=== PATIENT | female | born 1940 | race Caucasian/White ===

== ENCOUNTER 2024-02-11 10:48 | Outpatient (RCR) | payer MEDICARE, MEDICAID, SELFPAY | END 2024-02-22 23:59 | disposition home or self-care (01) | LOC: SCTC 10:48 | PROVIDERS: PCP Internal Medicine; Referring Provider Internal Medicine; Visit Provider Nurse Practitioner Family | DX: Z08 Encounter for follow-up examination after completed treatment for malignant neoplasm (principal); Z85.3 Personal history of malignant neoplasm of breast; R59.0 Localized enlarged lymph nodes | CPT/HCPCS: 99212; G0463 ==

== ENCOUNTER → 2024-04-21 | Outpatient (CLI) | payer MEDICARE, MEDICAID, SELFPAY ==
--- NOTE | 2024-04-21 15:05 | XR_ITS ---
Examination: Venous duplex lower extremity sonogram, bilateral. Date and time of exam: April 21, 2024 at 1531 hours INDICATIONS: Bilateral leg swelling and pain this week Technique: Multiple sonographic images of the deep venous system have been obtained. B-mode/2-D grayscale imaging of vascular structures and Doppler spectral analysis (waveforms) and color performed Both legs are examined. Findings: Deep venous systems do not demonstrate abnormal echogenicity. All visualized deep veins exhibit compressibility. All visualized deep veins exhibit augmentation. Impression: Negative for deep vein thrombosis
== END | disposition home or self-care (01) ==
PROVIDERS: PCP Internal Medicine; Referring Provider Internal Medicine; Visit Provider Internal Medicine
DX: R22.43 Localized swelling, mass and lump, lower limb, bilateral (principal)
CPT/HCPCS: 93970

== ENCOUNTER → 2024-05-20 | Outpatient (CLI) | payer MEDICARE, MEDICAID, SELFPAY ==
[2024-05-20 09:35] LABS: Basophils % (Auto) 0 % (0-2.5); Eosinophils # (Auto) 0.6 Thou/mm3 (0.0-0.5); Eosinophils % (Auto) 17 % (0-10); Hematocrit 30.7 % (36.0-46.0); Hemoglobin 9.8 g/dL (12.0-16.0); Immature Granulocytes % (Auto) 0 % (0-0); Immature Granulocytes Auto 0.01 Thou/mm3 (0.00-0.00); Lymphocytes # (Auto) 0.9 Thou/mm3 (1.0-4.8); Lymphocytes % (Auto) 29 % (10-50); Mean Corpuscular HGB Conc 31.9 g/dl (31.0-37.0); Mean Corpuscular Hemoglobin 27.8 pg (25.0-35.0); Mean Corpuscular Volume 87 fL (80-100); Monocytes # (Auto) 0.2 Thou/mm3 (0.0-0.8); Monocytes % (Auto) 6 % (0-12); Neutrophils # (Auto) 1.5 Thou/mm3 (1.8-7.7); Neutrophils % (Auto) 48 % (37-80); Nucleated Red Blood Cell % 0 /100 WBC (0); Platelet Count 155 Thou/mm3 (140-440); RDW Standard Deviation 49.3 fL (36.4-46.3); Red Blood Count 3.52 Miln/mm3 (4.00-5.20); White Blood Count 3.2 Thou/mm3 (3.6-11.0)
[2024-05-20 09:47] LABS: Alanine Aminotransferase 11 U/L (10-49); Albumin, Serum 3.5 gm/dL (3.4-4.8); Albumin/Globulin Ratio 1.3 (1.2-2.2); Alkaline Phosphatase 70 U/L (46-116); Anion Gap 11 (7-16); Aspartate Amino Transferase 20 U/L (0-34); BUN/Creatinine Ratio 22 Ratio (12-20); Bilirubin,Total 0.6 mg/dL (0.3-1.2); Blood Urea Nitrogen 35 mg/dL (9-23); Calcium 9.3 mg/dL (8.3-10.6); Calcium (Corrected) 9.7 mg/dL (8.5-10.1); Carbon Dioxide 27.9 mMol/L (20.0-31.0); Chloride 106 mMol/L (98-107); Creatinine (Component) 1.6 mg/dL (0.6-1.3); Globulin 2.8 gm/dL (2.3-3.5); Glucose 131 mg/dL (74-106); Osmolality,Calculated 298 (275-295); Potassium 3.6 mMol/L (3.4-5.1); Sodium 145 mMol/L (136-145); Total Protein 6.3 gm/dL (5.7-8.2); eGFR 32 See Note
== END | disposition home or self-care (01) ==
LOC: SCTO 08:25
PROVIDERS: PCP Internal Medicine; Referring Provider Nurse Practitioner Family; Visit Provider Nurse Practitioner Family
DX: C50.412 Malignant neoplasm of upper-outer quadrant of left female breast (principal)
CPT/HCPCS: 36415; 80053; 85025

== ENCOUNTER → 2024-05-25 | Outpatient (CLI) | payer MEDICARE, MEDICAID, SELFPAY ==
--- NOTE | 2024-05-25 09:47 | XR_ITS ---
Examination: CT soft tissue neck, without intravenous contrast. 2-D coronal reconstructions. 2-D sagittal reconstructions. Date and time of exam :May 25, 2024 11:20 AM INDICATIONS: Palpable lump in the right neck note is beginning 6 months ago, breast carcinoma diagnosis. CTDI: vol (mGy):13.4 DLP: (mGycm):358 Technique: 1.25 mm axial sections of the neck of the obtained. Coronal and sagittal reconstructions have been obtained. Low dose protocols were performed. One or more of the following dose reduction techniques were used; automated exposure control, adjustment of the mA and/or KV according to patient size, use of iterative reconstruction technique. Findings: Symmetrical optic globes Maxillary antra are clear Symmetrical nasopharynx oropharynx No laryngeal mass Right supraclavicular lymph nodes 15 mm Right lateral neck lymph node, 9 mm, external to the sternocleidomastoid, image 31 Bilateral tiny subcentimeter thyroid nodules Lung apices clear Normal epiglottis IMPRESSION: Right cervical lymph nodes as above, consider PET CT scan follow-up
== END | disposition home or self-care (01) ==
LOC: CCTX 09:38
PROVIDERS: PCP Internal Medicine; Referring Provider Nurse Practitioner Family; Visit Provider Nurse Practitioner Family
DX: C50.412 Malignant neoplasm of upper-outer quadrant of left female breast (principal)
CPT/HCPCS: 70490

== ENCOUNTER 2024-06-01 10:29 | Outpatient (RCR) | payer MEDICARE, MEDICAID, SELFPAY | END 2024-06-22 23:59 | disposition home or self-care (01) | LOC: SCTC 10:29 | PROVIDERS: PCP Internal Medicine; Referring Provider Internal Medicine; Visit Provider Nurse Practitioner Family | DX: Z71.2 Person consulting for explanation of examination or test findings (principal); R59.0 Localized enlarged lymph nodes; D64.9 Anemia, unspecified; N18.9 Chronic kidney disease, unspecified; Z85.3 Personal history of malignant neoplasm of breast | CPT/HCPCS: 99212; G0463 ==

== ENCOUNTER → 2024-07-08 | Outpatient (CLI) | payer MEDICARE, MEDICAID, SELFPAY ==
[2024-07-08 13:06] LABS: Basophils % (Auto) 0 % (0-2.5); Eosinophils # (Auto) 0.6 Thou/mm3 (0.0-0.5); Eosinophils % (Auto) 12 % (0-10); Hematocrit 29.9 % (36.0-46.0); Hemoglobin 9.3 g/dL (12.0-16.0); Immature Granulocytes % (Auto) 0 % (0-0); Immature Granulocytes Auto 0.01 Thou/mm3 (0.00-0.00); Lymphocytes % (Auto) 20 % (10-50); Mean Corpuscular HGB Conc 31.1 g/dl (31.0-37.0); Mean Corpuscular Volume 87 fL (80-100); Monocytes # (Auto) 0.4 Thou/mm3 (0.0-0.8); Monocytes % (Auto) 8 % (0-12); Neutrophils # (Auto) 2.9 Thou/mm3 (1.8-7.7); Neutrophils % (Auto) 60 % (37-80); Nucleated Red Blood Cell % 0 /100 WBC (0); Platelet Count 204 Thou/mm3 (140-440); RDW Standard Deviation 49.1 fL (36.4-46.3); Red Blood Count 3.45 Miln/mm3 (4.00-5.20); White Blood Count 4.8 Thou/mm3 (3.6-11.0)
[2024-07-08 13:32] LABS: Anion Gap 8 (7-16); BUN/Creatinine Ratio 21 Ratio (12-20); Blood Urea Nitrogen 37 mg/dL (9-23); Carbon Dioxide 28.6 mMol/L (20.0-31.0); Chloride 108 mMol/L (98-107); Creatinine (Component) 1.8 mg/dL (0.6-1.3); Glucose 127 mg/dL (74-106); Osmolality,Calculated 299 (275-295); Potassium 4.1 mMol/L (3.4-5.1); Sodium 145 mMol/L (136-145); eGFR 28 See Note
== END | disposition home or self-care (01) ==
LOC: COPL 12:36
PROVIDERS: PCP Internal Medicine; Referring Provider Podiatrist; Visit Provider Podiatrist
DX: R60.0 Localized edema (principal)
CPT/HCPCS: 36415; 80048; 85025

== ENCOUNTER → 2024-07-20 | Outpatient (CLI) | payer MEDICARE, MEDICAID, SELFPAY | END | disposition home or self-care (01) | PROVIDERS: PCP Internal Medicine; Referring Provider Internal Medicine; Visit Provider Student in an Organized Health Care Education/Training Program | DX: I96 Gangrene, not elsewhere classified (principal); I87.313 Chronic venous hypertension (idiopathic) with ulcer of bilateral lower extremity; L97.822 Non-pressure chronic ulcer of other part of left lower leg with fat layer exposed; L97.812 Non-pressure chronic ulcer of other part of right lower leg with fat layer exposed; I10 Essential (primary) hypertension; E11.40 Type 2 diabetes mellitus with diabetic neuropathy, unspecified | CPT/HCPCS: 97597; 99212; A9270; G0463 ==

== ENCOUNTER → 2024-07-23 | Outpatient (CLI) | payer MEDICARE, MEDICAID, SELFPAY | END | disposition home or self-care (01) | LOC: SWHD 09:56 | PROVIDERS: PCP Internal Medicine; Referring Provider Internal Medicine; Visit Provider Student in an Organized Health Care Education/Training Program | DX: I87.313 Chronic venous hypertension (idiopathic) with ulcer of bilateral lower extremity (principal); E11.621 Type 2 diabetes mellitus with foot ulcer; L97.822 Non-pressure chronic ulcer of other part of left lower leg with fat layer exposed; L97.812 Non-pressure chronic ulcer of other part of right lower leg with fat layer exposed; I10 Essential (primary) hypertension; E11.40 Type 2 diabetes mellitus with diabetic neuropathy, unspecified | CPT/HCPCS: 11042; A9270 ==

== ENCOUNTER → 2024-07-31 | Outpatient (CLI) | payer MEDICARE, MEDICAID, SELFPAY | END | disposition home or self-care (01) | LOC: SWHD 14:53 | PROVIDERS: PCP Internal Medicine; Referring Provider Internal Medicine; Visit Provider Surgery | DX: I96 Gangrene, not elsewhere classified (principal); I87.313 Chronic venous hypertension (idiopathic) with ulcer of bilateral lower extremity; E11.621 Type 2 diabetes mellitus with foot ulcer; L97.822 Non-pressure chronic ulcer of other part of left lower leg with fat layer exposed; L97.812 Non-pressure chronic ulcer of other part of right lower leg with fat layer exposed; I73.9 Peripheral vascular disease, unspecified; I10 Essential (primary) hypertension; E11.40 Type 2 diabetes mellitus with diabetic neuropathy, unspecified | CPT/HCPCS: 99214; A9270; G0463 ==

== ENCOUNTER → 2024-08-03 | Outpatient (CLI) | payer MEDICARE, MEDICAID, SELFPAY | END | disposition home or self-care (01) | LOC: SWHD 14:49 | PROVIDERS: PCP Internal Medicine; Referring Provider Internal Medicine | DX: I96 Gangrene, not elsewhere classified (principal); I87.313 Chronic venous hypertension (idiopathic) with ulcer of bilateral lower extremity; E11.621 Type 2 diabetes mellitus with foot ulcer; L97.822 Non-pressure chronic ulcer of other part of left lower leg with fat layer exposed; L97.812 Non-pressure chronic ulcer of other part of right lower leg with fat layer exposed; I73.9 Peripheral vascular disease, unspecified; I10 Essential (primary) hypertension; E11.40 Type 2 diabetes mellitus with diabetic neuropathy, unspecified | CPT/HCPCS: 11042; A9270 ==

== ENCOUNTER 2024-08-10 15:41 | Emergency (ER) | payer MEDICARE, MEDICAID, SELFPAY ==
[2024-08-10 16:20] VITALS: BP 177/98; PULSE 65; RESP 20; TEMP 36.2; O2SAT 95
--- NOTE | 2024-08-10 16:30 | PD.EDRME ---
Rapid Medical Screening Exam [facility] Arrival date/time: 08/10/24 15:41 84-year-old female with a history of hypertension, presents to the emergency room with a chief complaint of bilateral lower extremity wounds. Patient was sent over by the wound care clinic for wound debridement as the patient was having too much pain for them to do it in office According to granddaughter she was told the wound is gangrenous and seeping. I have greeted and performed a focused initial assessment of this patient. A comprehensive ED assessment and evaluation of the patient, analysis of all test results, and completion of the medical decision making process will be conducted by additional ED providers. Chief Complaint: Wound/Laceration Time Seen by Provider: 08/10/24 15:46 Vital signs: Vital Signs Temperature 97.2 F 08/10/24 16:20 Pulse Rate 65 08/10/24 16:20 Respiratory Rate 20 08/10/24 16:20 Blood Pressure 177/98 H 08/10/24 16:20 Pulse Oximetry (%) 95 08/10/24 16:20 Oxygen Delivery Method Room Air 08/10/24 16:20 Vital signs reviewed by provider: Yes
--- NOTE | 2024-08-10 16:37 | XR_ITS ---
Examination: Left lower leg 2 views TECHNIQUE: AP lateral left tibia-fibula 2 views Date and time: July 31, 2024 1714 hours INDICATIONS: Swelling and pain involving the lower leg nonhealing wound lateral lower leg FINDINGS: Soft tissue defect lateral lower leg adjacent to the fibular shaft No fracture Negative for osteomyelitis IMPRESSION: No cortical bone destruction
--- NOTE | 2024-08-10 20:44 | PD.EDRME ---
Rapid Medical Screening Exam [facility] Arrival date/time: 08/10/24 15:41 08/10/24 15:41 84-year-old female with a history of hypertension, presents to the emergency room with a chief complaint of bilateral lower extremity wounds. Patient was sent over by the wound care clinic for wound debridement as the patient was having too much pain for them to do it in office According to granddaughter she was told the wound is gangrenous and seeping. I have greeted and performed a focused initial assessment of this patient. A comprehensive ED assessment and evaluation of the patient, analysis of all test results, and completion of the medical decision making process will be conducted by additional ED providers. Chief Complaint: Wound/Laceration Time Seen by Provider: 08/10/24 15:46 Vital signs: Vital Signs Temperature 97.2 F 08/10/24 16:20 Pulse Rate 65 08/10/24 16:20 Respiratory Rate 20 08/10/24 16:20 Blood Pressure 177/98 H 08/10/24 16:20 Pulse Oximetry (%) 95 08/10/24 16:20 Oxygen Delivery Method Room Air 08/10/24 16:20 RME Narrative: 08/10/24 15:41 84-year-old female with a history of hypertension, presents to the emergency room with a chief complaint of bilateral lower extremity wounds. Patient was sent over by the wound care clinic for wound debridement as the patient was having too much pain for them to do it in office According to granddaughter she was told the wound is gangrenous and seeping. I have greeted and performed a focused initial assessment of this patient. A comprehensive ED assessment and evaluation of the patient, analysis of all test results, and completion of the medical decision making process will be conducted by additional ED providers.
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
[2024-08-10 23:32] VITALS: BP 219/109; PULSE 68; RESP 16; O2SAT 94
[2024-08-11] VITALS (7 sets, daily range): BP systolic 136–213; BP diastolic 65–90; PULSE 64–74; RESP 13–19; TEMP 36.4–36.6; O2SAT 95–97
[2024-08-11] MEDS: HYDROcodone/APAP 10/325 TAB PO (01:16)
[2024-08-11] MEDS: cloNIDine HCL 0.1 MG TABLET PO (04:05)
--- NOTE | 2024-08-11 06:37 | PD.EDADDENDU ---
Emergency Room Addendum <Xiomara Mcmahan - Last Filed: 08/11/24 11:06> Addendum Narrative: 0600: Care assumed from Dr. Steiner, the previous shift emergency physician. Past medical, surgical, social and family history reviewed. Vitals and home medications reviewed. I will assume the care of the patient at this time, pending wound clinic consult. Please refer to the emergency department record for history and examination from initial visit.? Physical exam by me shows patient under no acute distress at this time. 0940: Wound clinic consulted. 1045: Wound clinic called back and they recommend to change the dressing and follow up tomorrow as an outpatient. They can be discharged. <Wayne Delgado MD - Last Filed: 08/11/24 12:07> Addendum Narrative: 0600: Care assumed from Dr. Steiner, the previous shift emergency physician. Past medical, surgical, social and family history reviewed. Vitals and home medications reviewed. I will assume the care of the patient at this time, pending wound clinic consult. Please refer to the emergency department record for history and examination from initial visit.? Physical exam by me shows patient under no acute distress at this time. 0940: Wound clinic consulted. 1045: Wound clinic called back and they recommend to change the dressing and follow up tomorrow as an outpatient. They can be discharged. I went in the room and unwrapped both legs and evaluated both wounds and there is lots of exudative discharge black discoloration and note this wound was already redressed prior to my evaluation. After evaluating the wounds I contacted the doctor at the wound clinic for the hospital and discussed the case and she reviewed some pictures of the wounds and agree that the wound was much better since the more aggressive dressing changes that were done here in the ER. Had a long discussion with the daughter and the patient and the doctor as the patient has not been tolerating the dressing changes at the clinic and discussed strategies and the best thought at this time is to go to 3 times a day wet-to-dry dressing change and take some pain medicine prior to the visit and if the regular medicine is not working they can discuss increasing this to a higher dose of hydrocodone or something else. She is already taking gabapentin for her neuropathy. Daughter was instructed 100 wet-to-dry dressing changes given some basic supplies and we contacted the wound clinic again and they are going to get an appointment in the next day and do 3 times a day daily wet-to-dry and reevaluate the effectiveness. They know they can return there is any redness extending or any infection but at this time there is no surrounding redness extending redness or cellulitis is seen at this time. And noticed both feet have palpable palpable pulses and are warm and do not believe there is any vascular insufficiency at this time arterial tello but I do suspect there is venous insufficiency issues Results <Xiomara Mcmahan - Last Filed: 08/11/24 11:06> Objective Imaging: Procedure(s): XR tibia fibula BI 2V Accession Number(s): [id number] cc: Zeus Nguyen MD; Facundo Duenas; Deangelo Thomas MD~ Examination: Left lower leg 2 views TECHNIQUE: AP lateral left tibia-fibula 2 views Date and time: July 31, 2024 1714 hours INDICATIONS: Swelling and pain involving the lower leg nonhealing wound lateral lower leg FINDINGS: Soft tissue defect lateral lower leg adjacent to the fibular shaft No fracture Negative for osteomyelitis IMPRESSION: No cortical bone destruction Dictated By: Deangelo Thomas MD
--- NOTE | 2024-08-11 10:50 | PC.NURSE ---
DRESSINGS TO WOUNDS TO BILATERAL LEGS CHANGED AT THIS TIME. DR MCDOWELL AT BEDSIDE AND MYSELF EXPLAINED TO PT'S GRANDDAUGHTER HOW TO CHANGE DRESSINGS AND TO CHANGE THEM 3 TIMES A DAY TO ASSIST WITH HEALING. GRANDDAUGHTER VERBALIZED UNDERSTANDING. DR MENON EXPLAINED THAT HE SPOKE TO WOUND CARE DOCTOR REGARDING CONTINUED CARE AND FOLLOW UP
== END 2024-08-11 12:15 | disposition home or self-care (01) ==
PROVIDERS: Emergency Provider Emergency Medicine; PCP Internal Medicine
DX: S81.802A Unspecified open wound, left lower leg, initial encounter (principal); S81.801A Unspecified open wound, right lower leg, initial encounter; X58.XXXA Exposure to other specified factors, initial encounter
CPT/HCPCS: 73590; 99283; A9270

== ENCOUNTER → 2024-08-10 | Outpatient (CLI) | payer MEDICARE, MEDICAID, SELFPAY ==
[2024-08-10 11:28] LABS: Basophils % (Auto) 0 % (0-2.5); Eosinophils # (Auto) 0.2 Thou/mm3 (0.0-0.5); Eosinophils % (Auto) 3 % (0-10); Hematocrit 28.3 % (36.0-46.0); Immature Granulocytes % (Auto) 0 % (0-0); Immature Granulocytes Auto 0.03 Thou/mm3 (0.00-0.00); Lymphocytes # (Auto) 1.3 Thou/mm3 (1.0-4.8); Lymphocytes % (Auto) 16 % (10-50); Mean Corpuscular HGB Conc 30.4 g/dl (31.0-37.0); Mean Corpuscular Hemoglobin 26.1 pg (25.0-35.0); Mean Corpuscular Volume 86 fL (80-100); Monocytes # (Auto) 0.7 Thou/mm3 (0.0-0.8); Monocytes % (Auto) 8 % (0-12); Neutrophils # (Auto) 5.9 Thou/mm3 (1.8-7.7); Neutrophils % (Auto) 72 % (37-80); Nucleated Red Blood Cell % 0 /100 WBC (0); Platelet Count 247 Thou/mm3 (140-440); RDW Standard Deviation 46.8 fL (36.4-46.3); White Blood Count 8.1 Thou/mm3 (3.6-11.0)
[2024-08-10 11:39] LABS: Anion Gap 10 (7-16); BUN/Creatinine Ratio 20 Ratio (12-20); Blood Urea Nitrogen 39 mg/dL (9-23); Calcium 8.7 mg/dL (8.3-10.6); Carbon Dioxide 27.1 mMol/L (20.0-31.0); Chloride 105 mMol/L (98-107); Glucose 96 mg/dL (74-106); Osmolality,Calculated 292 (275-295); Potassium 3.8 mMol/L (3.4-5.1); Sodium 142 mMol/L (136-145); eGFR 24 See Note
[2024-08-10 11:41] LABS: Hemoglobin 8.6 g/dL (12.0-16.0)
[2024-08-10 12:32] LABS: INR 1.1 (0.9-1.3); Partial Thromboplastin Time 31.9 Seconds (22.0-36.0); Prothrombin Time 11.5 Seconds (9.0-12.2)
== END | disposition home or self-care (01) ==
PROVIDERS: PCP Internal Medicine; Referring Provider Internal Medicine; Visit Provider Internal Medicine
DX: I25.10 Atherosclerotic heart disease of native coronary artery without angina pectoris (principal); I48.91 Unspecified atrial fibrillation
CPT/HCPCS: 36415; 80048; 85025; 85610; 85730

== ENCOUNTER → 2024-08-10 | Outpatient (CLI) | payer MEDICARE, MEDICAID, SELFPAY | END | disposition home or self-care (01) | PROVIDERS: PCP Internal Medicine; Referring Provider Internal Medicine; Visit Provider Student in an Organized Health Care Education/Training Program | DX: I96 Gangrene, not elsewhere classified (principal); I87.313 Chronic venous hypertension (idiopathic) with ulcer of bilateral lower extremity; E11.621 Type 2 diabetes mellitus with foot ulcer; L97.822 Non-pressure chronic ulcer of other part of left lower leg with fat layer exposed; L97.812 Non-pressure chronic ulcer of other part of right lower leg with fat layer exposed; I10 Essential (primary) hypertension; E11.40 Type 2 diabetes mellitus with diabetic neuropathy, unspecified | CPT/HCPCS: 97597; 97598 ×2; A9270 ==

== ENCOUNTER 2024-08-12 15:47 | Inpatient (IN) | payer MEDICARE, MEDICAID, SELFPAY ==
[2024-08-12] VITALS (7 sets, daily range): BP systolic 130–186; BP diastolic 61–104; PULSE 62–75; RESP 15–18; TEMP 36.4–36.8; O2SAT 86–98; BMI 26.9; BMI 26.3
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
--- NOTE | 2024-08-12 16:27 | PC.NURSE ---
PT HUGO FROM CLINIC, WAS GETTING AN ANGIO WHEN A PUNCTURE WAS NOTICED PER EMS, CLINIC CALLED AMBULANCE FOR PT TO COME TO ED FOR EVALUATION. PT ARRIVES WITH [facility] IN PLACE. EMS REPORTS WHEN THEY ARRIVED ON SCENE PT WAS LAYING IN BED EATING A FALAFFLE. PT HAS BEEN TO ED PAST 2 DAYS. ATTEMPTED TO CALL GRANDDAUGHTER WALLACE AT PTS REQUEST, NO ANSWER AT THIS TIME. AWAITING PROVIDER EVALUATION
[2024-08-12 16:38] LABS: Basophils % (Auto) 0 % (0-2.5); Eosinophils # (Auto) 0.2 Thou/mm3 (0.0-0.5); Eosinophils % (Auto) 3 % (0-10); Hematocrit 27.2 % (36.0-46.0); Hemoglobin 8.9 g/dL (12.0-16.0); Immature Granulocytes % (Auto) 0 % (0-0); Immature Granulocytes Auto 0.02 Thou/mm3 (0.00-0.00); Lymphocytes # (Auto) 1.1 Thou/mm3 (1.0-4.8); Lymphocytes % (Auto) 18 % (10-50); Mean Corpuscular HGB Conc 32.7 g/dl (31.0-37.0); Mean Corpuscular Hemoglobin 26.4 pg (25.0-35.0); Mean Corpuscular Volume 81 fL (80-100); Monocytes # (Auto) 0.6 Thou/mm3 (0.0-0.8); Monocytes % (Auto) 10 % (0-12); Neutrophils % (Auto) 68 % (37-80); Nucleated Red Blood Cell % 0 /100 WBC (0); Platelet Count 306 Thou/mm3 (140-440); RDW Standard Deviation 44.2 fL (36.4-46.3); Red Blood Count 3.37 Miln/mm3 (4.00-5.20); White Blood Count 5.9 Thou/mm3 (3.6-11.0)
[2024-08-12 16:50] LABS: INR 1.1 (0.9-1.3); Prothrombin Time 11.7 Seconds (9.0-12.2)
[2024-08-12] MEDS: MORPHINE SULF INJ 10 MG/ML VIAL 2 MG IVP (16:50)
[2024-08-12 17:07] LABS: Alanine Aminotransferase < 7 U/L (10-49); Albumin, Serum 3.6 gm/dL (3.4-4.8); Albumin/Globulin Ratio 1.1 (1.2-2.2); Alkaline Phosphatase 76 U/L (46-116); Anion Gap 11 (7-16); Aspartate Amino Transferase 14 U/L (0-34); BUN/Creatinine Ratio 19 Ratio (12-20); Bilirubin,Total 0.5 mg/dL (0.3-1.2); Blood Urea Nitrogen 34 mg/dL (9-23); Calcium 8.4 mg/dL (8.3-10.6); Calcium (Corrected) 8.7 mg/dL (8.5-10.1); Chloride 106 mMol/L (98-107); Creatinine (Component) 1.8 mg/dL (0.6-1.3); Estimated Creatinine Clearance 24.6 mL/min (>60); Globulin 3.2 gm/dL (2.3-3.5); Glucose 165 mg/dL (74-106); Osmolality,Calculated 296 (275-295); Potassium 3.6 mMol/L (3.4-5.1); Procalcitonin 0.18 ng/ml (0.0-0.49); Sodium 143 mMol/L (136-145); Total Protein 6.8 gm/dL (5.7-8.2); eGFR 28 See Note
[2024-08-12 17:24] LABS: Sed Rate (ESR) 82 mm/hr (0-30)
--- NOTE | 2024-08-12 18:32 | XR_ITS ---
Examination: CT right lower extremity, without contrast. 2-D sagittal reconstructions. 2-D coronal reconstructions. 3-D reconstructions. Date and time of exam:August 12, 20242017 hours INDICATIONS: Right lower extremity redness swelling and pain history CTDI: vol (mGy):11.7 DLP: (mGycm):1283 Technique: Multiple 1.25 mm axial sections of the right lower extremity without intravenous contrast have been obtained. 2-D sagittal and coronal reconstructions have been obtained. 3-D reconstructions have been obtained. Low dose protocols were performed. One or more of the following dose reduction techniques were used; automated exposure control, adjustment of the mA and/or KV according to patient size, use of iterative reconstruction technique. 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
--- NOTE | 2024-08-12 18:32 | XR_ITS ---
Examination: CT left lower extremity, without contrast. 2-D sagittal reconstructions. 2-D coronal reconstructions. 3-D reconstructions. Date and time of exam:August 12, 20242024 hours INDICATIONS: Redness swelling and pain involving the left lower extremity CTDI: vol (mGy):11.7 DLP: (mGycm):1285 Technique: Multiple 1.25 mm axial sections of the left lower extremity without intravenous contrast have been obtained. 2-D sagittal and coronal reconstructions have been obtained. 3-D reconstructions have been obtained. Low dose protocols were performed. One or more of the following dose reduction techniques were used; automated exposure control, adjustment of the mA and/or KV according to patient size, use of iterative reconstruction technique. Findings: Enlargement of the iliac is muscle in the pelvis extending to the vastus intermedius muscle in the thigh No active femoral shaft intact Small left knee effusion Cellulitis in the subcutaneous fatty tissue involving the distal third of the lower leg with soft tissue defects No taina cortical bone destruction involving the tibia or fibula. IMPRESSION: Recommend MRI pelvis follow-up to exclude infection involving the left iliac is muscle Cellulitis in the lower leg but no taina cortical bone destruction and no fluid-filled abscess
--- NOTE | 2024-08-12 19:05 | PD.RESHP ---
Documentation for date of: 08/12/24 HPI History of Present Illness History of present illness: Marisol is a 84 y/o female with PMHx of HTN, HLD, chronic venous ulcers, ?PAD, CKD stage IV who comes for an evaluation of severe lower extremity pain after having cardiac angiogram of the lower extremities by Dr. 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 Patient reports that earlier today she had CT angio of the lower extremities and was in extreme pain and was recommended to come to the ED as she was experiencing extreme pain afterwards. For the past 4 months she has been developing chronic venous ulcers. They have been worsening over the past month and she has been seeing wound care by them. Patient's family says that they have been getting the dressings changed however the wounds continue to be worsening. She said that she was having a debridement however did not complete the debridement as she is and experience pain despite anesthesia. Patient was also taking anticoagulation for some reason as the patient does not know. Patient denies any recent travel, and walks with a walker. She denies any trauma to the area. No other complaints at this time. ED course Patient arrived to the ED with a temperature of 97.6, heart rate of 64, respiratory rate of 18, blood pressure 176/72, saturating 96% on room air. Patient was worked up was found to have a sodium 143, potassium 3.6, BUN/creatinine of 34 and 1.8, 65, ESR 82, GFR 28, lactate 1.0, white count 6, hemoglobin 9. Cardiology was consulted open given mended further admission. Patient was given 2 mg of morphine. Medicine was consulted and patient was admitted to floors. PMHx: As above Surgeries: Meds: Clonidine 0.1 mg daily, glipizide and metformin, losartan?hydrochlorothiazide?25, Coreg 25, aspirin 81, hydralazine 100 mg twice daily, gabapentin 100 mg 3 times daily Allergies: Penicillins none number of other allergies that appear to be food and environment related Family Hx: Family history limited at this time Social Hx:From [place], Moved to [place] during her 20s. Has never been a heavy drinker, no history of smoking, no history of oral or IV drug use. Walks with a walker. No recent travel. Lives alone, has her daughter and granddaughter coming throughout the day to take care of her Review of Systems Review of Systems Narrative Review of Systems: Constitutional: No fever, chills, fatigue, weakness, weight loss HEENT: No eye pain, vision loss, ear pain, hearing loss, dysphagia, Cardiovascular: No chest pain, palpitations, edema, pain with walking Respiratory: No cough, shortness of breath, wheezing GI: No NVD, abdominal pain, constipation, blood in stool, loss of appetite, heartburn Extremities: No presence of pitting edema MSK: No back pain, + pain in lower extremities bilat Neuro: No dizziness, numbness, weakness, headaches, seizures, tremors Psych: No anxiety, depression Exam Vital Signs Temp Pulse Resp BP Pulse Ox O2 Del Method 97.5 F 68 18 140/104 H 97 Room Air 08/12/24 18:39 08/12/24 18:39 08/12/24 18:39 08/12/24 18:39 08/12/24 18:39 08/12/24 18:39 Narrative Exam General: AAOx3, in mild distress, frequently screams of pain, elderly woman HEENT: Moist mucous membranes, conjunctiva clear, EOMI, PERRLA, does not have her dentures on Cardiovascular: S1, S2, radial pulses +2 bilat, RRR, possible ejection systolic murmur indicative as it radiates to the carotids Pulmonary: CTAB bilat no cough, no wheezing GI: No tenderness to light or deep palpitation, no guarding, rigidity, rebound tenderness or distension Extremities: Bandages present over her wounds of her lower extremities, extremely tender to palpation, some pus draining, very malodorous Neuro: AAOx3, limited exam as patient is in pain Psych: Able to cooperate Results: Labs 08/13/24 16:00 08/13/24 04:54 Labs: Short CBC 08/12/24 Range/Units 16:26 WBC 5.9 (3.6-11.0) Thou/mm3 Hgb 8.9 L (12.0-16.0) g/dL Hct 27.2 L (36.0-46.0) % Plt Count 306 D (140-440) Thou/mm3 BMP 08/12/24 16:26 Sodium 143 Potassium 3.6 Chloride 106 Carbon Dioxide 26.0 BUN 34 H Creatinine 1.8 H Glucose 165 H D Calcium 8.4 Liver Function 08/12/24 Range/Units 16:26 Total Bilirubin 0.5 (0.3-1.2) mg/dL AST 14 (0-34) U/L ALT < 7 L (10-49) U/L Alkaline Phosphatase 76 (46-116) U/L Albumin 3.6 (3.4-4.8) gm/dL Quality Measures Quality Measures none Advance care planning discussed with:: patient Medications Home Medications and Allergies Home Medications ?Medication ?Instructions ?Recorded ?Confirmed ?Type hydrochlorothiazide 25 mg tablet 100 mg PO BID #0 tabs 01/25/16 08/13/24 History metoprolol tartrate 50 mg tablet 50 mg PO BID #0 tabs 01/25/16 08/13/24 History clonidine HCl 0.1 mg tablet 0.1 mg PO HS 09/18/17 08/13/24 History vit C,L-Aj-dlygyf-lutein-zeaxan 60 1 tab PO QDAY 09/18/17 08/13/24 History mg-13.5 mg-15 mg-2 mg-6 mg capsule (Ocuvite Lutein and Zeaxanthin) amlodipine 5 mg-benazepril 40 mg 1 cap PO QDAY 06/06/18 08/13/24 History capsule glipizide 5 mg-metformin 500 mg 1 tab PO BID 06/06/18 08/13/24 History tablet aspirin 81 mg chewable tablet 81 mg PO QDAY 08/10/24 08/13/24 History carvedilol 25 mg tablet (Coreg) 25 mg PO BID 08/10/24 08/13/24 History gabapentin 100 mg capsule 100 mg PO TID 08/10/24 08/13/24 History hydralazine 100 mg tablet 100 mg PO Q12H 08/13/24 08/13/24 History losartan 100 1 tab PO DAILY 08/13/24 08/13/24 History mg-hydrochlorothiazide 25 mg tablet Allergies Allergy/AdvReac Type Severity Reaction Status Date / Time bee venom protein (honey bee) Allergy Severe Anaphylaxis Verified 08/10/24 15:42 shock nabumetone Allergy Severe Rash Verified 08/10/24 15:42 nut - unspecified Allergy Severe Anaphylaxis Verified 08/10/24 15:42 Penicillins Allergy Severe Rash Verified 08/10/24 15:42 Pork/Porcine Containing Allergy Severe Rash Verified 08/10/24 15:42 Products shellfish derived Allergy Severe Anaphylaxis Verified 08/10/24 15:42 Tcafscb-YDY-SlN Reductase Allergy Severe MUSCLE Verified 08/10/24 15:42 Inhibitor (Wskcjhh-Okh-Exp WEAKNESS Reductase Inhibitor) turkey Allergy Severe Anaphylaxis Verified 08/10/24 15:42 feathers Allergy Mild Watery Eye Verified 08/10/24 15:42 Visit Medications Acetaminophen (Acetaminophen 325 Mg Tablet) 650 mg PO Q6H PRN PRN Reason: Fever >100 or pain 1-3 Stop: 09/11/24 18:20 Hydrocodone Bitart/Acetaminophen (Hydrocodone/Apap 5/325 Tablet) 1 tab PO Q4HR PRN PRN Reason: PAIN SCALE 4-6 (Moderate Stop: 08/17/24 18:26 Carvedilol (Carvedilol 12.5 Mg Tablet) 25 mg PO BID [facility] Stop: 09/11/24 20:59 Clonidine (Clonidine Hcl 0.1 Mg Tablet) 0.1 mg PO QDAY [facility] Stop: 09/12/24 08:59 Dextrose (Dextrose 50%-Water Inj 50 Ml Syringe) 25 ml IV Q15MIN PRN PRN Reason: BG 50-70 responsive npo pt Stop: 09/11/24 18:26 Dextrose (Dextrose 50%-Water Inj 50 Ml Syringe) 50 ml IV Q15MIN PRN PRN Reason: BG <50 OR BG <70 & pt unresponsive Stop: 09/11/24 18:26 Gabapentin (Gabapentin 100 Mg Capsule) 100 mg PO TID [facility] Stop: 09/11/24 21:59 Glucagon (Glucagon Inj 1 Mg Vial) 1 mg IM Q15MIN PRN PRN Reason: BG <70, and no IV access Heparin Sodium (Porcine) (Heparin Sod Inj 5000 Unit/Ml Vial) 5,000 unit SC Q12H [facility] Stop: 08/27/24 08:59 Hydralazine HCl (Hydralazine Hcl 25 Mg Tablet) 100 mg PO BID [facility] Stop: 09/12/24 08:59 Hydromorphone HCl (Hydromorphone Inj 2 Mg/Ml Vial) 0.25 mg IVP Q4H PRN PRN Reason: Breakthrough Pain or pain 7-10 Stop: 08/17/24 18:26 Ceftriaxone Sodium 1 mg/ (Sodium Chloride) 50 mls @ 100 mls/hr IV QDAY [facility] Stop: 08/19/24 18:30 Vancomycin HCl 750 mg/Vancomycin HCl 500 mg/ Sodium Chloride 250 mls @ 120 mls/hr IV X1 ONE Stop: 08/12/24 21:19 Insulin Human Lispro (Insulin Lispro (Admelog) 1 Unit/0.01 Ml Unit) 0 unit SC AC [facility]; Protocol Stop: 09/12/24 07:29 Pharmacy Consult (Vancomycin Pharmacy To Dose 1 Each Each) 1 each IV QDAY [facility] Stop: 09/11/24 18:44 Pharmacy Consult (Pharmacy Renal Dose Adjustment 1 Ea) 1 each XX PRN PRN PRN Reason: CONSULT Stop: 09/11/24 18:29 Discontinued Medications Morphine Sulfate (Morphine Sulf Inj 10 Mg/Ml Vial) 2 mg IVP X1 ONE Stop: 08/12/24 16:40 Last Admin: 08/12/24 16:50 Dose: 2 mg Assessment & Plan Plan Assessment Marisol is a 84 y/o female with PMHx of HTN, HLD, chronic venous ulcers, ?PAD, CKD stage IV who is admitted for sepsis rule out secondary to chronic venous ulcers. #Chronic venous ulcers #Sepsis rule out Sepsis alert was not initiated No evidence of endorgan damage at this time Patient sees wound care routinely for chronic venous ulcers We have suspicion for infection as patient is screaming of pain with the slightest touch of lower extremity Patient recently got CT angio lower extremities with possible stenting by Dr. Armstrong Plan: ? General Surgery consulted, appreciate recs ? Follow-up blood cultures ? Pharmacy to dose vancomycin ? MRSA screen ? Rocephin 1 g IV daily ? Referral to wound care ? Wound care ? CT lower extremities bilaterally with no contrast ? Multimodal pain management #CKD stage IV Creatinine 1.8 today, baseline appears to be 1.6 Plan: ? Avoid nephrotoxic agents ? Renally dose medicines #Hypertensive urgency #Hypertension #Hyperlipidemia Chronic Patient does not take statin due to possible allergy Patient appears to have endorgan damage at this time Plan: ? Resumed home blood pressure medicines including Coreg, hydralazine and clonidine ? Do not correct systolic blood pressure more than 25% within the first 24 hours ? Labetalol 10 mg IV x 1 ? Labetalol 10 mg every 2 hours as needed for SBP above 180 #Vdc-izgynof-rmejrtusm type II diabetes mellitus Previous A1c of 6 in 2023 Plan: ? Sliding scale insulin ? Hypoglycemic protocol in place ? Blood sugar checks with meals #Normocytic anemia Hemoglobin 8.9, MCV 81 Plan: ? Trend CBC ? Iron studies panel ? Peripheral blood smear ? Reticulocyte count ? Transfusion protocol hemoglobin below 7 ? Avoiding any NSAIDs ? Protonix 40 mg daily #Health Maintenance Disposition: Med telemetry DVT prophylaxis: Heparin Subq GI prophylaxis: Protonix Diet: Pending Nurse Swallow CODE STATUS: Full Patient seen and care discussed with my attending physician, Dr. Anju Stone, PGY-1 Attending Provider Attestation/Addendum I have discussed and was present for the essential components of the history, physical examination, diagnosis, and treatment plan with the resident. I agree with the patient's care as documented by the resident and amended herein by me. Humble Rene DO. Although this document has been carefully reviewed, there may still be some phonetic and other typographical errors. These errors are purely grammatical due to imperfections in the software program and should not be construed in any way to compromise the substance of the patient's medical care during this visit.
[2024-08-12] MEDS: ONDANSETRON INJ 2 MG/ML INJ 2 ML 4 MG IV (19:14)
[2024-08-12] MEDS: HYDROmorphone INJ 2 MG/ML VIAL 0.25 MG IVP (19:15)
[2024-08-12] MEDS: CEFTRIAXONE IV (19:56)
[2024-08-12] MEDS: SODIUM CHLORIDE 0.9% IV ×2 (19:56→20:39)
[2024-08-12] MEDS: carVEDILOL 12.5 MG TABLET 25 MG PO (20:35)
[2024-08-12] MEDS: VANCOMYCIN IV (20:39)
[2024-08-12] MEDS: GABAPENTIN 100 MG CAPSULE PO (22:42)
[2024-08-12] MEDS: HYDROcodone/APAP 5/325 TABLET 1 TAB PO (22:57)
[2024-08-13] VITALS (12 sets, daily range): BP systolic 102–157; BP diastolic 43–78; PULSE 58–90; RESP 16–22; TEMP 36.3–37.1; O2SAT 96–98; BMI 26.2
[2024-08-13] MEDS: HYDROcodone/APAP 5/325 TABLET 1 TAB PO ×3 (03:10→21:06)
[2024-08-13] MEDS: GABAPENTIN 100 MG CAPSULE PO ×3 (05:39→21:37)
[2024-08-13 05:54] LABS: Basophils % (Auto) 0 % (0-2.5); Eosinophils # (Auto) 0.1 Thou/mm3 (0.0-0.5); Eosinophils % (Auto) 1 % (0-10); Immature Granulocytes % (Auto) 0 % (0-0); Immature Granulocytes Auto 0.02 Thou/mm3 (0.00-0.00); Immature Reticulocyte Fraction 27.6 % (3.0-15.9); Lymphocytes # (Auto) 1.3 Thou/mm3 (1.0-4.8); Lymphocytes % (Auto) 16 % (10-50); Mean Corpuscular HGB Conc 31.1 g/dl (31.0-37.0); Mean Corpuscular Hemoglobin 26.4 pg (25.0-35.0); Mean Corpuscular Volume 85 fL (80-100); Monocytes # (Auto) 0.6 Thou/mm3 (0.0-0.8); Monocytes % (Auto) 7 % (0-12); Neutrophils # (Auto) 6.3 Thou/mm3 (1.8-7.7); Neutrophils % (Auto) 76 % (37-80); Nucleated Red Blood Cell % 0 /100 WBC (0); Platelet Count 173 Thou/mm3 (140-440); RDW Standard Deviation 46.5 fL (36.4-46.3); Red Blood Count 2.31 Miln/mm3 (4.00-5.20); Reticulocyte % (Auto) 1.8 % (0.5-1.5); White Blood Count 8.4 Thou/mm3 (3.6-11.0)
[2024-08-13 06:01] LABS: INR 1.1 (0.9-1.3); Partial Thromboplastin Time 28.1 Seconds (22.0-36.0); Prothrombin Time 11.9 Seconds (9.0-12.2)
[2024-08-13 06:04] LABS: Ferritin 48 ng/mL (7.3-270.7); Iron 6 mcg/dL (50-170); Percent Iron Saturation 2 % (20-55); Total Iron Binding Capacity 206 mcg/dL (250-425); Unsaturated Iron Binding 200 (225-295)
[2024-08-13 06:05] LABS: Hemoglobin 6.1 g/dL (12.0-16.0)
[2024-08-13 06:06] LABS: Hematocrit 19.6 % (36.0-46.0)
[2024-08-13 06:18] LABS: Alanine Aminotransferase < 7 U/L (10-49); Albumin, Serum 2.8 gm/dL (3.4-4.8); Albumin/Globulin Ratio 1.1 (1.2-2.2); Alkaline Phosphatase 59 U/L (46-116); Anion Gap 8 (7-16); Aspartate Amino Transferase 11 U/L (0-34); BUN/Creatinine Ratio 19 Ratio (12-20); Bilirubin,Total 0.2 mg/dL (0.3-1.2); Blood Urea Nitrogen 38 mg/dL (9-23); Calcium 7.7 mg/dL (8.3-10.6); Calcium (Corrected) 8.7 mg/dL (8.5-10.1); Carbon Dioxide 26.9 mMol/L (20.0-31.0); Cardiac Risk Estimate 6.1 RATIO (3.7-5.6); Chloride 105 mMol/L (98-107); Cholesterol 121 mg/dL (132-200); Estimated Creatinine Clearance 21.9 mL/min (>60); Globulin 2.6 gm/dL (2.3-3.5); Glucose 257 mg/dL (74-106); HDL Cholesterol 20 mg/dL (40-60); LDL Cholesterol,Calculated 71 mg/dL (0-130); Magnesium 1.5 mg/dL (1.6-2.6); Osmolality,Calculated 297 (275-295); Potassium 4.1 mMol/L (3.4-5.1); Sodium 140 mMol/L (136-145); Thyroid Stimulating Hormone 1.06 uIU/mL (0.55-4.78); Total Protein 5.4 gm/dL (5.7-8.2); Triglycerides 150 mg/dL (30-150); eGFR 24 See Note
[2024-08-13 07:01] LABS: Phosphorous 5.1 mg/dL (2.4-5.1)
[2024-08-13] MEDS: INSULIN LISPRO (AdmeLOG) 1 UNIT/0.01 ML UNIT SC ×3 (07:52→17:19)
[2024-08-13 09:10] LABS: C-Reactive Protein 5.4 mg/dL (0.0-0.9)
[2024-08-13] MEDS: cefTRIAXone 1,000 MG in SODIUM CHLORIDE 0.9% (Popper) 50 ML 100 MG IV (09:35)
[2024-08-13] MEDS: Magnesium Sulfate 2 GM Ivpb 2 GM/50 ML BAG IV (09:35)
[2024-08-13] MEDS: PANTOPRAZOLE INJ 40 MG VIAL IV (09:36)
[2024-08-13] MEDS: SODIUM CHLORIDE 0.9% 500 ML 500 ML 999 ML IV (10:42)
[2024-08-13 10:49] LABS: Misc Send Out* See Sep Rpt
--- NOTE | 2024-08-13 10:54 | PC.SS ---
SS has met with pt who requested for SS to speak with her granddaughter, Virginia. SS spoke to Virginia about patient's d/c plan to home with HH or SNF. Virginia is waiting to follow up with physicians before deciding on d/c plan. Virginia is agreeable for SS to send inquiry to local SNF. Virginia does not have preference. Virginia is also agreeable if pt returns home to be setup with HH and does not have preference for HH agency. has provided Virginia with SS contact information and is aware [facility] was placed in patient's room with SNF and HH choices. SS has sent inquiry to the local SNF using [employer].
--- NOTE | 2024-08-13 11:25 | PC.SS ---
SS met with patient who requested SS to speak with her granddaughter, Virginia regarding her d/c plan. Pt is alert/oriented. Pt was admitted for Chronic Venous Ulcers. GranddaughterVirginia confirmed demographic and contact information is correct on facesheet. Pt resides alone in an apartment for the elderly. Prior to being hospitalized, pt ambulated using a 3 wheel walker. Prior to being hospitalized, pt was ok with ADLS. Patient's granddaughter, Airam is her [facility] caregiver. Both granddaughters help care for pt at home. Granddaughters, Virginia Garcia and Airam Reid are patient's medical decision makers if she is unable. Pt followed up with PCP 2 weeks ago. Pt also follows Dr. Armstrong, her clinical biochemical geneticist. Pt is also established at [facility]. Pt does not utilizes O2 at home. Pt is currently on 3 liters of O2. D/C plan: Return home with HH or SNF Next of Kin: Vriginia Garcia, granddaughter, phone# [phone] or Airam Gurrolaiken, granddaughter, phone# [phone] PCP: Dr. Zeus Nguyen Address: Correct on facesheet
--- NOTE | 2024-08-13 11:51 | PD.IMCONS ---
HPI Data of Consult Requesting Physician: Braydon Rene DO Primary Care Provider: Zeus Nguyen MD Consult Narrative History of present illness: This is a 84 y/o female with PMHx of HTN, HLD, chronic venous ulcers, PAD, CKD stage IV pt had out pt peripheral angogram and c/o of leg pain over the wounds in her calf ; wound appears infected with possible cellulitis pt admitted for further evaluation no chest pain or SOB cc:: cc: Braydon Rene DO Meds Home Medications and Allergies Home Medications ?Medication ?Instructions ?Recorded ?Confirmed ?Type hydrochlorothiazide 25 mg tablet 100 mg PO BID #0 tabs 01/25/16 08/13/24 History metoprolol tartrate 50 mg tablet 50 mg PO BID #0 tabs 01/25/16 08/13/24 History clonidine HCl 0.1 mg tablet 0.1 mg PO HS 09/18/17 08/13/24 History vit C,K-Wr-uiikdq-lutein-zeaxan 60 1 tab PO QDAY 09/18/17 08/13/24 History mg-13.5 mg-15 mg-2 mg-6 mg capsule (Ocuvite Lutein and Zeaxanthin) amlodipine 5 mg-benazepril 40 mg 1 cap PO QDAY 06/06/18 08/13/24 History capsule glipizide 5 mg-metformin 500 mg 1 tab PO BID 06/06/18 08/13/24 History tablet aspirin 81 mg chewable tablet 81 mg PO QDAY 08/10/24 08/13/24 History carvedilol 25 mg tablet (Coreg) 25 mg PO BID 08/10/24 08/13/24 History gabapentin 100 mg capsule 100 mg PO TID 08/10/24 08/13/24 History hydralazine 100 mg tablet 100 mg PO Q12H 08/13/24 08/13/24 History losartan 100 1 tab PO DAILY 08/13/24 08/13/24 History mg-hydrochlorothiazide 25 mg tablet Allergies Allergy/AdvReac Type Severity Reaction Status Date / Time bee venom protein (honey bee) Allergy Severe Anaphylaxis Verified 08/10/24 15:42 shock nabumetone Allergy Severe Rash Verified 08/10/24 15:42 nut - unspecified Allergy Severe Anaphylaxis Verified 08/10/24 15:42 Penicillins Allergy Severe Rash Verified 08/10/24 15:42 Pork/Porcine Containing Allergy Severe Rash Verified 08/10/24 15:42 Products shellfish derived Allergy Severe Anaphylaxis Verified 08/10/24 15:42 Dehicnx-RGW-YyJ Reductase Allergy Severe MUSCLE Verified 08/10/24 15:42 Inhibitor (Tkjzxfp-Rir-Zfy WEAKNESS Reductase Inhibitor) turkey Allergy Severe Anaphylaxis Verified 08/10/24 15:42 feathers Allergy Mild Watery Eye Verified 08/10/24 15:42 Exam Vital Signs Temp Pulse Resp BP Pulse Ox O2 Del Method O2 Flow Rate 98.6 F 63 16 125/49 L 98 Nasal Cannula 2 08/13/24 11:16 08/13/24 11:16 08/13/24 11:16 08/13/24 11:16 08/13/24 11:16 08/13/24 08:00 08/13/24 08:00 Routine HEENT Exam Head: Present normocephalic and atraumatic Eye: Present EOMI and PERRL ENT: Present mucous membranes moist Routine Neck Exam Neck: Present supple and trachea midline Routine Respiratory Exam Respiratory: Present chest non-tender, lungs clear, normal breath sounds and no resp distress Routine Cardiovascular Exam Cardiovascular: Present RRR Routine Abdominal Exam Abdominal: Present soft and normoactive bowel sounds Routine Extremities Exam Extremities: Present full ROM Routine Skin Exam Skin: Present intact, dry and warm Routine Neurological Exam Neurological: Present alert, oriented X3 and CN II-XII intact Routine Psychiatric Exam Psychiatric: Present normal affect and normal thought process Results Labs 08/13/24 04:54 08/13/24 04:54 Labs: Short CBC 08/12/24 08/13/24 Range/Units 16:26 04:54 WBC 5.9 8.4 D (3.6-11.0) Thou/mm3 Hgb 8.9 L 6.1 L* D (12.0-16.0) g/dL Hct 27.2 L 19.6 L* (36.0-46.0) % Plt Count 306 D 173 D (140-440) Thou/mm3 BMP 08/12/24 08/13/24 16:26 04:54 Sodium 143 140 Potassium 3.6 4.1 D Chloride 106 105 Carbon Dioxide 26.0 26.9 BUN 34 H 38 H Creatinine 1.8 H 2.0 H Glucose 165 H D 257 H D Calcium 8.4 7.7 L Liver Function 08/12/24 08/13/24 Range/Units 16:26 04:54 Total Bilirubin 0.5 0.2 L (0.3-1.2) mg/dL AST 14 11 (0-34) U/L ALT < 7 L < 7 L (10-49) U/L Alkaline Phosphatase 76 59 D (46-116) U/L Albumin 3.6 2.8 L D (3.4-4.8) gm/dL Assessment and Plan Assessment and plan (1) Venous stasis ulcer: Status: Acute (2) Open wounds involving multiple regions of lower extremity: Status: Acute (3) CAD (coronary artery disease): Status: Acute Additional Assessment & Plan Additional Plan: continue treatment for wound infection
[2024-08-13 12:24] LABS: Path Review Blood Smear Sent to Pathologist
--- NOTE | 2024-08-13 13:56 | PD.RESPRO ---
Documentation for date of: 08/13/24 Subjective Subjective Interval history: Vital signs stable, patient afebrile overnight, significant labs include a hemoglobin of 6.1 this morning, transfusion ordered, BUN 38, creatinine up trended to 2.0, baseline 1.6.CT of the patient's right lower extremity demonstrating osteomyelitis of the distal posterior surface of the fibula with diffuse soft tissue infection but no abscess is identifiable. CT of the patient's left lower extremity demonstrating cellulitis but no taina bone destruction or abscesses Exam Vital Signs Temp Pulse Resp BP Pulse Ox O2 Del Method O2 Flow Rate 98.7 F 71 19 120/49 L 97 Room Air 3 08/13/24 13:51 08/13/24 13:51 08/13/24 13:51 08/13/24 13:51 08/13/24 13:51 08/13/24 12:00 08/13/24 13:51 Narrative Exam GENERAL APPEARANCE: NAD, resting comfortably HEENT: Normocephalic, atraumatic, extraocular movements intact. Very hard of hearing NECK: Supple, CARDIOVASULAR: NSR, S1, S2 heard without S3-S4 or murmur no rubs or gallops. LUNGS/CHEST: CTA bilaterally, no wheezing, rhonchi or rales heard ABDOMEN: Soft, nontender, with normal bowel sounds. No pulsatile masses. No rebound, rigidity, or guarding. SKIN: Lower extremity demonstrating ulcerations bilaterally, pink there is some granulation tissue, no overt pus seen. Patient does have weak pulses however they are present. No infection noticed around site of angioplasty of the right lower extremity that was performed yesterday prior to admission. NEURO: Alert, awake and oriented x3. PSYCHIATRIC: Mood and affect normal Objective Labs 08/13/24 16:00 08/13/24 04:54 Labs: Laboratory Results - last 24 hr 08/12/24 08/13/24 08/13/24 16:26 04:54 06:42 WBC 5.9 8.4 D RBC 3.37 L 2.31 L Hgb 8.9 L 6.1 L* D Hct 27.2 L 19.6 L* MCV 81 85 MCH 26.4 26.4 MCHC 32.7 31.1 RDW Std Deviation 44.2 46.5 H Plt Count 306 D 173 D Neut % (Auto) 68 76 Lymph % (Auto) 18 16 Blanco % (Auto) 10 7 Eos % (Auto) 3 1 Baso % (Auto) 0 0 Neut # (Auto) 4.0 6.3 Lymph # (Auto) 1.1 1.3 Blanco # (Auto) 0.6 0.6 Eos # (Auto) 0.2 0.1 Baso # (Auto) 0.0 0.0 Immature Gran # (Auto) 0.02 H 0.02 H Absolute Nucleated RBC 0.00 0.00 Immature Gran % 0 0 Nucleated RBC % 0 0 Smear Path Review Sent to Pathologist ESR 82 H Retic Count (auto) 1.8 H Absolute Retic 42.0 Immature Retic Fraction 27.6 H Retic Hgb Content CHr 24.0 L PT 11.7 11.9 INR 1.1 1.1 APTT 28.1 Sodium 143 140 Potassium 3.6 4.1 D Chloride 106 105 Carbon Dioxide 26.0 26.9 Anion Gap 11 8 BUN 34 H 38 H Creatinine 1.8 H 2.0 H Estim Creat Clear Calc 24.6 L 21.9 L eGFR 28 L 24 L BUN/Creatinine Ratio 19 19 Glucose 165 H D [address] Glu mg/dL Cancelled Hemoglobin A1c Cancelled Calculated Osmolality 296 H 297 H Lactic Acid 1.0 Calcium 8.4 7.7 L Corrected Calcium 8.7 8.7 Phosphorus 5.1 Magnesium 1.5 L Iron 6 L TIBC 206 L Iron Saturation 2 L Unsat Iron Binding 200 L Ferritin 48 Total Bilirubin 0.5 0.2 L AST 14 11 ALT < 7 L < 7 L Alkaline Phosphatase 76 59 D C-Reactive Prot, Quant 5.4 H Total Protein 6.8 5.4 L Albumin 3.6 2.8 L D Globulin 3.2 2.6 Albumin/Globulin Ratio 1.1 L 1.1 L Triglycerides 150 Cholesterol 121 L LDL Cholesterol, Calc 71 HDL Cholesterol 20 L Cholesterol/HDL Ratio 6.1 H Procalcitonin 0.18 TSH 1.06 Blood Type O Positive Antibody Screen NEGATIVE Crossmatch See Detail Blood Bank Wristband ID Yes Quality Measures Quality Measures VTE prophylaxis and none Advance care planning discussed with:: child Assessment & Plan Assessment Current Active Medications: Generic Name Dose Route Start Last Admin Trade Name Freq PRN Reason Stop Dose Admin Acetaminophen 650 mg 08/12/24 18:21 Acetaminophen 325 Mg Tablet PO 09/11/24 18:20 Q6H PRN Fever >100 or pain 1-3 Hydrocodone Bitart/Acetaminophen 1 tab 08/12/24 18:27 08/13/24 03:10 Hydrocodone/Apap 5/325 Tablet PO 08/17/24 18:26 1 tab Q4HR PRN Administration PAIN SCALE 4-6 (Moderate Carvedilol 25 mg 08/12/24 21:00 08/13/24 09:24 Carvedilol 12.5 Mg Tablet PO 09/11/24 20:59 Not Given BID GILLIAN Clonidine 0.1 mg 08/13/24 09:00 08/13/24 09:33 Clonidine Hcl 0.1 Mg Tablet PO 09/12/24 08:59 Not Given QDAY GILLIAN Dextrose 25 ml 08/12/24 18:27 Dextrose 50%-Water Inj 50 Ml Syringe IV 09/11/24 18:26 Q15MIN PRN BG 50-70 responsive npo pt Dextrose 50 ml 08/12/24 18:27 Dextrose 50%-Water Inj 50 Ml Syringe IV 09/11/24 18:26 Q15MIN PRN BG <50 OR BG <70 & pt unresponsive Gabapentin 100 mg 08/12/24 22:00 08/13/24 05:39 Gabapentin 100 Mg Capsule PO 09/11/24 21:59 100 mg TID GILLIAN Administration Glucagon 1 mg 08/12/24 18:27 Glucagon Inj 1 Mg Vial IM Q15MIN PRN BG <70, and no IV access Hydralazine HCl 100 mg 08/13/24 09:00 08/13/24 09:25 Hydralazine Hcl 25 Mg Tablet PO 09/12/24 08:59 Not Given BID [facility] Hydralazine HCl 10 mg 08/13/24 04:18 Hydralazine Inj 20 Mg/Ml Vial IVP 09/12/24 04:17 Q4H PRN hypertension Hydromorphone HCl 0.25 mg 08/12/24 18:27 08/12/24 19:15 Hydromorphone Inj 2 Mg/Ml Vial IVP 08/17/24 18:26 0.25 mg Q4H PRN Administration Breakthrough Pain or pain 7-10 Vancomycin/Sodium Chloride 100 mls @ 120 mls/hr 08/13/24 22:00 Vancomycin/Ns 500 Mg Ivpb IV 08/20/24 21:59 QDAY@2200 GILLIAN Ceftriaxone Sodium 1,000 mg/ 50 mls @ 100 mls/hr 08/13/24 09:30 08/13/24 09:35 Sodium Chloride IV 08/19/24 18:30 100 mls/hr QDAY GILLIAN Administration Insulin Glargine 5 unit 08/13/24 21:00 Insulin Glargine (Lantus) 5 Unit/0.05 Ml (Per 5 Units) SC 09/12/24 20:59 HS GILLIAN Insulin Human Lispro 0 unit 08/13/24 07:30 08/13/24 11:42 Insulin Lispro (Admelog) 1 Unit/0.01 Ml Unit SC 09/12/24 07:29 3 unit AC GILLIAN Administration Protocol Ondansetron HCl 4 mg 08/12/24 19:04 08/12/24 19:14 Ondansetron Inj 2 Mg/Ml Inj 2 Ml IV 09/11/24 19:03 4 mg Q6HR PRN Administration NAUSEA OR VOMITING Protocol Pantoprazole Sodium 40 mg 08/13/24 09:00 08/13/24 09:36 Pantoprazole Inj 40 Mg Vial IV 09/12/24 08:59 40 mg QDAY GILLIAN Administration Pharmacy Consult 1 each 08/12/24 18:30 Pharmacy Renal Dose Adjustment 1 Ea XX 09/11/24 18:29 PRN PRN CONSULT Pharmacy Consult 1 each 08/13/24 09:17 Vancomycin Pharmacy To Dose 1 Each Each IV 09/11/24 18:44 QDAY PRN RX Plan Marisol is a 84 y/o female with PMHx of HTN, HLD, chronic venous ulcers, ?PAD, CKD stage IV who is admitted for sepsis rule out secondary to chronic venous ulcers. # History of anemia, iron deficiency versus CKD - Will transfuse for hemoglobin less than 7 #Osteomyelitis of the patient's right fibula #Chronic venous ulcers #Sepsis ruled out Patient recently got CT angio lower extremities with possible stenting by Dr. Armstrong Plan: ? General Surgery consulted, appreciate recs ? Follow-up blood cultures ? Pharmacy to dose vancomycin ? MRSA screen ? Rocephin 1 g IV daily ? Referral to wound care - Patient will likely need 6 weeks of IV antibiotics, most likely ceftriaxone 1 g daily and doxycycline 100 mg p.o. twice daily # JOSE ANTONIO on CKD, baseline creatinine 1.6, 2.0 today, likely from hypovolemia #CKD stage IV Creatinine 1.8 today, baseline appears to be 1.6 Plan: ? Avoid nephrotoxic agents ? Renally dose medicines - Fluid bolus given #Hypertensive urgency #Hypertension #Hyperlipidemia Chronic Patient does not take statin due to possible allergy Plan: ? Resumed home blood pressure medicines including Coreg, hydralazine and clonidine #Ghw-onwymsk-ovkqujuvb type II diabetes mellitus Previous A1c of 6 in 2023 Plan: ? Sliding scale insulin ? Hypoglycemic protocol in place ? Blood sugar checks with meals #Health Maintenance Disposition: Med telemetry DVT prophylaxis: Heparin Subq GI prophylaxis: Protonix Diet: Pending Nurse Swallow CODE STATUS: Full Attending Provider Attestation/Addendum I have discussed and was present for the essential components of the history, physical examination, diagnosis, and treatment plan with the resident. I agree with the patient's care as documented by the resident and amended herein by me. Humble Rene DO. Although this document has been carefully reviewed, there may still be some phonetic and other typographical errors. These errors are purely grammatical due to imperfections in the software program and should not be construed in any way to compromise the substance of the patient's medical care during this visit.
[2024-08-13] MEDS: HYDROmorphone INJ 2 MG/ML VIAL 0.25 MG IVP (14:15)
[2024-08-13] MEDS: Acetic Acid Irrig 0.25% 500 ML BTL 1000 ML IRRIG (15:26)
[2024-08-13] MEDS: Silvasorb Gel 45 ML TUBE TOP (15:27)
[2024-08-13] MEDS: ZINC SULFATE 220 MG CAPSULE PO (15:48)
[2024-08-13] MEDS: MULTIVITAMINS TABLET 1 TAB PO (15:48)
[2024-08-13] MEDS: ASCORBIC ACID 250 MG TABLET 500 MG PO ×2 (15:48→20:50)
--- NOTE | 2024-08-13 16:07 | PC.SS ---
SS met with pt and her granddaughter, Virginia to discuss SNF options. Pt was accepted to [facility], [facility], [facility], and [facility]. Granddaughter's choice is [facility]. SS has spoken to Berta at [facility] and they can accept pt on Saturday. [facility] [place], [place] [id number] [facility] Yes 08/13/2024 10:56 08/13/2024 10:53 We can accept this patient. Thank you for your referral ?(1) [facility] [address], [place] [id number] [facility] 08/13/2024 10:53 ?(1) [facility] [place] [id number] [facility] Facility No 08/13/2024 11:35 08/13/2024 10:53 No bed available ?(1) [facility] [address] [place] [address] [facility] Facility Yes 08/13/2024 10:58 08/13/2024 10:53 We can accept this patient. Thank you for your referral ?(1) [facility] [place] [address] [facility] Facility Yes 08/13/2024 10:59 08/13/2024 10:53 We can accept this patient. Thank you for your referral ?(1) [facility] [address] [place], [place] [phone] [facility] Yes
--- NOTE | 2024-08-13 16:13 | PC.SS ---
Per bedside nurse, Radha pt is not Physic mediations, anxiety, or depression medications. Per dtr, Virginia also confirmed pt is not any Physic medications, anxiety, or depression medications. PASRR assesment completed.
[2024-08-13 16:34] LABS: Hematocrit 23.9 % (36.0-46.0)
[2024-08-13 16:43] LABS: Hemoglobin 7.4 g/dL (12.0-16.0)
[2024-08-13] MEDS: INSULIN GLARGINE (Lantus) 5 UNIT/0.05 ML (PER 5 UNITS) SC (20:37)
[2024-08-13] MEDS: hydrALAZINE HCL 25 MG TABLET 100 MG PO (20:50)
[2024-08-13] MEDS: carVEDILOL 12.5 MG TABLET 25 MG PO (20:50)
[2024-08-13] MEDS: VANCOMYCIN/NS 500 MG IVPB 100 ML 120 MG IV (21:37)
[2024-08-14] VITALS (18 sets, daily range): BP systolic 131–147; BP diastolic 55–63; PULSE 63–81; RESP 14–20; TEMP 36.7–37.1; O2SAT 90–99
[2024-08-14] MEDS: GABAPENTIN 100 MG CAPSULE PO ×3 (05:43→22:10)
--- NOTE | 2024-08-14 05:45 | PC.NURSE ---
Per chart, Pt has not had a BM since 08/09/24. Dr. Schulz was made aware, no new orders received at this time. said she'll let the day team doctors know.
[2024-08-14 05:59] LABS: Basophils % (Auto) 0 % (0-2.5); Eosinophils # (Auto) 0.3 Thou/mm3 (0.0-0.5); Eosinophils % (Auto) 4 % (0-10); Hematocrit 23.3 % (36.0-46.0); Hemoglobin 7.3 g/dL (12.0-16.0); Immature Granulocytes % (Auto) 1 % (0-0); Immature Granulocytes Auto 0.07 Thou/mm3 (0.00-0.00); Lymphocytes # (Auto) 1.5 Thou/mm3 (1.0-4.8); Lymphocytes % (Auto) 21 % (10-50); Mean Corpuscular HGB Conc 31.3 g/dl (31.0-37.0); Mean Corpuscular Hemoglobin 26.9 pg (25.0-35.0); Mean Corpuscular Volume 86 fL (80-100); Monocytes # (Auto) 0.7 Thou/mm3 (0.0-0.8); Monocytes % (Auto) 10 % (0-12); Neutrophils # (Auto) 4.4 Thou/mm3 (1.8-7.7); Neutrophils % (Auto) 64 % (37-80); Nucleated Red Blood Cell % 0 /100 WBC (0); Platelet Count 175 Thou/mm3 (140-440); RDW Standard Deviation 45.7 fL (36.4-46.3); Red Blood Count 2.71 Miln/mm3 (4.00-5.20); White Blood Count 6.9 Thou/mm3 (3.6-11.0)
[2024-08-14 06:43] LABS: Alanine Aminotransferase < 7 U/L (10-49); Albumin, Serum 2.9 gm/dL (3.4-4.8); Albumin/Globulin Ratio 1.1 (1.2-2.2); Alkaline Phosphatase 57 U/L (46-116); Anion Gap 10 (7-16); Aspartate Amino Transferase 13 U/L (0-34); BUN/Creatinine Ratio 14 Ratio (12-20); Bilirubin,Total 0.2 mg/dL (0.3-1.2); Blood Urea Nitrogen 32 mg/dL (9-23); Calcium 8.2 mg/dL (8.3-10.6); Calcium (Corrected) 9.1 mg/dL (8.5-10.1); Carbon Dioxide 24.9 mMol/L (20.0-31.0); Chloride 103 mMol/L (98-107); Creatinine (Component) 2.3 mg/dL (0.6-1.3); Estimated Creatinine Clearance 19.1 mL/min (>60); Globulin 2.7 gm/dL (2.3-3.5); Glucose 203 mg/dL (74-106); Magnesium 1.6 mg/dL (1.6-2.6); Osmolality,Calculated 288 (275-295); Potassium 4.3 mMol/L (3.4-5.1); Sodium 138 mMol/L (136-145); Total Protein 5.6 gm/dL (5.7-8.2); eGFR 21 See Note
[2024-08-14] MEDS: INSULIN LISPRO (AdmeLOG) 1 UNIT/0.01 ML UNIT SC ×3 (07:40→17:14)
[2024-08-14] MEDS: MULTIVITAMINS TABLET 1 TAB PO (08:36)
[2024-08-14] MEDS: hydrALAZINE HCL 25 MG TABLET 100 MG PO ×2 (08:36→20:47)
[2024-08-14] MEDS: cloNIDine HCL 0.1 MG TABLET PO (08:36)
[2024-08-14] MEDS: PANTOPRAZOLE 40 MG TABLET PO (08:36)
[2024-08-14] MEDS: DOXYCYCLINE 100 MG TABLET PO ×2 (08:36→20:47)
[2024-08-14] MEDS: carVEDILOL 12.5 MG TABLET 25 MG PO ×2 (08:37→20:47)
[2024-08-14] MEDS: ASCORBIC ACID 250 MG TABLET 500 MG PO ×2 (08:37→20:47)
[2024-08-14] MEDS: cefTRIAXone 1,000 MG in SODIUM CHLORIDE 0.9% (Popper) 50 ML 100 MG IV (08:37)
[2024-08-14] MEDS: ZINC SULFATE 220 MG CAPSULE PO (08:37)
[2024-08-14] MEDS: Acetic Acid Irrig 0.25% 500 ML BTL 1000 ML IRRIG (08:38)
[2024-08-14] MEDS: Silvasorb Gel 45 ML TUBE TOP (08:38)
[2024-08-14] MEDS: SODIUM CHLORIDE 0.9% 500 ML 500 ML 150 ML IV (08:40)
[2024-08-14] MEDS: HYDROcodone/APAP 5/325 TABLET 1 TAB PO ×3 (08:47→23:14)
--- NOTE | 2024-08-14 10:29 | PC.SS ---
Addendum entered by MATT Martinez 08/14/24 14:52: Rounding note: picc line today, will need IV abx until 09/24/24, pending ID recommendations. SS to follow up if SNF able to accommodate once received. [facility]. Original Note: Update: pending surgery consult, receiving IV abx and wound care.
--- NOTE | 2024-08-14 10:58 | XR_ITS ---
Examination: Ultrasound-guided needle placement right brachial vein. Dual-lumen central line placement (PICC line). Fluoroscopy AP chest, portable, single view Exam date and time:August 14, 2024 1101 hours INDICATIONS: Need for long-term intravenous antibiotic therapy A timeout was completed verifying correct patient, procedure, site, positioning Informed consent provided Technique: The patient's site was prepped and draped in sterile fashion. Maximum Sterile Barrier Technique used including cap, mask, sterile gown, sterile gloves, and sterile full body drape. If ultrasound technique used: sterile gel and sterile probe covers. Hand Hygiene performed using proper scrub, soap and water, or alcohol-based hand rub. Ultrasound utilized to confirm patency of the right brachial vein Utilizing ultrasonographic guidance successful 21-gauge needle puncture into the right brachial vein Ultrasound images recorded and stored. 5 cc 1% lidocaine administered for local anesthetic. Successful micropuncture with a 21-gauge needle is performed. 0.18 wire guide is then introduced into the SVC under fluoroscopic guidance. Dual-lumen catheter dilator is then introduced, followed by the catheter in the SVC and proper position under fluoroscopic guidance. Successful aspiration of blood and flushing with heparinized saline is then performed in the 2 venous limbs. The catheter sutured in place. Findings: Under fluoroscopy, the tip of the catheter is in good position in the vena cava. Portable chest x-ray, post line placement is ordered. Estimated blood loss 3 cc The patient tolerated the procedure well and was in stable and satisfactory condition at completion of the procedure Impression: Successful ultrasound-guided needle placement right brachial vein Successful placement of dual lumen central line, percutaneous Fluoroscopy 0.1 minute radiation dose 1.47 milligray 1 spot fluoroscopic chest film. AP chest completion procedure demonstrates satisfactory position central line. May use central line.
[2024-08-14] MEDS: HYDROmorphone INJ 2 MG/ML VIAL 0.25 MG IVP (11:20)
--- NOTE | 2024-08-14 11:22 | PC.NURSE ---
Patient to blood bank laboratory technologist via gurney, no s/s of distress.
[2024-08-14] MEDS: HEPARIN SOD LOCK SYR 100 UNIT/ML 500 UNIT STFIELD (11:30)
[2024-08-14] MEDS: LIDOCAINE INJ PF 1% 5 ML VIAL INFL (11:56)
--- NOTE | 2024-08-14 12:20 | PC.NURSE ---
Patient back from vat house laborer, no s/s of distress.
--- NOTE | 2024-08-14 15:49 | PD.SURCONS ---
HPI Consult details History of present illness: 84F with HTN, HLD, DM, CKD, PAD with chronic venous ulcers brought in for lower extremity pain. Pt states she has had ulcerations on her legs for the past few months which have progressively worsened, now making it difficult for her to walk. She has been seen at wound healing however has not fully adhered to the treatment plan including compression stockings. Workup shows osteomyelitis of osteomyelitis of the R fibula, pt underwent PICC placement for 6 week antibiotic course PMH: HTN, HLD, DM, CKD, PAD Meds: includes ASA 81 Social hx: Nonsmoker, uses a walker Review of Systems Review of Systems ROS Unobtainable: All systems reviewed & no additional complaints except as documented Meds Home Medications and Allergies Home Medications ?Medication ?Instructions ?Recorded ?Confirmed ?Type hydrochlorothiazide 25 mg tablet 100 mg PO BID #0 tabs 01/25/16 08/13/24 History metoprolol tartrate 50 mg tablet 50 mg PO BID #0 tabs 01/25/16 08/13/24 History clonidine HCl 0.1 mg tablet 0.1 mg PO HS 09/18/17 08/13/24 History vit C,R-Ix-qicvvk-lutein-zeaxan 60 1 tab PO QDAY 09/18/17 08/13/24 History mg-13.5 mg-15 mg-2 mg-6 mg capsule (Ocuvite Lutein and Zeaxanthin) amlodipine 5 mg-benazepril 40 mg 1 cap PO QDAY 06/06/18 08/13/24 History capsule glipizide 5 mg-metformin 500 mg 1 tab PO BID 06/06/18 08/13/24 History tablet aspirin 81 mg chewable tablet 81 mg PO QDAY 08/10/24 08/13/24 History carvedilol 25 mg tablet (Coreg) 25 mg PO BID 08/10/24 08/13/24 History gabapentin 100 mg capsule 100 mg PO TID 08/10/24 08/13/24 History hydralazine 100 mg tablet 100 mg PO Q12H 08/13/24 08/13/24 History losartan 100 1 tab PO DAILY 08/13/24 08/13/24 History mg-hydrochlorothiazide 25 mg tablet Allergies Allergy/AdvReac Type Severity Reaction Status Date / Time bee venom protein (honey bee) Allergy Severe Anaphylaxis Verified 08/10/24 15:42 shock nabumetone Allergy Severe Rash Verified 08/10/24 15:42 nut - unspecified Allergy Severe Anaphylaxis Verified 08/10/24 15:42 Penicillins Allergy Severe Rash Verified 08/10/24 15:42 Pork/Porcine Containing Allergy Severe Rash Verified 08/10/24 15:42 Products shellfish derived Allergy Severe Anaphylaxis Verified 08/10/24 15:42 Vchbszs-FZQ-XvN Reductase Allergy Severe MUSCLE Verified 08/10/24 15:42 Inhibitor (Ktiujpf-Kcy-Xxh WEAKNESS Reductase Inhibitor) turkey Allergy Severe Anaphylaxis Verified 08/10/24 15:42 feathers Allergy Mild Watery Eye Verified 08/10/24 15:42 Exam Vital Signs Temp Pulse Resp BP Pulse Ox O2 Del Method O2 Flow Rate 98.7 F 69 17 133/63 H 97 Nasal Cannula 3 08/14/24 13:11 08/14/24 13:11 08/14/24 13:11 08/14/24 13:11 08/14/24 13:11 08/14/24 13:11 08/14/24 12:00 Constitutional Constitutional: no acute distress Routine Respiratory Exam Respiratory: Present no resp distress Routine Extremities Exam Comments: pt declined another dressing change as it had just been done but I reviewed the images of her chart showing bilateral lower extremity ulcerations with minimal fibrinous tissue Results Results: Laboratory Laboratory results: results reviewed Results: Imaging Imaging narrative: CT LE reviewed Assessment & Plan Plan 84F with HTN, HLD, DM, CKD, PAD with chronic venous ulcers brought in for lower extremity pain, with chronic bilateral venous stasis ulcers and osteomyelitis of the right fibula. As there is no necrotic tissue or signs of abscess, pt does not require surgical intervention for now Appreciate Wound Care recs Please reconsult as needed
[2024-08-14] MEDS: POLYETHYLENE GLYCOL 17 GM PACKET PO (15:55)
--- NOTE | 2024-08-14 17:26 | ESPR_ITS ---
Documentation for date of: 08/14/24 Subjective Subjective Interval history: Patient examined at bedside today. No acute overnight events. Patient continues to improve, is waiting when she is again to her pain medicine. She is continue to see wound care. She denies any fever or chills, and reports some leg pain. No other complaints at this time. Exam Vital Signs Temp Pulse Resp BP Pulse Ox O2 Del Method O2 Flow Rate 98.2 F 67 17 143/55 H 98 Nasal Cannula 3 08/14/24 16:00 08/14/24 16:00 08/14/24 16:00 08/14/24 16:00 08/14/24 16:00 08/14/24 16:00 08/14/24 12:00 Narrative Exam General: AAOx3, comfortable, sometimes screams of pain, elderly woman HEENT: Moist mucous membranes, conjunctiva clear, EOMI, PERRLA, does not have her dentures on Cardiovascular: S1, S2, radial pulses +2 bilat, RRR, possible ejection systolic murmur indicative as it radiates to the carotids Pulmonary: CTAB bilat no cough, no wheezing GI: No tenderness to light or deep palpitation, no guarding, rigidity, rebound tenderness or distension Extremities: Bandages present over her wounds of her lower extremities, tender to palpation, some pus draining, very malodorous Neuro: AAOx3, limited exam as patient is in pain Psych: Able to cooperate Objective Labs 08/14/24 05:17 08/14/24 05:17 Labs: Laboratory Results - last 24 hr 08/14/24 05:17 WBC 6.9 RBC 2.71 L Hgb 7.3 L Hct 23.3 L MCV 86 MCH 26.9 MCHC 31.3 RDW Std Deviation 45.7 Plt Count 175 Neut % (Auto) 64 Lymph % (Auto) 21 [place] % (Auto) 10 Eos % (Auto) 4 Baso % (Auto) 0 Neut # (Auto) 4.4 Lymph # (Auto) 1.5 [place] # (Auto) 0.7 Eos # (Auto) 0.3 Baso # (Auto) 0.0 Immature Gran # (Auto) 0.07 H Absolute Nucleated RBC 0.00 Immature Gran % 1 H Nucleated RBC % 0 Sodium 138 Potassium 4.3 Chloride 103 Carbon Dioxide 24.9 Anion Gap 10 BUN 32 H Creatinine 2.3 H Estim Creat Clear Calc 19.1 L eGFR 21 L BUN/Creatinine Ratio 14 Glucose 203 H D Calculated Osmolality 288 Calcium 8.2 L Corrected Calcium 9.1 Magnesium 1.6 Total Bilirubin 0.2 L AST 13 ALT < 7 L Alkaline Phosphatase 57 Total Protein 5.6 L Albumin 2.9 L Globulin 2.7 Albumin/Globulin Ratio 1.1 L Quality Measures Quality Measures VTE prophylaxis and none Advance care planning discussed with:: patient Assessment & Plan Assessment Current Active Medications: Generic Name Dose Route Start Last Admin Trade Name Freq PRN Reason Stop Dose Admin Acetaminophen 650 mg 08/12/24 18:21 Acetaminophen 325 Mg Tablet PO 09/11/24 18:20 Q6H PRN Fever >100 or pain 1-3 Hydrocodone Bitart/Acetaminophen 1 tab 08/12/24 18:27 08/14/24 14:16 Hydrocodone/Apap 5/325 Tablet PO 08/17/24 18:26 1 tab Q4HR PRN Administration PAIN SCALE 4-6 (Moderate Acetic Acid 1,000 ml 08/13/24 15:00 08/14/24 08:38 Acetic Acid Irrig 0.25% 500 Ml Btl IRRIG 09/12/24 14:59 500 ml DAILY GILLIAN Administration Ascorbic Acid 500 mg 08/13/24 14:30 08/14/24 08:37 Ascorbic Acid 250 Mg Tablet PO 09/12/24 14:29 500 mg BID GILLIAN Administration Carvedilol 25 mg 08/12/24 21:00 08/14/24 08:37 Carvedilol 12.5 Mg Tablet PO 09/11/24 20:59 25 mg BID GILLIAN Administration Clonidine 0.1 mg 08/13/24 09:00 08/14/24 08:36 Clonidine Hcl 0.1 Mg Tablet PO 09/12/24 08:59 0.1 mg QDAY GILLIAN Administration Dextrose 25 ml 08/12/24 18:27 Dextrose 50%-Water Inj 50 Ml Syringe IV 09/11/24 18:26 Q15MIN PRN BG 50-70 responsive npo pt Dextrose 50 ml 08/12/24 18:27 Dextrose 50%-Water Inj 50 Ml Syringe IV 09/11/24 18:26 Q15MIN PRN BG <50 OR BG <70 & pt unresponsive Doxycycline Hyclate 100 mg 08/14/24 09:00 08/14/24 08:36 Doxycycline 100 Mg Tablet PO 08/21/24 08:59 100 mg BID GILLIAN Administration Gabapentin 100 mg 08/12/24 22:00 08/14/24 13:52 Gabapentin 100 Mg Capsule PO 09/11/24 21:59 100 mg TID GILLINA Administration Glucagon 1 mg 08/12/24 18:27 Glucagon Inj 1 Mg Vial IM Q15MIN PRN BG <70, and no IV access Hydralazine HCl 100 mg 08/13/24 09:00 08/14/24 08:36 Hydralazine Hcl 25 Mg Tablet PO 09/12/24 08:59 100 mg BID GILLIAN Administration Hydralazine HCl 10 mg 08/13/24 04:18 Hydralazine Inj 20 Mg/Ml Vial IVP 09/12/24 04:17 Q4H PRN hypertension Hydromorphone HCl 0.25 mg 08/12/24 18:27 08/14/24 11:20 Hydromorphone Inj 2 Mg/Ml Vial IVP 08/17/24 18:26 0.25 mg Q4H PRN Administration Breakthrough Pain or pain 7-10 Ceftriaxone Sodium 1,000 mg/ 50 mls @ 100 mls/hr 08/13/24 09:30 08/14/24 08:37 Sodium Chloride IV 08/19/24 18:30 100 mls/hr QDAY GILLIAN Administration Insulin Glargine 8 unit 08/14/24 21:00 Insulin Glargine (Lantus) 5 Unit/0.05 Ml (Per 5 Units) SC 09/13/24 20:59 HS GILLIAN Insulin Human Lispro 0 unit 08/13/24 07:30 08/14/24 17:14 Insulin Lispro (Admelog) 1 Unit/0.01 Ml Unit SC 09/12/24 07:29 3 unit AC GILLIAN Administration Protocol Multivitamins 1 tab 08/13/24 14:30 08/14/24 08:36 Multivitamins Tablet PO 09/12/24 14:29 1 tab QDAY GILLIAN Administration Ondansetron HCl 4 mg 08/12/24 19:04 08/12/24 19:14 Ondansetron Inj 2 Mg/Ml Inj 2 Ml IV 09/11/24 19:03 4 mg Q6HR PRN Administration NAUSEA OR VOMITING Protocol Pantoprazole Sodium 40 mg 08/14/24 09:00 08/14/24 08:36 Pantoprazole 40 Mg Tablet PO 09/13/24 08:59 40 mg QDAY GILLIAN Administration Pharmacy Consult 1 each 08/12/24 18:30 Pharmacy Renal Dose Adjustment 1 Ea XX 09/11/24 18:29 PRN PRN CONSULT Polyethylene Glycol 17 gm 08/14/24 15:44 Polyethylene Glycol 17 Gm Packet PO 09/14/24 08:59 QDAY PRN constipation Zinc Sulfate 220 mg 08/13/24 14:30 08/14/24 08:37 Zinc Sulfate 220 Mg Capsule PO 08/27/24 14:29 220 mg QDAY GILLIAN Administration Plan Assessment Marisol is a 84 y/o female with PMHx of HTN, HLD, chronic venous ulcers, ?PAD, CKD stage IV who is admitted for sepsis rule out secondary to chronic venous ulcers. #Osteomyelitis of the patient's right fibula #Cellulitis of left fibula #Chronic venous ulcers #Sepsis ruled out Patient recently got CT angio lower extremities with possible stenting by Dr. Armstrong MRSA screen negative Blood cultures no growth after 1 day Pt will need Abx until SEPTEMBER 24, 2024; Rocephin 2g IV and Doxycycline 100 mg po BID D/c Vanco 08/12-08/14 Pending surgical recs Plan: ? General Surgery consulted, appreciate recs ? Follow-up blood cultures ? Doxycycline 100 mg IV BID (08/14- ? Rocephin 2 g IV daily (08/12- ? Referral to wound care ? PICC line #JOSE ANTONIO on CKD #CKD stage IV Creatinine 2.3 today, baseline appears to be 1.6 Patient could have manifestation of JOSE ANTONIO as she had contrast a couple of days ago from angiogram OUP 450 mL past 12 hours Plan: ? Avoid nephrotoxic agents ? Renally dose medicines ? Normal saline 500 cc/hour 500 mL bag ? Urine lytes and Cr #Hypertensive urgency, resolved #Hypertension #Hyperlipidemia Chronic Patient does not take statin due to possible allergy Plan: ? Resumed home blood pressure medicines including Coreg, hydralazine and clonidine ? Hydralazine 10 mg IV as needed #[id number] type II diabetes mellitus Previous A1c of 6 in 2023 Plan: ? Sliding scale insulin ? Hypoglycemic protocol in place ? Blood sugar checks with meals #History of anemia, iron deficiency versus CKD Hgb 7.3 today Plan: ? Trend CBC ? Transfusion protocol hemoglobin below 7 ? Avoiding any NSAIDs ? Protonix 40 mg daily - Will transfuse for hemoglobin less than 7 #Health Maintenance Disposition: Med telemetry DVT prophylaxis: Heparin Subq GI prophylaxis: Protonix Diet: Cardiac CODE STATUS: Full Patient seen and care discussed with my attending physician, Dr. Anju Stone, PGY-1 Attending Provider Attestation/Addendum I have discussed and was present for the essential components of the history, physical examination, diagnosis, and treatment plan with the resident. I agree with the patient's care as documented by the resident and amended herein by me. Humble Rene DO. Although this document has been carefully reviewed, there may still be some phonetic and other typographical errors. These errors are purely grammatical due to imperfections in the software program and should not be construed in any way to compromise the substance of the patient's medical care during this visit.
[2024-08-14] MEDS: cefTRIAXone/D5w 1gm IV premix 1 GM/50 ML BAG IV (18:00)
[2024-08-14] MEDS: INSULIN GLARGINE (Lantus) 5 UNIT/0.05 ML (PER 5 UNITS) 8 UNIT SC (20:45)
[2024-08-14 22:57] LABS: Chloride,Urine Random 76.5 mMol/L (55.0-125.0); Creatinine,Random Urine 61 mg/dL (30-125); Potassium,Urine Random 34 mMol/L (12-62); Sodium,Urine Random 62.6 mMol/L (20.0-110.0)
[2024-08-15] VITALS (25 sets, daily range): BP systolic 114–178; BP diastolic 52–95; PULSE 54–84; RESP 11–17; TEMP 36–37; O2SAT 91–100
[2024-08-15] MEDS: HYDROmorphone INJ 2 MG/ML VIAL 0.25 MG IVP (00:49)
[2024-08-15] MEDS: HYDROcodone/APAP 5/325 TABLET 1 TAB PO (04:08)
[2024-08-15] MEDS: GABAPENTIN 100 MG CAPSULE PO ×3 (05:42→22:57)
[2024-08-15 06:10] LABS: Basophils % (Auto) 0 % (0-2.5); Eosinophils # (Auto) 0.2 Thou/mm3 (0.0-0.5); Eosinophils % (Auto) 3 % (0-10); Immature Granulocytes % (Auto) 1 % (0-0); Immature Granulocytes Auto 0.04 Thou/mm3 (0.00-0.00); Lymphocytes # (Auto) 1.2 Thou/mm3 (1.0-4.8); Lymphocytes % (Auto) 20 % (10-50); Mean Corpuscular HGB Conc 31.2 g/dl (31.0-37.0); Mean Corpuscular Hemoglobin 26.2 pg (25.0-35.0); Mean Corpuscular Volume 84 fL (80-100); Monocytes # (Auto) 0.7 Thou/mm3 (0.0-0.8); Monocytes % (Auto) 12 % (0-12); Neutrophils # (Auto) 3.7 Thou/mm3 (1.8-7.7); Neutrophils % (Auto) 64 % (37-80); Nucleated Red Blood Cell % 0 /100 WBC (0); Platelet Count 151 Thou/mm3 (140-440); RDW Standard Deviation 44.1 fL (36.4-46.3); Red Blood Count 2.37 Miln/mm3 (4.00-5.20); White Blood Count 5.8 Thou/mm3 (3.6-11.0)
[2024-08-15 06:15] LABS: Hematocrit 19.9 % (36.0-46.0); Hemoglobin 6.2 g/dL (12.0-16.0)
[2024-08-15 06:50] LABS: Alanine Aminotransferase < 7 U/L (10-49); Albumin, Serum 2.9 gm/dL (3.4-4.8); Albumin/Globulin Ratio 1.1 (1.2-2.2); Alkaline Phosphatase 53 U/L (46-116); Anion Gap 8 (7-16); Aspartate Amino Transferase < 10 U/L (0-34); BUN/Creatinine Ratio 23 Ratio (12-20); Bilirubin,Total 0.3 mg/dL (0.3-1.2); Blood Urea Nitrogen 46 mg/dL (9-23); Calcium 8.2 mg/dL (8.3-10.6); Calcium (Corrected) 9.1 mg/dL (8.5-10.1); Carbon Dioxide 27.4 mMol/L (20.0-31.0); Chloride 102 mMol/L (98-107); Estimated Creatinine Clearance 21.9 mL/min (>60); Globulin 2.6 gm/dL (2.3-3.5); Glucose 221 mg/dL (74-106); Magnesium 1.4 mg/dL (1.6-2.6); Osmolality,Calculated 292 (275-295); Potassium 4.3 mMol/L (3.4-5.1); Sodium 137 mMol/L (136-145); Total Protein 5.5 gm/dL (5.7-8.2); eGFR 24 See Note
[2024-08-15] MEDS: INSULIN LISPRO (AdmeLOG) 1 UNIT/0.01 ML UNIT SC ×3 (07:36→17:06)
[2024-08-15] MEDS: cefTRIAXone 2 GM in SODIUM CHLORIDE 0.9% (Popper) 50 ML IV (08:11)
[2024-08-15] MEDS: ZINC SULFATE 220 MG CAPSULE PO (08:18)
[2024-08-15] MEDS: hydrALAZINE HCL 25 MG TABLET 100 MG PO ×2 (08:18→21:10)
[2024-08-15] MEDS: Silvasorb Gel 45 ML TUBE TOP (08:18)
[2024-08-15] MEDS: PANTOPRAZOLE 40 MG TABLET PO (08:18)
[2024-08-15] MEDS: carVEDILOL 12.5 MG TABLET 25 MG PO (08:18)
[2024-08-15] MEDS: MULTIVITAMINS TABLET 1 TAB PO (08:18)
[2024-08-15] MEDS: DOXYCYCLINE 100 MG TABLET PO ×2 (08:19→21:10)
[2024-08-15] MEDS: Acetic Acid Irrig 0.25% 500 ML BTL 1000 ML IRRIG (08:19)
[2024-08-15] MEDS: ASCORBIC ACID 250 MG TABLET 500 MG PO ×2 (08:19→21:10)
[2024-08-15] MEDS: cloNIDine HCL 0.1 MG TABLET PO (08:19)
[2024-08-15] MEDS: SENNA TABLET 1 TAB PO (08:23)
[2024-08-15] MEDS: POLYETHYLENE GLYCOL 17 GM PACKET PO (08:23)
--- NOTE | 2024-08-15 09:15 | PC.NURSE ---
Received call from [employer] to fix patient's lead due to reading asystole. RN arrived in patient's room and found her choking. RR called.
--- NOTE | 2024-08-15 09:19 | XR_ITS ---
Examination: AP chest single view Technique: AP portable semiupright chest single view Date and time: August 15, 2024 0929 hrs. Comparison June 06, 2018 Indications: Coughing congestion today, clinical diagnosis aspiration Findings: Bibasilar pneumonia, significant left base Mild enlargement cardiac contour with prominent vascular congestion Right arm PICC line tip SVC Impression: Bibasilar pneumonia, consider aspiration pneumonia
--- NOTE | 2024-08-15 09:55 | EKG_ITS ---
[facility] Test Date: 2024-08-15 Pat Name: ROSALIA SHIRLEY [facility] Gender: Female [employer]: ZAYNAB : 1940 Requested By: Joel Pantoja Order Number: [id number] Reading MD: Joel Pantoja Measurements Intervals [place] Rate: 54 P: 36 VT: 190 QRS: 7 QRSD: 112 T: -16 QT: 468 QTc: 445 Interpretive Statements SINUS BRADYCARDIA LOW QRS VOLTAGE IN PRECORDIAL LEADS POSSIBLE ANTERIOR MYOCARDIAL INFARCTION , PROBABLY OLD Compared to ECG 06/06/2018 14:39:18 Low QRS voltage now present Myocardial infarct finding now present Sinus rhythm no longer present Incomplete right bundle-branch block no longer present T-wave abnormality no longer present /store/S0/[id number]/[id number].pdf
--- NOTE | 2024-08-15 11:58 | PD.RESPRO ---
Documentation for date of: 08/15/24 Subjective Subjective Interval history: Patient was seen and examined at bedside this AM. On a.m. labs patient hemoglobin was 6.2 and 1 unit PRBC was ordered. Patient tolerating diet, adequate urine output and mentation is at baseline. At approximately 9:17 AM rapid response was called due to patient having a choking episode and 3-second asystolic on telemetry. She swallowed a grape which was removed by suctioning and afterward patient was saturating on room air and speaking in full sentences. Hemoglobin 6.2, hematocrit 19.9, magnesium 1.4 and blood culture showed no bacterial growth x 48 hours. 1 additional unit of PRBC ordered for transfusion and speech therapy consulted for swallow evaluation due to aspiration event. Chest x-ray also ordered to rule out aspiration pneumonia. Repleted with 4 g magnesium sulfate IV. Exam Vital Signs Temp Pulse Resp BP Pulse Ox O2 Del Method O2 Flow Rate 97.3 F 56 L 12 131/56 H 99 Nasal Cannula 3 08/15/24 10:49 08/15/24 10:49 08/15/24 10:49 08/15/24 10:49 08/15/24 10:49 08/15/24 08:00 08/15/24 10:49 Narrative Exam General: AAOx3, comfortable, sometimes screams of pain, elderly woman HEENT: Moist mucous membranes, conjunctiva clear, EOMI, PERRLA, does not have her dentures on Cardiovascular: S1, S2, radial pulses +2 bilat, RRR, possible ejection systolic murmur indicative as it radiates to the carotids Pulmonary: CTAB bilat no cough, no wheezing GI: No tenderness to light or deep palpitation, no guarding, rigidity, rebound tenderness or distension Extremities: Bandages present over her wounds of her lower extremities, tender to palpation, some pus draining, very malodorous Neuro: AAOx3, limited exam as patient is in pain Psych: Able to cooperate Objective Labs 08/15/24 05:40 08/15/24 05:40 Labs: Laboratory Results - last 24 hr 08/13/24 08/14/24 08/15/24 06:42 22:30 05:40 WBC 5.8 RBC 2.37 L Hgb 6.2 L* Hct 19.9 L* MCV 84 MCH 26.2 MCHC 31.2 RDW Std Deviation 44.1 Plt Count 151 Neut % (Auto) 64 Lymph % (Auto) 20 [place] % (Auto) 12 Eos % (Auto) 3 Baso % (Auto) 0 Neut # (Auto) 3.7 Lymph # (Auto) 1.2 [place] # (Auto) 0.7 Eos # (Auto) 0.2 Baso # (Auto) 0.0 Immature Gran # (Auto) 0.04 H Absolute Nucleated RBC 0.00 Immature Gran % 1 H Nucleated RBC % 0 Sodium 137 Potassium 4.3 Chloride 102 Carbon Dioxide 27.4 Anion Gap 8 BUN 46 H Creatinine 2.0 H Estim Creat Clear Calc 21.9 L eGFR 24 L BUN/Creatinine Ratio 23 H Glucose 221 H Calculated Osmolality 292 Calcium 8.2 L Corrected Calcium 9.1 Magnesium 1.4 L Total Bilirubin 0.3 AST < 10 ALT < 7 L Alkaline Phosphatase 53 Total Protein 5.5 L Albumin 2.9 L Globulin 2.6 Albumin/Globulin Ratio 1.1 L Ur Random Creatinine 61 Ur Random Sodium 62.6 Ur Random Potassium 34 Ur Random Chloride 76.5 Blood Type O Positive Antibody Screen NEGATIVE Crossmatch See Detail Blood Bank Wristband ID Yes Quality Measures Quality Measures VTE prophylaxis and none Advance care planning discussed with:: patient Assessment & Plan Assessment Current Active Medications: Generic Name Dose Route Start Last Admin Trade Name Freq PRN Reason Stop Dose Admin Acetaminophen 650 mg 08/12/24 18:21 Acetaminophen 325 Mg Tablet PO 09/11/24 18:20 Q6H PRN Fever >100 or pain 1-3 Hydrocodone Bitart/Acetaminophen 1 tab 08/12/24 18:27 08/15/24 04:08 Hydrocodone/Apap 5/325 Tablet PO 08/17/24 18:26 1 tab Q4HR PRN Administration PAIN SCALE 4-6 (Moderate Acetic Acid 1,000 ml 08/13/24 15:00 08/15/24 08:19 Acetic Acid Irrig 0.25% 500 Ml Btl IRRIG 09/12/24 14:59 1,000 ml DAILY GILLIAN Administration Ascorbic Acid 500 mg 08/13/24 14:30 08/15/24 08:19 Ascorbic Acid 250 Mg Tablet PO 09/12/24 14:29 500 mg BID GILLIAN Administration Carvedilol 25 mg 08/12/24 21:00 08/15/24 08:18 Carvedilol 12.5 Mg Tablet PO 09/11/24 20:59 25 mg BID GILLIAN Administration Clonidine 0.1 mg 08/13/24 09:00 08/15/24 08:19 Clonidine Hcl 0.1 Mg Tablet PO 09/12/24 08:59 0.1 mg QDAY GILLIAN Administration Dextrose 25 ml 08/12/24 18:27 Dextrose 50%-Water Inj 50 Ml Syringe IV 09/11/24 18:26 Q15MIN PRN BG 50-70 responsive npo pt Dextrose 50 ml 08/12/24 18:27 Dextrose 50%-Water Inj 50 Ml Syringe IV 09/11/24 18:26 Q15MIN PRN BG <50 OR BG <70 & pt unresponsive Doxycycline Hyclate 100 mg 08/14/24 09:00 08/15/24 08:19 Doxycycline 100 Mg Tablet PO 08/21/24 08:59 100 mg BID GILLIAN Administration Gabapentin 100 mg 08/12/24 22:00 08/15/24 05:42 Gabapentin 100 Mg Capsule PO 09/11/24 21:59 100 mg TID GILLIAN Administration Glucagon 1 mg 08/12/24 18:27 Glucagon Inj 1 Mg Vial IM Q15MIN PRN BG <70, and no IV access Hydralazine HCl 100 mg 08/13/24 09:00 08/15/24 08:18 Hydralazine Hcl 25 Mg Tablet PO 09/12/24 08:59 100 mg BID GILLIAN Administration Hydralazine HCl 10 mg 08/13/24 04:18 Hydralazine Inj 20 Mg/Ml Vial IVP 09/12/24 04:17 Q4H PRN hypertension Hydromorphone HCl 0.25 mg 08/12/24 18:27 08/15/24 00:49 Hydromorphone Inj 2 Mg/Ml Vial IVP 08/17/24 18:26 0.25 mg Q4H PRN Administration Breakthrough Pain or pain 7-10 Ceftriaxone Sodium 2 gm/ 50 mls @ 100 mls/hr 08/15/24 09:00 08/15/24 08:11 Sodium Chloride IV 08/22/24 08:59 100 mls/hr QDAY GILLIAN Administration Insulin Glargine 8 unit 08/14/24 21:00 08/14/24 20:45 Insulin Glargine (Lantus) 5 Unit/0.05 Ml (Per 5 Units) SC 09/13/24 20:59 8 unit HS GILLIAN Administration Insulin Human Lispro 0 unit 08/13/24 07:30 08/15/24 11:48 Insulin Lispro (Admelog) 1 Unit/0.01 Ml Unit SC 09/12/24 07:29 2 unit AC GILLIAN Administration Protocol Multivitamins 1 tab 08/13/24 14:30 08/15/24 08:18 Multivitamins Tablet PO 09/12/24 14:29 1 tab QDAY GILLIAN Administration Ondansetron HCl 4 mg 08/12/24 19:04 08/12/24 19:14 Ondansetron Inj 2 Mg/Ml Inj 2 Ml IV 09/11/24 19:03 4 mg Q6HR PRN Administration NAUSEA OR VOMITING Protocol Pantoprazole Sodium 40 mg 08/14/24 09:00 08/15/24 08:18 Pantoprazole 40 Mg Tablet PO 09/13/24 08:59 40 mg QDAY GILLIAN Administration Pharmacy Consult 1 each 08/12/24 18:30 Pharmacy Renal Dose Adjustment 1 Ea XX 09/11/24 18:29 PRN PRN CONSULT Polyethylene Glycol 17 gm 08/14/24 15:44 08/15/24 08:23 Polyethylene Glycol 17 Gm Packet PO 09/14/24 08:59 17 gm QDAY PRN Administration constipation Protocol Sennosides 1 tab 08/15/24 08:00 08/15/24 08:23 Senna Tablet PO 09/14/24 07:59 1 tab QDAY PRN Administration CONSTIPATION Protocol Zinc Sulfate 220 mg 08/13/24 14:30 08/15/24 08:18 Zinc Sulfate 220 Mg Capsule PO 08/27/24 14:29 220 mg QDAY GILLIAN Administration Plan Assessment Marisol is a 84 y/o female with PMHx of HTN, HLD, chronic venous ulcers, ?PAD, CKD stage IV who is admitted for sepsis rule out secondary to chronic venous ulcers. #Acute on chronic blood loss anemia #Possible GI bleed #History of chronic normocytic anemia Hemoglobin 6.2, hematocrit 19.9. No obvious source of bleeding, patient denies any hematemesis, coffee-ground emesis, melena and ID bleed. Left groin site of lower extremity angiogram showed no signs of hematoma or bleeding. Plan: ? Type and crossmatch ? 2 units PRBCs ordered for transfusion ? Posttransfusion H&H ordered ? FOBT ordered ? Possible GI consult depending on FOBT results #Rule out aspiration pneumonia At approximately 9:17 AM rapid response was called due to patient having a choking episode and 3-second asystole on telemetry. She swallowed a grape which was removed by suctioning and afterward patient was saturating on room air and speaking in full sentences. Chest x-ray showed bibasilar pneumonia and possible aspiration pneumonia. Plan: ? Chest x-ray ordered ? Speech therapy consulted for swallow evaluation #Osteomyelitis of the patient's right fibula #Cellulitis of left fibula #Chronic venous ulcers #Sepsis ruled out Patient recently got CT angio lower extremities with possible stenting by Dr. Armstrong MRSA screen negative Blood cultures no growth after 1 day Pt will need Abx until SEPTEMBER 24, 2024; Rocephin 2g IV and Doxycycline 100 mg po BID D/c Vanco 08/12-08/14 Pending surgical recs Plan: ? General Surgery consulted, appreciate recs ? Follow-up blood cultures ? Doxycycline 100 mg IV BID (08/14- ? Rocephin 2 g IV daily (08/12- ? Referral to wound care ? PICC line ? Patient will need home health upon discharge for IV antibiotic #JOSE ANTONIO on CKD #CKD stage IV Creatinine 2.3 today, baseline appears to be 1.6 Patient could have manifestation of JOSE ANTONIO as she had contrast a couple of days ago from angiogram OUP 450 mL past 12 hours Plan: ? Avoid nephrotoxic agents ? Renally dose medicines ? Normal saline 500 cc/hour 500 mL bag ? Urine lytes and Cr #Hypertensive urgency, resolved #Hypertension #Hyperlipidemia Chronic Patient does not take statin due to possible allergy Plan: ? Continue home blood pressure medicines including Coreg, hydralazine and clonidine ? Hydralazine 10 mg IV as needed #Ifm-slmtyee-jswqcmeod type II diabetes mellitus Previous A1c of 6 in 2023 Plan: ? Sliding scale insulin ? Hypoglycemic protocol in place ? Blood sugar checks with meals #Health Maintenance Disposition: Med telemetry. Blood transfusion. FOBT. Possible GI consult DVT prophylaxis: Contraindicated GI prophylaxis: Protonix Diet: Cardiac CODE STATUS: Full Plan of care discussed with Attending Dr. Anju Pantoja MD PGY 1 Disclaimer: This note was dictated by speech recognition. Minor errors in telephonic rn may be present due to voice recognition software. Attending Provider Attestation/Addendum I have discussed and was present for the essential components of the history, physical examination, diagnosis, and treatment plan with the resident. I agree with the patient's care as documented by the resident and amended herein by me. Humble Rene DO. Patient seen and evaluated this AM. Overnight, the patient's hemoglobin did drop yet again to 6.2. The patient was transfused 2 units this morning, replete hemoglobin pending. Cause of anemia is unclear at this time, no obvious signs of bleeding, fecal occult blood ordered and is pending. Patient also had a rapid response this morning for an aspiration event and when she choked on a grape from breakfast which we were able to suction out, the patient was fine after that, however we did perform x-ray was performed which did demonstrate aspiration pneumonitis, will continue to monitor. Creatinine has down trended to 2.3, BUN 46, blood cultures negative thus far. Will order speech therapy for today considering aspiration event, follow-up with transfusion and stool occult, replete magnesium and continue ceftriaxone and doxycycline for cellulitis and osteomyelitis of her lower extremeties. Patient's PICC line was placed, will need 6 weeks of IV antibiotics ending on 24 September 2024. Continue monitor closely Although this document has been carefully reviewed, there may still be some phonetic and other typographical errors. These errors are purely grammatical due to imperfections in the software program and should not be construed in any way to compromise the substance of the patient's medical care during this visit.
[2024-08-15] MEDS: Magnesium Sulfate 4 GM Ivpb 4 GM/50 ML BAG IV (12:31)
[2024-08-15] MEDS: PSYLLIUM 1 PKT PACKET PO (15:21)
[2024-08-15 17:48] LABS: Hematocrit 27.4 % (36.0-46.0); Hemoglobin 9.3 g/dL (12.0-16.0)
[2024-08-15] MEDS: INSULIN GLARGINE (Lantus) 5 UNIT/0.05 ML (PER 5 UNITS) 8 UNIT SC (21:14)
[2024-08-16] VITALS (12 sets, daily range): BP systolic 128–146; BP diastolic 54–76; PULSE 60–66; RESP 15–19; TEMP 36.2–36.7; O2SAT 94–98
[2024-08-16 00:27] LABS: Hematocrit 27.9 % (36.0-46.0); Hemoglobin 9.3 g/dL (12.0-16.0)
[2024-08-16] MEDS: GABAPENTIN 100 MG CAPSULE PO ×3 (05:53→21:46)
[2024-08-16 05:54] LABS: Basophils % (Auto) 0 % (0-2.5); Eosinophils # (Auto) 0.2 Thou/mm3 (0.0-0.5); Eosinophils % (Auto) 4 % (0-10); Hemoglobin 8.9 g/dL (12.0-16.0); Immature Granulocytes % (Auto) 1 % (0-0); Immature Granulocytes Auto 0.04 Thou/mm3 (0.00-0.00); Lymphocytes # (Auto) 1.1 Thou/mm3 (1.0-4.8); Lymphocytes % (Auto) 19 % (10-50); Mean Corpuscular Hemoglobin 28.3 pg (25.0-35.0); Mean Corpuscular Volume 86 fL (80-100); Monocytes # (Auto) 0.6 Thou/mm3 (0.0-0.8); Monocytes % (Auto) 11 % (0-12); Neutrophils # (Auto) 3.6 Thou/mm3 (1.8-7.7); Neutrophils % (Auto) 65 % (37-80); Nucleated Red Blood Cell % 0 /100 WBC (0); Platelet Count 162 Thou/mm3 (140-440); RDW Standard Deviation 44.3 fL (36.4-46.3); Red Blood Count 3.15 Miln/mm3 (4.00-5.20); White Blood Count 5.6 Thou/mm3 (3.6-11.0)
[2024-08-16 06:38] LABS: Alanine Aminotransferase < 7 U/L (10-49); Albumin/Globulin Ratio 1.2 (1.2-2.2); Alkaline Phosphatase 58 U/L (46-116); Anion Gap 8 (7-16); Aspartate Amino Transferase 10 U/L (0-34); BUN/Creatinine Ratio 23 Ratio (12-20); Bilirubin,Total 0.5 mg/dL (0.3-1.2); Blood Urea Nitrogen 42 mg/dL (9-23); Calcium 8.8 mg/dL (8.3-10.6); Calcium (Corrected) 9.6 mg/dL (8.5-10.1); Carbon Dioxide 28.2 mMol/L (20.0-31.0); Chloride 103 mMol/L (98-107); Creatinine (Component) 1.8 mg/dL (0.6-1.3); Estimated Creatinine Clearance 24.4 mL/min (>60); Globulin 2.6 gm/dL (2.3-3.5); Glucose 180 mg/dL (74-106); Magnesium 2.1 mg/dL (1.6-2.6); Osmolality,Calculated 293 (275-295); Phosphorous 3.8 mg/dL (2.4-5.1); Potassium 4.2 mMol/L (3.4-5.1); Sodium 139 mMol/L (136-145); Total Protein 5.6 gm/dL (5.7-8.2); eGFR 28 See Note
[2024-08-16] MEDS: INSULIN LISPRO (AdmeLOG) 1 UNIT/0.01 ML UNIT SC ×3 (07:43→17:02)
[2024-08-16] MEDS: cefTRIAXone 2 GM in SODIUM CHLORIDE 0.9% (Popper) 50 ML IV (08:17)
[2024-08-16] MEDS: POLYETHYLENE GLYCOL 17 GM PACKET PO (08:18)
[2024-08-16] MEDS: PSYLLIUM 1 PKT PACKET PO (08:21)
[2024-08-16] MEDS: hydrALAZINE HCL 25 MG TABLET 100 MG PO ×2 (08:23→21:47)
[2024-08-16] MEDS: ZINC SULFATE 220 MG CAPSULE PO (08:23)
[2024-08-16] MEDS: MULTIVITAMINS TABLET 1 TAB PO (08:23)
[2024-08-16] MEDS: ASCORBIC ACID 250 MG TABLET 500 MG PO ×2 (08:23→21:46)
[2024-08-16] MEDS: PANTOPRAZOLE 40 MG TABLET PO (08:23)
[2024-08-16] MEDS: DOXYCYCLINE 100 MG TABLET PO ×2 (08:24→21:47)
[2024-08-16] MEDS: SENNA TABLET 1 TAB PO (08:24)
[2024-08-16] MEDS: cloNIDine HCL 0.1 MG TABLET PO (08:24)
[2024-08-16] MEDS: carVEDILOL 12.5 MG TABLET 25 MG PO (08:24)
[2024-08-16] MEDS: Acetic Acid Irrig 0.25% 500 ML BTL 1000 ML IRRIG (08:24)
[2024-08-16] MEDS: Silvasorb Gel 45 ML TUBE TOP (08:24)
--- NOTE | 2024-08-16 11:01 | PD.RESPRO ---
Documentation for date of: 08/16/24 Subjective Subjective Interval history: Patient seen examined at bedside this a.m., overnight patient was sinus bradycardia in the 50s from telemetry review. Patient currently tolerating diet and has adequate urine output, did not have a bowel movement for past 2 days. Hemoglobin stable at 8.9 post 2 unit PRBC transfusion yesterday, blood glucose elevated in the 200s overnight. Stool for occult blood currently pending due to patient not having a bowel movement. Increase insulin glargine to 10 units at bedtime and insulin lispro to 3 units 3 times daily with meals. Carvedilol held due to bradycardia. Scheduled lactulose 20 g p.o. 3 times daily. Will keep patient for 1 more day to monitor for any signs of bleeding. Exam Vital Signs Temp Pulse Resp BP Pulse Ox O2 Del Method O2 Flow Rate 97.8 F 61 15 146/55 H 95 Room Air 3 08/16/24 08:00 08/16/24 09:18 08/16/24 08:00 08/16/24 08:24 08/16/24 08:00 08/16/24 08:00 08/16/24 08:00 Narrative Exam General: AAOx3, comfortable, sometimes screams of pain, elderly woman HEENT: Moist mucous membranes, conjunctiva clear, EOMI, PERRLA, does not have her dentures on Cardiovascular: S1, S2, radial pulses +2 bilat, RRR, possible ejection systolic murmur indicative as it radiates to the carotids Pulmonary: CTAB bilat no cough, no wheezing GI: No tenderness to light or deep palpitation, no guarding, rigidity, rebound tenderness or distension Extremities: Bandages present over her wounds of her lower extremities, clean and dry, malodorous Neuro: AAOx3, limited exam as patient is in pain Psych: Able to cooperate Objective Labs 08/16/24 05:00 08/16/24 05:00 Labs: Laboratory Results - last 24 hr 08/13/24 08/15/24 08/15/24 06:42 17:32 23:44 WBC RBC Hgb 9.3 L D 9.3 L Hct 27.4 L 27.9 L MCV MCH MCHC RDW Std Deviation Plt Count Neut % (Auto) Lymph % (Auto) [place] % (Auto) Eos % (Auto) Baso % (Auto) Neut # (Auto) Lymph # (Auto) [place] # (Auto) Eos # (Auto) Baso # (Auto) Immature Gran # (Auto) Absolute Nucleated RBC Immature Gran % Nucleated RBC % Sodium Potassium Chloride Carbon Dioxide Anion Gap BUN Creatinine Estim Creat Clear Calc eGFR BUN/Creatinine Ratio Glucose Calculated Osmolality Calcium Corrected Calcium Phosphorus Magnesium Total Bilirubin AST ALT Alkaline Phosphatase Total Protein Albumin Globulin Albumin/Globulin Ratio Blood Type O Positive Antibody Screen NEGATIVE Crossmatch See Detail Blood Bank Wristband ID Yes 08/16/24 05:00 WBC 5.6 RBC 3.15 L Hgb 8.9 L Hct 27.0 L MCV 86 MCH 28.3 MCHC 33.0 RDW Std Deviation 44.3 Plt Count 162 Neut % (Auto) 65 Lymph % (Auto) 19 [place] % (Auto) 11 Eos % (Auto) 4 Baso % (Auto) 0 Neut # (Auto) 3.6 Lymph # (Auto) 1.1 [place] # (Auto) 0.6 Eos # (Auto) 0.2 Baso # (Auto) 0.0 Immature Gran # (Auto) 0.04 H Absolute Nucleated RBC 0.00 Immature Gran % 1 H Nucleated RBC % 0 Sodium 139 Potassium 4.2 Chloride 103 Carbon Dioxide 28.2 Anion Gap 8 BUN 42 H Creatinine 1.8 H Estim Creat Clear Calc 24.4 L eGFR 28 L BUN/Creatinine Ratio 23 H Glucose 180 H Calculated Osmolality 293 Calcium 8.8 Corrected Calcium 9.6 Phosphorus 3.8 Magnesium 2.1 Total Bilirubin 0.5 AST 10 ALT < 7 L Alkaline Phosphatase 58 Total Protein 5.6 L Albumin 3.0 L Globulin 2.6 Albumin/Globulin Ratio 1.2 Blood Type Antibody Screen Crossmatch Blood Bank Wristband ID Quality Measures Quality Measures VTE prophylaxis and none Advance care planning discussed with:: patient Assessment & Plan Assessment Current Active Medications: Generic Name Dose Route Start Last Admin Trade Name Freq PRN Reason Stop Dose Admin Acetaminophen 650 mg 08/12/24 18:21 Acetaminophen 325 Mg Tablet PO 09/11/24 18:20 Q6H PRN Fever >100 or pain 1-3 Hydrocodone Bitart/Acetaminophen 1 tab 08/12/24 18:27 08/15/24 04:08 Hydrocodone/Apap 5/325 Tablet PO 08/17/24 18:26 1 tab Q4HR PRN Administration PAIN SCALE 4-6 (Moderate Acetic Acid 1,000 ml 08/13/24 15:00 08/16/24 08:24 Acetic Acid Irrig 0.25% 500 Ml Btl IRRIG 09/12/24 14:59 1,000 ml DAILY GILLIAN Administration Ascorbic Acid 500 mg 08/13/24 14:30 08/16/24 08:23 Ascorbic Acid 250 Mg Tablet PO 09/12/24 14:29 500 mg BID GILLIAN Administration Carvedilol 25 mg 08/12/24 21:00 08/16/24 08:24 Carvedilol 12.5 Mg Tablet PO 09/11/24 20:59 25 mg BID GILLIAN Administration Clonidine 0.1 mg 08/13/24 09:00 08/16/24 08:24 Clonidine Hcl 0.1 Mg Tablet PO 09/12/24 08:59 0.1 mg QDAY GILLIAN Administration Dextrose 25 ml 08/12/24 18:27 Dextrose 50%-Water Inj 50 Ml Syringe IV 09/11/24 18:26 Q15MIN PRN BG 50-70 responsive npo pt Dextrose 50 ml 08/12/24 18:27 Dextrose 50%-Water Inj 50 Ml Syringe IV 09/11/24 18:26 Q15MIN PRN BG <50 OR BG <70 & pt unresponsive Doxycycline Hyclate 100 mg 08/14/24 09:00 08/16/24 08:24 Doxycycline 100 Mg Tablet PO 08/21/24 08:59 100 mg BID GILLIAN Administration Gabapentin 100 mg 08/12/24 22:00 08/16/24 05:53 Gabapentin 100 Mg Capsule PO 09/11/24 21:59 100 mg TID GILLIAN Administration Glucagon 1 mg 08/12/24 18:27 Glucagon Inj 1 Mg Vial IM Q15MIN PRN BG <70, and no IV access Hydralazine HCl 100 mg 08/13/24 09:00 08/16/24 08:23 Hydralazine Hcl 25 Mg Tablet PO 09/12/24 08:59 100 mg BID GILLIAN Administration Hydralazine HCl 10 mg 08/13/24 04:18 Hydralazine Inj 20 Mg/Ml Vial IVP 09/12/24 04:17 Q4H PRN hypertension Hydromorphone HCl 0.25 mg 08/12/24 18:27 08/15/24 00:49 Hydromorphone Inj 2 Mg/Ml Vial IVP 08/17/24 18:26 0.25 mg Q4H PRN Administration Breakthrough Pain or pain 7-10 Ceftriaxone Sodium 2 gm/ 50 mls @ 100 mls/hr 08/15/24 09:00 08/16/24 08:17 Sodium Chloride IV 08/22/24 08:59 100 mls/hr QDAY GILLIAN Administration Insulin Glargine 10 unit 08/16/24 21:00 Insulin Glargine (Lantus) 5 Unit/0.05 Ml (Per 5 Units) SC 09/15/24 20:59 HS GILLIAN Insulin Human Lispro 0 unit 08/13/24 07:30 08/16/24 07:43 Insulin Lispro (Admelog) 1 Unit/0.01 Ml Unit SC 09/12/24 07:29 1 unit AC [facility] Administration Protocol Insulin Human Lispro 3 unit 08/16/24 12:00 Insulin Lispro (Admelog) 1 Unit/0.01 Ml Unit SC 09/15/24 11:59 TIDWM GILLIAN Lactulose 20 gm 08/16/24 14:00 Lactulose Syrup 20 Gm/30 Ml Udc PO 09/15/24 13:59 TID GILLIAN Protocol Multivitamins 1 tab 08/13/24 14:30 08/16/24 08:23 Multivitamins Tablet PO 09/12/24 14:29 1 tab QDAY [facility] Administration Ondansetron HCl 4 mg 08/12/24 19:04 08/12/24 19:14 Ondansetron Inj 2 Mg/Ml Inj 2 Ml IV 09/11/24 19:03 4 mg Q6HR PRN Administration NAUSEA OR VOMITING Protocol Pantoprazole Sodium 40 mg 08/14/24 09:00 08/16/24 08:23 Pantoprazole 40 Mg Tablet PO 09/13/24 08:59 40 mg QDAY [facility] Administration Pharmacy Consult 1 each 08/12/24 18:30 Pharmacy Renal Dose Adjustment 1 Ea XX 09/11/24 18:29 PRN PRN CONSULT Sennosides 1 tab 08/15/24 14:30 08/16/24 08:24 Senna Tablet PO 09/14/24 14:29 1 tab QDAY [facility] Administration Protocol Zinc Sulfate 220 mg 08/13/24 14:30 08/16/24 08:23 Zinc Sulfate 220 Mg Capsule PO 08/27/24 14:29 220 mg QDAY [facility] Administration Plan Assessment Marisol is a 84 y/o female with PMHx of HTN, HLD, chronic venous ulcers, ?PAD, CKD stage IV who is admitted for sepsis rule out secondary to chronic venous ulcers. #Acute on chronic blood loss anemia #Possible GI bleed #History of chronic normocytic anemia Hemoglobin 6.2, hematocrit 19.9. No obvious source of bleeding, patient denies any hematemesis, coffee-ground emesis, melena and DE bleed. Left groin site of lower extremity angiogram showed no signs of hematoma or bleeding. Hemoglobin stable at 8.9 post 2 unit PRBC transfusion yesterday. Stool for occult blood currently pending due to patient not having a bowel movement. Plan: ? Monitor hemoglobin on a.m. CBC ? FOBT ordered ? Possible GI consult depending on FOBT results # Possible aspiration pneumonia At approximately 9:17 AM rapid response was called due to patient having a choking episode and 3-second asystole on telemetry. She swallowed a grape which was removed by suctioning and afterward patient was saturating on room air and speaking in full sentences. Chest x-ray showed bibasilar pneumonia and possible aspiration pneumonia. Plan: ? Continue dysphagia 2 diet as per speech therapy recommendations #Osteomyelitis of the patient's right fibula #Cellulitis of left fibula #Chronic venous ulcers #Sepsis ruled out Patient recently got CT angio lower extremities with possible stenting by Dr. Armstrong MRSA screen negative Blood cultures no bacterial growth after 48 hours/prolonged Pt will need Abx until SEPTEMBER 24, 2024; Rocephin 2g IV and Doxycycline 100 mg po BID D/c Vanco 08/12-08/14 Pending surgical recs Plan: ? General Surgery consulted, appreciate recs ? Doxycycline 100 mg IV BID (08/14- ? Rocephin 2 g IV daily (08/12- ? Continue dressings as per wound care recommendations ? Patient will need home health upon discharge for IV antibiotic #JOSE ANTONIO on CKD #CKD stage IV Creatinine 2.3 today, baseline appears to be 1.6 Patient could have manifestation of JOSE ANTONIO as she had contrast a couple of days ago from angiogram OUP 1500 mL past 24 hours Plan: ? Avoid nephrotoxic agents ? Renally dose medicines ? Normal saline 500 cc/hour 500 mL bag ? Urine lytes and Cr #Hypertensive urgency, resolved #Primary hypertension #Hyperlipidemia Chronic Patient does not take statin due to side effects Plan: ? Continue home blood pressure medicines, hydralazine and clonidine ? Carvedilol held due to bradycardia ? Hydralazine 10 mg IV as needed #[id number] type II diabetes mellitus Previous A1c of 6 in 2023 Blood glucose elevated in the 200s overnight. Increased insulin glargine to 10 units at bedtime and insulin lispro to 3 units 3 times daily with meals. Plan: ? Insulin glargine increased to 10 units at bedtime ? Increase insulin lispro to 3 units 3 times daily with meals ? Sliding scale insulin to cover any blood glucose spikes ? Hypoglycemic protocol in place ? Blood sugar checks with meals #Constipation Patient has not had a bowel movement since admission. Plan: ? Started lactulose 20 g p.o. 3 times daily ? MiraLAX 1 packet p.o. x 1 ? Senna 1 tab p.o. daily #Health Maintenance Disposition: Med telemetry. Pending FOBT. Possible GI consult. Once no further signs of bleeding, anticipate discharge within next 24 to 48 hours DVT prophylaxis: Contraindicated GI prophylaxis: Protonix Diet: Cardiac CODE STATUS: Full Plan of care discussed with Attending Dr. Anju Pantoja MD PGY 1 Disclaimer: This note was dictated by speech recognition. Minor errors in maintenance and operations supervisor may be present due to voice recognition software. Attending Provider Attestation/Addendum I have discussed and was present for the essential components of the history, physical examination, diagnosis, and treatment plan with the resident. I agree with the patient's care as documented by the resident and amended herein by me. Humble Rene, DO. Patient seen and evaluated this AM. No acute events overnight, vital signs stable, patient afebrile, hemoglobin stable at 8.9 today. Creatinine slightly improved 1.8. Blood glucose elevated, will adjust insulin regimen accordingly. Will continue IV antibiotics, ceftriaxone and Doxy, PICC line has been placed patient will need IV antibiotics until 24 September 2024. As for the patient's anemia, FOBT pending, no obvious signs of bleeding anywhere. If FOBT positive will get GI on board. Continue to monitor closely, the patient has no subjective complaints and feels well overall. Although this document has been carefully reviewed, there may still be some phonetic and other typographical errors. These errors are purely grammatical due to imperfections in the software program and should not be construed in any way to compromise the substance of the patient's medical care during this visit.
[2024-08-16] MEDS: INSULIN LISPRO (AdmeLOG) 1 UNIT/0.01 ML UNIT 3 UNIT SC ×2 (11:14→17:03)
--- NOTE | 2024-08-16 12:23 | PD.IMPROG ---
Documentation for date of: 08/16/24 Subjective Subjective Interval history: Weight cholelithiasis (evidence CT gastric patient received blood transfusion hemoglobin improved Currently treated being treated for osteomyelitis cellulitis Venous ulcers Exam Vital Signs Temp Pulse Resp BP Pulse Ox O2 Del Method O2 Flow Rate 97.8 F 61 15 146/55 H 95 Room Air 3 08/16/24 08:00 08/16/24 09:18 08/16/24 08:00 08/16/24 08:24 08/16/24 08:00 08/16/24 08:00 08/16/24 08:00 Routine HEENT Exam Head: Present normocephalic and atraumatic Eye: Present EOMI and PERRL ENT: Present mucous membranes moist Routine Neck Exam Neck: Present supple and trachea midline Routine Respiratory Exam Respiratory: Present chest non-tender, lungs clear, normal breath sounds and no resp distress Routine Cardiovascular Exam Cardiovascular: Present RRR Routine Abdominal Exam Abdominal: Present soft and normoactive bowel sounds Routine Extremities Exam Extremities: Present full ROM Routine Skin Exam Skin: Present intact, dry and warm Routine Neurological Exam Neurological: Present alert, oriented X3 and CN II-XII intact Routine Psychiatric Exam Psychiatric: Present normal affect and normal thought process Objective Labs 08/16/24 05:00 08/16/24 05:00 Labs: Laboratory Results - last 24 hr 08/13/24 08/15/24 08/15/24 06:42 17:32 23:44 WBC RBC Hgb 9.3 L D 9.3 L Hct 27.4 L 27.9 L MCV MCH MCHC RDW Std Deviation Plt Count Neut % (Auto) Lymph % (Auto) [place] % (Auto) Eos % (Auto) Baso % (Auto) Neut # (Auto) Lymph # (Auto) [place] # (Auto) Eos # (Auto) Baso # (Auto) Immature Gran # (Auto) Absolute Nucleated RBC Immature Gran % Nucleated RBC % Sodium Potassium Chloride Carbon Dioxide Anion Gap BUN Creatinine Estim Creat Clear Calc eGFR BUN/Creatinine Ratio Glucose Calculated Osmolality Calcium Corrected Calcium Phosphorus Magnesium Total Bilirubin AST ALT Alkaline Phosphatase Total Protein Albumin Globulin Albumin/Globulin Ratio Blood Type O Positive Antibody Screen NEGATIVE Crossmatch See Detail Blood Bank Wristband ID Yes 08/16/24 05:00 WBC 5.6 RBC 3.15 L Hgb 8.9 L Hct 27.0 L MCV 86 MCH 28.3 MCHC 33.0 RDW Std Deviation 44.3 Plt Count 162 Neut % (Auto) 65 Lymph % (Auto) 19 [place] % (Auto) 11 Eos % (Auto) 4 Baso % (Auto) 0 Neut # (Auto) 3.6 Lymph # (Auto) 1.1 [place] # (Auto) 0.6 Eos # (Auto) 0.2 Baso # (Auto) 0.0 Immature Gran # (Auto) 0.04 H Absolute Nucleated RBC 0.00 Immature Gran % 1 H Nucleated RBC % 0 Sodium 139 Potassium 4.2 Chloride 103 Carbon Dioxide 28.2 Anion Gap 8 BUN 42 H Creatinine 1.8 H Estim Creat Clear Calc 24.4 L eGFR 28 L BUN/Creatinine Ratio 23 H Glucose 180 H Calculated Osmolality 293 Calcium 8.8 Corrected Calcium 9.6 Phosphorus 3.8 Magnesium 2.1 Total Bilirubin 0.5 AST 10 ALT < 7 L Alkaline Phosphatase 58 Total Protein 5.6 L Albumin 3.0 L Globulin 2.6 Albumin/Globulin Ratio 1.2 Blood Type Antibody Screen Crossmatch Blood Bank Wristband ID Assessment & Plan Assessment and plan (1) CAD (coronary artery disease): Status: Acute (2) Venous stasis ulcer: Status: Acute (3) Open wounds involving multiple regions of lower extremity: Status: Acute (4) Osteomyelitis: Status: Acute Assessment and plan: Continue antibiotic treatment Continue IV fluid for chronic renal dysfunction Patient appears to have venous ulcers with cellulitis osteomyelitis At this time hemodynamically stable A&P Narrative continue treatment for wound infection Time Spent With Patient Time: Total time spent is greater than 50% in coordination of care (as documented) at patient's floor/unit and/or counseling patient:
[2024-08-16] MEDS: LACTULOSE SYRUP 20 GM/30 ML UDC PO ×2 (13:18→21:46)
[2024-08-16] MEDS: HYDROcodone/APAP 5/325 TABLET 1 TAB PO ×2 (15:51→23:42)
[2024-08-16] MEDS: INSULIN GLARGINE (Lantus) 5 UNIT/0.05 ML (PER 5 UNITS) 10 UNIT SC (21:40)
[2024-08-17] VITALS (9 sets, daily range): BP systolic 110–149; BP diastolic 57–104; PULSE 58–74; RESP 12–18; TEMP 36.1–36.6; O2SAT 94–99; BMI 12.0
--- NOTE | 2024-08-17 04:01 | PC.NURSE ---
called Dr. Schulz regarding patient not having a bowel movement since admission, patient was given bowel regimen yesterday for dayshift and started on lactulose 20gm TID, but still has not has a bowel movement so far, per MD to increase dose to 40 gm TID.
[2024-08-17] MEDS: LACTULOSE SYRUP 20 GM/30 ML UDC 40 GM PO ×3 (05:19→21:55)
[2024-08-17] MEDS: GABAPENTIN 100 MG CAPSULE PO ×3 (05:19→21:56)
[2024-08-17 07:06] LABS: Basophils % (Auto) 0 % (0-2.5); Eosinophils # (Auto) 0.3 Thou/mm3 (0.0-0.5); Eosinophils % (Auto) 5 % (0-10); Hematocrit 28.5 % (36.0-46.0); Hemoglobin 9.2 g/dL (12.0-16.0); Immature Granulocytes % (Auto) 1 % (0-0); Immature Granulocytes Auto 0.03 Thou/mm3 (0.00-0.00); Lymphocytes # (Auto) 1.3 Thou/mm3 (1.0-4.8); Lymphocytes % (Auto) 23 % (10-50); Mean Corpuscular HGB Conc 32.3 g/dl (31.0-37.0); Mean Corpuscular Volume 87 fL (80-100); Monocytes # (Auto) 0.6 Thou/mm3 (0.0-0.8); Monocytes % (Auto) 11 % (0-12); Neutrophils # (Auto) 3.2 Thou/mm3 (1.8-7.7); Neutrophils % (Auto) 59 % (37-80); Nucleated Red Blood Cell % 0 /100 WBC (0); Platelet Count 191 Thou/mm3 (140-440); RDW Standard Deviation 46.7 fL (36.4-46.3); Red Blood Count 3.28 Miln/mm3 (4.00-5.20); White Blood Count 5.4 Thou/mm3 (3.6-11.0)
[2024-08-17 07:19] LABS: Alanine Aminotransferase 10 U/L (10-49); Albumin, Serum 3.1 gm/dL (3.4-4.8); Albumin/Globulin Ratio 1.2 (1.2-2.2); Alkaline Phosphatase 65 U/L (46-116); Anion Gap 9 (7-16); Aspartate Amino Transferase 15 U/L (0-34); BUN/Creatinine Ratio 24 Ratio (12-20); Bilirubin,Total 0.4 mg/dL (0.3-1.2); Blood Urea Nitrogen 41 mg/dL (9-23); Calcium 9.1 mg/dL (8.3-10.6); Calcium (Corrected) 9.8 mg/dL (8.5-10.1); Carbon Dioxide 27.8 mMol/L (20.0-31.0); Chloride 104 mMol/L (98-107); Creatinine (Component) 1.7 mg/dL (0.6-1.3); Estimated Creatinine Clearance 25.8 mL/min (>60); Globulin 2.5 gm/dL (2.3-3.5); Glucose 172 mg/dL (74-106); Magnesium 1.9 mg/dL (1.6-2.6); Osmolality,Calculated 295 (275-295); Phosphorous 3.8 mg/dL (2.4-5.1); Potassium 4.1 mMol/L (3.4-5.1); Sodium 141 mMol/L (136-145); Total Protein 5.6 gm/dL (5.7-8.2); eGFR 30 See Note
[2024-08-17] MEDS: INSULIN LISPRO (AdmeLOG) 1 UNIT/0.01 ML UNIT 3 UNIT SC ×3 (07:50→17:38)
[2024-08-17] MEDS: INSULIN LISPRO (AdmeLOG) 1 UNIT/0.01 ML UNIT SC ×2 (07:50→12:13)
--- NOTE | 2024-08-17 08:13 | XR_ITS ---
Examination: Abdomen AP single view Technique: AP portable supine abdomen, single view Exam date and time: August 17, 2024 0849 hours INDICATIONS: Constipation this months. FINDINGS: Moderate air and stool throughout the colon Mild small bowel ileus No free air Prominent osteopenia Total right hip arthroplasty with satisfactory alignment. Advanced narrowing left hip joint IMPRESSION: Moderate air and stool throughout the colon Mild small bowel ileus
[2024-08-17] MEDS: MULTIVITAMINS TABLET 1 TAB PO (09:33)
[2024-08-17] MEDS: cefTRIAXone 2 GM in SODIUM CHLORIDE 0.9% (Popper) 50 ML IV (09:33)
[2024-08-17] MEDS: MINERAL OIL 30 ML UDC PR (09:33)
[2024-08-17] MEDS: PANTOPRAZOLE 40 MG TABLET PO (09:33)
[2024-08-17] MEDS: DOXYCYCLINE 100 MG TABLET PO ×2 (09:33→21:56)
[2024-08-17] MEDS: cloNIDine HCL 0.1 MG TABLET PO (09:33)
[2024-08-17] MEDS: ZINC SULFATE 220 MG CAPSULE PO (09:34)
[2024-08-17] MEDS: hydrALAZINE HCL 25 MG TABLET 100 MG PO (09:34)
[2024-08-17] MEDS: SENNA TABLET 1 TAB PO (09:34)
[2024-08-17] MEDS: ASCORBIC ACID 250 MG TABLET 500 MG PO ×2 (09:34→21:55)
[2024-08-17] MEDS: HYDROcodone/APAP 5/325 TABLET 1 TAB PO ×2 (09:34→15:31)
[2024-08-17] MEDS: Acetic Acid Irrig 0.25% 500 ML BTL 1000 ML IRRIG (09:37)
[2024-08-17] MEDS: Silvasorb Gel 45 ML TUBE TOP (09:38)
--- NOTE | 2024-08-17 11:51 | PD.IMPROG ---
Documentation for date of: 08/17/24 Subjective Subjective Interval history: Patient is more alert today Currently being treated for cellulitis/osteomyelitis Exam Vital Signs Temp Pulse Resp BP Pulse Ox O2 Del Method O2 Flow Rate 97.9 F 65 17 149/104 H 94 L Nasal Cannula 3 08/17/24 08:00 08/17/24 09:34 08/17/24 08:00 08/17/24 09:34 08/17/24 08:00 08/17/24 08:00 08/17/24 08:00 Routine HEENT Exam Head: Present normocephalic and atraumatic Eye: Present EOMI and PERRL ENT: Present mucous membranes moist Routine Neck Exam Neck: Present supple and trachea midline Routine Respiratory Exam Respiratory: Present chest non-tender, lungs clear, normal breath sounds and no resp distress Routine Cardiovascular Exam Cardiovascular: Present RRR Routine Abdominal Exam Abdominal: Present soft and normoactive bowel sounds Routine Extremities Exam Extremities: Present full ROM Routine Skin Exam Skin: Present intact, dry and warm Routine Neurological Exam Neurological: Present alert, oriented X3 and CN II-XII intact Routine Psychiatric Exam Psychiatric: Present normal affect and normal thought process Objective Labs 08/17/24 05:47 08/17/24 05:47 Labs: Laboratory Results - last 24 hr 08/17/24 05:47 WBC 5.4 RBC 3.28 L Hgb 9.2 L Hct 28.5 L MCV 87 MCH 28.0 MCHC 32.3 RDW Std Deviation 46.7 H Plt Count 191 Neut % (Auto) 59 Lymph % (Auto) 23 [place] % (Auto) 11 Eos % (Auto) 5 Baso % (Auto) 0 Neut # (Auto) 3.2 Lymph # (Auto) 1.3 [place] # (Auto) 0.6 Eos # (Auto) 0.3 Baso # (Auto) 0.0 Immature Gran # (Auto) 0.03 H Absolute Nucleated RBC 0.00 Immature Gran % 1 H Nucleated RBC % 0 Sodium 141 Potassium 4.1 Chloride 104 Carbon Dioxide 27.8 Anion Gap 9 BUN 41 H Creatinine 1.7 H Estim Creat Clear Calc 25.8 L eGFR 30 L BUN/Creatinine Ratio 24 H Glucose 172 H Calculated Osmolality 295 Calcium 9.1 Corrected Calcium 9.8 Phosphorus 3.8 Magnesium 1.9 Total Bilirubin 0.4 AST 15 ALT 10 Alkaline Phosphatase 65 Total Protein 5.6 L Albumin 3.1 L Globulin 2.5 Albumin/Globulin Ratio 1.2 Assessment & Plan A&P Narrative continue treatment for wound infection Continue antibiotics Time Spent With Patient Time: Total time spent is greater than 50% in coordination of care (as documented) at patient's floor/unit and/or counseling patient:
[2024-08-17] MEDS: bisacodyL 5 MG TABEC PO (14:05)
--- NOTE | 2024-08-17 15:15 | ESPR_ITS ---
Documentation for date of: 08/17/24 Subjective Subjective Interval history: Patient examined at bedside today. No acute overnight events. Patient still has not had a bowel movement. She says her leg pain is minimal at this time. She says she slept okay. She has no other complaints at this time. Exam Vital Signs Temp Pulse Resp BP Pulse Ox O2 Del Method O2 Flow Rate 97.2 F 70 12 126/57 L 94 L Nasal Cannula 3 08/17/24 12:00 08/17/24 12:00 08/17/24 12:00 08/17/24 12:00 08/17/24 12:00 08/17/24 12:00 08/17/24 12:00 Narrative Exam General: AAOx3, comfortable, sometimes screams of pain, elderly woman HEENT: Moist mucous membranes, conjunctiva clear, EOMI, PERRLA, does not have her dentures on Cardiovascular: S1, S2, radial pulses +2 bilat, RRR, possible ejection systolic murmur indicative as it radiates to the carotids Pulmonary: CTAB bilat no cough, no wheezing GI: No tenderness to light or deep palpitation, no guarding, rigidity, rebound tenderness or distension Extremities: Bandages and dressings present over her wounds of her lower extremities, slightly tender to palpation Neuro: AAOx3, limited exam as patient had pain at times neurologic exam Psych: Able to cooperate Objective Labs 08/17/24 05:47 08/17/24 05:47 Labs: Laboratory Results - last 24 hr 08/17/24 05:47 WBC 5.4 RBC 3.28 L Hgb 9.2 L Hct 28.5 L MCV 87 MCH 28.0 MCHC 32.3 RDW Std Deviation 46.7 H Plt Count 191 Neut % (Auto) 59 Lymph % (Auto) 23 [place] % (Auto) 11 Eos % (Auto) 5 Baso % (Auto) 0 Neut # (Auto) 3.2 Lymph # (Auto) 1.3 [place] # (Auto) 0.6 Eos # (Auto) 0.3 Baso # (Auto) 0.0 Immature Gran # (Auto) 0.03 H Absolute Nucleated RBC 0.00 Immature Gran % 1 H Nucleated RBC % 0 Sodium 141 Potassium 4.1 Chloride 104 Carbon Dioxide 27.8 Anion Gap 9 BUN 41 H Creatinine 1.7 H Estim Creat Clear Calc 25.8 L eGFR 30 L BUN/Creatinine Ratio 24 H Glucose 172 H Calculated Osmolality 295 Calcium 9.1 Corrected Calcium 9.8 Phosphorus 3.8 Magnesium 1.9 Total Bilirubin 0.4 AST 15 ALT 10 Alkaline Phosphatase 65 Total Protein 5.6 L Albumin 3.1 L Globulin 2.5 Albumin/Globulin Ratio 1.2 Quality Measures Quality Measures VTE prophylaxis and none Advance care planning discussed with:: patient Assessment & Plan Assessment Current Active Medications: Generic Name Dose Route Start Last Admin Trade Name Freq PRN Reason Stop Dose Admin Acetaminophen 650 mg 08/12/24 18:21 Acetaminophen 325 Mg Tablet PO 09/11/24 18:20 Q6H PRN Fever >100 or pain 1-3 Hydrocodone Bitart/Acetaminophen 1 tab 08/12/24 18:27 08/17/24 09:34 Hydrocodone/Apap 5/325 Tablet PO 08/17/24 18:26 1 tab Q4HR PRN Administration PAIN SCALE 4-6 (Moderate Acetic Acid 1,000 ml 08/13/24 15:00 08/17/24 09:37 Acetic Acid Irrig 0.25% 500 Ml Btl IRRIG 09/12/24 14:59 1,000 ml DAILY GILLIAN Administration Ascorbic Acid 500 mg 08/13/24 14:30 08/17/24 09:34 Ascorbic Acid 250 Mg Tablet PO 09/12/24 14:29 500 mg BID GILLIAN Administration Bisacodyl 5 mg 08/17/24 12:32 08/17/24 14:05 Bisacodyl 5 Mg Tabec PO 09/16/24 12:31 5 mg QDAY PRN Administration CONSTIPATION Protocol Carvedilol 25 mg 08/12/24 21:00 08/16/24 08:24 Carvedilol 12.5 Mg Tablet PO 09/11/24 20:59 25 mg BID GILLIAN Administration Clonidine 0.1 mg 08/13/24 09:00 08/17/24 09:33 Clonidine Hcl 0.1 Mg Tablet PO 09/12/24 08:59 0.1 mg QDAY GILLIAN Administration Dextrose 25 ml 08/12/24 18:27 Dextrose 50%-Water Inj 50 Ml Syringe IV 09/11/24 18:26 Q15MIN PRN BG 50-70 responsive npo pt Dextrose 50 ml 08/12/24 18:27 Dextrose 50%-Water Inj 50 Ml Syringe IV 09/11/24 18:26 Q15MIN PRN BG <50 OR BG <70 & pt unresponsive Doxycycline Hyclate 100 mg 08/14/24 09:00 08/17/24 09:33 Doxycycline 100 Mg Tablet PO 08/21/24 08:59 100 mg BID GILLIAN Administration Gabapentin 100 mg 08/12/24 22:00 08/17/24 14:05 Gabapentin 100 Mg Capsule PO 09/11/24 21:59 100 mg TID GILLIAN Administration Glucagon 1 mg 08/12/24 18:27 Glucagon Inj 1 Mg Vial IM Q15MIN PRN BG <70, and no IV access Glycerin 1 each 08/17/24 12:32 Glycerin, Adult 1 Ea Supp [place] 09/16/24 12:31 QDAY PRN CONSTIPATION Hydralazine HCl 100 mg 08/13/24 09:00 08/17/24 09:34 Hydralazine Hcl 25 Mg Tablet PO 09/12/24 08:59 100 mg BID GILLIAN Administration Hydralazine HCl 10 mg 08/13/24 04:18 Hydralazine Inj 20 Mg/Ml Vial IVP 09/12/24 04:17 Q4H PRN hypertension Hydromorphone HCl 0.25 mg 08/12/24 18:27 08/15/24 00:49 Hydromorphone Inj 2 Mg/Ml Vial IVP 08/17/24 18:26 0.25 mg Q4H PRN Administration Breakthrough Pain or pain 7-10 Ceftriaxone Sodium 2 gm/ 50 mls @ 100 mls/hr 08/15/24 09:00 08/17/24 09:33 Sodium Chloride IV 08/22/24 08:59 100 mls/hr QDAY GILLIAN Administration Insulin Glargine 10 unit 08/16/24 21:00 08/16/24 21:40 Insulin Glargine (Lantus) 5 Unit/0.05 Ml (Per 5 Units) SC 09/15/24 20:59 10 unit HS GILLIAN Administration Insulin Human Lispro 0 unit 08/13/24 07:30 08/17/24 12:13 Insulin Lispro (Admelog) 1 Unit/0.01 Ml Unit SC 09/12/24 07:29 1 unit AC GILLIAN Administration Protocol Insulin Human Lispro 3 unit 08/16/24 12:00 08/17/24 12:13 Insulin Lispro (Admelog) 1 Unit/0.01 Ml Unit SC 09/15/24 11:59 3 unit TIDWM GILLIAN Administration Lactulose 40 gm 08/17/24 06:00 08/17/24 14:04 Lactulose Syrup 20 Gm/30 Ml Udc PO 09/16/24 05:59 40 gm TID GILLIAN Administration Protocol Multivitamins 1 tab 08/13/24 14:30 08/17/24 09:33 Multivitamins Tablet PO 09/12/24 14:29 1 tab QDAY GILLIAN Administration Ondansetron HCl 4 mg 08/12/24 19:04 08/12/24 19:14 Ondansetron Inj 2 Mg/Ml Inj 2 Ml IV 09/11/24 19:03 4 mg Q6HR PRN Administration NAUSEA OR VOMITING Protocol Pantoprazole Sodium 40 mg 08/14/24 09:00 08/17/24 09:33 Pantoprazole 40 Mg Tablet PO 09/13/24 08:59 40 mg QDAY GILLIAN Administration Pharmacy Consult 1 each 08/12/24 18:30 Pharmacy Renal Dose Adjustment 1 Ea XX 09/11/24 18:29 PRN PRN CONSULT Sennosides 1 tab 08/15/24 14:30 08/17/24 09:34 Senna Tablet PO 09/14/24 14:29 1 tab QDAY GILLIAN Administration Protocol Zinc Sulfate 220 mg 08/13/24 14:30 08/17/24 09:34 Zinc Sulfate 220 Mg Capsule PO 08/27/24 14:29 220 mg QDAY GILLIAN Administration Plan Assessment Marisol is a 84 y/o female with PMHx of HTN, HLD, chronic venous ulcers, ?PAD, CKD stage IV who is admitted for sepsis rule out secondary to chronic venous ulcers. # Acute on chronic anemia, possibly secondary to GI bleed #History of chronic normocytic anemia Hemoglobin 6.2, hematocrit 19.9 on admission requiring 2 PRBCs Hemoglobin stable at 9.2 today Patient may need further GI workup Peripheral blood smear shows severe normochromic, normocytic anemia Iron level: 6; Ferritin: 48; TIBC: 206 Plan: ? Trend CBC ? FOBT ordered # Possible aspiration pneumonia?improved Chest x-ray showed bibasilar pneumonia and possible aspiration pneumonia. Plan: ? Continue dysphagia 2 diet ? Continue current antibiotics as below #Osteomyelitis of the patient's right fibula #Cellulitis of left fibula #Chronic venous ulcers #Sepsis ruled out Patient recently got CT angio lower extremities with possible stenting by Dr. Armstrong MRSA screen negative Pt will need Abx until SEPTEMBER 24, 2024; Rocephin 2g IV and Doxycycline 100 mg po BID Plan: ? General Surgery consulted, appreciate recs ? Doxycycline 100 mg IV BID (08/14- ? Rocephin 2 g IV daily (08/12- ? Wound care ? Home health for IV antibiotics upon DC #JOSE ANTONIO on CKD, improving #CKD stage IV FeNa on admission: 1.7% Creatinine 1.7 today Plan: ? Avoid nephrotoxic agents ? Renally dose medicines ? Trend with CMP #Hypertensive urgency, resolved #Primary hypertension #Hyperlipidemia Chronic Patient does not take statin due to side effects Plan: ? Continue home blood pressure medicines, hydralazine and clonidine ? Carvedilol held due to bradycardia ? Hydralazine 10 mg IV as needed #Hwx-bigrnic-omvgssusi type II diabetes mellitus Previous A1c of 6 in 2023 Plan: ? Lantus 10 units at bedtime ? Lispro TIDWM ? Sliding scale insulin to cover any blood glucose spikes ? Hypoglycemic protocol in place ? Blood sugar checks with meals #Constipation Patient has not had a bowel movement since admission. Plan: ? Continue lactulose 20 g p.o. 3 times daily ? Glycerin suppository ? Enema ? Dulcolax suppository #Health Maintenance Disposition: [facility], pending FOBT, pending and bowel movement DVT prophylaxis: Holding at this time GI prophylaxis: Protonix Diet: Cardiac CODE STATUS: Full Patient seen and care discussed with my attending physician, Dr. Anju Stone, PGY-1 Attending Provider Attestation/Addendum I have discussed and was present for the essential components of the history, physical examination, diagnosis, and treatment plan with the resident. I agree with the patient's care as documented by the resident and amended herein by me. Humble Rene DO. No acute events overnight, still no bowel movement,, validated glycerin suppository and Dulcolax. FOBT ordered and pending, hemoglobin stable today at 9. Did order KUB today which shows mild small bowel ileus and air throughout the colon. Will continue ceftriaxone and Doxy for now for cellulitis and osteomyelitis of the right lower extremity. Patient has no subjective complaints, feeling well this morning. Will continue to monitor closely while she is here Although this document has been carefully reviewed, there may still be some phonetic and other typographical errors. These errors are purely grammatical due to imperfections in the software program and should not be construed in any way to compromise the substance of the patient's medical care during this visit.
[2024-08-17] MEDS: ACETAMINOPHEN 325 MG TABLET 650 MG PO (16:07)
--- NOTE | 2024-08-17 16:36 | PC.SS ---
Rounding note: IV antibiotics will continue through 09/25/24. BM needed for stool cultures. Patient will discharge to [facility] when appropriate.
[2024-08-17] MEDS: INSULIN GLARGINE (Lantus) 5 UNIT/0.05 ML (PER 5 UNITS) 10 UNIT SC (21:55)
[2024-08-18] VITALS (7 sets, daily range): BP systolic 128–150; BP diastolic 57–81; PULSE 56–67; RESP 15–19; TEMP 36.2–36.7; O2SAT 97–99
[2024-08-18] MEDS: oxyCODONE HCL 5 MG IR TAB PO (02:04)
[2024-08-18] MEDS: GABAPENTIN 100 MG CAPSULE PO ×2 (05:21→14:30)
[2024-08-18 05:43] LABS: Basophils % (Auto) 0 % (0-2.5); Eosinophils # (Auto) 0.3 Thou/mm3 (0.0-0.5); Eosinophils % (Auto) 6 % (0-10); Hematocrit 30.2 % (36.0-46.0); Hemoglobin 9.4 g/dL (12.0-16.0); Immature Granulocytes % (Auto) 1 % (0-0); Immature Granulocytes Auto 0.03 Thou/mm3 (0.00-0.00); Lymphocytes # (Auto) 1.2 Thou/mm3 (1.0-4.8); Lymphocytes % (Auto) 22 % (10-50); Mean Corpuscular HGB Conc 31.1 g/dl (31.0-37.0); Mean Corpuscular Hemoglobin 27.3 pg (25.0-35.0); Mean Corpuscular Volume 88 fL (80-100); Monocytes # (Auto) 0.7 Thou/mm3 (0.0-0.8); Monocytes % (Auto) 13 % (0-12); Neutrophils # (Auto) 3.1 Thou/mm3 (1.8-7.7); Neutrophils % (Auto) 58 % (37-80); Nucleated Red Blood Cell % 0 /100 WBC (0); Platelet Count 182 Thou/mm3 (140-440); Red Blood Count 3.44 Miln/mm3 (4.00-5.20); White Blood Count 5.3 Thou/mm3 (3.6-11.0)
[2024-08-18 06:12] LABS: Alanine Aminotransferase 12 U/L (10-49); Albumin, Serum 3.2 gm/dL (3.4-4.8); Albumin/Globulin Ratio 1.1 (1.2-2.2); Alkaline Phosphatase 72 U/L (46-116); Anion Gap 11 (7-16); Aspartate Amino Transferase 16 U/L (0-34); BUN/Creatinine Ratio 19 Ratio (12-20); Bilirubin,Total 0.4 mg/dL (0.3-1.2); Blood Urea Nitrogen 36 mg/dL (9-23); Calcium 9.8 mg/dL (8.3-10.6); Calcium (Corrected) 10.4 mg/dL (8.5-10.1); Carbon Dioxide 25.5 mMol/L (20.0-31.0); Chloride 103 mMol/L (98-107); Creatinine (Component) 1.9 mg/dL (0.6-1.3); Estimated Creatinine Clearance 23.1 mL/min (>60); Glucose 180 mg/dL (74-106); Magnesium 1.9 mg/dL (1.6-2.6); Osmolality,Calculated 290 (275-295); Phosphorous 4.4 mg/dL (2.4-5.1); Potassium 3.7 mMol/L (3.4-5.1); Sodium 139 mMol/L (136-145); Total Protein 6.2 gm/dL (5.7-8.2); eGFR 26 See Note
[2024-08-18] MEDS: INSULIN LISPRO (AdmeLOG) 1 UNIT/0.01 ML UNIT SC (07:50)
[2024-08-18] MEDS: INSULIN LISPRO (AdmeLOG) 1 UNIT/0.01 ML UNIT 3 UNIT SC ×2 (07:51→12:34)
[2024-08-18 07:58] LABS: OBS Performed By verah; OBS QC OK? Yes
[2024-08-18] MEDS: SENNA TABLET 1 TAB PO (09:30)
[2024-08-18] MEDS: MULTIVITAMINS TABLET 1 TAB PO (09:30)
[2024-08-18] MEDS: ASCORBIC ACID 250 MG TABLET 500 MG PO (09:30)
[2024-08-18] MEDS: PANTOPRAZOLE 40 MG TABLET PO (09:30)
[2024-08-18] MEDS: cloNIDine HCL 0.1 MG TABLET PO (09:30)
[2024-08-18] MEDS: hydrALAZINE HCL 25 MG TABLET 100 MG PO (09:30)
[2024-08-18] MEDS: DOXYCYCLINE 100 MG TABLET PO (09:30)
[2024-08-18] MEDS: ZINC SULFATE 220 MG CAPSULE PO (09:30)
[2024-08-18] MEDS: Acetic Acid Irrig 0.25% 500 ML BTL 1000 ML IRRIG (09:31)
[2024-08-18] MEDS: Silvasorb Gel 45 ML TUBE TOP (09:31)
[2024-08-18] MEDS: cefTRIAXone 2 GM in SODIUM CHLORIDE 0.9% (Popper) 50 ML IV (09:31)
--- NOTE | 2024-08-18 09:46 | PC.SS ---
SS reached out to Berta at [facility] to update that pt will need Abx until SEPTEMBER 24, 2024; Rocephin 2g IV and Doxycycline 100 mg po BID
[2024-08-18 11:25] LABS: OBS Developer Expiration Date 123126; OBS Performed By PANIP; OBS QC OK? Yes; Occult Blood, Stool Negative (Negative)
[2024-08-18 11:28] LABS: Occult Blood, Stool Negative (Negative)
--- NOTE | 2024-08-18 11:59 | PD.RESDS ---
Planned Discharge Date 08/18/24 DS: Providers Provider Date of admission: 08/13/24 09:59 Primary care physician: Zeus Nguyen MD Admitting Provider: Braydon Rene DO Attending Provider on Admission: Braydon Rene DO Consults: 08/12/24 16:14 Consult to Cardiology Stat Comment: Consulting Provider: Esteban Armstrong 08/12/24 18:38 Referral Wound Care Stat Comment: 08/12/24 21:34 [facility] Referral - Knowledge Deficit Routine Comment: Positive screening for knowledge deficit needs. 08/13/24 14:53 Referral Nutritional Services Routine Comment: Wounds 08/14/24 10:55 Consult to General Surgery Urgent Comment: Chronic ulcers, OM Consulting Provider: Umm Anguiano 08/15/24 10:29 Referral Speech Therapy Routine Comment: Swallowed a grape today 08/17/24 06:49 Referral Physical Therapy Urgent Comment: Physician Instructions: Attending Provider on DC: Virgilio Topete MD Discharging Provider: Virgilio Tpoete MD DS: Diagnosis Problem List Completed Was Problem List Reviewed/Reconciled?: Yes Hospital Course Hospital Course Hospital course: Marisol is a 84 y/o female with PMHx of HTN, HLD, chronic venous ulcers, ?PAD, CKD stage IV who was admitted for osteomyelitis of R fibula and cellulitis of L fibula. Patient had arrived to the ED with a temperature of 97.6, heart rate of 64, respiratory rate of 18, blood pressure 176/72, saturating 96% on room air. Patient was worked up was found to have a sodium 143, potassium 3.6, BUN/creatinine of 34 and 1.8, 65, ESR 82, GFR 28, lactate 1.0, white count 6, hemoglobin 9. Cardiology was consulted open given mended further admission. Patient was given 2 mg of morphine. Medicine was consulted and patient was admitted to floors. While on the floors patient had imaging studies including CT scans of lower extremity. It was revealed that patient had osteomyelitis of the right fibula and cellulitis of the left fibula. Patient was started on broad-spectrum antibiotics. Surgery was consulted who recommended aggressive wound care and IV antibiotics for 6 weeks. She is recommended to follow-up with our wound care center. Patient would require stent placement for IV antibiotic for 6 weeks in which she will be receiving Rocephin 2 g IV and doxycycline 100 mg twice a day by mouth. Her end date for antibiotics will be September 24, 2024. Patient also had JOSE ANTONIO which had resolved with fluid management. Her heart rate had 1 below 60 and this is why her Coreg was hold and recommended to follow-up with a PCP in regards to resume it. Patient also required a blood transfusion as her hemoglobin went to 6.1 and received 2 PRBCs. Patient had a bowel movements in which she was feeling constipated toward the end of admission, however despite her FOBT being positive, her hemoglobin was stable was not experiencing any hematochezia, hemoptysis and therefore recommended outpatient colonoscopy follow-up with her PCP. Patient was then discharged with the following instructions. Discharge Instructions: Follow-up with your PCP within 1 week Follow-up with [facility] wound healing clinic You will need antibiotics for 6 weeks Rocephin 2 g IV, doxycycline 100 mg twice daily p.o. You will have your IV antibiotic administered at the long-term facility. Your end date for antibiotics will be September 24, 2024. You will need weekly labs including ESR, CRP, CBC and CMP to monitor how your infection is progressing Continue with daily dressing changes follow-up Follow-up with your ball mill mixer, Dr. Armstrong Your hemoglobin was low at one point in the hospital and you required 2 PRBCs, we recommend you to an outpatient colonoscopy to further evaluate your anemia. Have your PCP refer you to a GI Return to ER if your symptoms worsen or return Take your medicines as prescribed I am holding your Coreg as your heart rate was low in the hospital Use [place] for your leg pain and dressing changes as needed Wound care instructions: 1) Wound care: --Venous ulcers to bilateral lower legs: cleanse well with 1/4 st acetic acid, pat dry, apply silvasorb gel to wound bed. Cover with adaptic. Layer with abd pad and secure with kerlix roll. Apply rosi wrap from base of toes to below the knee. Change daily and PRN for falling off or soiling. --Stage 2 to coccyx: cleanse with wound cleanser, pat dry, apply skin prep and cover with allyven dressing daily and PRN for falling off. side to side repositioning except meals 2) Please follow up with [facility], [address] [place] [address]. Call [phone] for appointment Problem List: #Acute on chronic anemia, possibly secondary to GI bleed #History of chronic normocytic anemia #Possible aspiration pneumonia #Osteomyelitis of the patient's right fibula #Cellulitis of left fibula #Chronic venous ulcers #Sepsis ruled out #CKD stage IV #Hypertensive urgency, resolved #Primary hypertension #Hyperlipidemia #Eik-vkjbhxz-tbiqgjrnw type II diabetes mellitus- #Constipation Discharge summary was reviewed with my attending Dr. Efrem Stone, PGY-1 Time Spent with Patient Time attestation: Total time spent providing and/or coordinating discharge services: Time spent: Greater than 30 minutes Exam Vital Signs Temp Pulse Resp BP Pulse Ox O2 Del Method O2 Flow Rate 97.2 F 58 L 15 144/60 H 98 Nasal Cannula 3 08/18/24 08:00 08/18/24 09:30 08/18/24 08:00 08/18/24 09:30 08/18/24 08:00 08/18/24 08:00 08/18/24 08:00 Narrative Exam General: AAOx3, comfortable, sometimes screams of pain, elderly woman HEENT: Moist mucous membranes, conjunctiva clear, EOMI, PERRLA, does not have her dentures on Cardiovascular: S1, S2, radial pulses +2 bilat, RRR, possible ejection systolic murmur indicative as it radiates to the carotids Pulmonary: CTAB bilat no cough, no wheezing GI: No tenderness to light or deep palpitation, no guarding, rigidity, rebound tenderness or distension Extremities: Bandages and dressings present over her wounds of her lower extremities, slightly tender to palpation Neuro: AAOx3, limited exam as patient had pain at times neurologic exam Psych: Able to cooperate Discharge Plan Plan Patient Disposition: [facility] ([facility]NF) Disposition Comment: [facility] Patient condition on transfer: Stable Care Plan Goals: Discharge Instructions: Follow-up with your PCP within 1 week. Follow-up with [facility] wound healing clinic. You will need antibiotics for 6 weeks Rocephin 2 g IV, doxycycline 100 mg twice daily p.o. You will have your IV antibiotic administered at the long-term facility. Your end date for antibiotics will be September 24, 2024. You will need weekly labs including ESR, CRP, CBC and CMP to monitor how your infection is progressing. Continue with daily dressing changes follow-up. Follow-up with your ball mill mixer, Dr. Armstrong. Your hemoglobin was low at one point in the hospital and you required 2 PRBCs, we recommend you to an outpatient colonoscopy to further evaluate your anemia. Have your PCP refer you to a GI specialist. Return to ER if your symptoms worsen or return. Take your medicines as prescribed. Do not take your Coreg as your heart rate was low in the hospital I am stopping your Losartan-Hydrocholorthiazide pill and your Clonidine for your blood pressure I am starting you on Losartan 50 mg for your blood pressure Use [place] for your leg pain and dressing changes as needed. Wound care instructions: 1) Wound care: --Venous ulcers to bilateral lower legs: cleanse well with 03/28 st acetic acid, pat dry, apply silvasorb gel to wound bed. Cover with adaptic. Layer with abd pad and secure with kerlix roll. Apply rosi wrap from base of toes to below the knee. Change daily and PRN for falling off or soiling. --Stage 2 to coccyx: cleanse with wound cleanser, pat dry, apply skin prep and cover with allyven dressing daily and PRN for falling off. side to side repositioning except meals 2) Please follow up with [facility], [address] [place] [address]. Call [phone] for appointment. Prescriptions/Referrals Prescriptions/Med Rec: New hydrocodone-acetaminophen 5-325 mg tablet 1 tab PO Q8H MDD 3 tablets PRN (Reason: pain) 5 Days Qty: 15 0RF Rx Instructions: Take one tablet by mouth every 8 hours as needed for pain losartan 50 mg tablet 50 mg PO QDAY 30 Days Qty: 30 0RF Rx Instructions: Take one tablet by mouth everyday Continued Ocuvite Lutein and Zeaxanthin 60 mg-30 unit- 15 mg-2 mg-6 mg Capsule 1 tab PO QDAY glipizide-metformin 5-500 mg Tablet 1 tab PO BID aspirin 81 mg tablet,chewable 81 mg PO QDAY gabapentin 100 mg capsule 100 mg PO TID Patient Comments: take 1 capsule by mouth three times a day hydralazine 100 mg tablet 100 mg PO Q12H Patient Comments: take 1 tablet by mouth three times a day Held carvedilol [Coreg] 25 mg tablet 25 mg PO BID Hold Instructions: resume with PCP due to bradycardia Rx Instructions: must administer with a meal/food Discontinued hydrochlorothiazide 25 MG tablet 100 mg PO BID Qty: 0 metoprolol tartrate 50 MG tablet 50 mg PO BID Qty: 0 clonidine HCl 0.1 mg Tablet 0.1 mg PO HS amlodipine-benazepril 5-40 mg Capsule 1 cap PO QDAY hydrocodone-acetaminophen 5-300 mg Tablet 1 tab PO Q6HR MDD 6 PRN (Reason: Mild PAIN (1-3) Qty: 50 0RF Xarelto 10 mg Tablet 10 mg PO Q24H Qty: 25 0RF losartan-hydrochlorothiazide 100-25 mg tablet 1 tab PO DAILY Patient Comments: take 1 tablet by mouth once daily Referrals: Zeus Nguyen MD [Primary Care Provider] - Patient/Caregiver Discharge Instructions Discharge Activity: activity as tolerated Education Materials: Wound Care, ED Venous Leg Ulcer Print Language: Bengali Stand Alone Forms: Hayley Award Info., Patient Portal Info Letter Discharge Order Discharge Orders: Discharge (Routine); Ordered 08/18/24 Ordered By: Parth Stone Quality Discharge Quality Measures VTE prophylaxis (SCDs) Attestestation MD Attestation I reviewed labs, imaging, EKG, home medications and prior available records. Face to face evaluation was performed by me. I have personally examined the patient and discussed assessment and plan with the IM team. I reviewed the resident note and agree with the plan with exceptions as below. Cellulitis of bilateral lower extremities Right lower extremity cellulitis Chronic venous ulcers of lower extremities Acute anemia, resolved Constipation, had bowel movements Bradycardia, sinus, resolved CKD stage IV Type 2 diabetes mellitus Essential hypertension Continue IV ceftriaxone/doxycycline till September 27 Weekly CBC, BMP, and ESR Continue wound care Patient will be going to SNF Will discharge on losartan and hydralazine Stopped Coreg in the setting of bradycardia Monitor kidney function as outpatient Resume oral diabetes medications Time spent is 40 minutes. More than 50% of the time was spent on patient education and coordination of care.
--- NOTE | 2024-08-18 12:25 | PC.SS ---
SS spoke to pt Virginia Garcia, granddaughter, phone# [phone] informed her of DC today, IMM provided, Reservation #[id number], pending release to [place]. ETA requested of 1600
[2024-08-18] MEDS: LOSARTAN POTASSIUM 25 MG TABLET PO (12:34)
[2024-08-18] MEDS: HYDROcodone/APAP 5/325 TABLET 1 TAB PO (12:35)
--- NOTE | 2024-08-18 13:17 | ESPR_ITS ---
Documentation for date of: 08/18/24 Subjective Subjective Interval history: Patient currently being planned for discharge Continue treatment for cellulitis Exam Vital Signs Temp Pulse Resp BP Pulse Ox O2 Del Method O2 Flow Rate 97.2 F 58 L 15 128/59 L 98 Nasal Cannula 3 08/18/24 08:00 08/18/24 12:34 08/18/24 08:00 08/18/24 12:34 08/18/24 08:00 08/18/24 08:00 08/18/24 08:00 Routine HEENT Exam Head: Present normocephalic and atraumatic Eye: Present EOMI and PERRL ENT: Present mucous membranes moist Routine Neck Exam Neck: Present supple and trachea midline Routine Respiratory Exam Respiratory: Present chest non-tender, lungs clear, normal breath sounds and no resp distress Routine Cardiovascular Exam Cardiovascular: Present RRR Routine Abdominal Exam Abdominal: Present soft and normoactive bowel sounds Routine Extremities Exam Extremities: Present full ROM Routine Skin Exam Skin: Present intact, dry and warm Routine Neurological Exam Neurological: Present alert, oriented X3 and CN II-XII intact Routine Psychiatric Exam Psychiatric: Present normal affect and normal thought process Objective Labs 08/18/24 05:00 08/18/24 05:00 Labs: Laboratory Results - last 24 hr 08/13/24 08/18/24 08/18/24 04:54 05:00 06:56 WBC 5.3 RBC 3.44 L Hgb 9.4 L Hct 30.2 L MCV 88 MCH 27.3 MCHC 31.1 RDW Std Deviation 47.0 H Plt Count 182 Neut % (Auto) 58 Lymph % (Auto) 22 [place] % (Auto) 13 H Eos % (Auto) 6 Baso % (Auto) 0 Neut # (Auto) 3.1 Lymph # (Auto) 1.2 [place] # (Auto) 0.7 Eos # (Auto) 0.3 Baso # (Auto) 0.0 Immature Gran # (Auto) 0.03 H Absolute Nucleated RBC 0.00 Immature Gran % 1 H Nucleated RBC % 0 Sodium 139 Potassium 3.7 Chloride 103 Carbon Dioxide 25.5 Anion Gap 11 BUN 36 H Creatinine 1.9 H Estim Creat Clear Calc 23.1 L eGFR 26 L BUN/Creatinine Ratio 19 Glucose 180 H Calculated Osmolality 290 Calcium 9.8 Corrected Calcium 10.4 H Phosphorus 4.4 Magnesium 1.9 Total Bilirubin 0.4 AST 16 ALT 12 Alkaline Phosphatase 72 Total Protein 6.2 Albumin 3.2 L Globulin 3.0 Albumin/Globulin Ratio 1.1 L Stool Occult Blood Negative Misc Test Result See Sep Rpt Assessment & Plan A&P Narrative continue treatment for wound infection Continue antibiotics Time Spent With Patient Time: Total time spent is greater than 50% in coordination of care (as documented) at patient's floor/unit and/or counseling patient:
== END 2024-08-18 16:44 | disposition skilled nursing facility (03) | DRG 637 ==
LOC: SERX 17:32 → S3NX 08-13 09:18 → SERHOLD 08-13 09:18 → S3NX 08-13 09:20 → SERHOLD 08-13 13:49
PROVIDERS: Student in an Organized Health Care Education/Training Program; Admitting Provider Student in an Organized Health Care Education/Training Program; Emergency Provider Student in an Organized Health Care Education/Training Program; PCP Internal Medicine; Visit Provider Student in an Organized Health Care Education/Training Program
DX: E11.69 Type 2 diabetes mellitus with other specified complication (principal); J69.0 Pneumonitis due to inhalation of food and vomit; L03.116 Cellulitis of left lower limb; D62 Acute posthemorrhagic anemia; K56.7 Ileus, unspecified; M86.8X6 Other osteomyelitis, lower leg; N18.4 Chronic kidney disease, stage 4 (severe); N17.9 Acute kidney failure, unspecified; E11.51 Type 2 diabetes mellitus with diabetic peripheral angiopathy without gangrene; I12.9 Hypertensive chronic kidney disease with stage 1 through stage 4 chronic kidney disease, or unspecified chronic kidney disease; E78.5 Hyperlipidemia, unspecified; I16.0 Hypertensive urgency; D63.1 Anemia in chronic kidney disease; I25.10 Atherosclerotic heart disease of native coronary artery without angina pectoris; E11.22 Type 2 diabetes mellitus with diabetic chronic kidney disease; E11.65 Type 2 diabetes mellitus with hyperglycemia; I83.009 Varicose veins of unspecified lower extremity with ulcer of unspecified site; E86.1 Hypovolemia; K80.20 Calculus of gallbladder without cholecystitis without obstruction; R79.1 Abnormal coagulation profile; Z79.4 Long term (current) use of insulin; Z79.82 Long term (current) use of aspirin; Z79.84 Long term (current) use of oral hypoglycemic drugs; Z79.899 Other long term (current) drug therapy; Z88.0 Allergy status to penicillin
CPT/HCPCS: 36415; 71045; 73700; 74018; 80053; 80061; 82270; 82436; 82570; 82728; 83036; 83540; 83550; 83605; 83735; 84100; 84133; 84145; 84300; 84443; 85014; 85018; 85025; 85046; 85610; 85652; 85730; 86140; 86850; 86900; 86901; 86923; 87040; 87081; 92526; 92610; 93005; 93225; 96374; 96375; 97162; 99285; C1751; C1894; G0378; J0696; J1171; J1642; J1815; J2270; J2405; J2470; J3370; J3371; J3475; J3490; J7040; J7050; P9016; A9270

== ENCOUNTER 2024-10-19 09:08 | Outpatient (AMB) | payer MEDICARE, MEDICAID, SELFPAY ==
--- NOTE | 2024-10-19 09:12 | PD.GSCLVISIT ---
Vital Signs - [facility] 10/19/24 09:16 BP 132/75 H Blood Pressure Source Automatic Cuff Blood Pressure Location Left Upper Arm Position Sitting Respiration 18 Pulse 77 Pulse Source Monitor Temp 98.1 F Temp Source Temporal Artery Scan Pulse Oximetry (%) 98 Oxygen Delivery Method Room Air Med/Allergies Allergies & Medications Allergies bee venom protein (honey bee) Allergy (Severe, Verified 10/19/24 09:17) Anaphylaxis shock nabumetone Allergy (Severe, Verified 10/19/24 09:17) Rash nut - unspecified Allergy (Severe, Verified 10/19/24 09:17) Anaphylaxis Penicillins Allergy (Severe, Verified 10/19/24 09:17) Rash Pork/Porcine Containing Products Allergy (Severe, Verified 10/19/24 09:17) Rash shellfish derived Allergy (Severe, Verified 10/19/24 09:17) Anaphylaxis Tgnhnxi-KMB-HgX Reductase Inhibitor (Qzrnvtj-Nmb-Quo Reductase Inhibitor) Allergy (Severe, Verified 10/19/24 09:17) MUSCLE WEAKNESS turkey Allergy (Severe, Verified 10/19/24 09:17) Anaphylaxis feathers Allergy (Mild, Verified 10/19/24 09:17) Watery Eye Medication Reconciliation vit C,Q-Xh-jdtdbo-lutein-zeaxan 60 mg-13.5 mg-15 mg-2 mg-6 mg capsule (Ocuvite Lutein and Zeaxanthin) 1 tab PO QDAY 09/18/17 [History Confirmed 10/19/24] glipizide 5 mg-metformin 500 mg tablet 1 tab PO BID 06/06/18 [History Confirmed 10/19/24] aspirin 81 mg chewable tablet 81 mg PO QDAY 08/10/24 [History Confirmed 10/19/24] carvedilol 25 mg tablet (Coreg) 25 mg PO BID 08/10/24 [History Confirmed 10/19/24] Held on 08/18/24. Instructions: resume with PCP due to bradycardia gabapentin 100 mg capsule 100 mg PO TID 08/10/24 [History Confirmed 10/19/24] hydralazine 100 mg tablet 100 mg PO Q12H 08/13/24 [History Confirmed 10/19/24] MA Intake Visit Data Collection New Patient or Established: New Patient (never been to [facility]) Seen by Clinical Staff ONLY (RN/MA): No Reason for Visit:: VENOUS ULCER Pain Present Currently: Yes Pain Location: Abdomen Pain scale:: 3 Pain Scale Used: Yoo-Alvarado/Numerical Mechatronics Engineer Required: No PCP or OBGYN visit in last 3 months: Yes Hx Now: No Do You Feel Safe at Home: Yes Authorities Contacted: N/A Smoking Status Smoking Status: Never smoker Immunization / Flu Flu Vaccine in the Last 12 Months: No Flu Vaccine Exclusion Criteria: No Exclusion Criteria Past Medical History Past Medical History NEUROLOGIC: Positive Neurological Disorders, Migraine and Head Trauma; Negative Seizures CARDIAC: Positive Cardiac Disorders, Angina, Hypercholesterolemia, Edema and Hypertension; Negative Congestive Heart Failure RESPIRATORY: Negative Chronic Obstructive Pulmonary Disease (COPD) GASTROINTESTINAL: Negative Gastrointestinal Disorders GENITOURINARY: Positive Genitourinary Disorders; Negative Renal Disease REPRODUCTIVE: Positive Breast Cancer and Previous Pregnancies MUSCULOSKELETAL: Positive Arthritis and Fractures ENT: Positive Cataracts and Head Trauma ENDOCRINE: Positive Endocrine Disorders and Diabetes Mellitus Type 2; Negative Diabetes Mellitus Type 1 HEMATOLOGIC: Positive Blood Disorders and Anemia PSYCHO/SOCIAL: Positive Anxiety OTHER HISTORY: Positive Anesthesia Reactions, Radiation Therapy, Measles, Mumps, Rubella (Brazilian Measles) and Breast Cancer; Negative Hospitalization, Shingles, Falls, Blood Transfusions or Blood Transfusion Reaction Family History FAMILY HISTORY: Positive Family Cardiac Disorders; Negative Family Psychiatric Problems, Family Respiratory Disorders, Family Gastrointestinal Problems, Family Cancer, Family Surgery or Family Anesthesia Reaction Surgical History SURGICAL: Positive Coronary Stent, Cardiac Catheterization, Angiogram, Abdominal Surgery, Mastectomy (partial /left), Lumpectomy, Hysterectomy and Section Social History SMOKING STATUS: Smoking status: Never smoker ALCOHOL: Alcohol Intake: Never HOUSING: Housing: Apartment LIVES WITH: Lives With: Alone HPI HPI Narrative 84F with HTN, HLD, DM, CKD, PAD with chronic venous ulcers who was treated at [facility] in July for osteomyelitis of the R fibula, here for follow up. Pt has been staying at [facility] and undergoes daily wound care there with bactine, adaptic and kerlix gauze. She states the left lower extremity is more painful than the right but she has been working hard with PT and was able to take several steps recently. Her goal is to be discharged home soon Pt had been treated [facility] in July, and at some point she was given compression stockings but she has not used them lately as she finds them uncomfortable ROS Review of Systems Systems Reviewed: All systems reviewed, normal except as documented Objective/Exam General General Appearance: alert, cooperative and well groomed Resp Respiratory exam: Absent respiratory distress Extremities Extremities exam: Present other (left lower extremity ulceration on the lateral distal leg approx 3cm in transverse dimension, with pink healthy tissue at base, no surrounding erythema. right lower extremity ulceration approx 1cm in transverse dimension with beefy red granulation tissue, no erythema) Assessment & Plan Diagnosis / Problem List (1) Venous stasis ulcer: Status: Acute Assessment & Plan: 84F with HTN, HLD, DM, CKD, PAD with chronic venous ulcers treated in July for osteomyelitis, with healthy appearance of both wounds. I will refer pt back to [facility] for ongoing follow up Plan: Follow up with me as needed Orders: Referrals [facility] I83.009 - Varicose veins of unspecified lower extremity with ulcer of unspecified site, L97.909 - Non-pressure chronic ulcer of unspecified part of unspecified lower leg with unspecified severity Advanced Care Planning Advance care planning discussed with:: other Office Procedures GNS Level of Care Nursing/Assessment Patient Status: Established Patient Nursing Assessment/Reassesment: Medication Reconciliation, Update PMH in EMR and Vital Signs Coordination of Care: Complex Care and Chronic Disease 1-5, Consent,records obtained, informed consent, Education Simp Pt/Fam, Results/Orders obtained and Staff clarify orders Established Patient Charge Established Patient Point Assignment: 90 Established Patient Point Charge: EP Level 3 (80-115) Patient Portal Questionaires Social History Living Situation History Housing: Apartment Housing Other:: Pt lives alone Tobacco History Smoking Status: Never smoker Alcohol History Alcohol Intake: Never Domestic Abuse History Do You Feel Safe at Home: Yes Review of Systems Report any current symptoms Only answer those that you have currently: Past Medical History Past Medical History Have you ever been diagnosed with any of the following: Neurological Problems Seizures: No Migraine: Yes Head Trauma: Yes Cardiology Problems Angina: Yes Hypercholesterolemia: Yes Congestive Heart Failure: No Edema: Yes Hypertension: Yes Respiratory Problems Chronic Obstructive Pulmonary Disease (COPD): No Genital/Urinary Problems Renal Disease: No Reproductive Problems Breast Cancer: Yes Previous Pregnancies: Yes Musculoskeletal Problems Arthritis: Yes Fractures: Yes Head,Eye,Nose,Throat Problems Cataracts: Yes Endocrine Problems Diabetes Mellitus Type 1: No Diabetes Mellitus Type 2: Yes Blood Problems Anemia: Yes Psychologic Problems Anxiety: Yes Other Problems Hospitalization: No Shingles: No Falls: No Blood Transfusions: No Blood Transfusion Reaction: No Anesthesia Reactions: Yes Radiation Therapy: Yes Measles: Yes Mumps: Yes Rubella (Brazilian Measles): Yes Surgical History Hysterectomy: Yes
[2024-10-19 09:16] VITALS: BP 132/75; PULSE 77; RESP 18; TEMP 36.7; O2SAT 98
== END 2024-10-19 09:56 | disposition home or self-care (01) ==
LOC: HODSRG 09:08
PROVIDERS: PCP Internal Medicine; Referring Provider Internal Medicine; Supervising Provider Surgery; Visit Provider Surgery
DX: I83.009 Varicose veins of unspecified lower extremity with ulcer of unspecified site (principal); L97.909 Non-pressure chronic ulcer of unspecified part of unspecified lower leg with unspecified severity; I10 Essential (primary) hypertension; E78.00 Pure hypercholesterolemia, unspecified; E11.9 Type 2 diabetes mellitus without complications
CPT/HCPCS: 99213; G0463

== ENCOUNTER 2024-12-31 18:19 | Emergency (ER) | payer MEDICARE, MEDICAID, SELFPAY ==
[2024-12-31] VITALS (8 sets, daily range): BP systolic 178–209; BP diastolic 71–93; PULSE 70–78; RESP 14–22; TEMP 36.7–37.3; O2SAT 94–97; BMI 26.9
--- NOTE | 2024-12-31 18:20 | EKG_ITS ---
[facility] Test Date: 2024-12-31 Pat Name: ROSALIA SHIRLEY Department: Room: - Gender: Female Dovetailer: : 1940 Requested By: Corinne Mendes Order Number: [id number] Reading MD: Corinne Mendes Measurements Intervals [place] Rate: 68 P: 85 AL: 197 QRS: -18 QRSD: 102 T: 50 QT: 413 QTc: 441 Interpretive Statements SINUS RHYTHM LOW QRS VOLTAGE IN PRECORDIAL LEADS [QRS DEFLECTION < 1.0 mV IN CHEST LEADS] ANTEROSEPTAL MYOCARDIAL INFARCTION , OF INDETERMINATE AGE [40+ ms Q WAVE IN V1-V4] Compared to ECG 08/15/2024 10:06:25 Sinus bradycardia no longer present Myocardial infarct finding still present /store/S0/[id number]/[id number].pdf
--- NOTE | 2024-12-31 18:37 | PD.EDRECHK ---
ED Recheck Abnl Lab Rx-RME/HPI General Chief Complaint: General Adult/Misc Complain Stated Complaint: HIGH BP Time Seen by Provider: 12/31/24 18:33 Arrival date/time: 12/31/24 18:19 RME / HPI RME / HPI narrative: Dr. Campos?s Main ED Evaluation: 84yo female with longstanding history of HTN presenting with elevated blood pressure for the last 24 hours reaching 200 systolically. She is on Clonidine TID, Hydralazine, and Coreg. Reports having a mild headache described as pressure-like in sensation. She has nausea, but no vomiting. No focal weakness or paresthesias. No fever or chills. PMH includes CAD, DM, HTN, previous breast CA, no TIA or CVA. PSH includes x4, cardiac stent placement. Nondrinker, nonsmoker. Related Data Home Medications ?Medication ?Instructions ?Recorded ?Confirmed vit C,P-Wd-vricqu-lutein-zeaxan 60 1 tab PO QDAY 09/18/17 10/19/24 mg-13.5 mg-15 mg-2 mg-6 mg capsule (Ocuvite Lutein and Zeaxanthin) glipizide 5 mg-metformin 500 mg 1 tab PO BID 06/06/18 10/19/24 tablet aspirin 81 mg chewable tablet 81 mg PO QDAY 08/10/24 10/19/24 carvedilol 25 mg tablet (Coreg) 25 mg PO BID 08/10/24 10/19/24 Held on 08/18/24. Instructions: resume with PCP due to bradycardia gabapentin 100 mg capsule 100 mg PO TID 08/10/24 10/19/24 hydralazine 100 mg tablet 100 mg PO Q12H 08/13/24 10/19/24 Previous Rx's ?Medication ?Instructions ?Recorded clonidine 0.2 mg/24 hr weekly 0.2 mg topical .weekly 30 days #4 12/31/24 transdermal patch (Zjqrpbwz-RVK-6) ea Allergies Allergy/AdvReac Type Severity Reaction Status Date / Time bee venom protein (honey bee) Allergy Severe Anaphylaxis Verified 10/19/24 09:17 shock nabumetone Allergy Severe Rash Verified 10/19/24 09:17 nut - unspecified Allergy Severe Anaphylaxis Verified 10/19/24 09:17 Penicillins Allergy Severe Rash Verified 10/19/24 09:17 Pork/Porcine Containing Allergy Severe Rash Verified 10/19/24 09:17 Products shellfish derived Allergy Severe Anaphylaxis Verified 10/19/24 09:17 Vydgbak-BSW-NmT Reductase Allergy Severe MUSCLE Verified 10/19/24 09:17 Inhibitor (Cwanzay-Ujx-Slp WEAKNESS Reductase Inhibitor) turkey Allergy Severe Anaphylaxis Verified 10/19/24 09:17 feathers Allergy Mild Watery Eye Verified 10/19/24 09:17 Review of Systems Review of Systems Systems Reviewed: All systems reviewed, normal except as documented ED Exam Narrative Physical exam: GENERAL APPEARANCE: alert and oriented x 4, well-developed, well-nourished, no acute distress VITALS: All vitals were reviewed and the pulse ox is 94% on room air, which is normal according to my interpretation. Notably hypertensive. HEENT: Normocephalic, atraumatic; pupils equal, round, reactive to light; EOMI, disc margins poorly visualized, but no gross papilloedema; mucous membranes pink, moist; oropharynx clear NECK: Supple LUNGS: CTABL; no wheezes, no rales, no rhonchi HEART: Regular rate, regular rhythm; normal S1, S2; no murmurs ABDOMEN: non distended; normal BS; soft, no tenderness, no guarding, no rebound; no masses, no organomegaly, no hernia BACK: no CVA tenderness EXTREMITIES: atraumatic; 2+ BLE edema NEUROLOGIC: awake; alert and oriented x4; cranial nerves II-XII grossly intact; GCS 15, no focal sensory or motor deficits PSYCHIATRIC: appropriate mood and affect SKIN: warm, dry, normal color; no rashes Course Quality Measures none Orders Category Date Time Status EKG (ED ONLY) *Do not use* NOW Care 12/31/24 18:20 Completed EKG (ED Only) Stat Exams 12/31/24 18:20 Draft CBC [CBC] Stat Lab 12/31/24 19:34 Completed CMP [Comprehensive Metabolic Panel] Stat Lab 12/31/24 19:34 Completed Urinalysis, C/S if Indicated Stat Lab 12/31/24 20:22 Received cloNIDine HCL (Patch) [Jytkyozq-Uvl-5] Med 12/31/24 20:27 Discontinued 0.2 mg TOP X1 ONE hydrALAZINE INJ [Apresoline Inj] Med 12/31/24 19:06 Discontinued 10 mg IVP X1 ONE Vital Signs Vital signs: Vital Signs Temperature 99.2 F 12/31/24 18:32 Pulse Rate 70 12/31/24 18:32 Respiratory Rate 16 12/31/24 18:32 Blood Pressure 209/89 H 12/31/24 18:32 Pulse Oximetry (%) 94 L 12/31/24 18:32 Oxygen Delivery Method Room Air 12/31/24 18:32 Recheck / Abnormal Lab / Rx MDM Narrative MDM Narrative:: Scribe Attestation: 12/31/24 - Anjana Wang am scribing for and in the presence of Dr. Campos. 84yo female with longstanding history of HTN presenting with elevated blood pressure for the last 24 hours reaching 200 systolically. She is on Clonidine TID. Please see PE findings. Lab markers demonstrated CBC and CMP at baseline. Patient was treated with hydralazine with reduction in blood pressure. Will add Catapres patch, discharge home, and recommend Clonidine 0.2mg for rescue only. Patient data External records reviewed:: [facility] previous records (Per chart review, patient was admitted here on 08/12/24 for open wounds involving multiple regions of lower extremity.) Clinical information provided by:: patient Social determinants that could affect healthcare access:: none Patient has the following chronic illnesses:: HTN, HLD, chronic venous ulcers, ?PAD, CKD stage IV How is presenting disease/condition affected by chronic disease/condition?: caused by Evaluation data The following diagnostics were reviewed and interpreted by me:: lab results and EKG tracing(s) Lab and/or radiology exams considered but not ordered:: none Interpretation Summary: EKG done at 1932, sinus rhythm, rate of 68, no acute pathological ST segment changes, no ectopy, normal intervals, left axis deviation, according to my interpretation. Medications / Prescriptions Medications or Prescriptions considered but not ordered:: none Medication administrations:: Medication Administration History Discontinued Medications Clonidine HCl (Clonidine Hcl (Patch) 0.2 Mg/24 Hr Tdsy) 0.2 mg TOP X1 ONE Stop: 12/31/24 20:28 Hydralazine HCl (Hydralazine Inj 20 Mg/Ml Vial) 10 mg IVP X1 ONE Stop: 12/31/24 19:07 Last Admin: 12/31/24 19:53 Dose: 10 mg Documented By: MARIA A see above Consultations Consultation(s) initiated? (list below): No Diagnosis Recheck Differential Diagnosis: other (hypertension, hypertensive urgency, hypertensive emergency, stress reaction) Most likely diagnosis given after review of the tests above:: see clinical impression below Admission Indicated Admission indicated?: not indicated Admission Request Was there a request for admission?: No Disposition Plan Disposition Plan: Discharge Discharge Attestation Discharge Attestation: The patient and all family members were given an opportunity to ask questions and understood the discharge instructions. Discharge instructions specifically effects, indications for sooner follow up or return to the emergency department, and the expected course of current diagnosis. Patient condition: Stable Discharge Plan Plan Patient Disposition: HOME (Self Care) Prescriptions/Referrals Prescriptions/Med Rec: New clonidine [Luzhsqzs-DFH-9] 0.2 mg/24 hr patch weekly 0.2 mg topical .weekly 30 Days Qty: 4 0RF No Action Ocuvite Lutein and Zeaxanthin 60 mg-30 unit- 15 mg-2 mg-6 mg Capsule 1 tab PO QDAY glipizide-metformin 5-500 mg Tablet 1 tab PO BID aspirin 81 mg tablet,chewable 81 mg PO QDAY gabapentin 100 mg capsule 100 mg PO TID Patient Comments: take 1 capsule by mouth three times a day carvedilol [Coreg] 25 mg tablet 25 mg PO BID Rx Instructions: must administer with a meal/food hydralazine 100 mg tablet 100 mg PO Q12H Patient Comments: take 1 tablet by mouth three times a day Referrals: Zeus Nguyen MD [Primary Care Provider, Internal Medicine] - In 1 week Problem List Clinical Impression: Hypertension Impression comment: Accelerated hypertension Patient/Caregiver Discharge Instructions Discharge Activity: activity as tolerated Education Materials: Controlling High Blood Pressure, ED Hypertension, Established Additional Instructions: Discontinue 0.1 mg clonidine 3 times daily and replace with 0.2 mg topical patch weekly. May continue to use 0.1 mg of clonidine tablets for blood pressures greater than 170/100 as needed. Continue to monitor blood pressure twice daily. Follow-up with primary care doctor in 7 to 10 days. Print Language: Thai Stand Alone Forms: Hayley Award Info., Patient Portal Info Letter
[2024-12-31 19:44] LABS: Basophils # (Auto) 0.0 Thou/mm3 (0.0-0.2); Basophils % (Auto) 1 % (0-2.5); Eosinophils # (Auto) 0.3 Thou/mm3 (0.0-0.5); Eosinophils % (Auto) 8 % (0-10); Hematocrit 32.0 % (36.0-46.0); Hemoglobin 10.4 g/dL (12.0-16.0); Immature Granulocytes Auto 0.01 Thou/mm3 (0.00-0.00); Lymphocytes # (Auto) 1.0 Thou/mm3 (1.0-4.8); Lymphocytes % (Auto) 26 % (10-50); Mean Corpuscular HGB Conc 32.5 g/dl (31.0-37.0); Mean Corpuscular Hemoglobin 29.1 pg (25.0-35.0); Mean Corpuscular Volume 89 fL (80-100); Monocytes # (Auto) 0.4 Thou/mm3 (0.0-0.8); Monocytes % (Auto) 10 % (0-12); Neutrophils # (Auto) 2.1 Thou/mm3 (1.8-7.7); Neutrophils % (Auto) 56 % (37-80); Nucleated Red Blood Cell # 0.00 Thou/mm3 (0.00-0.00); Nucleated Red Blood Cell % 0 /100 WBC (0); Platelet Count 154 Thou/mm3 (140-440); RDW Standard Deviation 46.7 fL (36.4-46.3); Red Blood Count 3.58 Miln/mm3 (4.00-5.20); White Blood Count 3.8 Thou/mm3 (3.6-11.0)
[2024-12-31] MEDS: hydrALAZINE INJ 20 MG/ML VIAL 10 MG IVP (19:53)
[2024-12-31 20:02] LABS: Alanine Aminotransferase 12 U/L (10-49); Albumin, Serum 3.8 gm/dL (3.4-4.8); Albumin/Globulin Ratio 1.5 (1.2-2.2); Alkaline Phosphatase 81 U/L (46-116); Anion Gap 15 (7-16); Aspartate Amino Transferase 20 U/L (0-34); BUN/Creatinine Ratio 23 Ratio (12-20); Bilirubin,Total 0.8 mg/dL (0.3-1.2); Blood Urea Nitrogen 32 mg/dL (9-23); Calcium 9.6 mg/dL (8.3-10.6); Calcium (Corrected) 9.8 mg/dL (8.5-10.1); Carbon Dioxide 25.0 mMol/L (20.0-31.0); Chloride 103 mMol/L (98-107); Creatinine (Component) 1.4 mg/dL (0.6-1.3); Estimated Creatinine Clearance 31.7 mL/min (>60); Globulin 2.6 gm/dL (2.3-3.5); Glucose 116 mg/dL (74-106); Osmolality,Calculated 292 (275-295); Potassium 3.7 mMol/L (3.4-5.1); Sodium 143 mMol/L (136-145); Total Protein 6.4 gm/dL (5.7-8.2); eGFR 37 See Note
[2024-12-31 20:30] LABS: Collection Type, Urine Clean Catch
[2024-12-31 20:40] LABS: Bilirubin,Urine Negative (Negative); Blood,Urine Negative (Negative); Clarity,Urine Clear (Clear/Hazy); Color,Urine Colorless (Lt Yel-Yel); Culture Indicated,Urine Not Indicated; Glucose, Urine Negative (Negative); Ketones,Urine 1+ (Negative); Leukocyte Esterase,Urine Negative (Negative); Nitrite,Urine Negative (Negative); PH,Urine 7.0 (5.0-7.0); Protein,Urine 2+ (Neg - Trace); RBC,Urine 9 /hpf (0-3); Specific Gravity,Urine 1.011 (1.001-1.035); Squamous Epithelial Cell,Urine 2 /hpf (0-5); Urobilinogen,Urine Negative mg/dL (0.0-1.0); WBC,Urine 5 /hpf (0-5)
== END 2024-12-31 22:07 | disposition home or self-care (01) ==
PROVIDERS: Emergency Provider Emergency Medicine; PCP Internal Medicine
DX: I12.9 Hypertensive chronic kidney disease with stage 1 through stage 4 chronic kidney disease, or unspecified chronic kidney disease (principal); E11.22 Type 2 diabetes mellitus with diabetic chronic kidney disease; N18.4 Chronic kidney disease, stage 4 (severe); R94.31 Abnormal electrocardiogram [ECG] [EKG]; Z79.84 Long term (current) use of oral hypoglycemic drugs
CPT/HCPCS: 36415; 80053; 81001; 85025; 93005; 96374; 99283; J0360; A9270

== ENCOUNTER 2025-01-03 14:09 | Inpatient (IN) | payer MEDICARE, MEDICAID, SELFPAY ==
[2025-01-03] VITALS (10 sets, daily range): BP systolic 128–203; BP diastolic 62–99; PULSE 55–100; RESP 16–19; TEMP 36.4–37.2; O2SAT 94–100; BMI 24.2
--- NOTE | 2025-01-03 14:11 | EKG_ITS ---
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
--- NOTE | 2025-01-03 14:13 | EDNOTE_ITS ---
ED General RME/HPI General Chief complaint: General Adult/Misc Complain Stated complaint: HYPERTENSION Time Seen by Provider: 01/03/25 14:10 Arrival date/time: 01/03/25 14:09 CC: Headache nausea vomiting HPI patient had a headache for the last 2 days. Patient states she also had nausea vomiting for the past 2 days as well. EMS report hypertension with a blood pressure of 200/100. The patient is awake alert oriented review the medical records show she was here 3 days ago for the same complaint. Patient denies chest pain shortness of breath or difficulty breathing. Related Data Home Medications ?Medication ?Instructions ?Recorded ?Confirmed vit C,O-Wh-edrqkh-lutein-zeaxan 60 1 tab PO QDAY 09/1810/19/24 mg-13.5 mg-15 mg-2 mg-6 mg capsule (Ocuvite Lutein and Zeaxanthin) glipizide 5 mg-metformin 500 mg 1 tab PO BID 06/06/18 10/19/24 tablet aspirin 81 mg chewable tablet 81 mg PO QDAY 08/10/24 0 10/19/24 carvedilol 25 mg tablet (Coreg) 25 mg PO BID 08/10/24 10/19/24 Held on 08/18/24. Instructions: resume with PCP due to bradycardia gabapentin 100 mg capsule 100 mg PO TID 08/10/2410/19 hydralazine 100 mg tablet 100 mg PO Q12H 08/13/2409/23 Previous Rx's ?Medication ?Instructions ?Recorded clonidine 0.2 mg/24 hr weekly 0.2 mg topical .weekly 3 0 days #4 12/31/24 transdermal patch (Awcfvsfl-BOB-6) ea Allergies Allergy/AdvReac Type Severity Reaction Status Date / Time bee venom protein (honey bee) Allergy Severe Anaphylaxis Verified 10/19/24 09:17 shock nabumetone Allergy Severe Rash Verified 10/19/24 09:17 nut - unspecified Allergy Severe Anaphylaxis Verified 10/19/24 09:17 Penicillins Allergy Severe Rash Verified 10/19/24 09:17 Pork/Porcine Containing Allergy Severe Rash Verified 10/19/24 09:17 Products shellfish derived Allergy Severe Anaphylaxis Verified 10/19/24 09:17 Nqmmlyp-EDP-RyJ Reductase Allergy Severe MUSCLE Verified 10/19/24 09:17 Inhibitor (Izvrgkz-Rcy-Sqq WEAKNESS Reductase Inhibitor) turkey Allergy Severe Anaphylaxis Verified 10/19/24 09:17 feathers Allergy Mild Watery Eye Verified 10/19/24 09:17 Review of Systems Review of Systems Narrative Review of Systems: GEN: No fever, no chills, no weight loss EYES: No discharge, no visual changes, no pain HEENT: No ear pain, no congestion, no sore throat PULM: No shortness of breath, no cough, no congestion CV: No chest pain, no dyspnea on exertion, no palpitations GI: No nausea, no vomiting, no diarrhea, no pain, no constipation : No frequency, no urgency, no dysuria MUSC/SKEL: No joint pain, no back pain SKIN: No rash PSYCH: No hallucinations, no depression HEME/LYMPH: No easy bleeding or bruising tendencies NEURO: No weakness, + headache Past Medical History Past Medical History NEUROLOGIC: Positive Neurological Disorders, Migraine and Head Trauma; Negative Seizures CARDIAC: Positive Cardiac Disorders, Angina, Hypercholesterolemia, Edema and Hypertension; Negative Congestive Heart Failure RESPIRATORY: Negative Chronic Obstructive Pulmonary Disease (COPD) GASTROINTESTINAL: Negative Gastrointestinal Disorders GENITOURINARY: Positive Genitourinary Disorders; Negative Renal Disease REPRODUCTIVE: Positive Breast Cancer and Previous Pregnancies MUSCULOSKELETAL: Positive Musculoskeletal Disorders, Arthritis and Fractures ENT: Positive Cataracts and Head Trauma ENDOCRINE: Positive Endocrine Disorders and Diabetes Mellitus Type 2; Negative Diabetes Mellitus Type 1 HEMATOLOGIC: Positive Blood Disorders and Anemia PSYCHO/SOCIAL: Positive Anxiety OTHER HISTORY: Positive Anesthesia Reactions, Radiation Therapy, Measles, Mumps, Rubella ([place] Measles) and Breast Cancer; Negative Hospitalization, Autoimmune Disease, Shingles, Falls, Blood Transfusions or Blood Transfusion Reaction Family History FAMILY HISTORY: Positive Family Cardiac Disorders; Negative Family Psychiatric Problems, Family Respiratory Disorders, Family Gastrointestinal Problems, Family Cancer, Family Surgery or Family Anesthesia Reaction Surgical History SURGICAL: Positive Coronary Stent, Cardiac Catheterization, Angiogram, Abdominal Surgery, Mastectomy (partial /left), Lumpectomy, Hysterectomy and Section Social History SMOKING STATUS: Never smoker ED Exam Narrative Physical exam: [General: In moderate discomfort but not in any acute distress Head normocephalic HEENT: Eyes pupils are PERRLA EOMs are intact mouth pink dry membranes uvula is midline swallow symmetrical. All other subsystems of HEENT are within acceptable limits Neck is supple nontender Chest equal chest rise nontender to palpation Respiratory: Clear to auscultation no wheezes crackles or rubs CV: Rate rhythm is regular no murmurs rubs or clicks Abdomen is soft nontender no masses positive bowel sounds all 4 quadrants Back: No CVA tenderness no spinous process tenderness from cervical spine thoracic and lumbar spine Skin: Intact no petechiae rash induration ulceration or crepitus Extremities: Moving all extremity against resistance cap refill less than 2 seconds neurosensory intact Neuro: Awake alert oriented x3 Glascow coma 15 no focal deficits] Course Course Course Narrative: Hypertension has been relieved with hydralazine and clonidine pressures now at 154/71. Patient continues to wear the Catapres patch from the last visit CMP shows significant anion gap, with electrolyte abnormalities and chronic persistent renal insufficiency. This may or may not correspond with the patient's inability to eat with prompt vomiting afterwards. Patient's case discussed with the resident for Dr. Erwin who agrees to accept the patient for anion gap nausea vomiting headache and hypertension Quality Measures none Orders Category Date Time Status EKG (ED ONLY) *Do not use* NOW Care 01/03/25 14:11 Completed Insert IV NOW Care 01/03/25 14:58 Active EKG (ED Only) Stat Exams 01/03/25 14:11 Draft XR chest 1V Stat Exams 01/03/25 15:20 Completed B-Type Natriuretic Peptide Stat Lab 01/03/25 14:21 Completed CBC Stat Lab 01/03/25 14:21 Completed Comprehensive Metabolic Panel Stat Lab 01/03/25 14:21 Completed Drug Screen,Urine Stat Lab 01/03/25 14:11 Ordered LDH (Lactate Dehydrogenase) Stat Lab 01/03/25 14:21 Completed Magnesium Stat Lab 01/03/25 14:21 Completed Partial Thromboplastin Time Stat Lab 01/03/25 14:21 Completed Prothrombin Time with INR Stat Lab 01/03/25 14:21 Completed Troponin I Stat Lab 01/03/25 14:21 Completed Urinalysis, C/S if Indicated Stat Lab 01/03/25 14:11 Ordered Ringers Lactated 1000 ml [Lactated Ringers] 1,000 ml Med 01/03/25 16:40 Discontinued IV 999 mls/hr Ringers Lactated 500 ml [Lactated Ringers] 500 ml Med 01/03/25 16:41 Active IV 999 mls/hr cloNIDine HCL [Catapres] Med 01/03/25 14:12 Discontinued 0.2 mg PO X1 ONE hydrALAZINE INJ [Apresoline Inj] Med 01/03/25 14:12 Discontinued 10 mg IVP X1 ONE hydrALAZINE INJ [Apresoline Inj] Med 01/03/25 15:55 Discontinued 20 mg IVP X1 ONE Vital Signs Vital signs: Vital Signs Pulse Rate 83 01/03/25 14:54 Respiratory Rate 18 01/03/25 14:54 Blood Pressure 203/99 H 01/03/25 14:54 Pulse Oximetry (%) 94 L 01/03/25 14:54 Oxygen Delivery Method Room Air 01/03/25 14:54 Discharge Plan Plan Patient Disposition: Other Care w/in Hosp ([facility]) Patient condition on transfer: Stable Prescriptions/Referrals Prescriptions/Med Rec: No Action Ocuvite Lutein and Zeaxanthin 60 mg-30 unit- 15 mg-2 mg-6 mg Capsule 1 tab PO QDAY glipizide-metformin 5-500 mg Tablet 1 tab PO BID aspirin 81 mg tablet,chewable 81 mg PO QDAY gabapentin 100 mg capsule 100 mg PO TID Patient Comments: take 1 capsule by mouth three times a day carvedilol [Coreg] 25 mg tablet 25 mg PO BID Rx Instructions: must administer with a meal/food hydralazine 100 mg tablet 100 mg PO Q12H Patient Comments: take 1 tablet by mouth three times a day clonidine [Osjzajgy-KEV-4] 0.2 mg/24 hr patch weekly 0.2 mg topical .weekly 30 Days Qty: 4 0RF Referrals: Zeus Nguyen MD [Primary Care Provider, Internal Medicine] - In 1 week Problem List Clinical Impression: Headache, Hypertension, High anion gap, Hypokalemia, Hypernatremia, Nausea & vomiting, Dehydration Patient/Caregiver Discharge Instructions Print Language: [place] Stand Alone Forms: Hayley Award Info., Patient Portal Info Letter PA/[employer]ILITY WORKER Supervising Physician PA/[employer]ILITY WORKER Supervising Physician: Manuel Back ENP [facility] Clinical Information Provided by: patient and EMS Medical Records reviewed [facility] and EMS Labs Labs: interpreted by me Lab(s) Interpretation(s): CC close no acute leukocytosis H&H of 13.3 and 35.8 respectively platelets at 168. Coags within acceptable limits CMP shows a sodium 146 potassium 3.3 gap of 24 CO2 of 19 BUN of 33 creatinine 1.8 glucose of 109 Troponin is unremarkable BNP is 102. Imaging Imaging interpretation: interpreted by me Imaging Interpretation(s): Chest x-ray shows mild congestive heart failure. Medication Administration(s) Medication Administration History Lactated Ringer's (Lactated Ringers) 500 mls @ 999 mls/hr IV .Q31M ONE Stop: 01/03/25 17:11 Discontinued Medications Clonidine (Clonidine Hcl 0.1 Mg Tablet) 0.2 mg PO X1 ONE Stop: 01/03/25 14:13 Last Admin: 01/03/25 14:56 Dose: 0.2 mg Documented By: JENNIFER Hydralazine HCl (Hydralazine Inj 20 Mg/Ml Vial) 10 mg IVP X1 ONE Stop: 01/03/25 14:13 Last Admin: 01/03/25 14:56 Dose: 10 mg Documented By: JENNIFER Hydralazine HCl (Hydralazine Inj 20 Mg/Ml Vial) 20 mg IVP X1 ONE Stop: 01/03/25 15:56 Lactated Ringer's (Lactated Ringers) 1,000 mls @ 999 mls/hr IV .Q1H1M ONE Stop: 01/03/25 17:40
[2025-01-03 14:34] LABS: Basophils # (Auto) 0.0 Thou/mm3 (0.0-0.2); Basophils % (Auto) 1 % (0-2.5); Eosinophils # (Auto) 0.1 Thou/mm3 (0.0-0.5); Eosinophils % (Auto) 2 % (0-10); Hematocrit 35.8 % (36.0-46.0); Hemoglobin 11.3 g/dL (12.0-16.0); Immature Granulocytes Auto 0.02 Thou/mm3 (0.00-0.00); Lymphocytes # (Auto) 1.2 Thou/mm3 (1.0-4.8); Lymphocytes % (Auto) 23 % (10-50); Mean Corpuscular HGB Conc 31.6 g/dl (31.0-37.0); Mean Corpuscular Hemoglobin 29.1 pg (25.0-35.0); Mean Corpuscular Volume 92 fL (80-100); Monocytes # (Auto) 0.4 Thou/mm3 (0.0-0.8); Monocytes % (Auto) 7 % (0-12); Neutrophils # (Auto) 3.6 Thou/mm3 (1.8-7.7); Neutrophils % (Auto) 67 % (37-80); Nucleated Red Blood Cell # 0.00 Thou/mm3 (0.00-0.00); Nucleated Red Blood Cell % 0 /100 WBC (0); Platelet Count 168 Thou/mm3 (140-440); RDW Standard Deviation 48.9 fL (36.4-46.3); Red Blood Count 3.88 Miln/mm3 (4.00-5.20); White Blood Count 5.3 Thou/mm3 (3.6-11.0)
[2025-01-03 14:49] LABS: INR 1.1 (0.9-1.3); Partial Thromboplastin Time 27.3 Seconds (22.0-36.0); Prothrombin Time 11.2 Seconds (9.0-12.2)
[2025-01-03 14:54] LABS: B-Type Natriuretic Peptide 102 pg/mL (0-100)
[2025-01-03 14:56] LABS: Alanine Aminotransferase 19 U/L (10-49); Albumin, Serum 4.3 gm/dL (3.4-4.8); Albumin/Globulin Ratio 1.4 (1.2-2.2); Alkaline Phosphatase 88 U/L (46-116); Anion Gap 24 (7-16); Aspartate Amino Transferase 25 U/L (0-34); BUN/Creatinine Ratio 18 Ratio (12-20); Bilirubin,Total 0.7 mg/dL (0.3-1.2); Blood Urea Nitrogen 33 mg/dL (9-23); Calcium 9.7 mg/dL (8.3-10.6); Calcium (Corrected) 9.7 mg/dL (8.5-10.1); Carbon Dioxide 19.0 mMol/L (20.0-31.0); Chloride 103 mMol/L (98-107); Creatinine (Component) 1.8 mg/dL (0.6-1.3); Estimated Creatinine Clearance 22.2 mL/min (>60); Globulin 3.0 gm/dL (2.3-3.5); Glucose 109 mg/dL (74-106); LDH (Lactate Dehydrogenase) 187 U/L (120-246); Magnesium 1.6 mg/dL (1.6-2.6); Osmolality,Calculated 298 (275-295); Potassium 3.3 mMol/L (3.4-5.1); Sodium 146 mMol/L (136-145); Total Protein 7.3 gm/dL (5.7-8.2); Troponin I < 0.020 ng/mL (0.0-0.045); eGFR 28 See Note
[2025-01-03] MEDS: hydrALAZINE INJ 20 MG/ML VIAL 10 MG IVP (14:56)
--- NOTE | 2025-01-03 15:20 | XR_ITS ---
EXAMINATION: AP chest single view TECHNIQUE: AP portable semiupright chest single view Date and time: January 03, 2025, 1523 hours INDICATIONS: Hypoxia today FINDINGS: Mild chronic heart failure pattern Moderate enlargement cardiac contour. Prominent vascular congestion including central vascular engorgement. No lobar pneumonia Prominent osteopenia. IMPRESSION: Mild chronic heart failure pattern
--- NOTE | 2025-01-03 17:15 | PC.NURSE ---
Dr. Rene here to room 7 to talk to pt. and pt.'s daughter.
--- NOTE | 2025-01-03 17:16 | XR_ITS ---
Examination: CT brain head without contrast. 2-D sagittal coronal reconstructions Date and time of exam: January 03, 2025, 1857 hours INDICATIONS: Hypertension with headache today CTDI: vol (mGy): 46.2 DLP: (mGycm): 897 Technique: Multiple CT axial sections of the brain have been obtained, 5 mm slice thickness. Contrast has not been administered. 2-D sagittal, coronal reconstructions have been obtained Low dose protocols were performed. One or more of the following dose reduction techniques were used; automated exposure control, adjustment of the mA and/or KV according to patient size, use of iterative reconstruction technique. Findings: No significant ventricular enlargement. 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 No mass effect or midline shift Basal cisterns are not remarkable. Fourth ventricle is midline. Cranial vault intact. Impression: Negative for acute hemorrhage, mass effect or midline shift
--- NOTE | 2025-01-03 17:25 | PC.NURSE ---
Pt. here from home to room 7, pt.'s granddaughter Virginia Ware is bedside, states pt. was just discharged from [facility] on Saturday, Virginia states pt. got home and then refused to do anything, Virginia states pt. will feed herself and use the RR on her own but that's it. Virginia states pt. is here today because pt.'s blood pressure was high at home and states pt. got scared and called EMS. No s/s of distress noted at this time.
--- NOTE | 2025-01-03 17:32 | PC.CC ---
Patient is a 84 year-old female who presents to the hospital for hypertension. SUPERVISOR PUBLICATIONS PRODUCTIONCinthia made lmeo-vo-ipih contact with patient introduced self, role, and reason for visit. Patient appeared alert and oriented to self and location. SUPERVIS[employer], discussed limits of confidentiality. At bedside was patient's granddaughter, Virginia Garcia whom assisted patient in answering questions for initial assessment. Information on patient's demographic was confirmed and it was reported by granddaughter that patient lives alone. Patient had an [facility] caregiver but she fell ill and are in the middle of transitioning to a new caregiver. [facility]. At home patient ambulates with a walker and is able to complete her own ADLs with some assistance. Patient does not require any oxygen while at home. Patient's primary provider is Zeus Nguyen and her pharmacy of choice is [facility]. Upon discharge patient plans on returning home but is considering about going back [facility]. developmental services worker to follow up with any discharge needs.
[2025-01-03] MEDS: RINGERS LACTATED 500 ML 500 ML 999 ML IV (17:33)
[2025-01-03] MEDS: RINGERS LACTATED 1000 ML 1,000 ML 75 ML IV (17:34)
[2025-01-03 17:40] LABS: Lactate (Lactic Acid) 0.7 mMol/L (0.4-2.0)
--- NOTE | 2025-01-03 17:43 | PC.NURSE ---
Spoke to Dr. Mcnamara who states to cancel admission. Verified with Dr. Rene, patient is waiting for CT results for admission, orders placed in error.
--- NOTE | 2025-01-03 17:46 | EKG_ITS ---
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
[2025-01-03 17:48] LABS: Beta Hydroxybutyrate > 6.4 mmol/L (<0.6)
--- NOTE | 2025-01-03 17:48 | PD.RESEVENT ---
Documentation for date of: 01/03/25 Event Note Event Note: Patient has originally admitted to ED on 01/03/2025 for headache and nausea/vomiting with SBP over 200. In ED clonidine and hydralazine was given and BP has been normalized. Upon evaluation, patient had no headache or n/v. Even though severity of symptom, requested CT head without contract to rule out hemorrhage. Will follow up with CT head result and let night team know regarding CT finidngs. If CT head is normal, admission will be put in for hypertensive emergency and electrolyte management. Assessment and plan discussed with my attending physician Dr. Rene. Dr. Ching (PGY-1) - Internal medicine resident
[2025-01-03 18:35] LABS: Allen Test Performed/OK; Base Excess -4 (-3-3); HCO3 23 mEq/L (20-26); Inspired Oxygen, FIO2 28 %; O2 Saturation 99 % (91-98); PCO2 47 mmHg (32.0-48.0); PO2 109 mmHg (83-108); Puncture Site Left Radial; pH, Arterial 7.30 (7.35-7.45)
[2025-01-03 19:50] LABS: Collection Type, Urine Clean Catch
[2025-01-03 19:58] LABS: Bacteria,Urine 1+; Bilirubin,Urine Negative (Negative); Blood,Urine Negative (Negative); Clarity,Urine Clear (Clear/Hazy); Color,Urine Lt-Yellow (Lt Yel-Yel); Glucose, Urine Negative (Negative); Hyaline Casts,Urine 1 /hpf (0-1); Ketones,Urine 1+ (Negative); Leukocyte Esterase,Urine Positive (Negative); Nitrite,Urine Negative (Negative); PH,Urine 6.0 (5.0-7.0); Protein,Urine 2+ (Neg - Trace); RBC,Urine 3 /hpf (0-3); Specific Gravity,Urine 1.010 (1.001-1.035); Squamous Epithelial Cell,Urine < 1 /hpf (0-5); Urobilinogen,Urine Negative mg/dL (0.0-1.0); WBC,Urine 35 /hpf (0-5)
[2025-01-03 20:00] LABS: Amphetamine/Methamp Scrn,U Negative (Negative); Barbiturate Screen,Urine Negative (Negative); Benzodiazepines Screen,Urine Negative (Negative); Benzoylecgonine Screen, Ur Negative (Negative); Fentanyl Screen,Urine Negative (Negative); Opiate Screen,Urine Negative (Negative); THC Screen,Urine Negative (Negative)
[2025-01-03 20:02] LABS: Culture Indicated,Urine Yes
--- NOTE | 2025-01-03 21:44 | ECHO_ITS ---
Transthoracic Echo Report Ht (in): 66 Wt (lb): 150 Exam Location: [id number] Status: Emergency Photographer Scientific: Umm Carpenter Indications: Procedure Performed: BP: 175 / 70 HR: 62 MEASUREMENTS (Male / Female) Normal Values 2D ECHO LV Diastolic Diameter PLAX 5.0 cm 4.2 - 5.9 / 3.9 - 5.3 cm LV Systolic Diameter PLAX 3.1 cm IVS Diastolic Thickness 1.1 cm 0.6 - 1.0 / 0.6 - 0.9 cm LVPW Diastolic Thickness 1.2 cm 0.6 - 1.0 / 0.6 - 0.9 cm LV Relative Wall Thickness 0.5 LVOT Diameter 2.0 cm LA Volume Index 42.1 cm?/m? 16 - 28 cm?/m? Ascending Aorta Diameter 3.6 cm M-MODE AV Cusp Separation MM 1.0 cm DOPPLER AV Peak Velocity 168.0 cm/s AV Peak Gradient 11.3 mmHg AV Mean Gradient 6.0 mmHg AV Velocity Time Integral 43.0 cm LVOT Peak Velocity 115.0 cm/s LVOT Peak Gradient 5.3 mmHg LVOT Velocity Time Integral 29.4 cm LVOT Cardiac Index 3202.7 cm?/min?m? AV Area Cont Eq vti 2.1 cm? AV Area Cont Eq pk 2.2 cm? MV Area PHT 2.8 cm? Mitral A Point Velocity 88.9 cm/s LV E' Lateral Velocity 5.3 cm/s LV E' Septal Velocity 4.9 cm/s TR Peak Velocity 312.0 cm/s TR Peak Gradient 38.9 mmHg PV Peak Velocity 102.0 cm/s PV Peak Gradient 4.2 mmHg FINDINGS Left Ventricle Normal left ventricular size, wall thickness, systolic function . Regional wall motion abnormalities are present as follows: Hypokinetic apex. There is grade I diastolic dysfunction of the left ventricle (impaired relaxation pattern). The ejection fraction is visually estimated at 55-60 %. Right Ventricle The right ventricle is normal in size and systolic function. The estimated right ventricular systolic pressure, 52 mmHg with RAP 3. Severe HTN Left Atrium The left atrial cavity size is severely increased. Right Atrium The right atrial cavity size is mildly increased. Atrial Septum The interatrial septum appears normal with no evidence of a shunt. Aorta The aorta is normal by two-dimensional, color flow and Doppler interrogation. Mitral Valve The mitral valve is normal by two-dimensional, color flow and Doppler interrogation. Mild mitral regurgitation. Aortic Valve Aortic valve sclerosis without stenosis.mild aortic valve regurgitation. Tricuspid Valve The tricuspid valve is normal by two-dimensional, color flow and Doppler interrogation. There is mild tricuspid valve regurgitation. Pulmonic Valve The pulmonic valve is not well visualized. There is no significant pulmonic valve regurgitation. Vessels The pulmonary artery appears normal. The inferior vena cava pulmonary and hepatic veins appear normal. Pericardium Trivival pericardial effusion without any evidence of cardiac tamponade. CONCLUSIONS Indication: Hypertenisive emergency Normal left ventricular size.Hypokinetic apex Approximate ejection fraction is 55-60%. Grade I diastolic dysfunction. Normal right ventricular size and function. RVSP 52 mmHg with RAP 3. Severe HTN Severed dilated LA and mildly dilated RA Aortic valve sclerosis without stenosis Mild mitral and tricuspid regurgitation noted. Trivival pericardial effusion without any evidence of cardiac tamponade. Talia Armstrong (Electronically Signed) Final Date: 06 January 2025 12:01
--- NOTE | 2025-01-03 21:44 | PD.RESHP ---
Documentation for date of: 01/03/25 [facility] History of Present Illness Chief complaint: High Blood Pressure History of present illness: This is a 84-year-old female with past medical history of hypertension, diabetes,CKD,Osteomyelitis chronic venous stasis, stent placed 20 years ago presented to the ED with complaints of high blood pressure readings in the range of 220/100 at home. She came to the ED on 12/31 with similar complaints of high blood pressure readings in the range of 200/100 got a clonidine patch and IV Hydralazine and sent home. She has been experiencing headache since last 3 days but denies any blurriness of vision. She complains of vomiting 3-4 episodes bilious in nature and decreased appetite but denies any fever cough, Hematemesis ,Melena chest pain or shortness of breath. She denies any focal weakness or paresthesias. She endorses occasional dizziness but denies any loss of consciousness. At baseline she uses walker and go to the bathroom on herself. She has been discharged from acute rehabilitation care on 12/28 where she got admitted for chronic osteomyelitis wound care. ED visit vitals are BP 200/100, pulse rate 84, respiratory 17 saturating 100% on 4% oxygen to nasal cannula. Pertinent lab findings are hemoglobin 11.3, hematocrit 35.3, sodium 146, potassium 3.3, bicarbonate 19, anion gap 24, BUN 33, creatinine 1.8, estimated creatinine clearance 22, eGFR 28, glucose 109, calculated osmolality 298, BNP 102, BHB>6.4, urine WBC 35, urine bacteria 1+ Imaging chest x-ray shows moderate enlarged cardiac counter prominent vascular, congestion?mild chronic heart failure pattern EKG on 01/03 at 1522 shows A-fib but 17:50 shows sinus rhythm with occasional supraventricular premature complexes. CT finding shows no mass, hemorrhage or midline shift. In ER received LR-1.5 L,Clonidine 0.2mg PO, Hydralazine 10 mg PO Past medical history: Hypertension takes clonidine 0.2 mg 1 patch every week, carvedilol 3.125 mg twice daily p.o., furosemide 20 mg p.o. daily, hydralazine 100 mg 3 times daily. Diabetes takes glipizide?metformin 5mg-500 mg Past surgical history: 4 sections Social history: Denies any alcohol, smoking or any other drug use. Allergic history: Endorses allergic to penicillins. Review of Systems Review of Systems Systems Reviewed: All systems reviewed, normal except as documented Exam Vital Signs Temp Pulse Resp BP Pulse Ox O2 Del Method O2 Flow Rate 98.2 F 64 17 177/71 H 100 Nasal Cannula 3 01/03/25 19:40 01/03/25 21:05 01/03/25 21:05 01/03/25 21:05 01/03/25 21:05 01/03/25 21:05 01/03/25 19:40 FiO2 4 01/03/25 21:05 Narrative Exam GENERAL: NAD, AAOx3 HEENT: Moist mucosa. Eyes open, symmetrical, & clear CARDIO: Rapid regular rhythm Noted. Stenotic Murmur on Aortic and Pulmonary area.. PULM: No noted coughing/dyspnea CTA B/L, no R/W/R GI: Abdomen soft, nondistended, Discomfort in suprapubic area and LLQ area SKIN/MSK/EXT: No wounds/rashes/amputations, no pain on palpation. Chronic venous stasis and Pigmentation in B/L legs.Edema on B/L legs upto mid [place]. Pedal pulses faint present B/L NEURO: AAOx3, no focal neuro deficits, able to move all 4 extremities Results: Labs 01/04/25 05:07 01/03/25 21:59 Labs: Short CBC 01/03/25 Range/Units 14:21 WBC 5.3 (3.6-11.0) Thou/mm3 Hgb 11.3 L (12.0-16.0) g/dL Hct 35.8 L (36.0-46.0) % Plt Count 168 (140-440) Thou/mm3 BMP 01/03/25 14:21 Sodium 146 H Potassium 3.3 L Chloride 103 Carbon Dioxide 19.0 L BUN 33 H Creatinine 1.8 H Glucose 109 H Calcium 9.7 Cardiac Enzymes 01/03/25 Range/Units 14:21 Troponin I < 0.020 (0.0-0.045) ng/mL Liver Function 01/03/25 Range/Units 14:21 Total Bilirubin 0.7 (0.3-1.2) mg/dL AST 25 (0-34) U/L ALT 19 (10-49) U/L Alkaline Phosphatase 88 (46-116) U/L Albumin 4.3 D (3.4-4.8) gm/dL Urine 01/03/25 Range/Units 19:44 Urine Color Lt-Yellow (Lt Yel-Yel) Urine Clarity Clear (Clear/Hazy) Urine pH 6.0 (5.0-7.0) Ur Specific [place] 1.010 (1.001-1.035) Urine Protein 2+ A (Neg - Trace) Urine Glucose (UA) Negative (Negative) ABG Interpretation ABG results: 01/03/25 18:20 ABG pH 7.30 L ABG pCO2 47 ABG pO2 109 H ABG HCO3 23 ABG O2 Saturation 99 H ABG Base Excess -4 L Quality Measures Quality Measures none Advance care planning discussed with:: patient Medications Home Medications and Allergies Home Medications ?Medication ?Instructions ?Recorded ?Confirmed ?Type vit C,M-Et-tkkpum-lutein-zeaxan 60 1 tab PO QDAY 09/18/17 10/19/24 History mg-13.5 mg-15 mg-2 mg-6 mg capsule (Ocuvite Lutein and Zeaxanthin) glipizide 5 mg-metformin 500 mg 1 tab PO BID 06/06/18 10/19/24 History tablet aspirin 81 mg chewable tablet 81 mg PO QDAY 08/10/24 10/19/24 History carvedilol 25 mg tablet (Coreg) 25 mg PO BID 08/10/24 10/19/24 History Held on 08/18/24. Instructions: resume with PCP due to bradycardia gabapentin 100 mg capsule 100 mg PO TID 08/10/24 10/19/24 History hydralazine 100 mg tablet 100 mg PO Q12H 08/13/24 10/19/24 History Allergies Allergy/AdvReac Type Severity Reaction Status Date / Time bee venom protein (honey bee) Allergy Severe Anaphylaxis Verified 10/19/24 09:17 shock nabumetone Allergy Severe Rash Verified 10/19/24 09:17 nut - unspecified Allergy Severe Anaphylaxis Verified 10/19/24 09:17 Penicillins Allergy Severe Rash Verified 10/19/24 09:17 Pork/Porcine Containing Allergy Severe Rash Verified 10/19/24 09:17 Products shellfish derived Allergy Severe Anaphylaxis Verified 10/19/24 09:17 Omeqcex-BNA-NxG Reductase Allergy Severe MUSCLE Verified 10/19/24 09:17 Inhibitor (Xrirssz-Bvo-Nmg WEAKNESS Reductase Inhibitor) turkey Allergy Severe Anaphylaxis Verified 10/19/24 09:17 feathers Allergy Mild Watery Eye Verified 10/19/24 09:17 Visit Medications Acetaminophen (Acetaminophen 325 Mg Tablet) 650 mg PO Q6H PRN PRN Reason: Fever >100.4 Stop: 02/02/25 21:25 Carvedilol (Carvedilol 3.125 Mg Tablet) 3.125 mg PO BID GILLIAN Stop: 02/02/25 21:44 Dextrose (Dextrose 50%-Water Inj 50 Ml Syringe) 25 ml IV Q15MIN PRN PRN Reason: BG 50-70 responsive npo pt Stop: 02/02/25 21:36 Dextrose (Dextrose 50%-Water Inj 50 Ml Syringe) 50 ml IV Q15MIN PRN PRN Reason: BG <50 OR BG <70 & pt unresponsive Stop: 02/02/25 21:36 Glucagon (Glucagon Inj 1 Mg Vial) 1 mg IM Q15MIN PRN PRN Reason: BG <70, and no IV access Hydralazine HCl (Hydralazine Hcl 25 Mg Tablet) 100 mg PO BID [facility] Stop: 02/03/25 08:59 Potassium Chloride (Kcl Ivpb) 10 meq in 100 mls @ 100 mls/hr IV Q1H GILLIAN Stop: 01/03/25 23:35 Insulin Human Lispro (Insulin Lispro (Admelog) 1 Unit/0.01 Ml Unit) 0 unit SC AC [facility]; Protocol Stop: 02/03/25 07:29 Ondansetron HCl (Ondansetron Inj 2 Mg/Ml Inj 2 Ml) 4 mg IVP Q6H PRN; Protocol PRN Reason: NAUSEA OR VOMITING Stop: 02/02/25 21:31 Sennosides (Senna Tablet) 1 tab PO QDAY PRN; Protocol PRN Reason: constipation Stop: 02/02/25 21:31 Discontinued Medications Acetaminophen (Acetaminophen 325 Mg Tablet) 650 mg PO Q6H PRN PRN Reason: Fever >101.5 Stop: 02/02/25 17:22 Acetaminophen (Acetaminophen Supp 650 Mg Supp) 650 mg MD Q6H PRN PRN Reason: PAIN SCALE 1-3 (mild Stop: 02/02/25 17:22 Al Hydrox/Mg Hydrox/Simethicone (Mg Hyd/Al Hyd/Noemi (Maalox Reg) Susp 30 Ml Udc) 30 ml PO Q6H PRN PRN Reason: Indigestion Stop: 02/02/25 17:22 Clonidine (Clonidine Hcl 0.1 Mg Tablet) 0.2 mg PO X1 ONE Stop: 01/03/25 14:13 Last Admin: 01/03/25 14:56 Dose: 0.2 mg Diphenhydramine HCl (Diphenhydramine Inj 50 Mg/Ml Vial) 12.5 mg IVP X1 ONE Stop: 01/03/25 17:19 Last Admin: 01/03/25 17:32 Dose: 12.5 mg Enoxaparin Sodium (Enoxaparin Sod Inj 30 Mg/0.3 Ml Syringe) 30 mg SC QDAY GILLIAN; Protocol Stop: 01/18/25 08:59 Hydralazine HCl (Hydralazine Inj 20 Mg/Ml Vial) 10 mg IVP X1 ONE Stop: 01/03/25 14:13 Last Admin: 01/03/25 14:56 Dose: 10 mg Hydralazine HCl (Hydralazine Inj 20 Mg/Ml Vial) 20 mg IVP X1 ONE Stop: 01/03/25 15:56 Last Admin: 01/03/25 17:18 Dose: Not Given Lactated Ringer's (Lactated Ringers) 1,000 mls @ 999 mls/hr IV .Q1H1M ONE Stop: 01/03/25 17:40 Last Admin: 01/03/25 17:17 Dose: Not Given Lactated Ringer's (Lactated Ringers) 500 mls @ 999 mls/hr IV .Q31M ONE Stop: 01/03/25 17:11 Last Infusion: 01/03/25 19:00 Dose: Infused Lactated Ringer's (Lactated Ringers) 1,000 mls @ 75 mls/hr IV .[id number] ONE Stop: 01/04/25 06:44 Last Admin: 01/03/25 17:34 Dose: 75 mls/hr Lactulose (Lactulose Syrup 20 Gm/30 Ml Udc) 10 gm PO QDAY GILLIAN; Protocol Stop: 02/03/25 08:59 Ondansetron HCl (Ondansetron Inj 2 Mg/Ml Inj 2 Ml) 4 mg IVP Q6H PRN; Protocol PRN Reason: NAUSEA OR VOMITING Stop: 02/02/25 17:22 Oxycodone/Acetaminophen (Oxycodone/Apap 5/325 Tablet) 1 tab PO Q6H PRN PRN Reason: PAIN SCALE 4-6 (Moderate Stop: 01/08/25 17:22 Assessment & Plan Plan This is a 84-year-old female with past medical history of hypertension, diabetes,CKD,Osteomyelitis chronic venous stasis, stent 20 years ago presented to the ED with High Blood pressure readings in the range of 200/100 and dull headache. she was admitted for Hypertensive Emergency. # Hypertensive emergency . Blood pressure readings in the range of 200/100, dull headache, vomiting. Lab values of creatinine 1.8-End organ damage.. Had a clonidine patch prescribed for her on 12/31 and taking her blood pressure medications of carvedilol, hydralazine, clonidine. Hydralazine 10 mg IV and clonidine 0.2 mg p.o. given in ED ?Goal to reduce blood pressure 15% in first hour and up to 25% in the next 23 hours compared to baseline. ?Has resumed her home medications carvedilol, hydralazine. ?Ordered echo to see if any high blood pressure associated pulmonary edema present. ?Follow-up labs to see if creatinine is going down. #Starvation Ketosis presented with low bicarb, elevated BHB, +1ketones likely secondary to poor po intake for last 5 days. - IVFs given, repeat labs improving - Continue to monitor -Ordered a dietary consult. #Pre renal JOSE ANTONIO Vomiting 3 episodes a day. BUN:33,Creatinine:1.8,eGFR-28 -IV Fluids for hydration -Avoid nephrotoxins # Hypokalemia. Potassium 3.3 ?Started on potassium 20 mEq # Type II Noninsulin dependent Diabetes. ?Starting on sliding scale. - takes glipizide-metformin at home Code status: Full DVT prophylaxis:SCD Diet: Low Sodium consistent Ty: None Lines: PIV Supplemental O2: Nasal canula on 4L of O2 Disposition: Tele Discussed this case with my senior Dr. Harrison and my attending Dr. Rooney. Andrea Perry MD-[id number] Attending Provider Attestation/Addendum Carola Wang, DO, attest that I was physically present for the doshi portions of the service and evaluated the patient with the resident and I reviewed and discussed the case with the resident and agree with the resident's findings and plans of care as documented above Patient is an 84 year old female with Pmhx of HTN, HLD, chronic venous stasis, CKD, CAD s/p stent, ?osteomyelitis who presented to the ED due to headache, nausea and fatigue. Patient had recently been seen in the ED on 12/31 due to headache associated with uncontrolled blood pressure. Patient was discharged with clonidine patch. Patient states that her BP remained elevated at home with systolic in the 200s. Patient states that she has not been eating for the past week due to nausea and postprandial pain. Patient states she was able to tolerate PO hydration in the ED without nausea or pain. At baseline, patient lives at home alone and ambulates with walker. She denies any chest pain, fevers, chills, shortness of breath, vomiting or dysuria otherwise. She reports chronic b/l LE edema that appears to be unchanged. Head CT was done in ED showing no acute intracranial findings. CXR shows mild chronic heart failure. CMP was significant for sodium of 145, potassium of 3.3, bicarb of 19, anion gap of 24, Cr of 1.8 (baseline Cr of 1.3), glucose of 109, BhB >6.4. Lactic acid WNL. ABG was done showing 7.3/47/109. Suspect starvation ketoacidosis as patient has not eaten for several days. Patient received 1L of LR in ED and currently receiving maintenance fluids. Will admit patient for further workup and management of hypertensive urgency and starvation ketoacidosis. Will repeat BMP now. Patient has received 1L of LR and currently on maintenance fluids. BP currently 140/100 after receiving hydralazine and clonidine. Will slowly drop BP at 25% in first 24hrs, will restart home carvedilol this evening and home meds for AM. Patient appears dry at this time, will monitor fluid status closely as CXR shows mild vascular congestion. Will order echocardiogram.? Patient has no abdominal tenderness on exam, no rhonchi or rales noted on lung exam, 2+ b/l LE pitting edema, faint dorsalis pedis pulses in b/l feet, no pain or discoloration on palpation. ?
[2025-01-03 22:09] LABS: Basophils # (Auto) 0.0 Thou/mm3 (0.0-0.2); Basophils % (Auto) 1 % (0-2.5); Eosinophils # (Auto) 0.1 Thou/mm3 (0.0-0.5); Eosinophils % (Auto) 3 % (0-10); Hematocrit 31.4 % (36.0-46.0); Hemoglobin 9.7 g/dL (12.0-16.0); Immature Granulocytes Auto 0.01 Thou/mm3 (0.00-0.00); Lymphocytes # (Auto) 1.6 Thou/mm3 (1.0-4.8); Lymphocytes % (Auto) 33 % (10-50); Mean Corpuscular HGB Conc 30.9 g/dl (31.0-37.0); Mean Corpuscular Hemoglobin 28.7 pg (25.0-35.0); Mean Corpuscular Volume 93 fL (80-100); Monocytes # (Auto) 0.6 Thou/mm3 (0.0-0.8); Monocytes % (Auto) 12 % (0-12); Neutrophils # (Auto) 2.4 Thou/mm3 (1.8-7.7); Neutrophils % (Auto) 51 % (37-80); Nucleated Red Blood Cell # 0.00 Thou/mm3 (0.00-0.00); Nucleated Red Blood Cell % 0 /100 WBC (0); Platelet Count 166 Thou/mm3 (140-440); RDW Standard Deviation 48.8 fL (36.4-46.3); Red Blood Count 3.38 Miln/mm3 (4.00-5.20); White Blood Count 4.7 Thou/mm3 (3.6-11.0)
[2025-01-03] MEDS: POTASSIUM CHL 10 mEq IVPB 10 MEQ/100 ML BAG 100 MEQ IV ×2 (22:14→23:15)
[2025-01-03 22:28] LABS: Alanine Aminotransferase 15 U/L (10-49); Albumin, Serum 3.8 gm/dL (3.4-4.8); Albumin/Globulin Ratio 1.4 (1.2-2.2); Alkaline Phosphatase 75 U/L (46-116); Anion Gap 18 (7-16); Aspartate Amino Transferase 23 U/L (0-34); BUN/Creatinine Ratio 16 Ratio (12-20); Bilirubin,Total 0.6 mg/dL (0.3-1.2); Blood Urea Nitrogen 28 mg/dL (9-23); Calcium 9.4 mg/dL (8.3-10.6); Calcium (Corrected) 9.6 mg/dL (8.5-10.1); Carbon Dioxide 23.8 mMol/L (20.0-31.0); Chloride 103 mMol/L (98-107); Creatinine (Component) 1.8 mg/dL (0.6-1.3); Estimated Creatinine Clearance 22.2 mL/min (>60); Globulin 2.7 gm/dL (2.3-3.5); Glucose 84 mg/dL (74-106); Osmolality,Calculated 293 (275-295); Potassium 3.2 mMol/L (3.4-5.1); Sodium 145 mMol/L (136-145); Total Protein 6.5 gm/dL (5.7-8.2); eGFR 28 See Note
[2025-01-03 22:35] LABS: Glucose Estimated Average 114 mg/dL (80-131); Hemoglobin A1C 5.6 % Hgb (4.8-6.0)
[2025-01-04] VITALS (11 sets, daily range): BP systolic 150–189; BP diastolic 69–127; PULSE 56–70; RESP 17–19; TEMP 36.2–36.6; O2SAT 97–100; BMI 24.9; BMI 24.7; BMI 11.0
[2025-01-04] MEDS: DEXTROSE 5%-LACTATED RINGERS 1,000 ML 100 ML IV (02:55)
--- NOTE | 2025-01-04 03:50 | PC.NURSE ---
100% O2 sat on 3L/min/nc- Decreased O2 inh to 2L/min/nc.
[2025-01-04 06:07] LABS: Basophils # (Auto) 0.0 Thou/mm3 (0.0-0.2); Basophils % (Auto) 1 % (0-2.5); Eosinophils # (Auto) 0.3 Thou/mm3 (0.0-0.5); Eosinophils % (Auto) 7 % (0-10); Hematocrit 31.3 % (36.0-46.0); Hemoglobin 9.8 g/dL (12.0-16.0); Immature Granulocytes Auto 0.01 Thou/mm3 (0.00-0.00); Lymphocytes # (Auto) 1.4 Thou/mm3 (1.0-4.8); Lymphocytes % (Auto) 32 % (10-50); Mean Corpuscular HGB Conc 31.3 g/dl (31.0-37.0); Mean Corpuscular Hemoglobin 29.0 pg (25.0-35.0); Mean Corpuscular Volume 93 fL (80-100); Monocytes # (Auto) 0.5 Thou/mm3 (0.0-0.8); Monocytes % (Auto) 12 % (0-12); Neutrophils # (Auto) 2.1 Thou/mm3 (1.8-7.7); Neutrophils % (Auto) 48 % (37-80); Nucleated Red Blood Cell # 0.00 Thou/mm3 (0.00-0.00); Nucleated Red Blood Cell % 0 /100 WBC (0); Platelet Count 157 Thou/mm3 (140-440); RDW Standard Deviation 48.8 fL (36.4-46.3); Red Blood Count 3.38 Miln/mm3 (4.00-5.20); White Blood Count 4.4 Thou/mm3 (3.6-11.0)
[2025-01-04 06:18] LABS: Alanine Aminotransferase 14 U/L (10-49); Albumin, Serum 3.6 gm/dL (3.4-4.8); Albumin/Globulin Ratio 1.4 (1.2-2.2); Alkaline Phosphatase 72 U/L (46-116); Anion Gap 17 (7-16); Aspartate Amino Transferase 20 U/L (0-34); BUN/Creatinine Ratio 19 Ratio (12-20); Bilirubin,Total 0.5 mg/dL (0.3-1.2); Blood Urea Nitrogen 34 mg/dL (9-23); Calcium 8.8 mg/dL (8.3-10.6); Calcium (Corrected) 9.1 mg/dL (8.5-10.1); Carbon Dioxide 25.9 mMol/L (20.0-31.0); Chloride 103 mMol/L (98-107); Creatinine (Component) 1.8 mg/dL (0.6-1.3); Estimated Creatinine Clearance 22.2 mL/min (>60); Globulin 2.5 gm/dL (2.3-3.5); Glucose 104 mg/dL (74-106); Magnesium 1.2 mg/dL (1.6-2.6); Osmolality,Calculated 298 (275-295); Phosphorous 4.8 mg/dL (2.4-5.1); Potassium 3.2 mMol/L (3.4-5.1); Sodium 146 mMol/L (136-145); Thyroid Stimulating Hormone 1.18 uIU/mL (0.55-4.78); Total Protein 6.1 gm/dL (5.7-8.2); eGFR 28 See Note
--- NOTE | 2025-01-04 06:18 | PC.NURSE ---
called Virginia(granddaughter) tel#[phone]- Family member will bring home med bottles from home this a.m. for med rec.
[2025-01-04] MEDS: Magnesium Sulfate 2 GM Ivpb 2 GM/50 ML BAG IV (09:09)
[2025-01-04] MEDS: NIFEdipine XL 30 MG TABCR PO (09:09)
--- NOTE | 2025-01-04 14:29 | PC.SS ---
rounding note: SS spoke to PT who recommended patient d/c to SNF. Patient preference is [facility] as she was just discharged from facility and went home one day.
--- NOTE | 2025-01-04 14:39 | ESPR_ITS ---
<Statement entered by Popeye Tucker MD - 01/04/25 16:50> Patient was seen and examined at bedside this morning. No acute overnight events. Patient this morning did have an elevated anion gap and initial beta- hydroxybutyrate was quite elevated. Patient's blood pressure was still on the higher end therefore started patient on nifedipine 30 and start Coreg as well as 6.25 twice daily. Patient is also on hydralazine 100 mg twice daily, will continue to titrate blood pressure medications as needed to achieve better BP control. On repeat renal function panel anion gap closed and beta hydroxybutyrate had dropped to 2 from 6.4. Will continue to monitor for now. Will need SNF upon discharge. I have reviewed the note and agree with the resident's assessment & plan with exceptions as above. I have personally reviewed labs, imaging, home meds/prior records, examined the patient, formulated and discussed management plan with my attending Popeye Tucker PGY2 Disclaimer: Even though this this note was dictated by speech recognition and even though it was carefully revised there may still be minor errors in test desk operator due to voice recognition software. Documentation for date of: 01/04/25 Subjective Subjective Interval history: Patient admitted overnight. Patient seen and examined at bedside. Patient reports headache is resolved as well as nausea. Able to tolerate some of her Glucerna shake. Reports some soreness on her buttock and per granddaughter, patient has irritated area between her buttocks to the lower sacrum that she has been treating with [id number] creams. Not open wound nor abrasion. denies any chest pain, shortness of breath, abdominal pain or fever or chills at this time. Endorses being adherent to blood pressure medications. Does not follow traffic attendant. Patient confirms FULL CODE status. Labs and vitals reviewed. SBP 160-170. Heart rate in the 60s. Hemoglobin 9.8. Potassium 3.2, bicarb increased from 19 to 25. BUN still elevated 34, creatinine 1.8 with baseline 1.4-1.7. BHB> 6.4 with repeat 2.0. Started nifedipine 30 mg daily, home carvedilol 6.25 mg twice daily and hydralazine 100 mg twice daily. Goals to reduce blood pressure up to 25% in the next 24 hours. Echo ordered. Dietitian consulted. Sliding scale sling in place. Exam Vital Signs Temp Pulse Resp BP Pulse Ox O2 Del Method O2 Flow Rate 97.8 F 63 19 150/69 H 99 Nasal Cannula 2 01/04/25 12:00 01/04/25 12:00 01/04/25 12:00 01/04/25 12:00 01/04/25 12:00 01/04/25 12:00 01/04/25 12:00 FiO2 4 01/03/25 21:05 Narrative Exam GENERAL: AOx3, no acute distress HEENT: mucous membranes dry, bilateral sclera anicteric CARDIOVASCULAR: regular rate and rhythm, S1/S2 present, no murmurs appreciated PULMONARY: clear to auscultation bilaterally, no rales/rhonchi/wheezes ABDOMINAL: soft, non-tender, non-distended, no rebound/guarding, bowel sounds present EXTREMITIES: no peripheral edema SKIN: warm and dry, erythematous rash between buttocks up to lower sacrum NEURO: CN II-XII grossly intact, no focal deficits, alert, following commands Objective Labs 01/04/25 05:07 01/04/25 15:24 Labs: Laboratory Results - last 24 hr 01/03/25 01/03/25 01/03/25 14:21 17:34 18:20 WBC 5.3 RBC 3.88 L Hgb 11.3 L Hct 35.8 L MCV 92 MCH 29.1 MCHC 31.6 RDW Std Deviation 48.9 H Plt Count 168 Neut % (Auto) 67 Lymph % (Auto) 23 [place] % (Auto) 7 Eos % (Auto) 2 Baso % (Auto) 1 Neut # (Auto) 3.6 Lymph # (Auto) 1.2 [place] # (Auto) 0.4 Eos # (Auto) 0.1 Baso # (Auto) 0.0 Immature Gran # (Auto) 0.02 H Absolute Nucleated RBC 0.00 Immature Gran % 0 Nucleated RBC % 0 PT 11.2 INR 1.1 APTT 27.3 Puncture Site Left Radial ABG pH 7.30 L ABG pCO2 47 ABG pO2 109 H ABG HCO3 23 ABG O2 Saturation 99 H ABG Base Excess -4 L FiO2 28 Sodium 146 H Potassium 3.3 L Chloride 103 Carbon Dioxide 19.0 L Anion Gap 24 H BUN 33 H Creatinine 1.8 H Estim Creat Clear Calc 22.2 L eGFR 28 L BUN/Creatinine Ratio [address] Glu mg/dL Hemoglobin A1c Calculated Osmolality 298 H Lactic Acid 0.7 Calcium 9.7 Corrected Calcium 9.7 Phosphorus Magnesium 1.6 Total Bilirubin 0.7 AST 25 ALT 19 Alkaline Phosphatase 88 Lactate Dehydrogenase 187 Troponin I < 0.020 B-Natriuretic Peptide 102 H Total Protein 7.3 Albumin 4.3 D Globulin 3.0 Albumin/Globulin Ratio 1.4 Beta-Hydroxybutyrate/Acetoacetate > 6.4 H TSH Ur Collection Type Urine Color Urine Clarity Urine pH Ur Specific [place] Urine Protein Urine Glucose (UA) Urine Ketones Urine Blood Urine Nitrite Urine Bilirubin Urine Urobilinogen (Auto) Ur Leukocyte Esterase Urine RBC Urine WBC Ur Squamous Epith Cells Urine Bacteria Hyaline Casts Ur Culture Indicated? Urine Opiates Screen Urine Fentanyl Screen Ur Barbiturates Screen U Amphetamin/Meth Scrn U Benzodiazepines Scrn U Cocaine Metab Screen U Marijuana (THC) Screen 01/03/25 01/03/25 01/04/25 19:44 21:59 05:07 WBC 4.7 4.4 RBC 3.38 L 3.38 L Hgb 9.7 L 9.8 L Hct 31.4 L 31.3 L MCV 93 93 MCH 28.7 29.0 MCHC 30.9 L 31.3 RDW Std Deviation 48.8 H 48.8 H Plt Count 166 157 Neut % (Auto) 51 48 Lymph % (Auto) 33 32 [place] % (Auto) 12 12 Eos % (Auto) 3 7 Baso % (Auto) 1 1 Neut # (Auto) 2.4 2.1 Lymph # (Auto) 1.6 1.4 [place] # (Auto) 0.6 0.5 Eos # (Auto) 0.1 0.3 Baso # (Auto) 0.0 0.0 Immature Gran # (Auto) 0.01 H 0.01 H Absolute Nucleated RBC 0.00 0.00 Immature Gran % 0 0 Nucleated RBC % 0 0 PT INR APTT Puncture Site ABG pH ABG pCO2 ABG pO2 ABG HCO3 ABG O2 Saturation ABG Base Excess FiO2 Sodium 145 146 H Potassium 3.2 L 3.2 L Chloride 103 103 Carbon Dioxide 23.8 25.9 Anion Gap 18 H 17 H BUN 28 H 34 H Creatinine 1.8 H 1.8 H Estim Creat Clear Calc 22.2 L 22.2 L eGFR 28 L 28 L BUN/Creatinine Ratio 16 19 Glucose [address] Glu mg/dL 114 Hemoglobin A1c 5.6 Calculated Osmolality 293 298 H Lactic Acid Calcium 9.4 8.8 Corrected Calcium 9.6 9.1 Phosphorus 4.8 Magnesium 1.2 L Total Bilirubin 0.6 0.5 AST 23 20 ALT 15 14 Alkaline Phosphatase 75 72 Lactate Dehydrogenase Troponin I B-Natriuretic Peptide Total Protein 6.5 6.1 Albumin 3.8 D 3.6 Globulin 2.7 2.5 Albumin/Globulin Ratio 1.4 1.4 Beta-Hydroxybutyrate/Acetoacetate TSH 1.18 Ur Collection Type Clean Catch Urine Color Lt-Yellow Urine Clarity Clear Urine pH 6.0 Ur Specific [place] 1.010 Urine Protein 2+ A Urine Glucose (UA) Negative Urine Ketones 1+ A Urine Blood Negative Urine Nitrite Negative Urine Bilirubin Negative Urine Urobilinogen (Auto) Negative Ur Leukocyte Esterase Positive Urine RBC 3 Urine WBC 35 H Ur Squamous Epith Cells < 1 Urine Bacteria 1+ A Hyaline Casts 1 Ur Culture Indicated? Yes Urine Opiates Screen Negative Urine Fentanyl Screen Negative Ur Barbiturates Screen Negative U Amphetamin/Meth Scrn Negative U Benzodiazepines Scrn Negative U Cocaine Metab Screen Negative U Marijuana (THC) Screen Negative ABG Interpretation ABG results: 01/03/25 18:20 ABG pH 7.30 L ABG pCO2 47 ABG pO2 109 H ABG HCO3 23 ABG O2 Saturation 99 H ABG Base Excess -4 L Quality Measures Quality Measures none Advance care planning discussed with:: patient Assessment & Plan Assessment Current Active Medications: Generic Name Dose Route Start Last Admin Trade Name Kathie PRN Reason Stop Dose Admin Acetaminophen 650 mg 01/04/25 13:24 Acetaminophen 325 Mg Tablet PO 02/02/25 21:25 Q6H PRN Fever >100.4 or pain Carvedilol 6.25 mg 01/04/25 09:00 01/04/25 09:09 Carvedilol 3.125 Mg Tablet PO 02/03/25 08:59 6.25 mg BID GILLIAN Administration Dextrose 25 ml 01/03/25 21:37 Dextrose 50%-Water Inj 50 Ml Syringe IV 02/02/25 21:36 Q15MIN PRN BG 50-70 responsive npo pt Dextrose 50 ml 01/03/25 21:37 Dextrose 50%-Water Inj 50 Ml Syringe IV 02/02/25 21:36 Q15MIN PRN BG <50 OR BG <70 & pt unresponsive Glucagon 1 mg 01/03/25 21:37 Glucagon Inj 1 Mg Vial IM Q15MIN PRN BG <70, and no IV access Hydralazine HCl 100 mg 01/04/25 09:00 01/04/25 09:09 Hydralazine Hcl 25 Mg Tablet PO 02/03/25 08:59 100 mg BID GILLIAN Administration Insulin Human Lispro 0 unit 01/04/25 07:30 01/04/25 11:52 Insulin Lispro (Admelog) 1 Unit/0.01 Ml Unit SC 02/03/25 07:29 Not Given AC GILLIAN Protocol Nifedipine 30 mg 01/04/25 09:00 01/04/25 09:09 Nifedipine Xl 30 Mg Tabcr PO 02/03/25 08:59 30 mg QDAY GILLIAN Administration Ondansetron HCl 4 mg 01/03/25 21:32 Ondansetron Inj 2 Mg/Ml Inj 2 Ml IVP 02/02/25 21:31 Q6H PRN NAUSEA OR VOMITING Protocol Sennosides 1 tab 01/03/25 21:32 Senna Tablet PO 02/02/25 21:31 QDAY PRN constipation Protocol Plan Marisol Holm 84F with pmhx significant for HTN, NIDDM2, CKDIIIb-IV, hx of PAD with chronic venous stasis, hx of osteomyelitis, CAD s/p stent 20 years ago presented to [facility] ED 01/03 for BP 200/100, weakness, N/V, poor PO intake and VINES, admitted for hypertensive emergency. #Hypertensive emergency Admission BP 200/100 with weakness, N/V, poor PO intake, VINES and diarrhea for one week. Had a clonidine patch prescribed for her on 12/31 following ED visit and reports being adherent to blood pressure medications of carvedilol and hydralazine although recently has not been able to tolerate PO. Reports attempting to drink protein shake but would take all day to finish one bottle due to severe nausea. Troponin neg, BNP slightly elevated 102, lactic acid 0.7, CXR shows mild chronic heart failure pattern, head CT no acute processes Ddx: likely hypertensive emergency 2/2 uncontrolled HTN with subsequent VINES, N/V and weakness and inability to take BP meds lately. Plan: - Carvedilol 6.25 mg BID, nifedipine 30 mg QD, and hydralazine 100 mg BID, titrate BP meds accordingly - Goal to reduce blood pressure up to 25% in the next 24 hours - F/u echo #Euglycemic DKA #Anion gap metabolic acidosis Presented with low bicarb of 19, elevated BHB >6.4. , +1ketones on UA. Ddx: likely euglycemic DKA given fasting 2/2 N/V and hypertensive emergency. Less likely starvation ketoacidosis as albumin wnl and patient has reported drinking half to one protein shake a day. s/p 2.5L LK in ED Plan: - CTM CMP - Rotary Drier Feeder consulted, recs appreciated #CKDIV Presented with one week of vomiting and diarrhea. Admission BUN 33, Cr 1.8 (BL 1.4-1.7), eGFR 28 At this time, JOSE ANTONIO less likely as Cr may be patient's baseline and patient has significant hx of elevated Cr up to 2.3 in the past. s/p fluids as above Plan: - Avoid nephrotoxins and renally dose - CTM Cr - Recommend referral and follow up with outpatient traffic attendant #Hypokalemia #Hypernatremia #Hypobicarbinemia Admission Na 146, potassium 3.3 and bicarb 19. Likely 2/2 dehdyration from vomiting and diarrhea. Plan; - Replete and recheck as necessary #NIDDM2 On glipizide-metformin 1 tab TID at home Plan: - SSI Hospital management: Lines: PIV Diet: 2g sodium, glucerna shake Bowel: Senna prn GI prophylaxis: not indicated DVT prophylaxis: SCDs Disposition: med tele, adjusting BP meds CODE STATUS: FULL CODE Plan of care discussed with attending Dr. Rene, and PGY-2 Dr. Culp. Katelynn Urbano DO PGY-1 Internal Medicine Attending Provider Attestation/Addendum I have discussed and was present for the essential components of the history, physical examination, diagnosis, and treatment plan with the resident. I agree with the patient's care as documented by the resident and amended herein by me. Humble Rene DO. Although this document has been carefully reviewed, there may still be some phonetic and other typographical errors. These errors are purely grammatical due to imperfections in the software program and should not be construed in any way to compromise the substance of the patient's medical care during this visit. Patient seen and evaluated this AM. No acute events overnight, vital signs stable, patient afebrile, BP this morning elevated 175/70 mmHg, patient on 2 L NC, SpO2 98%. Significant labs include stable hemoglobin 9.8, anion gap 17, potassium 3.2, bicarb 26, BUN 34 and creatinine stable 1.8. Beta hydroxybutyrate is down trended, patient suspected to present with starvation ketosis and also possible JOSE ANTONIO.. Will continue the patient's BP meds, continue Coreg labetalol 6.25 mg p.o. twice daily, hydralazine 100 mg p.o. twice daily and nifedipine 30 mg p.o. daily. Will replete electrolytes as necessary. Urine cultures pending, the patient's daughter was at bedside, we gave her an update as to the patient condition and she did state that she wanted her mother to go back to SNF for further recovery when the time comes.
[2025-01-04 16:05] LABS: Beta Hydroxybutyrate 2.0 mmol/L (<0.6)
[2025-01-04] MEDS: ACETAMINOPHEN 325 MG TABLET 650 MG PO ×2 (16:07→22:33)
[2025-01-04 16:13] LABS: Albumin, Serum 3.8 gm/dL (3.4-4.8); Anion Gap 12 (7-16); BUN/Creatinine Ratio 21 Ratio (12-20); Blood Urea Nitrogen 36 mg/dL (9-23); Calcium 9.0 mg/dL (8.3-10.6); Calcium (Corrected) 9.2 mg/dL (8.5-10.1); Carbon Dioxide 29.7 mMol/L (20.0-31.0); Chloride 102 mMol/L (98-107); Creatinine (Component) 1.7 mg/dL (0.6-1.3); Estimated Creatinine Clearance 23.5 mL/min (>60); Glucose 211 mg/dL (74-106); Osmolality,Calculated 301 (275-295); Phosphorous 3.8 mg/dL (2.4-5.1); Potassium 3.6 mMol/L (3.4-5.1); Sodium 144 mMol/L (136-145); eGFR 30 See Note
[2025-01-04] MEDS: INSULIN LISPRO (AdmeLOG) 1 UNIT/0.01 ML UNIT SC (17:05)
[2025-01-05] VITALS (10 sets, daily range): BP systolic 153–184; BP diastolic 62–79; PULSE 61–100; RESP 14–18; TEMP 36.1–36.5; O2SAT 97–100; BMI 24.7
[2025-01-05] MEDS: MELATONIN 3 MG TABLET PO (01:22)
[2025-01-05 05:20] LABS: Basophils # (Auto) 0.0 Thou/mm3 (0.0-0.2); Basophils % (Auto) 1 % (0-2.5); Eosinophils # (Auto) 0.5 Thou/mm3 (0.0-0.5); Eosinophils % (Auto) 9 % (0-10); Hematocrit 31.1 % (36.0-46.0); Hemoglobin 10.1 g/dL (12.0-16.0); Immature Granulocytes Auto 0.01 Thou/mm3 (0.00-0.00); Lymphocytes # (Auto) 1.2 Thou/mm3 (1.0-4.8); Lymphocytes % (Auto) 22 % (10-50); Mean Corpuscular HGB Conc 32.5 g/dl (31.0-37.0); Mean Corpuscular Hemoglobin 29.4 pg (25.0-35.0); Mean Corpuscular Volume 90 fL (80-100); Monocytes # (Auto) 0.5 Thou/mm3 (0.0-0.8); Monocytes % (Auto) 9 % (0-12); Neutrophils # (Auto) 3.2 Thou/mm3 (1.8-7.7); Neutrophils % (Auto) 59 % (37-80); Nucleated Red Blood Cell # 0.00 Thou/mm3 (0.00-0.00); Nucleated Red Blood Cell % 0 /100 WBC (0); Platelet Count 159 Thou/mm3 (140-440); RDW Standard Deviation 45.4 fL (36.4-46.3); Red Blood Count 3.44 Miln/mm3 (4.00-5.20); White Blood Count 5.4 Thou/mm3 (3.6-11.0)
[2025-01-05 05:44] LABS: Alanine Aminotransferase 16 U/L (10-49); Albumin, Serum 3.4 gm/dL (3.4-4.8); Albumin/Globulin Ratio 1.4 (1.2-2.2); Alkaline Phosphatase 73 U/L (46-116); Anion Gap 10 (7-16); Aspartate Amino Transferase 23 U/L (0-34); BUN/Creatinine Ratio 16 Ratio (12-20); Bilirubin,Total 0.7 mg/dL (0.3-1.2); Blood Urea Nitrogen 25 mg/dL (9-23); Calcium 8.9 mg/dL (8.3-10.6); Calcium (Corrected) 9.4 mg/dL (8.5-10.1); Carbon Dioxide 30.8 mMol/L (20.0-31.0); Chloride 102 mMol/L (98-107); Creatinine (Component) 1.6 mg/dL (0.6-1.3); Estimated Creatinine Clearance 24.9 mL/min (>60); Globulin 2.5 gm/dL (2.3-3.5); Glucose 178 mg/dL (74-106); Osmolality,Calculated 293 (275-295); Potassium 3.2 mMol/L (3.4-5.1); Sodium 143 mMol/L (136-145); Total Protein 5.9 gm/dL (5.7-8.2); eGFR 32 See Note
[2025-01-05] MEDS: ACETAMINOPHEN 325 MG TABLET 650 MG PO (07:06)
[2025-01-05] MEDS: INSULIN LISPRO (AdmeLOG) 1 UNIT/0.01 ML UNIT SC ×2 (07:25→17:42)
[2025-01-05] MEDS: NIFEdipine XL 30 MG TABCR 60 MG PO (08:34)
[2025-01-05 08:41] LABS: Magnesium 1.6 mg/dL (1.6-2.6)
--- NOTE | 2025-01-05 10:00 | ESPR_ITS ---
<Statement entered by Popeye Tucker MD - 01/05/25 17:54> I have reviewed the note and agree with the resident's assessment & plan with exceptions as below. I have personally reviewed labs, imaging, home meds/prior records, examined the patient, formulated and discussed management plan with my attending Patient was seen and examined at bedside this morning. No acute overnight events. Patient's blood pressure was still not well-controlled therefore increase nifedipine 30 to 60 mg and start patient on losartan 25 mg daily. Still pending echo. Patient did not have a good night sleep therefore we will start melatonin 6 mg nightly. Otherwise no other complaints at this time. Possible discharge in the next 24 to 48 hours. Popeye Tucker PGY2 Disclaimer: Even though this this note was dictated by speech recognition and even though it was carefully revised there may still be minor errors in licensed midwife due to voice recognition software. Documentation for date of: 01/05/25 Subjective Subjective Interval history: No acute overnight events. Patient seen and examined at bedside. Patient reports continued headache being unable to sleep all of last night. States that since she has returned from rehab, poor sleep. Is able to tolerate more p.o. fluids. Denies chest pain, shortness of breath, abdominal pain does endorse urinary incontinence which has been chronic and patient sees a urologist. Continues to have diarrhea today. Vitals and labs reviewed. SBP 150-190. Hemoglobin stable low at 10.1, potassium 3.2, BUN decreased from 36 to 25. Creatinine 1.6. Anion gap closed. Increase nifedipine from 30 to 60 mg. Started losartan 25 mg daily. Continue carvedilol and hydralazine. Per dietary, will start at breakfast and lunch and by noon 100 mg twice daily. Follow-up echo. Started melatonin 6 mg qhs. Exam Vital Signs Temp Pulse Resp BP Pulse Ox O2 Del Method O2 Flow Rate 97.4 F 100 14 178/78 H 100 Nasal Cannula 2 01/05/25 08:00 01/05/25 08:34 01/05/25 08:00 01/05/25 08:34 01/05/25 08:00 01/05/25 08:00 01/05/25 08:00 FiO2 4 01/05/25 08:00 Narrative Exam GENERAL: AOx3, no acute distress, sitting up comfortably in bed HEENT: mucous membranes dry, bilateral sclera anicteric CARDIOVASCULAR: regular rate and rhythm, S1/S2 present, no murmurs appreciated PULMONARY: clear to auscultation bilaterally, no rales/rhonchi/wheezes ABDOMINAL: soft, non-tender, non-distended, no rebound/guarding, bowel sounds present EXTREMITIES: no peripheral edema SKIN: warm and dry, erythematous rash between buttocks up to lower sacrum NEURO: CN II-XII grossly intact, no focal deficits, alert, following commands Objective Labs 01/06/25 06:30 01/06/25 06:30 Labs: Laboratory Results - last 24 hr 01/04/25 01/05/25 15:24 04:41 WBC 5.4 RBC 3.44 L Hgb 10.1 L Hct 31.1 L MCV 90 MCH 29.4 MCHC 32.5 RDW Std Deviation 45.4 Plt Count 159 Neut % (Auto) 59 Lymph % (Auto) 22 [place] % (Auto) 9 Eos % (Auto) 9 Baso % (Auto) 1 Neut # (Auto) 3.2 Lymph # (Auto) 1.2 [place] # (Auto) 0.5 Eos # (Auto) 0.5 Baso # (Auto) 0.0 Immature Gran # (Auto) 0.01 H Absolute Nucleated RBC 0.00 Immature Gran % 0 Nucleated RBC % 0 Sodium 144 143 Potassium 3.6 3.2 L Chloride 102 102 Carbon Dioxide 29.7 30.8 Anion Gap 12 10 BUN 36 H 25 H Creatinine 1.7 H 1.6 H Estim Creat Clear Calc 23.5 L 24.9 L eGFR 30 L 32 L BUN/Creatinine Ratio 21 H 16 Glucose 211 H D 178 H Calculated Osmolality 301 H 293 Calcium 9.0 8.9 Corrected Calcium 9.2 9.4 Phosphorus 3.8 Magnesium 1.6 Total Bilirubin 0.7 AST 23 ALT 16 Alkaline Phosphatase 73 Total Protein 5.9 Albumin 3.8 3.4 Globulin 2.5 Albumin/Globulin Ratio 1.4 Beta-Hydroxybutyrate/Acetoacetate 2.0 H ABG Interpretation ABG results: 01/03/25 18:20 ABG pH 7.30 L ABG pCO2 47 ABG pO2 109 H ABG HCO3 23 ABG O2 Saturation 99 H ABG Base Excess -4 L Quality Measures Quality Measures none Advance care planning discussed with:: patient Assessment & Plan Assessment Current Active Medications: Generic Name Dose Route Start Last Admin Trade Name Kathie PRN Reason Stop Dose Admin Acetaminophen 650 mg 01/04/25 13:24 01/05/25 07:06 Acetaminophen 325 Mg Tablet PO 02/02/25 21:25 650 mg Q6H PRN Administration Fever >100.4 or pain Carvedilol 6.25 mg 01/04/25 09:00 01/05/25 08:32 Carvedilol 3.125 Mg Tablet PO 02/03/25 08:59 6.25 mg BID GILLIAN Administration Dextrose 25 ml 01/03/25 21:37 Dextrose 50%-Water Inj 50 Ml Syringe IV 02/02/25 21:36 Q15MIN PRN BG 50-70 responsive npo pt Dextrose 50 ml 01/03/25 21:37 Dextrose 50%-Water Inj 50 Ml Syringe IV 02/02/25 21:36 Q15MIN PRN BG <50 OR BG <70 & pt unresponsive Glucagon 1 mg 01/03/25 21:37 Glucagon Inj 1 Mg Vial IM Q15MIN PRN BG <70, and no IV access Hydralazine HCl 100 mg 01/04/25 09:00 01/05/25 08:34 Hydralazine Hcl 25 Mg Tablet PO 02/03/25 08:59 100 mg BID GILLIAN Administration Insulin Human Lispro 0 unit 01/04/25 07:30 01/05/25 07:25 Insulin Lispro (Admelog) 1 Unit/0.01 Ml Unit SC 02/03/25 07:29 1 unit AC GILLIAN Administration Protocol Losartan Potassium 25 mg 01/05/25 10:00 Losartan Potassium 25 Mg Tablet PO 02/04/25 09:59 QDAY GILLIAN Nifedipine 60 mg 01/05/25 09:00 01/05/25 08:34 Nifedipine Xl 30 Mg Tabcr PO 02/04/25 08:59 60 mg QDAY GILLIAN Administration Ondansetron HCl 4 mg 01/03/25 21:32 Ondansetron Inj 2 Mg/Ml Inj 2 Ml IVP 02/02/25 21:31 Q6H PRN NAUSEA OR VOMITING Protocol Sennosides 1 tab 01/03/25 21:32 Senna Tablet PO 02/02/25 21:31 QDAY PRN constipation Protocol Plan Marisol Holm 84F with pmhx significant for HTN, NIDDM2, CKDIIIb-IV, hx of PAD with chronic venous stasis, hx of osteomyelitis, CAD s/p stent 20 years ago presented to [facility] ED 01/03 for BP 200/100, weakness, N/V, poor PO intake and VINES, admitted for hypertensive emergency and starvation ketoacidosis. #Hypertensive emergency Admission BP 200/100 with weakness, N/V, poor PO intake, VINES and diarrhea for one week. Had a clonidine patch prescribed for her on 12/31 following ED visit and reports being adherent to blood pressure medications of carvedilol and hydralazine although recently has not been able to tolerate PO. Reports attempting to drink protein shake but would take all day to finish one bottle due to severe nausea. Troponin neg, BNP slightly elevated 102, lactic acid 0.7, CXR shows mild chronic heart failure pattern, head CT no acute processes Ddx: likely hypertensive emergency 2/2 uncontrolled HTN with subsequent VINES, N/V and weakness and inability to take BP meds lately. Plan: - Carvedilol 6.25 mg BID, increase nifedipine 30 to 60 mg QD, and hydralazine 100 mg BID, and start Losartan 25 mg QD - Goal to reduce blood pressure up to 25% in the next 24 hours - F/u echo #Starvation ketoacidosis, improving #Anion gap metabolic acidosis, resolved Presented with low bicarb of 19, elevated BHB >6.4 ->2.0 , +1ketones on UA. Ddx: likely starvation ketoacidosis given fasting 2/2 N/V and hypertensive emergency. s/p 2.5L LR in ED Plan: - CTM CMP - It Senior Analyst consulted, recs appreciated: Glucerna at breakfast and lunch, thiamine 100 mg BID - Encouraged oral hydration #CKDIV versus 3B Presented with one week of vomiting and diarrhea. Admission BUN 33, Cr 1.8 (BL 1.4-1.7), eGFR 28 At this time, JOSE ANTONIO less likely as Cr may be patient's baseline and patient has significant hx of elevated Cr up to 2.3 in the past. s/p fluids as above Plan: - Avoid nephrotoxins and renally dose - CTM Cr - Recommend referral and follow up with outpatient welding machine operator #Hypokalemia #Hypernatremia, resolved #Hypobicarbinemia, resolved Admission Na 146, potassium 3.3 and bicarb 19. Likely 2/2 dehdyration from vomiting and diarrhea. Plan; - Replete and recheck as necessary #NIDDM2 On glipizide-metformin 1 tab TID at home Plan: - SSI Hospital management: Lines: PIV Diet: 2g sodium, glucerna Bowel: Senna prn GI prophylaxis: not indicated DVT prophylaxis: SCDs Disposition: med tele, adjusting BP meds CODE STATUS: FULL CODE Plan of care discussed with attending Dr. Topete, and PGY-2 Dr. Culp. Katelynn Urbano, DO PGY-1 Internal Medicine Attending Provider Attestation/Addendum I reviewed labs, imaging, EKG, home medications and prior available records. Face to face evaluation was performed by me. I have personally examined the patient and discussed assessment and plan with the IM team. I reviewed the resident note and agree with the plan with exceptions as below. Nausea and vomiting Poor oral intake Starvation ketoacidosis Hypertensive urgency CKD stage IIIb Continue nifedipine, Coreg, and hydralazine Added losartan Follow-up echocardiogram Monitor kidney function. Avoid nephrotoxins. Renally dosed medications Ordered T4: WNL
[2025-01-05 10:37] LABS: Phosphorous 3.2 mg/dL (2.4-5.1)
[2025-01-05] MEDS: LOSARTAN POTASSIUM 25 MG TABLET PO (11:08)
[2025-01-05] MEDS: THIAMINE INJ 100 MG/ML VIAL 2 ML IVP ×2 (11:09→20:00)
[2025-01-05 11:25] LABS: Free T4 (Free Thyroxine) 1.67 ng/dL (0.89-1.76)
--- NOTE | 2025-01-05 14:53 | PC.SS ---
rounding note: Patient blood presure is elevated. D/c plan is to go to [facility]. No auth needed. Facility accepted. PASRR completed. Possible d/c Wedneday per physician team
[2025-01-05] MEDS: ONDANSETRON INJ 2 MG/ML INJ 2 ML 4 MG IVP (17:44)
[2025-01-05] MEDS: MELATONIN 3 MG TABLET 6 MG PO (20:01)
[2025-01-06] VITALS (13 sets, daily range): BP systolic 140–199; BP diastolic 64–93; PULSE 61–76; RESP 15–20; TEMP 36.2–37; O2SAT 92–98; BMI 24.7
--- NOTE | 2025-01-06 00:18 | PC.NURSE ---
SPOKE TO DR RUSS REGARDING PATIENTS BP 165/78 HR 76, PUT IN ORDERS FOR LABETALOL 10MG IV X 1
--- NOTE | 2025-01-06 00:22 | PC.NURSE ---
DR RUSS NOTIFIED ABOUT LABETALOL ORDER PTS UPDATED HR IS 61, DR STATES TO HOLD LABETALOL HE WILL PLACE ORDERS FOR HYDRALAZINE.
[2025-01-06] MEDS: hydrALAZINE INJ 20 MG/ML VIAL 10 MG IVP ×2 (00:29→04:48)
--- NOTE | 2025-01-06 04:16 | PC.NURSE ---
spoke to dr jona moscoso ngpatients elevated blood pressure this morning. BP 173/74 hr 68. states to order hydralazine 10mg IV x1.
[2025-01-06 06:57] LABS: Basophils # (Auto) 0.0 Thou/mm3 (0.0-0.2); Basophils % (Auto) 0 % (0-2.5); Eosinophils # (Auto) 0.5 Thou/mm3 (0.0-0.5); Eosinophils % (Auto) 10 % (0-10); Hematocrit 34.5 % (36.0-46.0); Hemoglobin 10.9 g/dL (12.0-16.0); Immature Granulocytes Auto 0.01 Thou/mm3 (0.00-0.00); Lymphocytes # (Auto) 1.1 Thou/mm3 (1.0-4.8); Lymphocytes % (Auto) 24 % (10-50); Mean Corpuscular HGB Conc 31.6 g/dl (31.0-37.0); Mean Corpuscular Hemoglobin 29.1 pg (25.0-35.0); Mean Corpuscular Volume 92 fL (80-100); Monocytes # (Auto) 0.5 Thou/mm3 (0.0-0.8); Monocytes % (Auto) 10 % (0-12); Neutrophils # (Auto) 2.5 Thou/mm3 (1.8-7.7); Neutrophils % (Auto) 55 % (37-80); Nucleated Red Blood Cell # 0.00 Thou/mm3 (0.00-0.00); Nucleated Red Blood Cell % 0 /100 WBC (0); Platelet Count 163 Thou/mm3 (140-440); RDW Standard Deviation 47.7 fL (36.4-46.3); Red Blood Count 3.75 Miln/mm3 (4.00-5.20); White Blood Count 4.5 Thou/mm3 (3.6-11.0)
[2025-01-06 07:19] LABS: Alanine Aminotransferase 15 U/L (10-49); Albumin, Serum 3.5 gm/dL (3.4-4.8); Albumin/Globulin Ratio 1.3 (1.2-2.2); Alkaline Phosphatase 74 U/L (46-116); Anion Gap 10 (7-16); Aspartate Amino Transferase 19 U/L (0-34); BUN/Creatinine Ratio 16 Ratio (12-20); Bilirubin,Total 0.6 mg/dL (0.3-1.2); Blood Urea Nitrogen 22 mg/dL (9-23); Calcium 9.1 mg/dL (8.3-10.6); Calcium (Corrected) 9.5 mg/dL (8.5-10.1); Carbon Dioxide 32.9 mMol/L (20.0-31.0); Chloride 102 mMol/L (98-107); Creatinine (Component) 1.4 mg/dL (0.6-1.3); Estimated Creatinine Clearance 28.5 mL/min (>60); Globulin 2.6 gm/dL (2.3-3.5); Glucose 161 mg/dL (74-106); Magnesium 1.7 mg/dL (1.6-2.6); Osmolality,Calculated 295 (275-295); Potassium 3.2 mMol/L (3.4-5.1); Sodium 145 mMol/L (136-145); Total Protein 6.1 gm/dL (5.7-8.2); eGFR 37 See Note
[2025-01-06] MEDS: INSULIN LISPRO (AdmeLOG) 1 UNIT/0.01 ML UNIT SC ×4 (08:12→20:09)
--- NOTE | 2025-01-06 09:05 | PC.NURSE ---
Pt blood pressure is 199/91. HR is 71. No other symptoms. Daughter at bedside. Administered morning blood pressure meds. Called Dr. Culp and made aware. Will recheck blood pressure.
[2025-01-06] MEDS: NIFEdipine XL 30 MG TABCR 90 MG PO (09:06)
[2025-01-06] MEDS: THIAMINE INJ 100 MG/ML VIAL 2 ML IVP ×2 (09:07→20:10)
[2025-01-06] MEDS: LOSARTAN POTASSIUM 25 MG TABLET 50 MG PO (09:07)
--- NOTE | 2025-01-06 10:30 | PC.NURSE ---
Rechecked Blood pressure. 109/56. 's at bedside and aware of blood pressure.
--- NOTE | 2025-01-06 11:20 | PCS.ST ---
Addendum entered by ST Dawson 01/06/25 11:44: Consider GI consult for possible esophageal dysfunction. Original Note: Swallow Evaluation completed. See report for details. Downgrade diet to Puree for now. ST will follow up.
--- NOTE | 2025-01-06 11:33 | ESPR_ITS ---
<Statement entered by Popeye Tucker MD - 01/06/25 11:47> I have reviewed the note and agree with the resident's assessment & plan with exceptions as below. I have personally reviewed labs, imaging, home meds/prior records, examined the patient, formulated and discussed management plan with my attending Patient was seen and evaluated bedside this morning. No acute overnight events. Patient's blood pressure was significantly elevated throughout the whole night and she received 2 doses of hydralazine 10 mg overnight with minimal to no improvement in blood pressure. Patient also this morning was very anxious and was more sentimental stating that she could not sleep for the past 2 nights and that she not been eating well and she could not explain if she did not have an appetite she did not like the food. Patient was also having some suprapubic tenderness therefore I ordered bladder scan which showed more than 1000 cc therefore straight In-N-Out was was ordered. Patient was will be started on mirtazapine 7.5 mg for appetite stimulation as well as anxiety. Will also get speech evaluation. Otherwise increase patient's nifedipine today to 90 mg and losartan to 50 mg which showed improvement in patient's blood pressure at with then went down to 109 over 60s. Expect possible discharge on x-ray 4 to 4 hours if patient's appetite does improve. Popeye Tucker PGY2 Disclaimer: Even though this this note was dictated by speech recognition and even though it was carefully revised there may still be minor errors in quantity surveyor due to voice recognition software. Documentation for date of: 01/06/25 Subjective Subjective Interval history: Overnight, patient was given hydralazine 10 mg x 2 with only 20 drop in SBP and continues to be hypertensive. Patient seen and examined at bedside. Patient is morning through anxious, despite melatonin last night, patient reports being unable to sleep due to nurses coming in for blood pressure. Reports lower abdominal/suprapubic pain, very tender on palpation. Endorses urinating well, denies urinary symptoms such as pain on urination, frequency or urgency. Patient reports headache is persistent. Endorses that she is unable to eat very much, but when prompted if she has trouble swallowing or no appetite cannot explain why. Vitals labs reviewed. SBP 150-180, this AM 199/91. Significant labs include potassium 3.2, repleted with 20 mEq, bicarb increased from 30 to 32. Creatinine 1.4 downtrending. Bladder scan showed over 999 mL retained and straight cath. Will likely need indwelling [place] catheter however patient at this time is not amenable. Increase nifedipine to 90 mg, increase losartan to 50 mg, and increase hydralazine from twice daily to 3 times daily. Plan to start mirtazapine half tab tonight insomnia, appetite and anxiety. Speech consulted for swallow evaluation as daughter endorses some dysphagia. Of note, while granddaughter was in room following increased dosages of medication, patient blood pressure SBP 109. Exam Vital Signs Temp Pulse Resp BP Pulse Ox O2 Del Method O2 Flow Rate 97.3 F 71 18 199/91 H 92 L Room Air 2 01/06/25 08:00 01/06/25 09:07 01/06/25 08:00 01/06/25 09:07 01/06/25 08:00 01/06/25 08:00 01/06/25 04:00 FiO2 4 01/05/25 16:00 Narrative Exam GENERAL: AOx3, sitting up in bed, very anxious HEENT: mucous membranes dry, bilateral sclera anicteric CARDIOVASCULAR: regular rate and rhythm, S1/S2 present, no murmurs appreciated PULMONARY: clear to auscultation bilaterally, no rales/rhonchi/wheezes ABDOMINAL: soft, non-distended, no rebound/guarding, bowel sounds present, s uprapubic tenderness EXTREMITIES: no peripheral edema SKIN: warm and dry, erythematous rash between buttocks up to lower sacrum NEURO: CN II-XII grossly intact, no focal deficits, alert, following commands Objective Labs 01/07/25 04:49 01/07/25 04:49 Labs: Laboratory Results - last 24 hr 01/06/25 06:30 WBC 4.5 RBC 3.75 L Hgb 10.9 L Hct 34.5 L MCV 92 MCH 29.1 MCHC 31.6 RDW Std Deviation 47.7 H Plt Count 163 Neut % (Auto) 55 Lymph % (Auto) 24 [place] % (Auto) 10 Eos % (Auto) 10 Baso % (Auto) 0 Neut # (Auto) 2.5 Lymph # (Auto) 1.1 [place] # (Auto) 0.5 Eos # (Auto) 0.5 Baso # (Auto) 0.0 Immature Gran # (Auto) 0.01 H Absolute Nucleated RBC 0.00 Immature Gran % 0 Nucleated RBC % 0 Sodium 145 Potassium 3.2 L Chloride 102 Carbon Dioxide 32.9 H Anion Gap 10 BUN 22 Creatinine 1.4 H Estim Creat Clear Calc 28.5 L eGFR 37 L BUN/Creatinine Ratio 16 Glucose 161 H Calculated Osmolality 295 Calcium 9.1 Corrected Calcium 9.5 Magnesium 1.7 Total Bilirubin 0.6 AST 19 ALT 15 Alkaline Phosphatase 74 Total Protein 6.1 Albumin 3.5 Globulin 2.6 Albumin/Globulin Ratio 1.3 ABG Interpretation ABG results: 01/03/25 18:20 ABG pH 7.30 L ABG pCO2 47 ABG pO2 109 H ABG HCO3 23 ABG O2 Saturation 99 H ABG Base Excess -4 L Quality Measures Quality Measures none Advance care planning discussed with:: patient Assessment & Plan Assessment Current Active Medications: Generic Name Dose Route Start Last Admin Trade Name Freq PRN Reason Stop Dose Admin Acetaminophen 650 mg 01/04/25 13:24 01/05/25 07:06 Acetaminophen 325 Mg Tablet PO 02/02/25 21:25 650 mg Q6H PRN Administration Fever >100.4 or pain Carvedilol 6.25 mg 01/04/25 09:00 01/06/25 09:05 Carvedilol 3.125 Mg Tablet PO 02/03/25 08:59 6.25 mg BID GILLIAN Administration Dextrose 25 ml 01/03/25 21:37 Dextrose 50%-Water Inj 50 Ml Syringe IV 02/02/25 21:36 Q15MIN PRN BG 50-70 responsive npo pt Dextrose 50 ml 01/03/25 21:37 Dextrose 50%-Water Inj 50 Ml Syringe IV 02/02/25 21:36 Q15MIN PRN BG <50 OR BG <70 & pt unresponsive Glucagon 1 mg 01/03/25 21:37 Glucagon Inj 1 Mg Vial IM Q15MIN PRN BG <70, and no IV access Hydralazine HCl 100 mg 01/04/25 09:00 01/06/25 09:06 Hydralazine Hcl 25 Mg Tablet PO 02/03/25 08:59 100 mg BID GILLIAN Administration Insulin Human Lispro 0 unit 01/04/25 07:30 01/06/25 08:12 Insulin Lispro (Admelog) 1 Unit/0.01 Ml Unit SC 02/03/25 07:29 1 unit AC GILLIAN Administration Protocol Losartan Potassium 50 mg 01/06/25 09:00 01/06/25 09:07 Losartan Potassium 25 Mg Tablet PO 02/05/25 08:59 50 mg QDAY GILLIAN Administration Melatonin 6 mg 01/05/25 21:00 01/05/25 20:01 Melatonin 3 Mg Tablet PO 02/04/25 20:59 6 mg HS GILLIAN Administration Mirtazapine 7.5 mg 01/06/25 20:00 Mirtazapine 15 Mg Tablet PO 02/05/25 19:59 QDAY GILLIAN Nifedipine 90 mg 01/06/25 09:00 01/06/25 09:06 Nifedipine Xl 30 Mg Tabcr PO 02/05/25 08:59 90 mg QDAY GILLIAN Administration Ondansetron HCl 4 mg 01/03/25 21:32 01/05/25 17:44 Ondansetron Inj 2 Mg/Ml Inj 2 Ml IVP 02/02/25 21:31 4 mg Q6H PRN Administration NAUSEA OR VOMITING Protocol Sennosides 1 tab 01/03/25 21:32 Senna Tablet PO 02/02/25 21:31 QDAY PRN constipation Protocol Thiamine HCl 100 mg 01/05/25 10:15 01/06/25 09:07 Thiamine Inj 100 Mg/Ml Vial 2 Ml IVP 02/04/25 10:14 100 mg BID GILLIAN Administration Plan Marisol Holm 84F with pmhx significant for HTN, NIDDM2, CKDIIIb-IV, hx of PAD with chronic venous stasis, hx of osteomyelitis, CAD s/p stent [address] [facility] ED 01/03 for BP 200/100, weakness, N/V, poor PO intake and VINES, admitted for hypertensive emergency and starvation ketoacidosis. #Hypertensive emergency Admission BP 200/100 with weakness, N/V, poor PO intake, VINES and diarrhea for one week. Had a clonidine patch prescribed for her on 12/31 following ED visit and reports being adherent to blood pressure medications of carvedilol and hydralazine although recently has not been able to tolerate PO. Reports attempting to drink protein shake but would take all day to finish one bottle due to severe nausea. Troponin neg, BNP slightly elevated 102, lactic acid 0.7, CXR shows mild chronic heart failure pattern, head CT no acute processes Ddx: likely hypertensive emergency 2/2 uncontrolled HTN with subsequent VINES, N/V and weakness and inability to take BP meds lately. Plan: - Carvedilol 6.25 mg BID, increase nifedipine XL 60 to 90 mg QD, and increase hydralazine 100 mg from BID to TID, increase Losartan from 25 to 50 mg QD - Goal to reduce blood pressure up to 25% in the next 24 hours - F/u echo #Starvation ketoacidosis, improving #Anion gap metabolic acidosis, resolved #?Dysphagia Presented with low bicarb of 19, elevated BHB >6.4 ->2.0 , +1ketones on UA. Patient's granddaughter reports issues with swallowing lately. Ddx: likely starvation ketoacidosis given fasting 2/2 N/V and hypertensive emergency. s/p 2.5L LR in ED Plan: - CTM CMP - Fusing Furnace Loader consulted, recs appreciated: Glucerna at breakfast and lunch, thiamine 100 mg BID - Encouraged oral hydration - Speech consulted, recs appreciated #Urinary retention Per daughter, patient had [place] catheter and during all rehab for about 4 months and patient needs to see a urologist for retention following removal of [place] catheter. On 01/06, patient endorses suprapubic tenderness. Bladder scan showed >999 mL retained Plan: - Straight cath for now - Low threshold for indwelling [place] if continues to retain tomorrow #Insomnia Patient reports not sleeping well since discharge from rehab. Feels very anxious and is unable to communicate why she cannot sleep. Plan: - Start mirtazapine 7.5 mg qhs #CKDIV versus 3B Presented with one week of vomiting and diarrhea. Admission BUN 33, Cr 1.8 (BL 1.4-1.7), eGFR 28 At this time, JOSE ANTONIO less likely as Cr may be patient's baseline and patient has significant hx of elevated Cr up to 2.3 in the past. s/p fluids as above Plan: - Avoid nephrotoxins and renally dose - CTM Cr - Recommend referral and follow up with outpatient senior drupal developer #Hypokalemia #Hypernatremia, resolved #Hypobicarbinemia, resolved Admission Na 146, potassium 3.3 and bicarb 19. Likely 2/2 dehdyration from vomiting and diarrhea. Plan; - Replete and recheck as necessary #NIDDM2 On glipizide-metformin 1 tab TID at home Plan: - SSI Hospital management: Lines: PIV Diet: 2g sodium, glucerna Bowel: Senna prn GI prophylaxis: not indicated DVT prophylaxis: SCDs Disposition: med tele, adjusting BP meds CODE STATUS: FULL CODE Plan of care discussed with attending Dr. Rene, and PGY-2 Dr. Culp. Katelynn Urbano DO PGY-1 Internal Medicine Attending Provider Attestation/Addendum I have discussed and was present for the essential components of the history, physical examination, diagnosis, and treatment plan with the resident. I agree with the patient's care as documented by the resident and amended herein by me. Humble Rene DO. Although this document has been carefully reviewed, there may still be some phonetic and other typographical errors. These errors are purely grammatical due to imperfections in the software program and should not be construed in any way to compromise the substance of the patient's medical care during this visit. Patient seen and evaluated this AM. No acute events overnight, vital signs stable, patient afebrile, BP was elevated this morning 185/82. Patient recently admitted for presumed starvation ketosis in setting of dysphagia, and hypertensive emergency, speech therapy did see the patient recommended dysphagia diet which she is on. Gastroenterology has also been consulted for dysphagia. As far as the patient's hypertensive is concerned, she is presently on Coreg 6.25 mg twice daily, hydralazine 100 mg 3 times daily losartan 100 mg daily, nifedipine 90 mg daily and BP throughout the day in the 150s which is slightly improved. Patient was complaining of diffuse abdominal pain which was worse today, she has been retaining urine which was a problem in the past we were performing straight catheterizations however we decided to place a [place] in today due to the fact it was not improving. Due to her abdominal pain becoming worse today, I did perform a CT abdomen and pelvis which did recommend liver ultrasound to confirm acute calculous cholecystitis. Her gallbladder wall was thickened edematous. As such she was on ceftriaxone for Klebsiella UTI however I did add Flagyl as a precaution. Patient also has quite a bit of anxiety and considering her low appetite we did start her on mirtazapine on previous day to help with both appetite and anxiety. Patient doing well otherwise, much improved aside from abdominal pain, was able to have a full conversation with her today she was more awake and alert, will continue to monitor closely. Of note, likely discharge in maybe 1 to 2 days pending clinical improvement and specialist recommendations, her granddaughter who is one of her main caretakers, states she would prefer the patient go back to SNF for further improvement as she did not do well at home after her last discharge from SNF.
--- NOTE | 2025-01-06 15:10 | PC.SS ---
rounding note: Patient is having difficulty swallowing. Consult for speech eval. b.p. needs to be more stable. Notes indicate patient retaining urine. Not medically stable for d/c. Patient was recently d/c'd from [facility] and went home. Plan is to d/c to [facility]
[2025-01-06] MEDS: MIRTAZAPINE 15 MG TABLET 7.5 MG PO (20:09)
[2025-01-06] MEDS: MELATONIN 3 MG TABLET 6 MG PO (20:09)
[2025-01-07] VITALS (15 sets, daily range): BP systolic 151–185; BP diastolic 60–85; PULSE 59–88; RESP 16–23; TEMP 36.2–36.8; O2SAT 92–99; BMI 11.0
[2025-01-07] MEDS: hydrALAZINE INJ 20 MG/ML VIAL IVP (02:10)
[2025-01-07 05:37] LABS: Basophils # (Auto) 0.0 Thou/mm3 (0.0-0.2); Basophils % (Auto) 0 % (0-2.5); Eosinophils # (Auto) 0.5 Thou/mm3 (0.0-0.5); Eosinophils % (Auto) 12 % (0-10); Hematocrit 33.8 % (36.0-46.0); Hemoglobin 10.5 g/dL (12.0-16.0); Immature Granulocytes Auto 0.01 Thou/mm3 (0.00-0.00); Lymphocytes # (Auto) 1.5 Thou/mm3 (1.0-4.8); Lymphocytes % (Auto) 31 % (10-50); Mean Corpuscular HGB Conc 31.1 g/dl (31.0-37.0); Mean Corpuscular Hemoglobin 28.5 pg (25.0-35.0); Mean Corpuscular Volume 92 fL (80-100); Monocytes # (Auto) 0.5 Thou/mm3 (0.0-0.8); Monocytes % (Auto) 10 % (0-12); Neutrophils # (Auto) 2.2 Thou/mm3 (1.8-7.7); Neutrophils % (Auto) 47 % (37-80); Nucleated Red Blood Cell # 0.00 Thou/mm3 (0.00-0.00); Nucleated Red Blood Cell % 0 /100 WBC (0); Platelet Count 170 Thou/mm3 (140-440); RDW Standard Deviation 46.8 fL (36.4-46.3); Red Blood Count 3.69 Miln/mm3 (4.00-5.20); White Blood Count 4.7 Thou/mm3 (3.6-11.0)
[2025-01-07] MEDS: hydrALAZINE INJ 20 MG/ML VIAL 10 MG IVP (05:46)
[2025-01-07 06:07] LABS: Alanine Aminotransferase 13 U/L (10-49); Albumin, Serum 3.4 gm/dL (3.4-4.8); Albumin/Globulin Ratio 1.4 (1.2-2.2); Alkaline Phosphatase 71 U/L (46-116); Anion Gap 10 (7-16); Aspartate Amino Transferase 17 U/L (0-34); BUN/Creatinine Ratio 16 Ratio (12-20); Bilirubin,Total 0.7 mg/dL (0.3-1.2); Blood Urea Nitrogen 22 mg/dL (9-23); Calcium 9.2 mg/dL (8.3-10.6); Calcium (Corrected) 9.7 mg/dL (8.5-10.1); Carbon Dioxide 32.9 mMol/L (20.0-31.0); Chloride 102 mMol/L (98-107); Creatinine (Component) 1.4 mg/dL (0.6-1.3); Estimated Creatinine Clearance 28.5 mL/min (>60); Globulin 2.5 gm/dL (2.3-3.5); Glucose 131 mg/dL (74-106); Magnesium 1.7 mg/dL (1.6-2.6); Osmolality,Calculated 294 (275-295); Potassium 3.2 mMol/L (3.4-5.1); Sodium 145 mMol/L (136-145); Total Protein 5.9 gm/dL (5.7-8.2); eGFR 37 See Note
[2025-01-07] MEDS: cefTRIAXone/D5w 1gm IV premix 1 GM/50 ML BAG IV (08:19)
[2025-01-07] MEDS: NIFEdipine XL 30 MG TABCR 90 MG PO (08:21)
[2025-01-07] MEDS: MIRTAZAPINE 15 MG TABLET 7.5 MG PO (08:22)
[2025-01-07] MEDS: LOSARTAN POTASSIUM 25 MG TABLET 100 MG PO (08:23)
[2025-01-07] MEDS: INSULIN LISPRO (AdmeLOG) 1 UNIT/0.01 ML UNIT SC ×4 (08:24→20:09)
[2025-01-07] MEDS: Magnesium Sulfate 2 GM Ivpb 2 GM/50 ML BAG IV (08:25)
[2025-01-07] MEDS: THIAMINE INJ 100 MG/ML VIAL 2 ML IVP (08:25)
--- NOTE | 2025-01-07 10:57 | ESPR_ITS ---
<Statement entered by Popeye Tucker MD - 01/07/25 17:15> I have reviewed the note and agree with the resident's assessment & plan with exceptions as below. I have personally reviewed labs, imaging, home meds/prior records, examined the patient, formulated and discussed management plan with my attending Patient was seen and examined bedside this morning. No acute overnight events. Patient's blood pressure continues to be elevated therefore increase patient's losartan to 100 mg daily and also increase patient's hydralazine to 100 3 times daily. Patient's urine culture did grow out Klebsiella pansensitive therefore start Rocephin could be contributing to patient's urinary retention. Patient again retained today around 900 cc of urine on bladder scan that straight In/Out, if patient continues to retain urine will likely place [place] later on today or tomorrow. Patient also complains suprapubic pain therefore we will get a abdomen CT pelvis without contrast. Otherwise GI was consulted due to patient having dysphagia and possible need for EGD with dilation if stricture is found. Otherwise no other complaint at this time. Popeye Tucker PGY2 Disclaimer: Even though this this note was dictated by speech recognition and even though it was carefully revised there may still be minor errors in senior sales operations manager due to voice recognition software. Documentation for date of: 01/07/25 Subjective Subjective Interval history: Patient was seen and examined at bedside today; she has no acute overnight events. BP this morning was 185/85; patient had hydralazine increased to 100 3 times daily, and losartan increased to 100. Urine culture grew out Klebsiella sensitive to ceftriaxone, which she was started on. Straight cath in the morning took out about approximately 1200 cc of urine. In the afternoon, patient reported significant abdominal and suprapubic pain that had increased since straight cath despite bladder scan showing approximately 200 cc of urine in the bladder at that time; CT abdomen pelvis was ordered and showed acute calculous cholecystitis. Follow-up ultrasound of the gallbladder showed 31 mm gallstone; MRCP recommended as follow-up. GI consulted for potential stricture that could have led to starvation ketoacidosis that was seen on admission, since granddaughter said that she was having trouble swallowing. Exam Vital Signs Temp Pulse Resp BP Pulse Ox O2 Del Method O2 Flow Rate 97.3 F 68 17 185/85 H 96 Nasal Cannula 1 01/07/25 08:00 01/07/25 08:24 01/07/25 08:00 01/07/25 08:24 01/07/25 08:00 01/07/25 08:00 01/07/25 08:00 FiO2 4 01/05/25 16:00 Narrative Exam General: A/O x3, no acute distress, well-nourished, well-developed Eyes: PERRL, EOMI. Anicteric, vision grossly intact. Ears: No ear pain, no ear discharge, Hearing grossly intact. Nose: No nasal discharge. Mouth/Throat: Moist mucous membranes, no redness, no lesions. Neck: Neck supple, non-tender, no cervical lymphadenopathy. Lungs: Clear FELI to auscultation and percussion, No accessory muscle use. Cardio: Normal S1/S2, regular rhythm, no murmurs, no JVD or carotid bruits. Abdomen: Soft, suprapubic and epigastric tenderness, no palpable masses, peristalsis present, guarding and rebound present. Extremities: Symmetrical, no significant deformities, no peripheral edema , non-tender, peripheral pulses presents. Skin: No rashes, no lesions, warm to touch. Neuro: No focal neurological deficits. Psych: Cooperative, appropriate mood and effect. Objective Labs 01/07/25 04:49 01/07/25 04:49 Labs: Laboratory Results - last 24 hr 01/07/25 04:49 WBC 4.7 RBC 3.69 L Hgb 10.5 L Hct 33.8 L MCV 92 MCH 28.5 MCHC 31.1 RDW Std Deviation 46.8 H Plt Count 170 Neut % (Auto) 47 Lymph % (Auto) 31 [place] % (Auto) 10 Eos % (Auto) 12 H Baso % (Auto) 0 Neut # (Auto) 2.2 Lymph # (Auto) 1.5 [place] # (Auto) 0.5 Eos # (Auto) 0.5 Baso # (Auto) 0.0 Immature Gran # (Auto) 0.01 H Absolute Nucleated RBC 0.00 Immature Gran % 0 Nucleated RBC % 0 Sodium 145 Potassium 3.2 L Chloride 102 Carbon Dioxide 32.9 H Anion Gap 10 BUN 22 Creatinine 1.4 H Estim Creat Clear Calc 28.5 L eGFR 37 L BUN/Creatinine Ratio 16 Glucose 131 H Calculated Osmolality 294 Calcium 9.2 Corrected Calcium 9.7 Magnesium 1.7 Total Bilirubin 0.7 AST 17 ALT 13 Alkaline Phosphatase 71 Total Protein 5.9 Albumin 3.4 Globulin 2.5 Albumin/Globulin Ratio 1.4 ABG Interpretation ABG results: 01/03/25 18:20 ABG pH 7.30 L ABG pCO2 47 ABG pO2 109 H ABG HCO3 23 ABG O2 Saturation 99 H ABG Base Excess -4 L Quality Measures Quality Measures none Advance care planning discussed with:: other Assessment & Plan Assessment Current Active Medications: Generic Name Dose Route Start Last Admin Trade Name Kathie PRN Reason Stop Dose Admin Acetaminophen 650 mg 01/04/25 13:24 01/05/25 07:06 Acetaminophen 325 Mg Tablet PO 02/02/25 21:25 650 mg Q6H PRN Administration Fever >100.4 or pain Carvedilol 6.25 mg 01/04/25 09:00 01/07/25 08:21 Carvedilol 3.125 Mg Tablet PO 02/03/25 08:59 6.25 mg BID GILLIAN Administration Dextrose 25 ml 01/03/25 21:37 Dextrose 50%-Water Inj 50 Ml Syringe IV 02/02/25 21:36 Q15MIN PRN BG 50-70 responsive npo pt Dextrose 50 ml 01/03/25 21:37 Dextrose 50%-Water Inj 50 Ml Syringe IV 02/02/25 21:36 Q15MIN PRN BG <50 OR BG <70 & pt unresponsive Glucagon 1 mg 01/03/25 21:37 Glucagon Inj 1 Mg Vial IM Q15MIN PRN BG <70, and no IV access Hydralazine HCl 100 mg 01/07/25 07:45 01/07/25 08:24 Hydralazine Hcl 25 Mg Tablet PO 02/06/25 07:44 100 mg TID GILLIAN Administration Ceftriaxone Sodium/Dextrose 1 gm in 50 mls @ 100 mls/hr 01/07/25 09:00 01/07/25 08:19 Rocephin/D5w 1gm Iv Premix IV 01/14/25 08:59 100 mls/hr QDAY GILLIAN Administration Protocol Insulin Human Lispro 0 unit 01/06/25 21:00 01/07/25 08:24 Insulin Lispro (Admelog) 1 Unit/0.01 Ml Unit SC 02/05/25 20:59 1 unit ACHS GILLIAN Administration Protocol Losartan Potassium 100 mg 01/07/25 09:00 01/07/25 08:23 Losartan Potassium 25 Mg Tablet PO 02/06/25 08:59 100 mg QDAY GILLIAN Administration Melatonin 6 mg 01/05/25 21:00 01/06/25 20:09 Melatonin 3 Mg Tablet PO 02/04/25 20:59 6 mg HS GILLIAN Administration Mirtazapine 7.5 mg 01/06/25 20:00 01/07/25 08:22 Mirtazapine 15 Mg Tablet PO 02/05/25 19:59 7.5 mg QDAY GILLIAN Administration Nifedipine 90 mg 01/06/25 09:00 01/07/25 08:21 Nifedipine Xl 30 Mg Tabcr PO 02/05/25 08:59 90 mg QDAY GILLIAN Administration Ondansetron HCl 4 mg 01/03/25 21:32 01/05/25 17:44 Ondansetron Inj 2 Mg/Ml Inj 2 Ml IVP 02/02/25 21:31 4 mg Q6H PRN Administration NAUSEA OR VOMITING Protocol Sennosides 1 tab 01/03/25 21:32 Senna Tablet PO 02/02/25 21:31 QDAY PRN constipation Protocol Thiamine HCl 100 mg 01/07/25 21:00 Thiamine 100 Mg Tablet PO 02/06/25 20:59 BID GILLIAN Protocol Plan Marisol Holm 84F with pmhx significant for HTN, NIDDM2, CKDIIIb-IV, hx of PAD with chronic venous stasis, hx of osteomyelitis, CAD s/p stent 20 years ago presented to [facility] ED 01/03 for BP 200/100, weakness, N/V, poor PO intake and VINES, admitted for hypertensive emergency and starvation ketoacidosis. #Hypertensive emergency Admission BP 200/100 with weakness, N/V, poor PO intake, VINES and diarrhea for one week. Had a clonidine patch prescribed for her on 12/31 following ED visit and reports being adherent to blood pressure medications of carvedilol and hydralazine although recently has not been able to tolerate PO. Reports attempting to drink protein shake but would take all day to finish one bottle due to severe nausea. Troponin neg, BNP slightly elevated 102, lactic acid 0.7, CXR shows mild chronic heart failure pattern, head CT no acute processes Echo shows EF 55-60, aortic valve sclerosis without stenosis, mild mitral and tricuspid regurgitation. Ddx: likely hypertensive emergency 2/2 uncontrolled HTN with subsequent VINES, N/V and weakness and inability to take BP meds lately. Plan: - Carvedilol 6.25 mg BID, nifedipine XL 90 mg QD, hydralazine 100 mg TID, Losartan 100 mg QD #Starvation ketoacidosis, improving #Anion gap metabolic acidosis, resolved #?Dysphagia Presented with low bicarb of 19, elevated BHB >6.4 ->2.0 , +1ketones on UA. Patient's granddaughter reports issues with swallowing lately. Ddx: likely starvation ketoacidosis given fasting 2/2 N/V and hypertensive emergency. s/p 2.5L LR in ED Plan: - Trend CMP - Mail Carrier And Clerk consulted, recs appreciated: Glucerna at breakfast and lunch, thiamine 100 mg BID - Encouraged oral hydration - Speech consulted- recommend pureed diet - GI consulted- appreciate recommendations #New-onset abdominal pain #Urinary retention #? Cholecystitis Per daughter, patient had [place] catheter and during all rehab for about 4 months and patient needs to see a urologist for retention following removal of [place] catheter. On 01/06, patient endorses suprapubic tenderness. Bladder scan showed >999 mL retained On 01/07, patient still retaining urine; straight cath removed 1200 cc On 01/07, patient endorses significant abdominal pain and tenderness to palpation with rebound; x-ray abdomen shows nonobstructive pattern, CT abdomen pelvis shows cholelithiasis with thickened and edematous gallbladder wall, gallbladder ultrasound shows 31 mm stone and gallbladder wall measurement of 0.39 cm Plan: - Straight cath for now - Low threshold for indwelling [place] if continues to retain - Consider MRCP to confirm acute cholecystitis #Insomnia Patient reports not sleeping well since discharge from rehab. Feels very anxious and is unable to communicate why she cannot sleep. Plan: - Start mirtazapine 7.5 mg qhs #CKDIV versus 3B Presented with one week of vomiting and diarrhea. Admission BUN 33, Cr 1.8 (BL 1.4-1.7), eGFR 28 At this time, JOSE ANTONIO less likely as Cr may be patient's baseline and patient has significant hx of elevated Cr up to 2.3 in the past. s/p fluids as above Plan: - Avoid nephrotoxins and renally dose - CTM Cr - Recommend referral and follow up with outpatient vacuum cooker operator #Hypokalemia #Hypernatremia, resolved #Hypobicarbinemia, resolved Admission Na 146, potassium 3.3 and bicarb 19. Likely 2/2 dehdyration from vomiting and diarrhea. Plan; - Replete and recheck as necessary #T2DM On glipizide-metformin 1 tab TID at home Plan: - SSI- step 1 Hospital management: Lines: PIV Diet: 2g sodium, glucerna Bowel: Senna prn GI prophylaxis: not indicated DVT prophylaxis: SCDs Disposition: med tele, adjusting BP meds CODE STATUS: FULL CODE This case was discussed with my attending physician, Dr. Rene, and senior resident, Dr. Culp. Syed Braswell MD-PhD, PGY1 Attending Provider Attestation/Addendum I have discussed and was present for the essential components of the history, physical examination, diagnosis, and treatment plan with the resident. I agree with the patient's care as documented by the resident and amended herein by me. Humble Rene, DO. Although this document has been carefully reviewed, there may still be some phonetic and other typographical errors. These errors are purely grammatical due to imperfections in the software program and should not be construed in any way to compromise the substance of the patient's medical care during this visit. Patient seen and evaluated this AM. No acute events overnight, vital signs stable, patient afebrile, BP was elevated this morning 185/82. Patient recently admitted for presumed starvation ketosis in setting of dysphagia, and hypertensive emergency, speech therapy did see the patient recommended dysphagia diet which she is on. Gastroenterology has also been consulted for dysphagia. As far as the patient's hypertensive is concerned, she is presently on Coreg 6.25 mg twice daily, hydralazine 100 mg 3 times daily losartan 100 mg daily, nifedipine 90 mg daily and BP throughout the day in the 150s which is slightly improved. Patient was complaining of diffuse abdominal pain which was worse today, she has been retaining urine which was a problem in the past we were performing straight catheterizations however we decided to place a [place] in today due to the fact it was not improving. Due to her abdominal pain becoming worse today, I did perform a CT abdomen and pelvis which did recommend liver ultrasound to confirm acute calculous cholecystitis. Her gallbladder wall was thickened edematous. As such she was on ceftriaxone for Klebsiella UTI however I did add Flagyl as a precaution. Patient also has quite a bit of anxiety and considering her low appetite we did start her on mirtazapine on previous day to help with both appetite and anxiety. Patient doing well otherwise, much improved aside from abdominal pain, was able to have a full conversation with her today she was more awake and alert, will continue to monitor closely. Of note, likely discharge in maybe 1 to 2 days pending clinical improvement and specialist recommendations, her granddaughter who is one of her main caretakers, states she would prefer the patient go back to SNF for further improvement as she did not do well at home after her last discharge from SNF.
--- NOTE | 2025-01-07 11:39 | PC.NURSE ---
Md called for BP of 151/60 HR 72, next BP med is 1400 hydralazine, no PRNs. Per no new orders for now.
--- NOTE | 2025-01-07 12:10 | ESCONSULT_ITS ---
[facility] Data of Consult Requesting Physician: Braydon Rene DO Admitting Provider: Carola Rooney DO Attending Provider: Braydon Rene DO Primary Care Provider: Zeus Nguyen MD Consult Narrative Reason for consult: dysphagia and starvation ketosis History of present illness: As per HPI Ms Holm is a 84-year-old female with past medical history of hypertension, diabetes,CKD,osteomyelitis chronic venous stasis, stent placed 20 years ago presented to the ED with complaints of high blood pressure readings in the range of 220/100 at home. She came to the ED on 12/31 with similar complaints of high blood pressure readings in the range of 200/100 got a clonidine patch and IV Hydralazine and sent home. She has been experiencing headache since last 3 days but denies any blurriness of vision. She complains of vomiting 3-4 episodes bilious in nature and decreased appetite but denies any fever cough, Hematemesis ,Melena chest pain or shortness of breath. She denies any focal weakness or paresthesias. She endorses occasional dizziness but denies any loss of consciousness. GI consulted for dysphagia She endorses having dysphagia for the past week. able to tolerate secretions, able to eat pureed foods, but no solids since last saturday. She has never had an endoscopy before. cc:: cc: Braydon Rene DO Exam Vital Signs Temp Pulse Resp BP Pulse Ox O2 Del Method O2 Flow Rate 97.3 F 68 17 185/85 H 96 Nasal Cannula 1 01/07/25 08:00 01/07/25 08:24 01/07/25 08:00 01/07/25 08:24 01/07/25 08:00 01/07/25 08:00 01/07/25 08:00 FiO2 4 01/05/25 16:00 Narrative Exam GENERAL: no acute distress, AAO x3, comfortably laying in bed HEENT: Head AT/ NC. Mucous membranes moist. PERRL. no neck masses NECK: Supple, no lymphadenopathy, no carotid bruits. CARDIOVASCULAR: RRR. Normal S1/S2, No m/r/g.trace edema of bilateral LEs. RESPIRATORY: CTAB. No wheezing, rhonchi, crackles. GASTROINTESTINAL: Abdomen soft, rebound and guarding, concerning for acute abdomen. worse tenderness to epigastrum and LLQ, bowel sounds preseent. MUSCULOSKELETAL:? No cyanosis or edema, no visible joint swelling. NEUROLOGICAL: CN II-XII grossly intact. No focal deficits. Sensation intact, symmetric. PSYCHIATRIC: Awake and alert, not agitated, normal mood and affect. SKIN: No obvious rashes, no jaundice, normal turgor. Results Labs 01/07/25 04:49 01/07/25 04:49 Labs: Short CBC 01/07/25 Range/Units 04:49 WBC 4.7 (3.6-11.0) Thou/mm3 Hgb 10.5 L (12.0-16.0) g/dL Hct 33.8 L (36.0-46.0) % Plt Count 170 (140-440) Thou/mm3 BMP 01/07/25 04:49 Sodium 145 Potassium 3.2 L Chloride 102 Carbon Dioxide 32.9 H BUN 22 Creatinine 1.4 H Glucose 131 H Calcium 9.2 Liver Function 01/07/25 Range/Units 04:49 Total Bilirubin 0.7 (0.3-1.2) mg/dL AST 17 (0-34) U/L ALT 13 (10-49) U/L Alkaline Phosphatase 71 (46-116) U/L Albumin 3.4 (3.4-4.8) gm/dL ABG Interpretation ABG results: 01/03/25 18:20 ABG pH 7.30 L ABG pCO2 47 ABG pO2 109 H ABG HCO3 23 ABG O2 Saturation 99 H ABG Base Excess -4 L Quality Measures Quality Measures VTE prophylaxis Advance care planning discussed with:: patient Medications Home Medications and Allergies Home Medications ?Medication ?Instructions ?Recorded ?Confirmed ?Type glipizide 5 mg-metformin 500 mg 1 tab PO TID 06/06/18 01/04/25 History tablet aspirin 81 mg chewable tablet 81 mg PO QDAY 08/10/24 1 History hydralazine 100 mg tablet 100 mg PO Q12H 08/13/2412/23 History carvedilol 3.125 mg tablet 3.125 mg PO BID 01/04/25 History clonidine HCl 0.1 mg tablet 0.1 mg PO QDAY PRN hyperte nsive 01/04/25 01/04/25 History emergency furosemide 20 mg tablet 20 mg PO QDAY 01/04/2501/04 History Allergies Allergy/AdvReac Type Severity Reaction Status Date / Time bee venom protein (honey bee) Allergy Severe Anaphylaxis Verified 10/19/24 09:17 shock nabumetone Allergy Severe Rash Verified 10/19/24 09:17 nut - unspecified Allergy Severe Anaphylaxis Verified 10/19/24 09:17 Penicillins Allergy Severe Rash Verified 10/19/24 09:17 Pork/Porcine Containing Allergy Severe Rash Verified 10/19/24 09:17 Products shellfish derived Allergy Severe Anaphylaxis Verified 10/19/24 09:17 [id number] Reductase Allergy Severe MUSCLE Verified 10/19/24 09:17 Inhibitor (Plpgxbu-Zuy-Hoz WEAKNESS Reductase Inhibitor) turkey Allergy Severe Anaphylaxis Verified 10/19/24 09:17 feathers Allergy Mild Watery Eye Verified 10/19/24 09:17 Visit Medications Acetaminophen (Acetaminophen 325 Mg Tablet) 650 mg PO Q6H PRN PRN Reason: Fever >100.4 or pain Stop: 02/02/25 21:25 Last Admin: 01/05/25 07:06 Dose: 650 mg Carvedilol (Carvedilol 3.125 Mg Tablet) 6.25 mg PO BID GILLIAN Stop: 02/03/25 08:59 Last Admin: 01/07/25 08:21 Dose: 6.25 mg Dextrose (Dextrose 50%-Water Inj 50 Ml Syringe) 25 ml IV Q15MIN PRN PRN Reason: BG 50-70 responsive npo pt Stop: 02/02/25 21:36 Dextrose (Dextrose 50%-Water Inj 50 Ml Syringe) 50 ml IV Q15MIN PRN PRN Reason: BG <50 OR BG <70 & pt unresponsive Stop: 02/02/25 21:36 Glucagon (Glucagon Inj 1 Mg Vial) 1 mg IM Q15MIN PRN PRN Reason: BG <70, and no IV access Hydralazine HCl (Hydralazine Hcl 25 Mg Tablet) 100 mg PO TID [facility] Stop: 02/06/25 07:44 Last Admin: 01/07/25 08:24 Dose: 100 mg Ceftriaxone Sodium/Dextrose (Rocephin/D5w 1gm Iv Premix) 1 gm in 50 mls @ 100 mls/hr IV QDAY [facility]; Protocol Stop: 01/14/25 08:59 Last Admin: 01/07/25 08:19 Dose: 100 mls/hr Insulin Human Lispro (Insulin Lispro (Admelog) 1 Unit/0.01 Ml Unit) 0 unit SC ACHS [facility]; Protocol Stop: 02/05/25 20:59 Last Admin: 01/07/25 11:55 Dose: 3 unit Losartan Potassium (Losartan Potassium 25 Mg Tablet) 100 mg PO QDAY [facility] Stop: 02/06/25 08:59 Last Admin: 01/07/25 08:23 Dose: 100 mg Melatonin (Melatonin 3 Mg Tablet) 6 mg PO HS [facility] Stop: 02/04/25 20:59 Last Admin: 01/06/25 20:09 Dose: 6 mg Mirtazapine (Mirtazapine 15 Mg Tablet) 7.5 mg PO QDAY [facility] Stop: 02/05/25 19:59 Last Admin: 01/07/25 08:22 Dose: 7.5 mg Nifedipine (Nifedipine Xl 30 Mg Tabcr) 90 mg PO QDAY [facility] Stop: 02/05/25 08:59 Last Admin: 01/07/25 08:21 Dose: 90 mg Ondansetron HCl (Ondansetron Inj 2 Mg/Ml Inj 2 Ml) 4 mg IVP Q6H PRN; Protocol PRN Reason: NAUSEA OR VOMITING Stop: 02/02/25 21:31 Last Admin: 01/05/25 17:44 Dose: 4 mg Sennosides (Senna Tablet) 1 tab PO QDAY PRN; Protocol PRN Reason: constipation Stop: 02/02/25 21:31 Thiamine HCl (Thiamine 100 Mg Tablet) 100 mg PO BID [facility]; Protocol Stop: 02/06/25 20:59 Discontinued Medications Acetaminophen (Acetaminophen 325 Mg Tablet) 650 mg PO Q6H PRN PRN Reason: Fever >101.5 Stop: 02/02/25 17:22 Acetaminophen (Acetaminophen Supp 650 Mg Supp) 650 mg FL Q6H PRN PRN Reason: PAIN SCALE 1-3 (mild Stop: 02/02/25 17:22 Acetaminophen (Acetaminophen 325 Mg Tablet) 650 mg PO Q6H PRN PRN Reason: Fever >100.4 Stop: 02/02/25 21:25 Al Hydrox/Mg Hydrox/Simethicone (Mg Hyd/Al Hyd/Noemi (Maalox Reg) Susp 30 Ml Udc) 30 ml PO Q6H PRN PRN Reason: Indigestion Stop: 02/02/25 17:22 Carvedilol (Carvedilol 3.125 Mg Tablet) 3.125 mg PO BID [facility] Stop: 02/02/25 21:44 Last Admin: 01/03/25 22:15 Dose: 3.125 mg Clonidine (Clonidine Hcl 0.1 Mg Tablet) 0.2 mg PO X1 ONE Stop: 01/03/25 14:13 Last Admin: 01/03/25 14:56 Dose: 0.2 mg Diphenhydramine HCl (Diphenhydramine Inj 50 Mg/Ml Vial) 12.5 mg IVP X1 ONE Stop: 01/03/25 17:19 Last Admin: 01/03/25 17:32 Dose: 12.5 mg Enoxaparin Sodium (Enoxaparin Sod Inj 30 Mg/0.3 Ml Syringe) 30 mg SC QDAY [facility]; Protocol Stop: 01/18/25 08:59 Hydralazine HCl (Hydralazine Inj 20 Mg/Ml Vial) 10 mg IVP X1 ONE Stop: 01/03/25 14:13 Last Admin: 01/03/25 14:56 Dose: 10 mg Hydralazine HCl (Hydralazine Inj 20 Mg/Ml Vial) 20 mg IVP X1 ONE Stop: 01/03/25 15:56 Last Admin: 01/03/25 17:18 Dose: Not Given Hydralazine HCl (Hydralazine Hcl 25 Mg Tablet) 100 mg PO BID [facility] Stop: 02/03/25 08:59 Last Admin: 01/06/25 20:10 Dose: 100 mg Hydralazine HCl (Hydralazine Inj 20 Mg/Ml Vial) 10 mg IVP X1 ONE Stop: 01/06/25 00:23 Last Admin: 01/06/25 00:29 Dose: 10 mg Hydralazine HCl (Hydralazine Inj 20 Mg/Ml Vial) 10 mg IVP X1 ONE Stop: 01/06/25 04:19 Last Admin: 01/06/25 04:48 Dose: 10 mg Hydralazine HCl (Hydralazine Inj 20 Mg/Ml Vial) 20 mg IVP X1 ONE Stop: 01/07/25 01:52 Last Admin: 01/07/25 02:10 Dose: 20 mg Hydralazine HCl (Hydralazine Inj 20 Mg/Ml Vial) 10 mg IVP X1 ONE Stop: 01/07/25 05:33 Last Admin: 01/07/25 05:46 Dose: 10 mg Lactated Ringer's (Lactated Ringers) 1,000 mls @ 999 mls/hr IV .Q1H1M ONE Stop: 01/03/25 17:40 Last Admin: 01/03/25 17:17 Dose: Not Given Lactated Ringer's (Lactated Ringers) 500 mls @ 999 mls/hr IV .Q31M ONE Stop: 01/03/25 17:11 Last Infusion: 01/03/25 19:00 Dose: Infused Lactated Ringer's (Lactated Ringers) 1,000 mls @ 75 mls/hr IV .Q27A01V ONE Stop: 01/04/25 06:44 Last Admin: 01/03/25 17:34 Dose: 75 mls/hr Potassium Chloride (Kcl Ivpb) 10 meq in 100 mls @ 100 mls/hr IV Q1H GILLIAN Stop: 01/03/25 23:35 Last Admin: 01/03/25 23:15 Dose: 100 mls/hr Dextrose/Lactated Ringer's (D5-Lr) 1,000 mls @ 100 mls/hr IV .Q10H GILLIAN Stop: 01/04/25 12:44 Last Admin: 01/04/25 02:55 Dose: 100 mls/hr Magnesium Sulfate (Magnesium Sulfate Ivpb) 2 gm in 50 mls @ 25 mls/hr IV X1 ONE Stop: 01/04/25 10:33 Last Admin: 01/04/25 09:09 Dose: 25 mls/hr Magnesium Sulfate (Magnesium Sulfate Ivpb) 2 gm in 50 mls @ 25 mls/hr IV X1 ONE Stop: 01/07/25 09:29 Last Admin: 01/07/25 08:25 Dose: 25 mls/hr Potassium Phosphate (Pot Phos 15 Mmol In Ns 250 Ml) 15 mmol in 250 mls @ 62.5 mls/hr IV X1 ONE Stop: 01/07/25 11:29 Last Admin: 01/07/25 09:37 Dose: Not Given Insulin Human Lispro (Insulin Lispro (Admelog) 1 Unit/0.01 Ml Unit) 0 unit SC AC [facility]; Protocol Stop: 02/03/25 07:29 Last Admin: 01/06/25 17:21 Dose: 2 unit Labetalol HCl (Labetalol Inj 5 Mg/Ml Vial 20 Ml) 10 mg IVP X1 ONE Stop: 01/06/25 00:18 Last Admin: 01/06/25 00:25 Dose: Not Given Lactulose (Lactulose Syrup 20 Gm/30 Ml Udc) 10 gm PO QDAY [facility]; Protocol Stop: 02/03/25 08:59 Losartan Potassium (Losartan Potassium 25 Mg Tablet) 25 mg PO QDAY [facility] Stop: 02/04/25 09:59 Last Admin: 01/05/25 11:08 Dose: 25 mg Losartan Potassium (Losartan Potassium 25 Mg Tablet) 50 mg PO QDAY [facility] Stop: 02/05/25 08:59 Last Admin: 01/06/25 09:07 Dose: 50 mg Melatonin (Melatonin 3 Mg Tablet) 3 mg PO X1 ONE Stop: 01/05/25 01:11 Last Admin: 01/05/25 01:22 Dose: 3 mg Nifedipine (Nifedipine Xl 30 Mg Tabcr) 30 mg PO QDAY [facility] Stop: 02/03/25 08:59 Last Admin: 01/04/25 09:09 Dose: 30 mg Nifedipine (Nifedipine Xl 30 Mg Tabcr) 60 mg PO QDAY [facility] Stop: 02/04/25 08:59 Last Admin: 01/05/25 08:34 Dose: 60 mg Ondansetron HCl (Ondansetron Inj 2 Mg/Ml Inj 2 Ml) 4 mg IVP Q6H PRN; Protocol PRN Reason: NAUSEA OR VOMITING Stop: 02/02/25 17:22 Oxycodone/Acetaminophen (Oxycodone/Apap 5/325 Tablet) 1 tab PO Q6H PRN PRN Reason: PAIN SCALE 4-6 (Moderate Stop: 01/08/25 17:22 Potassium Chloride (Potassium Chloride 20 Meq Tabcr) 20 meq PO X1 ONE Stop: 01/06/25 10:57 Last Admin: 01/06/25 12:07 Dose: 20 meq Potassium Chloride (Potassium Chloride 20 Meq Tabcr) 20 meq PO X1 ONE Stop: 01/07/25 07:46 Last Admin: 01/07/25 08:24 Dose: 20 meq Thiamine HCl (Thiamine Inj 100 Mg/Ml Vial 2 Ml) 100 mg IVP BID [facility] Stop: 02/04/25 10:14 Last Admin: 01/07/25 08:25 Dose: 100 mg Assessment & Plan Plan Ms Holm is an 84 year old woman with a history of hypertension, diabetes,CKD, chronic venous stasis, stent 20 years ago presented to the ED with hypertensive emergency, found to have symptoms of dyspagia solids>liquids. #Malnutrition 2/2 #dysphagia ddx consider oropharyngal vs esophageal, pt reports having difficulty swallowing solids, but can pass liquids and puree consistency foods. favor structural etiology of this patients dysphagia given solids> liquids, consider intrinsic vs extrinsic etiologies such as mediastinal mass, vs stricture vs malignancies she is able to tolerate her secretions. Plan - NPO @9 AM - EGD tomorrow potentially #?Acute abdomen, rebound and guarding on exam - pending STAT KUB #Hypertensive emergency #Starvation Ketosis #Pre renal JOSE ANTONIO #Hypokalemia #Type II Noninsulin dependent Diabetes - management per primary team Plan discussed with Dr. Saulo Coats MD PGY1 Attending Provider Attestation/Addendum Patient evaluated Patient examined by me Laboratory data reviewed The problem is onset of dysphagia on a pur?ed diet unable to eat any solids KUB done today shows no obstruction and no free air Patient should undergo fiberoptic esophagogastroduodenoscopy with possible biopsy possible therapeutic intervention under intravenous moderate sedation tentatively scheduled for tomorrow N.p.o. midnight tonight for an upper endoscopy tomorrow as well as HIDA scan in the morning Question is of upper abdominal pain and discomfort in the setting of cholelithiasis and edematous gallbladder wall Recommend HIDA scan without the pharmaceutical there is without ejection fraction I have ordered it for tomorrow Will follow the patient Thank you very much for the opportunity to participate in the care of this patient
--- NOTE | 2025-01-07 15:52 | XR_ITS ---
Examination: Abdomen AP single view Technique: AP portable supine abdomen, single view Exam date and time: January 07, 2025, 1607 hours INDICATIONS: Abdominal pain today. FINDINGS: Moderate air and stool throughout the colon No obstruction No free air Severe osteopenia Heavy soft tissue vascular calcification Total right hip arthroplasty with satisfactory alignment Moderate narrowing left hip joint IMPRESSION: Nonobstructive bowel gas pattern
--- NOTE | 2025-01-07 16:04 | XR_ITS ---
Examination: CT abdomen and pelvis without contrast. Coronal 3-D reconstructions. Sagittal 2-D reconstructions. Date and time of exam: January 07, 2025, 1637 hours INDICATIONS: Onset severe abdominal pain today CTDI: vol (mGy): 8.97 DLP: (mGycm): 507 Technique: Axial images of the abdomen have been obtained, 3 mm slice thickness Intravenous contrast material has not been administered. Low dose protocols were performed. One or more of the following dose reduction techniques were used; automated exposure control, adjustment of the mA and/or KV according to patient size, use of iterative reconstruction technique. Findings: Atelectasis versus early pneumonia left base Small left pleural effusion Moderate enlargement left ventricle with small pericardial effusion Liver is mildly irregular in contour Spleen is not enlarged No pancreatic or adrenal mass Cholelithiasis Gallbladder wall appears thickened and edematous Aortic calcification no aneurysmal dilatation No bowel obstruction No pericecal inflammatory change Absent uterus No urinary bladder wall mass Severe osteopenia with chronic compression T12 Total right hip arthroplasty with satisfactory alignment IMPRESSION: Recommended hepatobiliary sonography follow-up to confirm acute calculus cholecystitis
--- NOTE | 2025-01-07 18:18 | XR_ITS ---
Examination: Abdomen sonogram, Limited Date and time of exam: January 07 0 25, 1847 hours INDICATIONS: Right upper abdominal pain and tenderness, abnormal gallbladder on CT examination of the abdomen today Technique: Real-time goodman scale transabdominal sonographic images of the upper abdomen obtained. Findings: 31 mm gallstone with prominent shadowing Gallbladder wall measures 0.39 cm Common bile duct 0.3 cm Pancreas obscured by bowel gas Liver 12.6 cm no liver lesions Normal hepatopetal portal venous flow Patent IVC IMPRESSION: Cholelithiasis Ultrasound gallbladder wall measurement here is 0.39 cm, the wall appears more abnormal on the CT abdomen pelvis study today, recommend MRCP follow-up to confirm acute cholecystitis
[2025-01-07] MEDS: metroNIDAZOLE/NS 500 MG IVPB 500 MG/100 ML BAG 200 MG IV (19:14)
[2025-01-07] MEDS: THIAMINE 100 MG TABLET PO (20:09)
[2025-01-07] MEDS: MELATONIN 3 MG TABLET 6 MG PO (20:09)
--- NOTE | 2025-01-07 21:17 | XR_ITS ---
Examination: Nuclear medicine hepatobiliary scan, static HIDA scan Date of exam: January 08, 2025, 1616 hours INDICATIONS: Hypertension diabetes chronic kidney disease high blood pressure with abdominal pain this week, ultrasound examination yesterday cholelithiasis, borderline thickening gallbladder wall 0.39 cm Technique And Findings: 5.6 mCi 99m Hepatolite administered intravenously. Serial imaging obtained immediately through 60 minutes. Homogenous uptake in the liver. Common bile duct small bowel activity noted gallbladder activity noted Impression: Normal gallbladder activity, negative for cystic duct obstruction
[2025-01-08] VITALS (27 sets, daily range): BP systolic 151–196; BP diastolic 64–106; PULSE 65–90; RESP 13–95; TEMP 36–36.9; O2SAT 93–99; BMI 24.8; BMI 11.0
[2025-01-08] MEDS: metroNIDAZOLE/NS 500 MG IVPB 500 MG/100 ML BAG 200 MG IV ×3 (05:10→20:37)
[2025-01-08 05:58] LABS: Basophils # (Auto) 0.0 Thou/mm3 (0.0-0.2); Basophils % (Auto) 1 % (0-2.5); Eosinophils # (Auto) 0.6 Thou/mm3 (0.0-0.5); Eosinophils % (Auto) 11 % (0-10); Hematocrit 33.2 % (36.0-46.0); Hemoglobin 10.9 g/dL (12.0-16.0); Immature Granulocytes Auto 0.02 Thou/mm3 (0.00-0.00); Lymphocytes # (Auto) 1.4 Thou/mm3 (1.0-4.8); Lymphocytes % (Auto) 28 % (10-50); Mean Corpuscular HGB Conc 32.8 g/dl (31.0-37.0); Mean Corpuscular Hemoglobin 29.2 pg (25.0-35.0); Mean Corpuscular Volume 89 fL (80-100); Monocytes # (Auto) 0.5 Thou/mm3 (0.0-0.8); Monocytes % (Auto) 10 % (0-12); Neutrophils # (Auto) 2.7 Thou/mm3 (1.8-7.7); Neutrophils % (Auto) 51 % (37-80); Nucleated Red Blood Cell # 0.00 Thou/mm3 (0.00-0.00); Nucleated Red Blood Cell % 0 /100 WBC (0); Platelet Count 154 Thou/mm3 (140-440); RDW Standard Deviation 45.9 fL (36.4-46.3); Red Blood Count 3.73 Miln/mm3 (4.00-5.20); White Blood Count 5.2 Thou/mm3 (3.6-11.0)
[2025-01-08 06:42] LABS: Alanine Aminotransferase 9 U/L (10-49); Albumin, Serum 3.2 gm/dL (3.4-4.8); Albumin/Globulin Ratio 1.3 (1.2-2.2); Alkaline Phosphatase 71 U/L (46-116); Anion Gap 9 (7-16); Aspartate Amino Transferase 15 U/L (0-34); BUN/Creatinine Ratio 17 Ratio (12-20); Bilirubin,Total 0.6 mg/dL (0.3-1.2); Blood Urea Nitrogen 27 mg/dL (9-23); Calcium 9.0 mg/dL (8.3-10.6); Calcium (Corrected) 9.6 mg/dL (8.5-10.1); Carbon Dioxide 32.5 mMol/L (20.0-31.0); Chloride 102 mMol/L (98-107); Creatinine (Component) 1.6 mg/dL (0.6-1.3); Estimated Creatinine Clearance 24.9 mL/min (>60); Globulin 2.5 gm/dL (2.3-3.5); Glucose 178 mg/dL (74-106); Magnesium 1.8 mg/dL (1.6-2.6); Osmolality,Calculated 294 (275-295); Potassium 3.7 mMol/L (3.4-5.1); Sodium 143 mMol/L (136-145); Total Protein 5.7 gm/dL (5.7-8.2); eGFR 32 See Note
[2025-01-08] MEDS: INSULIN LISPRO (AdmeLOG) 1 UNIT/0.01 ML UNIT SC ×2 (07:36→11:40)
[2025-01-08] MEDS: cefTRIAXone/D5w 1gm IV premix 1 GM/50 ML BAG IV (08:05)
[2025-01-08] MEDS: THIAMINE 100 MG TABLET PO ×2 (08:06→20:19)
[2025-01-08] MEDS: MIRTAZAPINE 15 MG TABLET 7.5 MG PO (08:06)
[2025-01-08] MEDS: LOSARTAN POTASSIUM 25 MG TABLET 100 MG PO (08:09)
[2025-01-08] MEDS: NIFEdipine XL 30 MG TABCR 90 MG PO (08:09)
--- NOTE | 2025-01-08 10:10 | PC.SS ---
rounding note: Patient to have an EGD today
--- NOTE | 2025-01-08 13:38 | PD.HHPROG ---
Documentation for date of: 01/08/25 Subjective - Hospitalist Subjective Interval history: Patient seen and examined at bedside this morning. No acute overnight events. Vital signs are stable except for hypertension, blood pressure of 151/86 this morning, improving compared to yesterday. Lab results show stable hemoglobin normal WBC count. Creatinine level is 1.6 today compared to 1.4 yesterday but creatinine seems to fluctuate between 1.4-2 at baseline. Has not have a bowel movement today currently n.p.o. for HIDA scan, will possibly go for EGD with GI. Review of Systems Review of Systems Systems Reviewed: All systems reviewed, normal except as documented Exam Vital Signs Temp Pulse Resp BP Pulse Ox O2 Del Method O2 Flow Rate 97.9 F 72 20 154/74 H 96 Nasal Cannula 2 01/08/25 12:00 01/08/25 12:00 01/08/25 12:00 01/08/25 12:00 01/08/25 12:00 01/08/25 12:00 01/08/25 12:00 FiO2 4 01/05/25 16:00 Narrative GENERAL: Alert and awake, oriented x 3, comfortably laying in bed HEENT: Head AT/ NC. Mucous membranes moist. PERRL. no neck masses NECK: Supple, no lymphadenopathy, no carotid bruits. CARDIOVASCULAR: RRR. Normal S1/S2, No m/r/g.trace edema of bilateral LEs. RESPIRATORY: CTAB. No wheezing, rhonchi, crackles. GASTROINTESTINAL: Abdomen soft, tenderness to epigastrum and LLQ, bowel sounds preseent. MUSCULOSKELETAL:? No cyanosis or edema, no visible joint swelling. NEUROLOGICAL: CN II-XII grossly intact. No focal deficits. Sensation intact, symmetric. PSYCHIATRIC: Awake and alert, not agitated, normal mood and affect. SKIN: No obvious rashes, no jaundice, normal turgor Objective - Hospitalist Labs Diagram: 01/08/25 05:16 01/08/25 05:16 Labs: Laboratory Results - last 24 hr 01/08/25 05:16 WBC 5.2 RBC 3.73 L Hgb 10.9 L Hct 33.2 L MCV 89 MCH 29.2 MCHC 32.8 RDW Std Deviation 45.9 Plt Count 154 Neut % (Auto) 51 Lymph % (Auto) 28 Williamson % (Auto) 10 Eos % (Auto) 11 H Baso % (Auto) 1 Neut # (Auto) 2.7 Lymph # (Auto) 1.4 Williamson # (Auto) 0.5 Eos # (Auto) 0.6 H Baso # (Auto) 0.0 Immature Gran # (Auto) 0.02 H Absolute Nucleated RBC 0.00 Immature Gran % 0 Nucleated RBC % 0 Sodium 143 Potassium 3.7 D Chloride 102 Carbon Dioxide 32.5 H Anion Gap 9 BUN 27 H Creatinine 1.6 H Estim Creat Clear Calc 24.9 L eGFR 32 L BUN/Creatinine Ratio 17 Glucose 178 H Calculated Osmolality 294 Calcium 9.0 Corrected Calcium 9.6 Magnesium 1.8 Total Bilirubin 0.6 AST 15 ALT 9 L Alkaline Phosphatase 71 Total Protein 5.7 Albumin 3.2 L Globulin 2.5 Albumin/Globulin Ratio 1.3 ABG Interpretation ABG results: 01/03/25 18:20 ABG pH 7.30 L ABG pCO2 47 ABG pO2 109 H ABG HCO3 23 ABG O2 Saturation 99 H ABG Base Excess -4 L Assessment & Plan Plan: Patient is AN 84 years old female with past medical history of hypertension, type 2 diabetes mellitus, CKD, PAD with chronic venous stasis, osteomyelitis, CAD status post stent who presented to the ED with complaint of very high blood pressure, nausea, vomiting, poor oral intake and was admitted subsequently for hypertensive emergency and starvation ketoacidosis. #Hypertensive emergency Initial blood pressure on admission was 200/100 with weakness, nausea, vomiting, poor oral intake, headaches and diarrhea Echocardiography showed ejection fraction of 55-60, aortic valve sclerosis without stenosis, mild mitral and tricuspid regurgitation Blood pressure this morning 153/78, improving compared to yesterday We will continue with Coreg 6.25 twice daily, hydralazine 100 mg 3 times daily, losartan 100 daily, nifedipine 90 mg daily #Abdominal pain #Concern for cholecystitis #Urinary retention #Klebsiella pneumonia UTI CT abdomen/pelvis done yesterday showed cholelithiasis with thickened and edematous gallbladder, gallbladder ultrasound showed 31 mm gallstone with gallbladder wall 0.39 cm Patient underwent Ty catheter placement yesterday, continues to produce good amount of urine Plan for HIDA scan today with IR. Continues to be on IV Rocephin and Flagyl to cover both pneumonia and cholecystitis We will plan for surgery consult if HIDA scan is concerning for cholecystitis #Dysphagia #Starvation ketoacidosis, improving #Anion gap metabolic acidosis, resolved Electrolytes today are stable today, potassium 3.7, bicarbonate 32.5, anion gap 9 Gastroenterology following closely, patient is planned for EGD for evaluation of dysphagia, appreciate recommendations. # CKD Creatinine 1.6 today, appears to be around her baseline Started gentle IV hydration with LR 70 cc/h, patient n.p.o. for HIDA scan/EGD #Insomnia Continues to be on mirtazapine 7.5 #Electrolyte imbalances Stable currently, continue to monitor and replete as needed #Type 2 diabetes mellitus Continues to be on insulin sliding scale Hypoglycemia protocol in place, frequent glucose checks CODE STATUS: Full code DVT prophylaxis: SCDs Diet: N.p.o. Disposition: Med/tele for management of hypertension, rule out cholecystitis, dysphagia Mik Dolan MD Time Spent with Patient Time: Total time spent is greater than 50% in coordination of care (as documented) at patient's floor/unit and/or counseling patient: Time with patient: Greater than 35 minutes Reason for Continued Stay Reason for continued stay: further monitoring Quality Measures Quality Measures VTE prophylaxis Advance care planning discussed with:: patient
[2025-01-08] MEDS: RINGERS LACTATED 1000 ML 1,000 ML 70 ML IV (16:38)
[2025-01-08] MEDS: SODIUM CHLORIDE 0.9% 500 ML 500 ML 20 ML IV (17:11)
--- NOTE | 2025-01-08 17:40 | SUR.PHASEI ---
Arrived to [facility] via [facility]. Resting with eyes closed. No s/o distress or discomfort. No c/o pain. Report received from Carline LOVE.
[2025-01-08] MEDS: hydrALAZINE INJ 20 MG/ML VIAL 10 MG IVP (18:14)
[2025-01-08] MEDS: MELATONIN 3 MG TABLET 6 MG PO (20:18)
[2025-01-09] VITALS (13 sets, daily range): BP systolic 133–186; BP diastolic 64–91; PULSE 67–89; RESP 15–99; TEMP 35.9–36.4; O2SAT 92–99; BMI 24.8
[2025-01-09] MEDS: metroNIDAZOLE/NS 500 MG IVPB 500 MG/100 ML BAG 200 MG IV (05:27)
[2025-01-09] MEDS: RINGERS LACTATED 1000 ML 1,000 ML 70 ML IV ×2 (05:27→20:21)
[2025-01-09 05:59] LABS: Basophils # (Auto) 0.0 Thou/mm3 (0.0-0.2); Basophils % (Auto) 0 % (0-2.5); Eosinophils # (Auto) 0.4 Thou/mm3 (0.0-0.5); Eosinophils % (Auto) 6 % (0-10); Monocytes # (Auto) 0.4 Thou/mm3 (0.0-0.8); Monocytes % (Auto) 7 % (0-12); Neutrophils # (Auto) 3.8 Thou/mm3 (1.8-7.7); Nucleated Red Blood Cell # 0.00 Thou/mm3 (0.00-0.00); Nucleated Red Blood Cell % 0 /100 WBC (0)
[2025-01-09 06:01] LABS: Hematocrit 35.7 % (36.0-46.0); Hemoglobin 11.4 g/dL (12.0-16.0); Immature Granulocytes Auto 0.01 Thou/mm3 (0.00-0.00); Lymphocytes # (Auto) 1.2 Thou/mm3 (1.0-4.8); Lymphocytes % (Auto) 20 % (10-50); Mean Corpuscular HGB Conc 31.9 g/dl (31.0-37.0); Mean Corpuscular Hemoglobin 29.1 pg (25.0-35.0); Mean Corpuscular Volume 91 fL (80-100); Neutrophils % (Auto) 66 % (37-80); Platelet Count 153 Thou/mm3 (140-440); RDW Standard Deviation 47.2 fL (36.4-46.3); Red Blood Count 3.92 Miln/mm3 (4.00-5.20); White Blood Count 5.8 Thou/mm3 (3.6-11.0)
[2025-01-09 06:26] LABS: Alanine Aminotransferase 9 U/L (10-49); Albumin, Serum 3.5 gm/dL (3.4-4.8); Albumin/Globulin Ratio 1.3 (1.2-2.2); Alkaline Phosphatase 78 U/L (46-116); Anion Gap 14 (7-16); Aspartate Amino Transferase 19 U/L (0-34); BUN/Creatinine Ratio 20 Ratio (12-20); Bilirubin,Total 0.6 mg/dL (0.3-1.2); Blood Urea Nitrogen 30 mg/dL (9-23); Calcium 9.1 mg/dL (8.3-10.6); Calcium (Corrected) 9.5 mg/dL (8.5-10.1); Carbon Dioxide 30.5 mMol/L (20.0-31.0); Chloride 101 mMol/L (98-107); Creatinine (Component) 1.5 mg/dL (0.6-1.3); Estimated Creatinine Clearance 26.6 mL/min (>60); Globulin 2.6 gm/dL (2.3-3.5); Glucose 170 mg/dL (74-106); Magnesium 1.8 mg/dL (1.6-2.6); Osmolality,Calculated 298 (275-295); Potassium 3.8 mMol/L (3.4-5.1); Sodium 145 mMol/L (136-145); Total Protein 6.1 gm/dL (5.7-8.2); eGFR 34 See Note
[2025-01-09] MEDS: INSULIN LISPRO (AdmeLOG) 1 UNIT/0.01 ML UNIT SC ×3 (07:46→17:00)
[2025-01-09] MEDS: cefTRIAXone/D5w 1gm IV premix 1 GM/50 ML BAG IV (09:17)
[2025-01-09] MEDS: THIAMINE 100 MG TABLET PO ×2 (09:18→20:22)
[2025-01-09] MEDS: NIFEdipine XL 30 MG TABCR 90 MG PO (09:19)
[2025-01-09] MEDS: LOSARTAN POTASSIUM 25 MG TABLET 100 MG PO (09:19)
[2025-01-09] MEDS: MIRTAZAPINE 15 MG TABLET 7.5 MG PO (09:20)
[2025-01-09] MEDS: POLYETHYLENE GLYCOL 17 GM PACKET PO (11:44)
--- NOTE | 2025-01-09 12:14 | ESPR_ITS ---
Documentation for date of: 01/09/25 Subjective Subjective Interval history: Patient evaluated Endoscopic dilatation with Japanese 48 and Japanese 54 guidewire savory dilators Exam Vital Signs Temp Pulse Resp BP Pulse Ox O2 Del Method O2 Flow Rate 97.3 F 82 15 160/80 H 92 L Room Air 2 01/09/25 08:00 01/09/25 09:20 01/09/25 08:00 01/09/25 09:20 01/09/25 08:00 01/09/25 08:00 01/09/25 04:00 FiO2 4 01/08/25 18:00 Objective Labs 01/09/25 05:23 01/09/25 05:23 Labs: Laboratory Results - last 24 hr 01/09/25 05:23 WBC 5.8 RBC 3.92 L Hgb 11.4 L Hct 35.7 L MCV 91 MCH 29.1 MCHC 31.9 RDW Std Deviation 47.2 H Plt Count 153 Neut % (Auto) 66 Lymph % (Auto) 20 [place] % (Auto) 7 Eos % (Auto) 6 Baso % (Auto) 0 Neut # (Auto) 3.8 Lymph # (Auto) 1.2 [place] # (Auto) 0.4 Eos # (Auto) 0.4 Baso # (Auto) 0.0 Immature Gran # (Auto) 0.01 H Absolute Nucleated RBC 0.00 Immature Gran % 0 Nucleated RBC % 0 Sodium 145 Potassium 3.8 Chloride 101 Carbon Dioxide 30.5 Anion Gap 14 BUN 30 H Creatinine 1.5 H Estim Creat Clear Calc 26.6 L eGFR 34 L BUN/Creatinine Ratio 20 Glucose 170 H Calculated Osmolality 298 H Calcium 9.1 Corrected Calcium 9.5 Magnesium 1.8 Total Bilirubin 0.6 AST 19 ALT 9 L Alkaline Phosphatase 78 Total Protein 6.1 Albumin 3.5 Globulin 2.6 Albumin/Globulin Ratio 1.3 Impressions Impression: Dysphagia status post endoscopic guidewire savory dilatation Japanese 45 and Japanese 54 Advance diet as tolerated ABG Interpretation ABG results: 01/03/25 18:20 ABG pH 7.30 L ABG pCO2 47 ABG pO2 109 H ABG HCO3 23 ABG O2 Saturation 99 H ABG Base Excess -4 L Assessment & Plan Time Spent With Patient Time: Total time spent is greater than 50% in coordination of care (as documented) at patient's floor/unit and/or counseling patient:
--- NOTE | 2025-01-09 13:12 | PD.HHPROG ---
Documentation for date of: 01/09/25 Subjective - Hospitalist Subjective Interval history: Patient seen and examined at bedside this morning. Appears comfortable and denies any new complaints. Had episode of urinary retention overnight, had urinary retention of more than 700 cc this afternoon as well, we will start her on Ty catheter. EGD yesterday with gastroenterology, was found to have gastritis, esophagitis and esophageal stenosis which was dilated. Patient has been started on diet. Patient tolerated her clear liquid diet this morning, we will advance to full liquid diet. We will also continue with gentle IV hydration, once patient starts to have adequate intake, we will discontinue IV fluids. Blood pressure noted to be 179/89 this morning, we will increase Coreg dosing to 12.5. HIDA scan was completed yesterday, came back negative for cholecystitis, we will discontinue metronidazole. Patient continues to work with physical therapy, also started on bowel regimen as she has not had a bowel movement for last few days. Exam Vital Signs Temp Pulse Resp BP Pulse Ox O2 Del Method O2 Flow Rate 96.6 F L 67 17 133/64 H 92 L Room Air 2 01/09/25 12:00 01/09/25 12:00 01/09/25 12:00 01/09/25 12:00 01/09/25 12:00 01/09/25 12:00 01/09/25 04:00 FiO2 4 01/08/25 18:00 Narrative GENERAL: Alert and awake, oriented x 3, comfortably laying in bed HEENT: Head AT/ NC. Mucous membranes moist. PERRL. no neck masses NECK: Supple, no lymphadenopathy, no carotid bruits. CARDIOVASCULAR: RRR. Normal S1/S2, No m/r/g RESPIRATORY: CTAB. No wheezing, rhonchi, crackles. GASTROINTESTINAL: Abdomen soft, tenderness to epigastrum and LLQ, bowel sounds preseent. MUSCULOSKELETAL:? No cyanosis or edema, no visible joint swelling. NEUROLOGICAL: CN II-XII grossly intact. No focal deficits. Sensation intact, symmetric. PSYCHIATRIC: Awake and alert, not agitated, normal mood and affect. SKIN: No obvious rashes, no jaundice, normal turgor Objective - Hospitalist Labs Diagram: 01/09/25 05:23 01/09/25 05:23 Labs: Laboratory Results - last 24 hr 01/09/25 05:23 WBC 5.8 RBC 3.92 L Hgb 11.4 L Hct 35.7 L MCV 91 MCH 29.1 MCHC 31.9 RDW Std Deviation 47.2 H Plt Count 153 Neut % (Auto) 66 Lymph % (Auto) 20 [place] % (Auto) 7 Eos % (Auto) 6 Baso % (Auto) 0 Neut # (Auto) 3.8 Lymph # (Auto) 1.2 [place] # (Auto) 0.4 Eos # (Auto) 0.4 Baso # (Auto) 0.0 Immature Gran # (Auto) 0.01 H Absolute Nucleated RBC 0.00 Immature Gran % 0 Nucleated RBC % 0 Sodium 145 Potassium 3.8 Chloride 101 Carbon Dioxide 30.5 Anion Gap 14 BUN 30 H Creatinine 1.5 H Estim Creat Clear Calc 26.6 L eGFR 34 L BUN/Creatinine Ratio 20 Glucose 170 H Calculated Osmolality 298 H Calcium 9.1 Corrected Calcium 9.5 Magnesium 1.8 Total Bilirubin 0.6 AST 19 ALT 9 L Alkaline Phosphatase 78 Total Protein 6.1 Albumin 3.5 Globulin 2.6 Albumin/Globulin Ratio 1.3 ABG Interpretation ABG results: 01/03/25 18:20 ABG pH 7.30 L ABG pCO2 47 ABG pO2 109 H ABG HCO3 23 ABG O2 Saturation 99 H ABG Base Excess -4 L Assessment & Plan Plan: Patient is AN 84 years old female with past medical history of hypertension, type 2 diabetes mellitus, CKD, PAD with chronic venous stasis, osteomyelitis, CAD status post stent who presented to the ED with complaint of very high blood pressure, nausea, vomiting, poor oral intake and was admitted subsequently for hypertensive emergency and starvation ketoacidosis. #Hypertensive emergency Initial blood pressure on admission was 200/100 with weakness, nausea, vomiting, poor oral intake, headaches and diarrhea Echocardiography showed ejection fraction of 55-60, aortic valve sclerosis without stenosis, mild mitral and tricuspid regurgitation Blood pressure this morning 153/78, improving compared to yesterday We will continue with hydralazine 100 mg 3 times daily, losartan 100 daily, nifedipine 90 mg daily Blood pressure remains high, 179/89 this morning, Coreg dosing increased to 12.5 twice daily #Abdominal pain #Concern for cholecystitis #Urinary retention #Klebsiella pneumonia UTI CT abdomen/pelvis done yesterday showed cholelithiasis with thickened and edematous gallbladder, gallbladder ultrasound showed 31 mm gallstone with gallbladder wall 0.39 cm Patient underwent Ty catheter placement yesterday, continues to produce good amount of urine Continues to be on IV Rocephin, Flagyl discontinued Scan came back negative for cholecystitis #Dysphagia #Starvation ketoacidosis, improving #Anion gap metabolic acidosis, resolved Electrolytes today are stable today Gastroenterology following closely, underwent a EGD, was found to have gastritis, esophagitis and esophageal stenosis which was dilated, appreciate recommendations Tolerated clear liquid diet well this morning, we will advance to full liquid diet # CKD Creatinine 1.5 today, appears to be around her baseline Continues to be on gentle IV hydration with LR 70 cc/h, will discontinue once patient is able to have good oral intake #Insomnia Continues to be on mirtazapine 7.5 #Electrolyte imbalances Stable currently, continue to monitor and replete as needed #Urinary retention Patient had urinary retention overnight and this afternoon as well Bladder scan this afternoon showed more than 700 cc of urine We will start patient on Ty catheter #Type 2 diabetes mellitus Continues to be on insulin sliding scale Hypoglycemia protocol in place, frequent glucose checks CODE STATUS: Full code DVT prophylaxis: SCDs Diet: N.p.o. Disposition: Med/tele for we will continue to advance diet as tolerated. Will plan for discharge once diet is advanced, patient able to have bowel movement, abdominal pain becomes stable Mik Dolan MD Time Spent with Patient Time: Total time spent is greater than 50% in coordination of care (as documented) at patient's floor/unit and/or counseling patient: Time with patient: Greater than 35 minutes Reason for Continued Stay Reason for continued stay: further monitoring Quality Measures Quality Measures VTE prophylaxis Advance care planning discussed with:: patient
[2025-01-09] MEDS: MELATONIN 3 MG TABLET 6 MG PO (20:21)
[2025-01-09] MEDS: ONDANSETRON INJ 2 MG/ML INJ 2 ML 4 MG IVP (22:33)
[2025-01-09] MEDS: ACETAMINOPHEN 325 MG TABLET 650 MG PO (22:33)
[2025-01-10] VITALS (16 sets, daily range): BP systolic 127–181; BP diastolic 68–99; PULSE 68–91; RESP 12–94; TEMP 36–36.7; O2SAT 94–98; BMI 24.7
[2025-01-10 05:53] LABS: Basophils # (Auto) 0.0 Thou/mm3 (0.0-0.2); Basophils % (Auto) 0 % (0-2.5); Eosinophils # (Auto) 0.4 Thou/mm3 (0.0-0.5); Eosinophils % (Auto) 10 % (0-10); Hematocrit 34.9 % (36.0-46.0); Hemoglobin 11.2 g/dL (12.0-16.0); Immature Granulocytes Auto 0.02 Thou/mm3 (0.00-0.00); Lymphocytes # (Auto) 1.3 Thou/mm3 (1.0-4.8); Lymphocytes % (Auto) 28 % (10-50); Mean Corpuscular HGB Conc 32.1 g/dl (31.0-37.0); Mean Corpuscular Hemoglobin 28.9 pg (25.0-35.0); Mean Corpuscular Volume 90 fL (80-100); Monocytes # (Auto) 0.5 Thou/mm3 (0.0-0.8); Monocytes % (Auto) 10 % (0-12); Neutrophils # (Auto) 2.4 Thou/mm3 (1.8-7.7); Neutrophils % (Auto) 53 % (37-80); Nucleated Red Blood Cell # 0.00 Thou/mm3 (0.00-0.00); Nucleated Red Blood Cell % 0 /100 WBC (0); Platelet Count 151 Thou/mm3 (140-440); RDW Standard Deviation 44.9 fL (36.4-46.3); Red Blood Count 3.88 Miln/mm3 (4.00-5.20); White Blood Count 4.6 Thou/mm3 (3.6-11.0)
[2025-01-10 06:25] LABS: Alanine Aminotransferase < 7 U/L (10-49); Albumin, Serum 3.3 gm/dL (3.4-4.8); Albumin/Globulin Ratio 1.3 (1.2-2.2); Alkaline Phosphatase 75 U/L (46-116); Anion Gap 9 (7-16); Aspartate Amino Transferase 17 U/L (0-34); BUN/Creatinine Ratio 18 Ratio (12-20); Bilirubin,Total 0.7 mg/dL (0.3-1.2); Blood Urea Nitrogen 25 mg/dL (9-23); Calcium 9.2 mg/dL (8.3-10.6); Calcium (Corrected) 9.8 mg/dL (8.5-10.1); Carbon Dioxide 32.1 mMol/L (20.0-31.0); Chloride 101 mMol/L (98-107); Creatinine (Component) 1.4 mg/dL (0.6-1.3); Estimated Creatinine Clearance 28.5 mL/min (>60); Globulin 2.5 gm/dL (2.3-3.5); Glucose 208 mg/dL (74-106); Magnesium 1.7 mg/dL (1.6-2.6); Osmolality,Calculated 293 (275-295); Potassium 3.9 mMol/L (3.4-5.1); Sodium 142 mMol/L (136-145); Total Protein 5.8 gm/dL (5.7-8.2); eGFR 37 See Note
[2025-01-10] MEDS: INSULIN LISPRO (AdmeLOG) 1 UNIT/0.01 ML UNIT SC ×4 (07:37→21:18)
[2025-01-10] MEDS: POLYETHYLENE GLYCOL 17 GM PACKET PO (09:07)
[2025-01-10] MEDS: INSULIN DEGLUDEC 5 UNIT/0.05 ML (PER 5 UNITS) 10 UNIT SC (09:07)
[2025-01-10] MEDS: NIFEdipine XL 30 MG TABCR 90 MG PO (09:08)
[2025-01-10] MEDS: THIAMINE 100 MG TABLET PO ×2 (09:09→21:17)
[2025-01-10] MEDS: MIRTAZAPINE 15 MG TABLET 7.5 MG PO (09:11)
[2025-01-10] MEDS: cefTRIAXone/D5w 1gm IV premix 1 GM/50 ML BAG IV (09:12)
[2025-01-10] MEDS: LOSARTAN POTASSIUM 25 MG TABLET 100 MG PO (09:12)
[2025-01-10] MEDS: RINGERS LACTATED 1000 ML 1,000 ML 70 ML IV (10:01)
--- NOTE | 2025-01-10 10:22 | PC.SS ---
rounding note: Patient had an EGD yesterday indicating dysphagia. D/c plan is to go to [facility].
--- NOTE | 2025-01-10 12:43 | PD.RESPRO ---
Documentation for date of: 01/10/25 Subjective Subjective Interval history: No acute events. Patient seen examined at bedside. Patient reports feeling much better today, denies any abdominal pain or headache. Patient does report sharp left rib tenderness that started last night however much improved this morning with Tylenol. Tolerating clear liquid diet this morning. Still does not have bowel movement since day of admission. Vitals labs reviewed. SBP 180s. Notable labs bicarb 32 creatinine 1.4 stable. Advance to pur?ed diet per speech evaluation. Started clonidine 0.1 mg twice daily. Discontinued ceftriaxone as patient has received full course. Continue bowel regimen and senna/docusate x 1 today. PT consulted for reevaluation. Exam Vital Signs Temp Pulse Resp BP Pulse Ox O2 Del Method O2 Flow Rate 97.0 F 69 20 167/83 H 98 Nasal Cannula 2 01/10/25 12:00 01/10/25 12:00 01/10/25 12:00 01/10/25 12:00 01/10/25 12:00 01/10/25 12:00 01/10/25 12:00 FiO2 4 01/08/25 18:00 Narrative Exam GENERAL: AOx3, sitting up in bed, no acute distress HEENT: mucous membranes moist, bilateral sclera anicteric CARDIOVASCULAR: regular rate and rhythm, S1/S2 present, no murmurs appreciated PULMONARY: clear to auscultation bilaterally, no rales/rhonchi/wheezes ABDOMINAL: soft, non-distended, no rebound/guarding, bowel sounds present EXTREMITIES: no peripheral edema SKIN: warm and dry, erythematous rash between buttocks up to lower sacrum NEURO: CN II-XII grossly intact, no focal deficits, alert, following commands Objective Labs 01/10/25 04:43 01/10/25 04:43 Labs: Laboratory Results - last 24 hr 01/10/25 04:43 WBC 4.6 RBC 3.88 L Hgb 11.2 L Hct 34.9 L MCV 90 MCH 28.9 MCHC 32.1 RDW Std Deviation 44.9 Plt Count 151 Neut % (Auto) 53 Lymph % (Auto) 28 [place] % (Auto) 10 Eos % (Auto) 10 Baso % (Auto) 0 Neut # (Auto) 2.4 Lymph # (Auto) 1.3 [place] # (Auto) 0.5 Eos # (Auto) 0.4 Baso # (Auto) 0.0 Immature Gran # (Auto) 0.02 H Absolute Nucleated RBC 0.00 Immature Gran % 0 Nucleated RBC % 0 Sodium 142 Potassium 3.9 Chloride 101 Carbon Dioxide 32.1 H Anion Gap 9 BUN 25 H Creatinine 1.4 H Estim Creat Clear Calc 28.5 L eGFR 37 L BUN/Creatinine Ratio 18 Glucose 208 H Calculated Osmolality 293 Calcium 9.2 Corrected Calcium 9.8 Magnesium 1.7 Total Bilirubin 0.7 AST 17 ALT < 7 L Alkaline Phosphatase 75 Total Protein 5.8 Albumin 3.3 L Globulin 2.5 Albumin/Globulin Ratio 1.3 ABG Interpretation ABG results: 01/03/25 18:20 ABG pH 7.30 L ABG pCO2 47 ABG pO2 109 H ABG HCO3 23 ABG O2 Saturation 99 H ABG Base Excess -4 L Quality Measures Quality Measures VTE prophylaxis Advance care planning discussed with:: patient Assessment & Plan Assessment Current Active Medications: Generic Name Dose Route Start Last Admin Trade Name Freq PRN Reason Stop Dose Admin Acetaminophen 650 mg 01/04/25 13:24 01/09/25 22:33 Acetaminophen 325 Mg Tablet PO 02/02/25 21:25 650 mg Q6H PRN Administration Fever >100.4 or pain Carvedilol 12.5 mg 01/09/25 09:00 01/10/25 09:11 Carvedilol 12.5 Mg Tablet PO 02/08/25 08:59 12.5 mg BID GILLIAN Administration Clonidine 0.1 mg 01/10/25 09:00 01/10/25 09:10 Clonidine Hcl 0.1 Mg Tablet PO 02/09/25 08:59 0.1 mg BID GILLIAN Administration Dextrose 25 ml 01/03/25 21:37 Dextrose 50%-Water Inj 50 Ml Syringe IV 02/02/25 21:36 Q15MIN PRN BG 50-70 responsive npo pt Dextrose 50 ml 01/03/25 21:37 Dextrose 50%-Water Inj 50 Ml Syringe IV 02/02/25 21:36 Q15MIN PRN BG <50 OR BG <70 & pt unresponsive Glucagon 1 mg 01/03/25 21:37 Glucagon Inj 1 Mg Vial IM Q15MIN PRN BG <70, and no IV access Hydralazine HCl 100 mg 01/07/25 07:45 01/10/25 05:08 Hydralazine Hcl 25 Mg Tablet PO 02/06/25 07:44 100 mg TID GILLIAN Administration Ceftriaxone Sodium/Dextrose 1 gm in 50 mls @ 100 mls/hr 01/07/25 09:00 01/10/25 09:12 Rocephin/D5w 1gm Iv Premix IV 01/14/25 08:59 100 mls/hr QDAY GILLIAN Administration Protocol Lactated Ringer's 1,000 mls @ 70 mls/hr 01/08/25 15:54 01/10/25 10:01 Lactated Ringers IV 02/07/25 15:53 70 mls/hr .[id number] GILLIAN Administration Insulin Degludec 10 unit 01/10/25 09:00 01/10/25 09:07 Insulin Degludec 5 Unit/0.05 Ml (Per 5 Units) SC 02/09/25 08:59 10 unit QDAY GILLIAN Administration Insulin Human Lispro 0 unit 01/10/25 07:52 01/10/25 11:15 Insulin Lispro (Admelog) 1 Unit/0.01 Ml Unit SC 02/05/25 20:59 5 unit ACHS GILLIAN Administration Protocol Losartan Potassium 100 mg 01/07/25 09:00 01/10/25 09:12 Losartan Potassium 25 Mg Tablet PO 02/06/25 08:59 100 mg QDAY GILLIAN Administration Melatonin 6 mg 01/05/25 21:00 01/09/25 20:21 Melatonin 3 Mg Tablet PO 02/04/25 20:59 6 mg HS GILLIAN Administration Mirtazapine 7.5 mg 01/06/25 20:00 01/10/25 09:11 Mirtazapine 15 Mg Tablet PO 02/05/25 19:59 7.5 mg QDAY GILLIAN Administration Nifedipine 90 mg 01/06/25 09:00 01/10/25 09:08 Nifedipine Xl 30 Mg Tabcr PO 02/05/25 08:59 90 mg QDAY GILLIAN Administration Ondansetron HCl 4 mg 01/03/25 21:32 01/09/25 22:33 Ondansetron Inj 2 Mg/Ml Inj 2 Ml IVP 02/02/25 21:31 4 mg Q6H PRN Administration NAUSEA OR VOMITING Protocol Pantoprazole Sodium 40 mg 01/08/25 21:00 01/10/25 09:09 Pantoprazole Inj 40 Mg Vial IVP 02/07/25 20:59 40 mg BID GILLIAN Administration Polyethylene Glycol 17 gm 01/09/25 09:30 01/10/25 09:07 Polyethylene Glycol 17 Gm Packet PO 02/08/25 09:29 17 gm QDAY GILLIAN Administration Sennosides 1 tab 01/09/25 09:30 01/10/25 09:10 Senna Tablet PO 02/08/25 09:29 1 tab QDAY GILLIAN Administration Protocol Thiamine HCl 100 mg 01/07/25 21:00 01/10/25 09:09 Thiamine 100 Mg Tablet PO 02/06/25 20:59 100 mg BID GILLIAN Administration Protocol Plan Marisol Holm 84F with pmhx significant for HTN, NIDDM2, CKDIIIb-IV, hx of PAD with chronic venous stasis, hx of osteomyelitis, CAD s/p stent 20 years ago presented to [facility] ED 01/03 for BP 200/100, weakness, N/V, poor PO intake and VINES, admitted for hypertensive emergency and starvation ketoacidosis. #Hypertensive emergency Admission BP 200/100 with weakness, N/V, poor PO intake, VINES and diarrhea for one week. Had a clonidine patch prescribed for her on 12/31 following ED visit and reports being adherent to blood pressure medications of carvedilol and hydralazine although recently has not been able to tolerate PO. Reports attempting to drink protein shake but would take all day to finish one bottle due to severe nausea. Troponin neg, BNP slightly elevated 102, lactic acid 0.7, CXR shows mild chronic heart failure pattern, head CT no acute processes 01/03 TTE Normal left ventricular size.Hypokinetic apex Approximate ejection fraction is 55-60%. Grade I diastolic dysfunction. Normal right ventricular size and function. RVSP 52 mmHg with RAP 3. Severe HTN Severed dilated LA and mildly dilated RA Aortic valve sclerosis without stenosis Mild mitral and tricuspid regurgitation noted. Trivival pericardial effusion without any evidence of cardiac tamponade. Ddx: likely hypertensive emergency 2/2 uncontrolled HTN with subsequent VINES, N/V and weakness and inability to take BP meds lately. Plan: - Carvedilol 12.5 mg BID, increase nifedipine XL 90 mg QD, and hydralazine 100 mg TID, Losartan 100 mg QD - Start clonidine 0.1 mg BID - CTM vitals #Esophageal stricture s/p dilation 01/08/25 #Dysphagia #Starvation ketoacidosis, resolved #Anion gap metabolic acidosis, resolved Presented with low bicarb of 19, elevated BHB >6.4 ->2.0 , +1ketones on UA. Patient's granddaughter reports issues with swallowing lately. Ddx: likely starvation ketoacidosis given fasting 2/2 N/V and hypertensive emergency. 01/08 EGD: esophagitis, esophageal stenosis that was dilated, gastritis, with biopsies taken of gastrium and esophagus Plan: - CTM CMP - Cruise Consultant consulted, recs appreciated: Glucerna at breakfast and lunch, thiamine 100 mg BID - Encouraged oral hydration - Speech consulted, recs appreciated #Klebsiella UTI #Urinary retention #Abdominal pain Per daughter, patient had Ty catheter and during all rehab for about 4 months and patient needs to see a urologist for retention following removal of Ty catheter. On 01/06, patient endorses suprapubic tenderness. Bladder scan showed >999 mL retained 01/08 CTAP cholelithiasis with GB wall thickened and edematous, GB US cholelithiasis, GB wall 0.39 cm, HIDA normal GB activity. Given negative imaging, low concern for acute GB process. Ceftriaxone (01/07-01/10), metronidazole (01/07-01/09) Plan: - Ty placed 01/09 - Dysphagia diet started - Miralax QD and senna QD #Insomnia Patient reports not sleeping well since discharge from rehab. Feels very anxious and is unable to communicate why she cannot sleep. Plan: - Mirtazapine 7.5 mg qhs and melatonin 6 mg qhs #CKDIV versus 3B Presented with one week of vomiting and diarrhea. Admission BUN 33, Cr 1.8 (BL 1.4-1.7), eGFR 28 At this time, JOSE ANTONIO less likely as Cr may be patient's baseline and patient has significant hx of elevated Cr up to 2.3 in the past. s/p fluids as above Plan: - Avoid nephrotoxins and renally dose - CTM Cr - Recommend referral and follow up with outpatient forklift driver #Hypokalemia #Hypernatremia, resolved #Hypobicarbinemia, resolved Admission Na 146, potassium 3.3 and bicarb 19. Likely 2/2 dehdyration from vomiting and diarrhea. Plan; - Replete and recheck as necessary #NIDDM2 On glipizide-metformin 1 tab TID at home Plan: - SSI - Degludac 10 SC QD Hospital management: Lines: PIV Diet: pureed Bowel: Senna prn GI prophylaxis: not indicated DVT prophylaxis: SCDs Disposition: med tele, adjusting BP meds CODE STATUS: FULL CODE Plan of care discussed with attending Dr. Dolan,. Katelynn Urbano, PGY-1 Internal Medicine Attending Provider Attestation/Addendum I have seen and examined the patient. I was physically present for the doshi portions of the services provided including history, physical exam, diagnosis, treatment plans and orders. I agree with assessment and plan of care as documented by residents. Patient seen and examined at bedside this morning. No acute overnight events. Patient states he is feeling well and denies any new complaints. Denies any abdominal pain, denies any abdominal tenderness, only pressure on palpation. Has been able to tolerate clear liquid diet. Still has not have any bowel movements. We will start her on bowel regimen and slowly advance her diet. Noted to have high blood pressure in the morning, added clonidine. Kidney function remained stable. Rest of the vitals are within normal limits as well. Completed her antibiotics course for UTI, we will discontinue after today's dose. Even though this this note was carefully revised there may still be minor errors in pleater due to voice recognition software. Mik Dolan MD
--- NOTE | 2025-01-10 17:26 | PD.IMPROG ---
Documentation for date of: 01/10/25 Subjective Subjective Interval history: Nuclear medicine HIDA scan shows normal activity of the gallbladder Status post endoscopic dilatation of the proximal esophagus stricture tolerating diet Exam Vital Signs Temp Pulse Resp BP Pulse Ox O2 Del Method O2 Flow Rate 97 F 78 21 H 127/68 95 Nasal Cannula 2 01/10/25 16:00 01/10/25 16:00 01/10/25 16:00 01/10/25 16:00 01/10/25 16:00 01/10/25 16:00 01/10/25 16:00 FiO2 4 01/08/25 18:00 Objective Labs 01/10/25 04:43 01/10/25 04:43 Labs: Laboratory Results - last 24 hr 01/10/25 04:43 WBC 4.6 RBC 3.88 L Hgb 11.2 L Hct 34.9 L MCV 90 MCH 28.9 MCHC 32.1 RDW Std Deviation 44.9 Plt Count 151 Neut % (Auto) 53 Lymph % (Auto) 28 [place] % (Auto) 10 Eos % (Auto) 10 Baso % (Auto) 0 Neut # (Auto) 2.4 Lymph # (Auto) 1.3 [place] # (Auto) 0.5 Eos # (Auto) 0.4 Baso # (Auto) 0.0 Immature Gran # (Auto) 0.02 H Absolute Nucleated RBC 0.00 Immature Gran % 0 Nucleated RBC % 0 Sodium 142 Potassium 3.9 Chloride 101 Carbon Dioxide 32.1 H Anion Gap 9 BUN 25 H Creatinine 1.4 H Estim Creat Clear Calc 28.5 L eGFR 37 L BUN/Creatinine Ratio 18 Glucose 208 H Calculated Osmolality 293 Calcium 9.2 Corrected Calcium 9.8 Magnesium 1.7 Total Bilirubin 0.7 AST 17 ALT < 7 L Alkaline Phosphatase 75 Total Protein 5.8 Albumin 3.3 L Globulin 2.5 Albumin/Globulin Ratio 1.3 Impressions Impression: Dysphagia Status post guidewire endoscopic dilatation Normal functioning gallbladder Continue to advance diet as tolerated ABG Interpretation ABG results: 01/03/25 18:20 ABG pH 7.30 L ABG pCO2 47 ABG pO2 109 H ABG HCO3 23 ABG O2 Saturation 99 H ABG Base Excess -4 L Assessment & Plan Time Spent With Patient Time: Total time spent is greater than 50% in coordination of care (as documented) at patient's floor/unit and/or counseling patient:
[2025-01-10] MEDS: MELATONIN 3 MG TABLET 6 MG PO (21:18)
[2025-01-11] VITALS (17 sets, daily range): BP systolic 113–149; BP diastolic 55–93; PULSE 63–81; RESP 12–21; TEMP 36.1–37.1; O2SAT 92–98; BMI 25.4
[2025-01-11 06:52] LABS: Basophils # (Auto) 0.0 Thou/mm3 (0.0-0.2); Basophils % (Auto) 0 % (0-2.5); Eosinophils # (Auto) 0.5 Thou/mm3 (0.0-0.5); Eosinophils % (Auto) 10 % (0-10); Hematocrit 31.8 % (36.0-46.0); Hemoglobin 9.9 g/dL (12.0-16.0); Immature Granulocytes Auto 0.04 Thou/mm3 (0.00-0.00); Lymphocytes # (Auto) 1.3 Thou/mm3 (1.0-4.8); Lymphocytes % (Auto) 26 % (10-50); Mean Corpuscular HGB Conc 31.1 g/dl (31.0-37.0); Mean Corpuscular Hemoglobin 28.4 pg (25.0-35.0); Mean Corpuscular Volume 91 fL (80-100); Monocytes # (Auto) 0.5 Thou/mm3 (0.0-0.8); Monocytes % (Auto) 10 % (0-12); Neutrophils # (Auto) 2.6 Thou/mm3 (1.8-7.7); Neutrophils % (Auto) 54 % (37-80); Nucleated Red Blood Cell # 0.00 Thou/mm3 (0.00-0.00); Nucleated Red Blood Cell % 0 /100 WBC (0); Platelet Count 185 Thou/mm3 (140-440); RDW Standard Deviation 46.9 fL (36.4-46.3); Red Blood Count 3.48 Miln/mm3 (4.00-5.20); White Blood Count 4.9 Thou/mm3 (3.6-11.0)
[2025-01-11 07:03] LABS: Alanine Aminotransferase 7 U/L (10-49); Albumin, Serum 3.2 gm/dL (3.4-4.8); Albumin/Globulin Ratio 1.3 (1.2-2.2); Alkaline Phosphatase 69 U/L (46-116); Anion Gap 9 (7-16); Aspartate Amino Transferase 16 U/L (0-34); BUN/Creatinine Ratio 14 Ratio (12-20); Bilirubin,Total 0.6 mg/dL (0.3-1.2); Blood Urea Nitrogen 22 mg/dL (9-23); Calcium 9.1 mg/dL (8.3-10.6); Calcium (Corrected) 9.7 mg/dL (8.5-10.1); Carbon Dioxide 32.6 mMol/L (20.0-31.0); Chloride 99 mMol/L (98-107); Creatinine (Component) 1.6 mg/dL (0.6-1.3); Estimated Creatinine Clearance 27.0 mL/min (>60); Globulin 2.5 gm/dL (2.3-3.5); Glucose 143 mg/dL (74-106); Magnesium 1.5 mg/dL (1.6-2.6); Osmolality,Calculated 286 (275-295); Potassium 3.9 mMol/L (3.4-5.1); Sodium 141 mMol/L (136-145); Total Protein 5.7 gm/dL (5.7-8.2); eGFR 32 See Note
[2025-01-11] MEDS: INSULIN LISPRO (AdmeLOG) 1 UNIT/0.01 ML UNIT SC ×4 (07:47→21:18)
[2025-01-11] MEDS: POLYETHYLENE GLYCOL 17 GM PACKET PO (08:12)
[2025-01-11] MEDS: NIFEdipine XL 30 MG TABCR 90 MG PO (08:14)
[2025-01-11] MEDS: THIAMINE 100 MG TABLET PO ×2 (08:14→21:16)
[2025-01-11] MEDS: MIRTAZAPINE 15 MG TABLET 7.5 MG PO (08:15)
[2025-01-11] MEDS: LOSARTAN POTASSIUM 25 MG TABLET 100 MG PO (08:16)
--- NOTE | 2025-01-11 08:17 | XR_ITS ---
Examination: Abdomen AP single view Technique: AP portable supine abdomen, single view Exam date and time: January 11, 2025, 0818 hours INDICATIONS: Abdominal pain today. FINDINGS: Abundant stool throughout the colon No obstruction No free air Soft tissue vascular calcification Total right hip arthroplasty with satisfactory alignment Advanced narrowing left hip joint IMPRESSION: Abundant stool throughout the colon
[2025-01-11] MEDS: INSULIN DEGLUDEC 5 UNIT/0.05 ML (PER 5 UNITS) 10 UNIT SC (08:18)
--- NOTE | 2025-01-11 09:19 | PC.NURSE ---
Patient arrived to unit at this time. Patient is complaining of epigastrium pain rated 4/10 and nausea. Vital signs stable, see flowsheet.
[2025-01-11] MEDS: ONDANSETRON INJ 2 MG/ML INJ 2 ML 4 MG IVP (09:27)
[2025-01-11] MEDS: MAGNESIUM CITRATE 300 ML BTL PO (12:25)
--- NOTE | 2025-01-11 15:01 | PD.RESDS ---
Planned Discharge Date 01/11/25 DS: Providers Provider Date of admission: 01/03/25 21:27 Primary care physician: Zeus Nguyen MD Admitting Provider: Carola Rooney DO Attending Provider on Admission: Mik Dolan MD Consults: 01/03/25 21:50 Referral Registered Dietitian Routine Comment: 01/03/25 21:51 Referral Physical Therapy Stat Comment: Physician Instructions: 01/04/25 01:47 Health Equity Referral - Knowledge Deficit Routine Comment: Positive screening for knowledge deficit needs. 01/04/25 15:27 Referral Wound Care Routine Comment: chronic sacral irritation 01/06/25 10:55 Referral Speech Therapy Routine Comment: 01/07/25 09:54 Consult to Gastroenterology Routine Comment: Consulting Provider: Micky Vernon Attending Provider on DC: Mik Dolan MD Discharging Provider: Mik Dolan MD DS: Diagnosis Problem List Completed Was Problem List Reviewed/Reconciled?: Yes Hospital Course Hospital Course Hospital course: 84-year-old female with past medical history of hypertension, DM2, CKD stage IIIb, PAD, osteomyelitis, and CAD status post stents who was admitted to the hospital on 01/03/2025 due to starvation ketoacidosis and hypertensive emergency. Initially in the ER patient had a BP of 200/100s. Initial labs were relevant for creatinine of 1.8, anion gap of 24 with a potassium of 3.3 and bicarb of 19 as well as glucose of 109. Patient's blood pressure throughout the hospital stay was difficult to control, but we were able to control patient's blood pressure with carvedilol 12.5 mg twice daily, clonidine 0.1 mg twice daily, hydralazine 100 mg 3 times daily, losartan 100 mg daily, and nifedipine 90 mg daily. Anion gap closed during hospital stay. Throughout the hospital stay patient was still not able to eat appropriately and was complaining of suprapubic pain therefore bladder scans were routinely done at show that she had urinary retention therefore was decided to again place a Ty catheter with resolution of suprapubic pain. Patient was difficulty with swallowing was also assessed by GI who did an EGD and did a dilation of stricture on 01/08/2025. After this patient was swallowing better, but still complaining of the taste of the food. Otherwise patient was more anxious and was started on mirtazapine 7.5 mg which helped improve patient's anxiety. Patient did not have a bowel movement throughout the whole hospital stay and abdominal x-ray showed a lot of stool throughout the colon therefore was giving multiple medications for her constipation as well as 1 enema. At this time patient was stable enough [facility]. Discharge plan: Please follow-up primary care physician within 2 to 3 days upon discharge Please follow-up with your urologist within 5 days upon discharge concerning Ty catheter You have been started on carvedilol 12.5 mg twice daily, clonidine 0.1 mg twice daily, nifedipine 90 mg daily, and losartan 100 mg daily. Blood pressure As needed hydralazine 100 mg twice daily has been changed to 3 times daily For constipation we have started senna 8.6 mg tablet daily as well as MiraLAX daily, consider discontinuing if having frequent bowel movements. For anxiety we have started mirtazapine 7.5 mg daily Please come back to the ER if symptoms persist or worsen Problem list: #Hypertensive emergency #Esophageal stricture s/p dilation 01/08/25 #Dysphagia #Starvation ketoacidosis, resolved #Anion gap metabolic acidosis, resolved #Klebsiella UTI #Urinary retention #Abdominal pain #Insomnia #CKDIV versus 3B #Hypokalemia #Hypernatremia, resolved #Hypobicarbinemia, resolved #NIDDM2 Case disclosed with Attending Dr. Kelsi Tucker PGY2 Disclaimer: Even though this this note was dictated by speech recognition and even though it was carefully revised there may still be minor errors in warehouse guard due to voice recognition software. Status at Discharge Overall status at discharge: patient is progressing back to baseline Time Spent with Patient Time attestation: Total time spent providing and/or coordinating discharge services:35 min Time spent: Greater than 30 minutes Exam Vital Signs Temp Pulse Resp BP Pulse Ox O2 Del Method O2 Flow Rate 98.7 F 81 18 141/76 H 92 L Room Air 1.5 01/11/25 12:00 01/11/25 13:52 01/11/25 12:00 01/11/25 13:52 01/11/25 12:00 01/11/25 12:00 01/11/25 09:18 FiO2 4 01/11/25 09:18 Narrative Exam General: A/O x3, no acute distress, frail elderly Eyes: PERRL, EOMI. Anicteric, vision grossly intact. Ears: No ear pain, no ear discharge, Hearing grossly intact. Nose: No nasal discharge. Mouth/Throat: Moist mucous membranes, no redness, no lesions. Neck: Neck supple, non-tender, no cervical lymphadenopathy. Lungs: Clear FELI to auscultation and percussion, No accessory muscle use. Cardio: Normal S1/S2, regular rhythm, no murmurs, no JVD or carotid bruits. Abdomen: Soft, mildly tender in RLQ, no palpable masses, peristalsis present, no guarding or rebound. Extremities: Symmetrical, no significant deformities, no peripheral edema , non-tender, peripheral pulses presents. Skin: No rashes, no lesions, warm to touch. Neuro: No focal neurological deficits. motor and sensory intact Psych: Cooperative, appropriate mood and effect. Discharge Plan Plan Patient Disposition: [facility]fer [facility]illed [facility] Fac (SNF) Patient condition on transfer: Stable Care Plan Goals: Please follow-up primary care physician within 2 to 3 days upon discharge Please follow-up with your urologist within 5 days upon discharge concerning Ty catheter You have been started on carvedilol 12.5 mg twice daily and losartan 100 mg daily. Blood pressure As needed hydralazine 100 mg twice daily has been changed to 3 times daily Hold your clonidine 0.1 mg twice daily and nifedipine 90 mg daily until follow up your primary care physician or if you SBP is above 145 can take your clonidine. For constipation we have started senna 8.6 mg tablet daily as well as MiraLAX daily, consider discontinuing if having frequent bowel movements. For anxiety we have started mirtazapine 7.5 mg daily Please come back to the ER if symptoms persist or worsen Prescriptions/Referrals Prescriptions/Med Rec: New sennosides [Senna Lax] 8.6 mg Tablet 8.6 mg PO QDAY 30 Days Qty: 30 0RF carvedilol 12.5 mg Tablet 12.5 mg PO BID 30 Days Qty: 60 0RF polyethylene glycol 3350 [HealthyLax] 17 gram Powder In Packet 17 g PO QDAY 30 Days Qty: 1 0RF losartan 25 mg Tablet 100 mg PO QDAY 30 Days Qty: 120 0RF mirtazapine 15 mg Tablet 7.5 mg PO QDAY 30 Days Qty: 15 0RF Continued glipizide-metformin 5-500 mg Tablet 1 tab PO TID aspirin 81 mg tablet,chewable 81 mg PO QDAY Changed hydralazine 100 mg tablet 100 mg PO TID 30 Days Qty: 90 0RF Patient Comments: take 1 tablet by mouth three times a day Held furosemide 20 mg tablet 20 mg PO QDAY Hold Instructions: Resume on 01/18/25. hold until follow up with PCP Patient Comments: TAKE 1 TABLET BY MOUTH EVERY DAY Discontinued carvedilol 3.125 mg tablet 3.125 mg PO BID Patient Comments: TAKE 1 TABLET BY MOUTH TWICE A DAY clonidine HCl 0.1 mg tablet 0.1 mg PO QDAY PRN (Reason: hypertensive emergency) Rx Instructions: one tablet by mouth every 24 hours as needed for systolic blood pressure >170 clonidine [Afujmemo-LOU-7] 0.2 mg/24 hr patch weekly 0.2 mg topical .weekly 30 Days Qty: 4 0RF Referrals: Zeus Nguyen MD [Primary Care Provider, Internal Medicine] Patient/Caregiver Discharge Instructions Other Discharge Activity Instructions:: Please follow-up primary care physician within 2 to 3 days upon discharge Please follow-up with your urologist within 5 days upon discharge concerning Ty catheter You have been started on carvedilol 12.5 mg twice daily and losartan 100 mg daily. Blood pressure As needed hydralazine 100 mg twice daily has been changed to 3 times daily Hold your clonidine 0.1 mg twice daily and nifedipine 90 mg daily until follow up your primary care physician or if you SBP is above 145 can take your clonidine. For constipation we have started senna 8.6 mg tablet daily as well as MiraLAX daily, consider discontinuing if having frequent bowel movements. For anxiety we have started mirtazapine 7.5 mg daily Please come back to the ER if symptoms persist or worsen Education Materials: Controlling High Blood Pressure, Dysphagia Diet- Managing Drinks, Dysphagia Diet- Managing Foods Print Language: Northern Irish Stand Alone Forms: Hayley Award Info., Patient Portal Info Letter Discharge Order Discharge Orders: Discharge (Routine); Ordered 01/12/25 Ordered By: Popeye Tucker Quality Discharge Quality Measures VTE prophylaxis Attestestation Attestation I have seen and examined the patient. I was physically present for the doshi portions of the services provided including history, physical exam, diagnosis, treatment plans and orders. I agree with assessment and plan of care as documented by residents. Even though this this note was carefully revised there may still be minor errors in warehouse guard due to voice recognition software. Mik Dolan MD
--- NOTE | 2025-01-11 15:45 | PC.SS ---
[facility] staff confirmed with CARD TAPE CONVERTER OPERATOR that patient can return to SNF once ready for discharge. Authorization not required. Patient pending bowel movement.
--- NOTE | 2025-01-11 16:00 | ESPR_ITS ---
Documentation for date of: 01/11/25 Subjective Subjective Interval history: Patient evaluated In discharge planning To be followed by her primary care physician Improvement of dysphagia after endoscopic dilatation Exam Vital Signs Temp Pulse Resp BP Pulse Ox O2 Del Method O2 Flow Rate 98.5 F 64 18 114/63 97 Nasal Cannula 0.5 01/11/25 15:57 01/11/25 15:57 01/11/25 15:57 01/11/25 15:57 01/11/25 15:57 01/11/25 15:57 01/11/25 15:57 FiO2 4 01/11/25 09:18 Objective Labs 01/11/25 05:32 01/11/25 05:32 Labs: Laboratory Results - last 24 hr 01/11/25 05:32 WBC 4.9 RBC 3.48 L Hgb 9.9 L Hct 31.8 L MCV 91 MCH 28.4 MCHC 31.1 RDW Std Deviation 46.9 H Plt Count 185 D Neut % (Auto) 54 Lymph % (Auto) 26 Hendricks % (Auto) 10 Eos % (Auto) 10 Baso % (Auto) 0 Neut # (Auto) 2.6 Lymph # (Auto) 1.3 Hendricks # (Auto) 0.5 Eos # (Auto) 0.5 Baso # (Auto) 0.0 Immature Gran # (Auto) 0.04 H Absolute Nucleated RBC 0.00 Immature Gran % 1 H Nucleated RBC % 0 Sodium 141 Potassium 3.9 Chloride 99 Carbon Dioxide 32.6 H Anion Gap 9 BUN 22 Creatinine 1.6 H Estim Creat Clear Calc 27.0 L eGFR 32 L BUN/Creatinine Ratio 14 Glucose 143 H D Calculated Osmolality 286 Calcium 9.1 Corrected Calcium 9.7 Magnesium 1.5 L Total Bilirubin 0.6 AST 16 ALT 7 L Alkaline Phosphatase 69 Total Protein 5.7 Albumin 3.2 L Globulin 2.5 Albumin/Globulin Ratio 1.3 Impressions Impression: Dysphagia with improvement after endoscopic dilatation Okay to discharge patient to be followed by the PCP ABG Interpretation ABG results: 01/03/25 18:20 ABG pH 7.30 L ABG pCO2 47 ABG pO2 109 H ABG HCO3 23 ABG O2 Saturation 99 H ABG Base Excess -4 L Assessment & Plan Time Spent With Patient Time: Total time spent is greater than 50% in coordination of care (as documented) at patient's floor/unit and/or counseling patient:
[2025-01-12] VITALS (13 sets, daily range): BP systolic 97–134; BP diastolic 7–76; PULSE 61–75; RESP 15–92; TEMP 36.2–36.5; O2SAT 95–97
[2025-01-12] MEDS: MAGNESIUM CITRATE 300 ML BTL PO (04:57)
[2025-01-12 07:04] LABS: Basophils # (Auto) 0.0 Thou/mm3 (0.0-0.2); Basophils % (Auto) 0 % (0-2.5); Eosinophils # (Auto) 0.4 Thou/mm3 (0.0-0.5); Eosinophils % (Auto) 7 % (0-10); Hematocrit 34.7 % (36.0-46.0); Hemoglobin 11.2 g/dL (12.0-16.0); Immature Granulocytes Auto 0.01 Thou/mm3 (0.00-0.00); Lymphocytes # (Auto) 1.3 Thou/mm3 (1.0-4.8); Lymphocytes % (Auto) 25 % (10-50); Mean Corpuscular HGB Conc 32.3 g/dl (31.0-37.0); Mean Corpuscular Hemoglobin 29.1 pg (25.0-35.0); Mean Corpuscular Volume 90 fL (80-100); Monocytes # (Auto) 0.4 Thou/mm3 (0.0-0.8); Monocytes % (Auto) 8 % (0-12); Neutrophils # (Auto) 3.1 Thou/mm3 (1.8-7.7); Neutrophils % (Auto) 59 % (37-80); Nucleated Red Blood Cell # 0.00 Thou/mm3 (0.00-0.00); Nucleated Red Blood Cell % 0 /100 WBC (0); Platelet Count 169 Thou/mm3 (140-440); RDW Standard Deviation 45.1 fL (36.4-46.3); Red Blood Count 3.85 Miln/mm3 (4.00-5.20); White Blood Count 5.3 Thou/mm3 (3.6-11.0)
[2025-01-12 07:32] LABS: Alanine Aminotransferase 12 U/L (10-49); Albumin, Serum 3.3 gm/dL (3.4-4.8); Albumin/Globulin Ratio 1.3 (1.2-2.2); Alkaline Phosphatase 74 U/L (46-116); Anion Gap 8 (7-16); Aspartate Amino Transferase 23 U/L (0-34); BUN/Creatinine Ratio 18 Ratio (12-20); Bilirubin,Total 0.5 mg/dL (0.3-1.2); Blood Urea Nitrogen 29 mg/dL (9-23); Calcium 9.2 mg/dL (8.3-10.6); Calcium (Corrected) 9.8 mg/dL (8.5-10.1); Carbon Dioxide 34.9 mMol/L (20.0-31.0); Chloride 98 mMol/L (98-107); Creatinine (Component) 1.6 mg/dL (0.6-1.3); Estimated Creatinine Clearance 27.0 mL/min (>60); Globulin 2.5 gm/dL (2.3-3.5); Glucose 122 mg/dL (74-106); Magnesium 2.4 mg/dL (1.6-2.6); Osmolality,Calculated 288 (275-295); Potassium 4.3 mMol/L (3.4-5.1); Sodium 141 mMol/L (136-145); Total Protein 5.8 gm/dL (5.7-8.2); eGFR 32 See Note
[2025-01-12] MEDS: INSULIN LISPRO (AdmeLOG) 1 UNIT/0.01 ML UNIT SC ×2 (07:48→11:33)
[2025-01-12] MEDS: POLYETHYLENE GLYCOL 17 GM PACKET PO (08:12)
[2025-01-12] MEDS: MIRTAZAPINE 15 MG TABLET 7.5 MG PO (08:17)
[2025-01-12] MEDS: THIAMINE 100 MG TABLET PO (08:17)
[2025-01-12] MEDS: INSULIN DEGLUDEC 5 UNIT/0.05 ML (PER 5 UNITS) 10 UNIT SC (08:18)
--- NOTE | 2025-01-12 08:30 | PC.NURSE ---
MADE AWARE OF BP 116/67 HR 75, ORDER TO GIVE COREG, AND RECHECK BLOOD PRESSURE. ORDER RECEIVED, READ BACK AND CARRIED OUT.
--- NOTE | 2025-01-12 09:27 | PC.SS ---
PASSR completed. Patient meets Level I criteria.
--- NOTE | 2025-01-12 09:27 | PC.SS ---
[facility]SR submitted to [facility] via file exchange.
--- NOTE | 2025-01-12 09:34 | PC.SS ---
TEA TREE FARM WORKER confirmed with bedside nurse that patient is pending bowel movement.
[2025-01-12] MEDS: LOSARTAN POTASSIUM 25 MG TABLET 100 MG PO (10:11)
--- NOTE | 2025-01-12 10:39 | PC.NURSE ---
DISCHARGE ORDER, START COORDINATING PTS TRANSPORTATION WITH [facility] FOR SNF.
--- NOTE | 2025-01-12 11:27 | PC.SS ---
Addendum entered and electronically signed by MATT Buckley 01/12/25 14:42: Transport scheduled for 4:00 pm today. [facility] to transport. SNF and bedside nurse updated. Original Note: Transport inttiated with [facility] Reference #[id number]. [facility] [place] preferred vendor. Awaiting response.
--- NOTE | 2025-01-12 11:30 | PC.NURSE ---
[facility], TRANSPORTATION SET UP FOR 1600 TO [facility].
--- NOTE | 2025-01-12 13:56 | PC.NURSE ---
REPORT GIVEN TO ADRY MOLINA AT [facility]. DISCHARGE PAPERWORK WILL SEND OUT TO.
--- NOTE | 2025-01-12 15:58 | PC.SS ---
Transport has been pushed back to 5:00 pm today. [employer]ARR[employer] SUPERVISOR updated SNF and bedside nurse.
--- NOTE | 2025-01-12 16:05 | ESDS_ITS ---
Planned Discharge Date 01/12/25 DS: Providers Provider Date of admission: 01/03/25 21:27 Primary care physician: Zeus Nguyen MD Admitting Provider: Carola Rooney DO Attending Provider on Admission: Mik Dolan MD Consults: 01/03/25 21:50 Referral Registered Dietitian Routine Comment: 01/03/25 21:51 Referral Physical Therapy Stat Comment: Physician Instructions: 01/04/25 01:47 Health Equity Referral - Knowledge Deficit Routine Comment: Positive screening for knowledge deficit needs. 01/04/25 15:27 Referral Wound Care Routine Comment: chronic sacral irritation 01/06/25 10:55 Referral Speech Therapy Routine Comment: 01/07/25 09:54 Consult to Gastroenterology Routine Comment: Consulting Provider: Micky Vernon Attending Provider on DC: Mik Dolan MD Discharging Provider: Mik Dolan MD DS: Diagnosis Problem List Completed Was Problem List Reviewed/Reconciled?: Yes Hospital Course Hospital Course Hospital course: 84-year-old female with past medical history of hypertension, DM2, CKD stage IIIb, PAD, osteomyelitis, and CAD status post stents who was admitted to the hospital on 01/03/2025 due to starvation ketoacidosis and hypertensive emergency. Initially in the ER patient had a BP of 200/100s. Initial labs were relevant for creatinine of 1.8, anion gap of 24 with a potassium of 3.3 and bicarb of 19 as well as glucose of 109. Patient's blood pressure throughout the hospital stay was difficult to control, but we were able to control patient's blood pressure with carvedilol 12.5 mg twice daily, clonidine 0.1 mg twice daily, hydralazine 100 mg 3 times daily, losartan 100 mg daily, and nifedipine 90 mg daily. Anion gap closed during hospital stay. Throughout the hospital stay patient was still not able to eat appropriately and was complaining of suprapubic pain therefore bladder scans were routinely done at show that she had urinary retention therefore was decided to again place a Ty catheter with resolution of suprapubic pain. Patient was difficulty with swallowing was also assessed by GI who did an EGD and did a dilation of stricture on 01/08/2025. After this patient was swallowing better, but still complaining of the taste of the food. Otherwise patient was more anxious and was started on mirtazapine 7.5 mg which helped improve patient's anxiety. Patient did not have a bowel movement throughout the whole hospital stay and abdominal x-ray showed a lot of stool throughout the colon therefore was giving multiple medications for her constipation as well as 1 enema. At this time patient was stable enough to be discharged to [facility] facility. 01/12/2025: Patient was seen and examined at bedside this morning. No acute overnight events. Patient this morning still had not had a bowel movement therefore another enema was given. At this time patient did have a bowel movement earlier during the day and she was stable enough to be discharged. Patient's discharge yesterday was delayed given patient did not have a bowel movement after enema was given in the afternoon. At this time patient is stable enough to go to a [facility] facility. And discharge instructions were mildly changed as patient's blood pressure was also on the lower end therefore some blood pressure medications were held. Discharge plan: Please follow-up primary care physician within 2 to 3 days upon discharge Please follow-up with your urologist within 5 days upon discharge concerning Ty catheter You have been started on carvedilol 12.5 mg twice daily and losartan 100 mg da danette. Blood pressure As needed hydralazine 100 mg twice daily has been changed to 3 times daily Hold your clonidine 0.1 mg twice daily and nifedipine 90 mg daily until follow up your primary care physician or if you SBP is above 145 can take your clonidine. For constipation we have started senna 8.6 mg tablet daily as well as MiraLAX daily, consider discontinuing if having frequent bowel movements. For anxiety we have started mirtazapine 7.5 mg daily Please come back to the ER if symptoms persist or worsen Problem list: #Hypertensive emergency #Esophageal stricture s/p dilation 01/08/25 #Dysphagia #Starvation ketoacidosis, resolved #Anion gap metabolic acidosis, resolved #Klebsiella UTI #Urinary retention #Abdominal pain #Insomnia #CKDIV versus 3B #Hypokalemia #Hypernatremia, resolved #Hypobicarbinemia, resolved #NIDDM2 Case disclosed with Attending Dr. Kelsi Tucker PGY2 Disclaimer: Even though this this note was dictated by speech recognition and even though it was carefully revised there may still be minor errors in earth moving machine operator due to voice recognition software. Status at Discharge Overall status at discharge: patient is progressing back to baseline Time Spent with Patient Time attestation: Total time spent providing and/or coordinating discharge services:36 min Time spent: Greater than 30 minutes Exam Vital Signs Temp Pulse Resp BP Pulse Ox O2 Del Method O2 Flow Rate 97.2 F 64 18 134/61 H 95 Nasal Cannula 0.5 01/12/25 12:00 01/12/25 13:20 01/12/25 12:00 01/12/25 13:20 01/12/25 12:00 01/12/25 12:00 01/12/25 12:00 FiO2 4 01/12/25 12:00 Narrative Exam General: A/O x3, no acute distress, frail elderly Eyes: PERRL, EOMI. Anicteric, vision grossly intact. Ears: No ear pain, no ear discharge, Hearing grossly intact. Nose: No nasal discharge. Mouth/Throat: Moist mucous membranes, no redness, no lesions. Neck: Neck supple, non-tender, no cervical lymphadenopathy. Lungs: Clear FELI to auscultation and percussion, No accessory muscle use. Cardio: Normal S1/S2, regular rhythm, no murmurs, no JVD or carotid bruits. Abdomen: Soft, mildly tender in RLQ, no palpable masses, peristalsis present, no guarding or rebound. Extremities: Symmetrical, no significant deformities, no peripheral edema , non-tender, peripheral pulses presents. Skin: No rashes, no lesions, warm to touch. Neuro: No focal neurological deficits. motor and sensory intact Psych: Cooperative, appropriate mood and effect. Discharge Plan Plan Patient Disposition: er Skilled [facility] (SNF) Patient condition on transfer: Stable Care Plan Goals: Please follow-up primary care physician within 2 to 3 days upon discharge Please follow-up with your urologist within 5 days upon discharge concerning Ty catheter You have been started on carvedilol 12.5 mg twice daily and losartan 100 mg daily. Blood pressure As needed hydralazine 100 mg twice daily has been changed to 3 times daily Hold your clonidine 0.1 mg twice daily and nifedipine 90 mg daily until follow up your primary care physician or if you SBP is above 145 can take your clonidine. For constipation we have started senna 8.6 mg tablet daily as well as MiraLAX daily, consider discontinuing if having frequent bowel movements. For anxiety we have started mirtazapine 7.5 mg daily Please come back to the ER if symptoms persist or worsen Prescriptions/Referrals Prescriptions/Med Rec: New sennosides [Senna Lax] 8.6 mg Tablet 8.6 mg PO QDAY 30 Days Qty: 30 0RF carvedilol 12.5 mg Tablet 12.5 mg PO BID 30 Days Qty: 60 0RF polyethylene glycol 3350 [HealthyLax] 17 gram Powder In Packet 17 g PO QDAY 30 Days Qty: 1 0RF losartan 25 mg Tablet 100 mg PO QDAY 30 Days Qty: 120 0RF mirtazapine 15 mg Tablet 7.5 mg PO QDAY 30 Days Qty: 15 0RF Continued glipizide-metformin 5-500 mg Tablet 1 tab PO TID aspirin 81 mg tablet,chewable 81 mg PO QDAY Changed hydralazine 100 mg tablet 100 mg PO TID 30 Days Qty: 90 0RF Patient Comments: take 1 tablet by mouth three times a day Held furosemide 20 mg tablet 20 mg PO QDAY Hold Instructions: Resume on 01/18/25. hold until follow up with PCP Patient Comments: TAKE 1 TABLET BY MOUTH EVERY DAY Discontinued carvedilol 3.125 mg tablet 3.125 mg PO BID Patient Comments: TAKE 1 TABLET BY MOUTH TWICE A DAY clonidine HCl 0.1 mg tablet 0.1 mg PO QDAY PRN (Reason: hypertensive emergency) Rx Instructions: one tablet by mouth every 24 hours as needed for systolic blood pressure >170 clonidine [Zlcyczrr-ITD-7] 0.2 mg/24 hr patch weekly 0.2 mg topical .weekly 30 Days Qty: 4 0RF Referrals: Zeus Nguyen MD [Primary Care Provider, Internal Medicine] Patient/Caregiver Discharge Instructions Other Discharge Activity Instructions:: Please follow-up primary care physician within 2 to 3 days upon discharge Please follow-up with your urologist within 5 days upon discharge concerning Ty catheter You have been started on carvedilol 12.5 mg twice daily and losartan 100 mg daily. Blood pressure As needed hydralazine 100 mg twice daily has been changed to 3 times daily Hold your clonidine 0.1 mg twice daily and nifedipine 90 mg daily until follow up your primary care physician or if you SBP is above 145 can take your clonidi ne. For constipation we have started senna 8.6 mg tablet daily as well as MiraLAX daily, consider discontinuing if having frequent bowel movements. For anxiety we have started mirtazapine 7.5 mg daily Please come back to the ER if symptoms persist or worsen Education Materials: Controlling High Blood Pressure, Dysphagia Diet- Managing Drinks, Dysphagia Diet- Managing Foods Print Language: German Stand Alone Forms: Hayley Award Info., Patient Portal Info Letter Discharge Order Discharge Orders: Discharge (Routine); Ordered 01/12/25 Ordered By: Popeye Tucker Quality Discharge Quality Measures VTE prophylaxis MD Attestestation MD Attestation I have seen and examined the patient. I was physically present for the doshi portions of the services provided including history, physical exam, diagnosis, treatment plans and orders. I agree with assessment and plan of care as documented by residents. Patient seen and examined at bedside this morning, appears comfortable and denies any new complaints. No acute overnight events. Patient was planned for discharge yesterday but did not have a bowel movement. This morning, received enema administration following which patient had bowel movement. Vital signs are stable, lab results are stable as well. Patient stable for discharge to SNF on oral medications. Recommended to follow-up with PCP, urology in few days after discharge. Even though this this note was carefully revised there may still be minor errors in earth moving machine operator due to voice recognition software. Mik Dolan MD
== END 2025-01-12 16:19 | disposition skilled nursing facility (03) | DRG 304 ==
LOC: SERX 17:08 → SERHOLD 21:53 → S3NX 01-04 06:00 → S2NX 01-06 11:31 → S3SX 01-11 09:23
PROVIDERS: Registered Nurse General Practice; Specialist; Student in an Organized Health Care Education/Training Program; Admitting Provider Internal Medicine; Emergency Provider Family Medicine; PCP Internal Medicine; Visit Provider Student in an Organized Health Care Education/Training Program
PROC: 0DB48ZX Excision of Esophagogastric Junction, Via Natural or Artificial Opening Endoscopic, Diagnostic (ICD-10-PCS; CPT 43239; principal; 2025-01-08 16:00)
DX: I16.1 Hypertensive emergency (principal); E11.10 Type 2 diabetes mellitus with ketoacidosis without coma; N17.9 Acute kidney failure, unspecified; N18.4 Chronic kidney disease, stage 4 (severe); N39.0 Urinary tract infection, site not specified; M86.60 Other chronic osteomyelitis, unspecified site; K80.00 Calculus of gallbladder with acute cholecystitis without obstruction; E87.0 Hyperosmolality and hypernatremia; I87.8 Other specified disorders of veins; E11.22 Type 2 diabetes mellitus with diabetic chronic kidney disease; I13.0 Hypertensive heart and chronic kidney disease with heart failure and stage 1 through stage 4 chronic kidney disease, or unspecified chronic kidney disease; E11.69 Type 2 diabetes mellitus with other specified complication; I50.9 Heart failure, unspecified; I49.1 Atrial premature depolarization; I48.91 Unspecified atrial fibrillation; Z88.0 Allergy status to penicillin; E88.89 Other specified metabolic disorders; E87.6 Hypokalemia; B96.1 Klebsiella pneumoniae [K. pneumoniae] as the cause of diseases classified elsewhere; F41.9 Anxiety disorder, unspecified; Z79.84 Long term (current) use of oral hypoglycemic drugs; K29.70 Gastritis, unspecified, without bleeding; K22.2 Esophageal obstruction; K20.90 Esophagitis, unspecified without bleeding; K82.8 Other specified diseases of gallbladder; G47.00 Insomnia, unspecified; K59.00 Constipation, unspecified; I25.10 Atherosclerotic heart disease of native coronary artery without angina pectoris; Z95.5 Presence of coronary angioplasty implant and graft; Z79.82 Long term (current) use of aspirin; Z79.899 Other long term (current) drug therapy
CPT/HCPCS: 36415; 36600; 70450; 71045; 74018; 74176; 76705; 78226; 80053; 80069; 80307; 81001; 82010; 82803; 83036; 83605; 83615; 83735; 83880; 84100; 84439; 84443; 84484; 85025; 85610; 85730; 87077; 87086; 87186; 92526; 92610; 93005; 93225; 93306; 96361; 96365; 96375; 97162; 99284; A4649; A9537; C1769; J0360; J0696; J1200; J1815; J2250; J2405; J2470; J3010; J3411; J3475; J3480; J3490; J7120; J7121; J7999; A9270; J1836